=== PATIENT | female | born 1955 | race Caucasian/White ===

== ENCOUNTER 2020-07-05 11:00 | Outpatient (REF) | payer OTHER, SELFPAY ==
[2020-07-05 14:10] LABS: Hematocrit 36.4 % (37-47); Hemoglobin 11.6 g/dl (12.0-16.0); Mean Corpuscular HGB Conc 31.9 g/dl (31.0-35.0); Mean Corpuscular Hemoglobin 31.9 pg (27.0-33.0); Mean Platelet Volume 9.4 fL (9.4-12.3); Platelet Count 250 X10*3/uL (160-400); Red Blood Count 3.64 X10*6/uL (4.20-5.50); Red Cell Distribution Width 13.6 % (11.0-16.0); White Blood Count 6.3 X10*3/uL (4.8-10.8)
[2020-07-05 14:17] LABS: Glucose Urine UA NEG (NEG); Leukocyte Esterase Urine NEG (NEG); Nitrite Urine NEG (NEG); PH 5.5 (5.0-8.0); Specific Gravity - Urine 1.025 (1.005-1.025); Urine Blood TRACE (NEG); Urine Ketones NEG (NEG); Urine Protein TRACE MG/DL (NEG-TRACE)
[2020-07-05 14:20] LABS: Appearance Urine HAZY; Color Urine YELLOW
[2020-07-05 14:27] LABS: Anion Gap 13 (12-20); Blood Urea Nitrogen 25 mg/dL (9-16); Calcium 8.4 mg/dL (8.4-10.2); Carbon Dioxide 26 mmol/L (22-29); Chloride 105 mmol/L (96-108); Estimated Glomerular Filt Rate 19; Potassium 4.6 mmol/l (3.3-5.1); Sodium 139 mmol/L (135-145); Squamous Epithelial Cell Urine 2+ /LPF; WBC Urine 0 /HPF (0-4)
[2020-07-05 14:49] LABS: Vitamin D 25-OH Total 36.4 ng/mL (>30)
== END 2020-07-05 11:01 | disposition home or self-care (01) ==
LOC: HO.HMGCLDS 11:00
PROVIDERS: PCP Internal Medicine; Visit Provider Internal Medicine Nephrology
DX: N18.4 Chronic kidney disease, stage 4 (severe) (principal)
CPT/HCPCS: 36415; 80051; 81001; 81003; 82306; 82310; 82565; 84520; 85027

== ENCOUNTER 2020-08-06 15:47 | Outpatient (REF) | payer OTHER, SELFPAY ==
--- NOTE | 2020-08-06 15:52 | MM_ITS ---
EXAMINATION: MM SCREENING DIGITAL BREAST TOMOSYNTHESIS, BILATERAL CLINICAL INFORMATION: Screening. Asymptomatic. The lifetime risk of breast cancer based on the Tyrer-Cuzick Model is 10.6%. COMPARISON: Mammography: December 23, 2018 and studies dating back to August 09, 2012 TECHNIQUE: Digital breast tomosynthesis is performed in both the craniocaudal and mediolateral oblique views along with computer-aided detection (CAD). Synthesized 2D images are generated from the tomosynthesis. FINDINGS: There are scattered areas of fibroglandular density (ACR BI-RADS breast composition Category b). There are no significant masses, abnormal calcifications, or other abnormalities. MM/MM tomosynthesis screening BI IMPRESSION: There are no significant changes from prior study. ASSESSMENT: BI-RADS 1: Negative RECOMMENDATION: Routine annual mammography screening. This patient's information was entered into a reminder system with a target due date for their next mammogram.
== END 2020-08-06 15:48 | disposition home or self-care (01) ==
LOC: HO.MAMMO 15:47
PROVIDERS: PCP Internal Medicine; Visit Provider Internal Medicine
DX: Z12.31 Encounter for screening mammogram for malignant neoplasm of breast (principal)
CPT/HCPCS: 77063; 77067

== ENCOUNTER 2020-10-23 10:02 | Outpatient (REF) | payer OTHER, SELFPAY ==
[2020-10-23 11:35] LABS: Hematocrit 36.3 % (37-47); Hemoglobin 11.7 g/dl (12.0-16.0); Mean Corpuscular HGB Conc 32.2 g/dl (31.0-35.0); Mean Corpuscular Hemoglobin 31.2 pg (27.0-33.0); Mean Corpuscular Volume 96.8 fL (80-98); Mean Platelet Volume 9.7 fL (9.4-12.3); Platelet Count 264 X10*3/uL (160-400); Red Blood Count 3.75 X10*6/uL (4.20-5.50); Red Cell Distribution Width 13.1 % (11.0-16.0); White Blood Count 5.9 X10*3/uL (4.8-10.8)
[2020-10-23 11:50] LABS: Appearance Urine HAZY; Color Urine YELLOW; Glucose Urine UA NEG (NEG); Leukocyte Esterase Urine TRACE (NEG); Nitrite Urine NEG (NEG); Urine Blood TRACE (NEG); Urine Ketones NEG (NEG); Urine Protein TRACE MG/DL (NEG-TRACE)
[2020-10-23 11:54] LABS: Anion Gap 15 (12-20); Blood Urea Nitrogen 30 mg/dL (9-16); Calcium 8.6 mg/dL (8.4-10.2); Carbon Dioxide 25 mmol/L (22-29); Chloride 104 mmol/L (96-108); Estimated Glomerular Filt Rate 23; Potassium 3.8 mmol/L (3.3-5.1); Sodium 140 mmol/L (135-145)
[2020-10-23 12:02] LABS: Vitamin D 25-OH Total 40.1 ng/mL (>30)
[2020-10-23 12:03] LABS: Bacteria Urine 2+ /LPF; Mucus Urine 3+ /LPF; RBC Urine 0-2 /HPF (0); Squamous Epithelial Cell Urine 3+ /LPF
[2020-10-24 14:02] LABS: Calcium (PTHI) 9.1 mg/dL (8.6-10.4); PTHI 111 pg/mL (14-64)
== END 2020-10-23 10:03 | disposition home or self-care (01) ==
LOC: HO.HMGCLDS 10:02
PROVIDERS: PCP Internal Medicine; Visit Provider Internal Medicine Nephrology
DX: N18.4 Chronic kidney disease, stage 4 (severe) (principal)
CPT/HCPCS: 36415; 80051; 81001; 82306; 82310; 82565; 83970; 84520; 85027

== ENCOUNTER 2021-02-21 13:31 | Outpatient (REF) | payer OTHER, SELFPAY ==
[2021-02-26 15:22] LABS: HPV mRNA E6/E7 rflx Not Detected (Not Detected)
== END 2021-02-21 13:32 | disposition home or self-care (01) ==
LOC: HO.LAB 13:31
PROVIDERS: PCP Internal Medicine; Visit Provider Advanced Practice Midwife
DX: Z01.419 Encounter for gynecological examination (general) (routine) without abnormal findings (principal); Z11.51 Encounter for screening for human papillomavirus (HPV)
CPT/HCPCS: 87624; 88142

== ENCOUNTER 2021-03-15 13:19 | Outpatient (REF) | payer OTHER, SELFPAY ==
[2021-03-15 15:38] LABS: Hematocrit 34.9 % (37-47); Hemoglobin 11.1 g/dl (12.0-16.0); Mean Corpuscular HGB Conc 31.8 g/dl (31.0-35.0); Mean Corpuscular Hemoglobin 31.1 pg (27.0-33.0); Mean Corpuscular Volume 97.8 fL (80-98); Mean Platelet Volume 9.8 fL (9.4-12.3); Platelet Count 238 X10*3/uL (160-400); Red Blood Count 3.57 X10*6/uL (4.20-5.50); Red Cell Distribution Width 13.2 % (11.0-16.0); White Blood Count 6.8 X10*3/uL (4.8-10.8)
[2021-03-15 15:40] LABS: Glucose Urine UA NEG (NEG); Leukocyte Esterase Urine NEG (NEG); Nitrite Urine NEG (NEG); Specific Gravity - Urine 1.025 (1.005-1.025); Urine Blood 1+ (NEG); Urine Ketones NEG (NEG); Urine Protein 1+ MG/DL (NEG-TRACE)
[2021-03-15 15:43] LABS: Appearance Urine CLEAR; Color Urine YELLOW
[2021-03-15 15:46] LABS: Anion Gap 12 (12-20); Blood Urea Nitrogen 23 mg/dL (9-16); Calcium 8.8 mg/dL (8.4-10.2); Carbon Dioxide 22 mmol/L (22-29); Chloride 109 mmol/L (96-108); Estimated Glomerular Filt Rate 21; Potassium 3.7 mmol/L (3.3-5.1); Sodium 139 mmol/L (135-145)
[2021-03-15 15:51] LABS: Bacteria Urine 1+ /LPF; Hyaline Casts Urine 0-2 /LPF; Squamous Epithelial Cell Urine 2+ /LPF
[2021-03-15 16:09] LABS: Vitamin D 25-OH Total 37.4 ng/mL (>30)
[2021-03-15 16:16] LABS: Microalbum/Creatinine Ratio Ur 21.9 ug/mg cr
[2021-03-18 15:11] LABS: Calcium (PTHI) 8.9 mg/dL (8.6-10.4); PTHI 173 pg/mL (14-64)
== END 2021-03-15 13:20 | disposition home or self-care (01) ==
LOC: HO.HMGCLDS 13:19
PROVIDERS: PCP Internal Medicine; Visit Provider Internal Medicine Nephrology
DX: N18.4 Chronic kidney disease, stage 4 (severe) (principal)
CPT/HCPCS: 36415; 80051; 81001; 82043; 82306; 82310; 82565; 83970; 84520; 85027

== ENCOUNTER 2021-05-14 09:10 | Outpatient (REF) | payer OTHER, SELFPAY ==
--- NOTE | ~2021-05-14 | XR_ITS ---
EXAMINATION: XR CHEST CLINICAL INFORMATION: Chest pain COMPARISON: Previous chest x-ray July 2012 and December 2009 TECHNIQUE: 2 views of the chest were obtained. FINDINGS: The cardiac and mediastinal contours are normal. There is a 9 mm nodule that projects over the left upper lung. This is similar to previous exams and probably represents a calcified granuloma. There is subsegmental atelectasis at the right lung base. There is a small to moderate right pleural effusion. There is no left pleural effusion. There is no pneumothorax. Bony structures are unremarkable. XR/XR chest 2V IMPRESSION: [id number] right pleural effusion and right base atelectasis. 9 mm left pulmonary nodule probably representing a calcified granuloma.
== END 2021-05-14 09:11 | disposition home or self-care (01) ==
LOC: HO.HMGCX 09:10
PROVIDERS: PCP Internal Medicine; Visit Provider Internal Medicine
DX: Z13.89 Encounter for screening for other disorder (principal)
CPT/HCPCS: 71046

== ENCOUNTER 2021-08-13 10:00 | Outpatient (REF) | payer OTHER, SELFPAY ==
--- NOTE | ~2021-08-13 | MM_ITS ---
EXAMINATION: MM SCREENING DIGITAL BREAST TOMOSYNTHESIS, BILATERAL CLINICAL INFORMATION: Screening. Asymptomatic. The lifetime risk of breast cancer based on the Tyrer-Cuzick Model is 13%. COMPARISON: Mammography: 08/06/2020, 12/23/2018, 12/07/2017 TECHNIQUE: Digital breast tomosynthesis is performed in both the craniocaudal and mediolateral oblique views along with computer-aided detection (CAD). Synthesized 2D images are generated from the tomosynthesis. FINDINGS: There are scattered areas of fibroglandular density (ACR BI-RADS breast composition Category b). There are no significant masses, abnormal calcifications, or other abnormalities. Parenchymal pattern is similar to prior studies. There is no developing density or interval mass or architectural abnormality. The axilla and skin contours are unremarkable. No significant changes. MM/MM tomosynthesis screening BI IMPRESSION: No mammographic evidence of malignancy. ASSESSMENT: BI-RADS 1: Negative RECOMMENDATION: Routine annual mammography screening. This patient's information was entered into a reminder system with a target due date for their next mammogram.
== END 2021-08-13 10:01 | disposition home or self-care (01) ==
LOC: HO.MAMMO 10:00
PROVIDERS: Visit Provider Internal Medicine
DX: Z12.31 Encounter for screening mammogram for malignant neoplasm of breast (principal)
CPT/HCPCS: 77063; 77067

== ENCOUNTER 2021-08-16 14:02 | Outpatient (REF) | payer OTHER, SELFPAY ==
--- NOTE | ~2021-08-16 | MM_ITS ---
EXAMINATION: BONE DENSITOMETRY CLINICAL INDICATION: Postmenopausal. Encounter for screening for osteoporosis. COMPARISON: Baseline BD dated 02/04/2008. TECHNIQUE: Using a truedash DXA System (software version: 13.1) manufactured by [employer], dual-energy x-ray absorptiometry was performed of the lumbar spine and left hip. The images are of good technical quality. Summary results are attached. FINDINGS: AP SPINE L1-L4: Current: BMD 1.294 g/cm2, Z-score 1.7, T-score 0.9, normal, 7.3% decrease from baseline (<5% change is not significant). Baseline: BMD 1.396 g/cm2. LEFT FEMUR, NECK: Current: BMD 0.684 g/cm2, Z-score -1.6, T-score -2.5, osteoporosis. Baseline: BMD 1.040 g/cm2. LEFT FEMUR, TOTAL: Current: BMD 0.847 g/cm2, Z-score -0.7, T-score -1.3, osteopenia, 27.9% decrease from baseline (<5% change is not significant). Baseline: BMD 1.175 g/cm2. IDENTIFIED RISK FACTORS: Menopause. Renal disease. HISTORY OF FRACTURE: None listed. MEDICATIONS: Vitamin D. MM/XR DEXA axial skeleton IMPRESSION: 1. DIAGNOSIS: Osteoporosis based on the lowest T-score value of -2.5 in the femoral neck applying World Health Organization criteria. 2. 10-YEAR FRACTURE RISK PREDICTION, FRAX: According to the guidelines, FRAX calculation should only be performed on patients in the osteopenia bone density category. 3. Treatment Recommendations: NOF guidelines recommend consideration for treatment in postmenopausal women and men age 50 and older presenting with the following: -A hip or vertebral (clinical or morphometric) fracture. -T-score less than or equal to -2.5 at the femoral neck or spine after appropriate evaluation to exclude secondary causes. -Low bone mass at the hip or spine and a 10-year fracture probability by FRAX of greater than or equal to 3% for hip fracture or greater than or equal to 20% for major osteoporotic fracture based on the [place] adapted WHO algorithm. 4. Other Recommendations: All treatment decisions require clinical judgment and consideration of individual patient factors, including patient preferences, comorbidities, previous drug use, risk factors not captured in the FRAX model (e.g. frailty, falls, vitamin D deficiency, increased bone turnover, interval significant decline in bone density) and possible under or overestimation of fracture risk by FRAX. Additional medical evaluation for secondary cause of low bone mineral density may be appropriate. FUTURE SCAN RECOMMENDATION: People with diagnosed cases of osteoporosis or at high risk for fracture should have regular bone mineral density tests. For patients eligible for Medicare, routine testing is allowed once every 2 years. The testing frequency can be increased to one year for patients who have rapidly progressing disease, those who are receiving or discontinuing medical therapy to restore bone mass, or have additional risk factors.
== END 2021-08-16 14:03 | disposition home or self-care (01) ==
LOC: HO.MAMMO 14:02
PROVIDERS: Visit Provider Internal Medicine
DX: Z13.820 Encounter for screening for osteoporosis (principal); M81.0 Age-related osteoporosis without current pathological fracture; Z78.0 Asymptomatic menopausal state; N18.4 Chronic kidney disease, stage 4 (severe); D63.1 Anemia in chronic kidney disease; Z79.899 Other long term (current) drug therapy
CPT/HCPCS: 77080

== ENCOUNTER 2021-08-22 10:45 | Outpatient (REF) | payer OTHER, SELFPAY ==
[2021-08-22 13:48] LABS: Appearance Urine CLOUDY; Color Urine STRAW; Glucose Urine UA NEG (NEG); Leukocyte Esterase Urine 1+ (NEG); Nitrite Urine NEG (NEG); Specific Gravity - Urine >= 1.030 (1.005-1.025); Urine Blood 1+ (NEG); Urine Ketones NEG (NEG); Urine Protein 1+ MG/DL (NEG-TRACE)
[2021-08-22 13:55] LABS: Hematocrit 36.1 % (37.0-47.0); Hemoglobin 11.5 g/dl (12.0-16.0); Mean Corpuscular HGB Conc 31.9 g/dl (31.0-35.0); Mean Corpuscular Hemoglobin 32.2 pg (27.0-33.0); Mean Corpuscular Volume 101.1 fL (80.0-98.0); Mean Platelet Volume 9.4 fL (9.4-12.3); Platelet Count 253 X10*3/uL (160-400); Red Blood Count 3.57 X10*6/uL (4.20-5.50); Red Cell Distribution Width 15.1 % (11.0-16.0); White Blood Count 6.5 X10*3/uL (4.8-10.8)
[2021-08-22 13:58] LABS: Amorphous Sediment Urine 1+ /LPF; Bacteria Urine 2+ /LPF; Granular Casts Urine 0-2 /LPF; Squamous Epithelial Cell Urine 3+ /LPF
[2021-08-22 14:12] LABS: Anion Gap 13 (12-20); Blood Urea Nitrogen 23 mg/dL (9-16); Calcium 9.3 mg/dL (8.4-10.2); Carbon Dioxide 28 mmol/L (22-29); Chloride 102 mmol/L (96-108); Estimated Glomerular Filt Rate 19; Potassium 4.2 mmol/L (3.3-5.1); Sodium 139 mmol/L (135-145)
[2021-08-22 14:17] LABS: Creatinine Urine 202.39 mg/dL; Microalbum/Creatinine Ratio Ur 34.5 ug/mg cr
[2021-08-22 14:37] LABS: Vitamin D 25-OH Total 43.9 ng/mL (>30)
== END 2021-08-22 10:46 | disposition home or self-care (01) ==
LOC: HO.HMGCLDS 10:45
PROVIDERS: Absent Provider Internal Medicine Nephrology; PCP Internal Medicine; Visit Provider Internal Medicine
DX: N18.4 Chronic kidney disease, stage 4 (severe) (principal); N12 Tubulo-interstitial nephritis, not specified as acute or chronic
CPT/HCPCS: 36415; 80051; 81001; 82043; 82306; 82310; 82565; 84520; 85027

== ENCOUNTER 2021-12-31 10:48 | Outpatient (REF) | payer MEDICARE, OTHER, SELFPAY ==
[2021-12-31 13:43] LABS: MANUAL DIFF FLAG NO
[2021-12-31 13:50] LABS: Basophils Percent Auto 0.3 % (0-2); Eosinophils Absolute Auto 0.1 X10*3/uL (0.0-0.4); Eosinophils Percent Auto 1.6 % (0-4); Hematocrit 35.9 % (37.0-47.0); Hemoglobin 11.5 g/dl (12.0-16.0); Imm Gran Abs Auto 0.02 X10*3/uL (0.00-0.03); Imm Gran Pct Auto 0.3 % (0.0-0.4); Lymphocytes Absolute Auto 1.3 X10*3/uL (1.2-4.9); Lymphocytes Percent Auto 21.7 % (20-40); Mean Corpuscular Hemoglobin 31.8 pg (27.0-33.0); Mean Corpuscular Volume 99.2 fL (80.0-98.0); Mean Platelet Volume 9.7 fL (9.4-12.3); Monocytes Absolute Auto 0.5 X10*3/uL (0.1-1.2); Monocytes Percent Auto 7.3 % (2-11); Neutrophils Absolute Auto 4.2 x10*3/uL (2.0-8.3); Neutrophils Percent Auto 68.8 % (45-73); Platelet Count 233 X10*3/uL (160-400); Red Blood Count 3.62 X10*6/uL (4.20-5.50); Red Cell Distribution Width 13.7 % (11.0-16.0); White Blood Count 6.2 X10*3/uL (4.8-10.8)
[2021-12-31 13:54] LABS: Appearance Urine CLEAR; Color Urine STRAW; Glucose Urine UA NEG (NEG); Leukocyte Esterase Urine 1+ (NEG); Nitrite Urine NEG (NEG); PH 5.5 (5.0-8.0); Specific Gravity - Urine <= 1.005 (1.005-1.025); Urine Blood TRACE (NEG); Urine Ketones NEG (NEG); Urine Protein NEG (NEG-TRACE)
[2021-12-31 14:00] LABS: Anion Gap 12 (12-20); Blood Urea Nitrogen 24 mg/dL (9-16); Calcium 9.2 mg/dL (8.4-10.2); Carbon Dioxide 24 mmol/L (22-29); Chloride 103 mmol/L (96-108); Estimated Glomerular Filt Rate 19; Potassium 4.7 mmol/L (3.3-5.1); Sodium 134 mmol/L (135-145)
[2021-12-31 14:22] LABS: Vitamin D 25-OH Total 35.2 ng/mL (>30)
[2021-12-31 14:23] LABS: Creatinine Urine 30.29 mg/dL; Microalbum/Creatinine Ratio Ur 26.4 ug/mg cr
[2021-12-31 14:44] LABS: RBC Urine 0-2 /HPF (0); Squamous Epithelial Cell Urine 1+ /LPF
[2021-12-31 14:45] LABS: Bacteria Urine 1+ /LPF
[2022-01-01 14:11] LABS: Calcium (PTHI) 8.8 mg/dL (8.6-10.4); PTHI 149 pg/mL (16-77)
== END 2021-12-31 10:49 | disposition home or self-care (01) ==
LOC: HO.HMGCLDS 10:48
PROVIDERS: PCP Internal Medicine; Visit Provider Internal Medicine Nephrology
DX: N18.4 Chronic kidney disease, stage 4 (severe) (principal); N12 Tubulo-interstitial nephritis, not specified as acute or chronic
CPT/HCPCS: 36415; 80051; 81001; 82043; 82306; 82310; 82565; 83970; 84520; 85025

== ENCOUNTER → 2022-03-07 14:00 | Outpatient (BNVA) | payer MEDICARE, OTHER, SELFPAY | PROVIDERS: PCP Internal Medicine; Visit Provider Internal Medicine Endocrinology, Diabetes & Metabolism | DX: M81.0 Age-related osteoporosis without current pathological fracture (principal) | CPT/HCPCS: 99202 ==

== ENCOUNTER 2022-04-01 15:08 | Outpatient (REF) | payer MEDICARE, OTHER, SELFPAY ==
[2022-04-02 11:05] LABS: BV Int Neg Control Negative (Negative); BV Int Pos Control Positive (Positive)
[2022-04-05 14:37] LABS: HPV mRNA E6/E7 rflx Not Detected (Not Detected)
== END 2022-04-01 15:09 | disposition home or self-care (01) ==
LOC: HO.LAB 15:08
PROVIDERS: Visit Provider Advanced Practice Midwife
DX: Z01.419 Encounter for gynecological examination (general) (routine) without abnormal findings (principal); Z11.51 Encounter for screening for human papillomavirus (HPV)
CPT/HCPCS: 87480; 87510; 87624; 87660; 88142

== ENCOUNTER 2022-04-24 14:49 | Outpatient (REF) | payer MEDICARE, OTHER, SELFPAY ==
[2022-04-24 15:15] LABS: COVID-19 Test Positive (Negative); IDNOW Serial# 16C4AD1C
== END 2022-04-24 14:50 | disposition home or self-care (01) ==
LOC: HO.LAB 14:49
PROVIDERS: Visit Provider Internal Medicine
DX: Z20.822 Contact with and (suspected) exposure to COVID-19 (principal)
CPT/HCPCS: 87635; C9803

== ENCOUNTER 2022-05-08 10:17 | Outpatient (REF) | payer MEDICARE, OTHER, SELFPAY ==
[2022-05-08 11:39] LABS: Appearance Urine Clear; Color Urine Yellow; Glucose Urine UA Negative (Negative); Leukocyte Esterase Urine Moderate (2+) (Negative); Nitrite Urine Negative (Negative); Specific Gravity - Urine <= 1.005 (1.005-1.025); Urine Blood Negative (Negative); Urine Ketones Negative (Negative); Urine Protein Negative (Neg-Trace)
[2022-05-08 11:45] LABS: Bacteria Urine None Seen (None Seen); Hyaline Casts Urine 0-2 /LPF (0-2); RBC Urine 0-2 /HPF (0-2)
[2022-05-08 11:50] LABS: UACC Culture Trigger YES
[2022-05-08 12:13] LABS: Anion Gap 15 (12-20); Blood Urea Nitrogen 35 mg/dL (9-16); Calcium 8.9 mg/dL (8.4-10.2); Carbon Dioxide 22 mmol/L (22-29); Chloride 102 mmol/L (96-108); Estimated Glomerular Filt Rate 22; Potassium 4.7 mmol/L (3.3-5.1); Sodium 134 mmol/L (135-145)
[2022-05-08 12:13] LABS: Creatinine Urine 27.95 mg/dL; Microalbum/Creatinine Ratio Ur 35.7 ug/mg cr; Total Protein Urine Random < 7 mg/dL (<12)
[2022-05-08 12:34] LABS: Vitamin D 25-OH Total 39.5 ng/mL (>30)
[2022-05-09 12:06] LABS: Calcium (PTHI) 8.7 mg/dL (8.6-10.4); PTHI 236 pg/mL (16-77)
== END 2022-05-08 10:18 | disposition home or self-care (01) ==
LOC: HO.HMGCLDS 10:17
PROVIDERS: PCP Internal Medicine; Visit Provider Internal Medicine Nephrology
DX: N18.4 Chronic kidney disease, stage 4 (severe) (principal); N12 Tubulo-interstitial nephritis, not specified as acute or chronic; E55.9 Vitamin D deficiency, unspecified
CPT/HCPCS: 36415; 80051; 81001; 82043; 82306; 82310; 82565; 83970; 84156; 84520; 87086

== ENCOUNTER 2022-08-14 10:21 | Outpatient (REF) | payer MEDICARE, OTHER, SELFPAY ==
--- NOTE | ~2022-08-14 | MM_ITS ---
EXAMINATION: MM SCREENING DIGITAL BREAST TOMOSYNTHESIS, BILATERAL CLINICAL INFORMATION: Screening. Asymptomatic. The lifetime risk of breast cancer based on the Tyrer-Cuzick Model is 12.8%. COMPARISON: Mammography: August 13, 2021 and studies dating back to October 17, 2015 TECHNIQUE: Digital breast tomosynthesis is performed in both the craniocaudal and mediolateral oblique views along with computer-aided detection (CAD). Synthesized 2D images are generated from the tomosynthesis. FINDINGS: There are scattered areas of fibroglandular density (ACR BI-RADS breast composition Category b). There are no significant masses, abnormal calcifications, or other abnormalities. MM/MM tomosynthesis screening BI IMPRESSION: No significant changes from prior exam. ASSESSMENT: BI-RADS 1: Negative RECOMMENDATION: Routine annual mammography screening. This patient's information was entered into a reminder system with a target due date for their next mammogram.
== END 2022-08-14 10:22 | disposition home or self-care (01) ==
LOC: HO.MAMMO 10:21
PROVIDERS: PCP Internal Medicine; Visit Provider Internal Medicine
DX: Z12.31 Encounter for screening mammogram for malignant neoplasm of breast (principal)
CPT/HCPCS: 77063; 77067

== ENCOUNTER 2022-12-02 10:42 | Outpatient (REF) | payer MEDICARE, OTHER, SELFPAY ==
[2022-12-02 14:25] LABS: Appearance Urine Cloudy; Color Urine Yellow; Glucose Urine UA Negative (Negative); Leukocyte Esterase Urine Large (3+) (Negative); Nitrite Urine Positive (Negative); PH 5.5 (5.0-9.0); Specific Gravity - Urine <= 1.005 (1.005-1.025); UMIC TRIGGER UA YES; Urine Blood Trace (Negative); Urine Ketones Negative (Negative); Urine Protein Trace mg/dL (Neg-Trace)
[2022-12-02 14:38] LABS: Anion Gap 14 (12-20); Blood Urea Nitrogen 24 mg/dL (9-16); Calcium 9.3 mg/dL (8.4-10.2); Carbon Dioxide 25 mmol/L (22-29); Chloride 100 mmol/L (96-108); Estimated Glomerular Filt Rate 22; Potassium 4.4 mmol/L (3.3-5.1); Sodium 135 mmol/L (135-145)
[2022-12-02 14:45] LABS: Vitamin D 25-OH Total 55.8 ng/mL (>30)
[2022-12-02 14:47] LABS: Bacteria Urine 4+ (None Seen); WBC Urine >50 /HPF (0-5)
[2022-12-02 14:48] LABS: Creatinine Urine 59.99 mg/dL; Protein/Creatinine Ratio, Ur 0.25 (<0.2); Total Protein Urine Random 15 mg/dL (<12)
[2022-12-04 13:33] LABS: Calcium (PTHI) 9.4 mg/dL (8.6-10.4); PTHI 123 pg/mL (16-77)
== END 2022-12-02 10:43 | disposition home or self-care (01) ==
LOC: HO.HMGCLDS 10:42
PROVIDERS: PCP Internal Medicine; Visit Provider Internal Medicine Nephrology
DX: N18.4 Chronic kidney disease, stage 4 (severe) (principal); N12 Tubulo-interstitial nephritis, not specified as acute or chronic; E55.9 Vitamin D deficiency, unspecified
CPT/HCPCS: 36415; 80051; 81001; 82043; 82306; 82310; 82565; 83970; 84156; 84520

== ENCOUNTER 2023-03-19 08:52 | Outpatient (REF) | payer MEDICARE, OTHER, SELFPAY ==
[2023-03-19 11:28] LABS: Appearance Urine Cloudy; Color Urine Yellow; Glucose Urine UA Negative (Negative); Leukocyte Esterase Urine Large (3+) (Negative); Nitrite Urine Negative (Negative); Specific Gravity - Urine 1.015 (1.005-1.025); UMIC TRIGGER UACC YES; Urine Blood Negative (Negative); Urine Ketones Negative (Negative); Urine Protein 30 (1+) mg/dL (Neg-Trace)
[2023-03-19 11:42] LABS: Bacteria Urine 2+ (None Seen); RBC Urine 0-2 /HPF (0-2); UACC Culture Trigger YES
== END 2023-03-19 08:53 | disposition home or self-care (01) ==
LOC: HO.HMGCLDS 08:52
PROVIDERS: PCP Internal Medicine; Visit Provider Dermatology
DX: N39.0 Urinary tract infection, site not specified (principal); L40.0 Psoriasis vulgaris
CPT/HCPCS: 81001; 87086

== ENCOUNTER 2023-05-07 10:43 | Outpatient (REF) | payer MEDICARE, OTHER, SELFPAY ==
[2023-05-07 13:26] LABS: Hematocrit 30.4 % (37.0-47.0); Mean Corpuscular HGB Conc 32.9 g/dl (31.0-35.0); Mean Corpuscular Hemoglobin 35.1 pg (27.0-33.0); Mean Corpuscular Volume 106.7 fL (80.0-98.0); Platelet Count 193 X10*3/uL (160-400); Red Blood Count 2.85 X10*6/uL (4.20-5.50); Red Cell Distribution Width 15.1 % (11.0-16.0); White Blood Count 6.5 X10*3/uL (4.8-10.8)
[2023-05-07 13:47] LABS: Appearance Urine Cloudy; Color Urine Yellow; Glucose Urine UA Negative (Negative); Leukocyte Esterase Urine Large (3+) (Negative); Nitrite Urine Negative (Negative); Specific Gravity - Urine <= 1.005 (1.005-1.025); UMIC TRIGGER UA YES; Urine Blood Trace (Negative); Urine Ketones Negative (Negative); Urine Protein Negative (Neg-Trace)
[2023-05-07 14:06] LABS: Anion Gap 14 (12-20); Blood Urea Nitrogen 16 mg/dL (9-16); Calcium 9.7 mg/dL (8.4-10.2); Carbon Dioxide 22 mmol/L (22-29); Chloride 105 mmol/L (96-108); Estimated Glomerular Filt Rate 24; Sodium 136 mmol/L (135-145)
[2023-05-07 14:14] LABS: Vitamin D 25-OH Total 53.6 ng/mL (>30)
[2023-05-07 14:43] LABS: Creatinine Urine 68.89 mg/dL; Microalbum/Creatinine Ratio Ur 15.9 ug/mg cr (<30)
[2023-05-07 15:09] LABS: Bacteria Urine 3+ (None Seen); Granular Casts Urine Present; RBC Urine 0-2 /HPF (0-2); Squamous Epithelial Cell Urine >20 /HPF (0-2); WBC Urine 21-50 /HPF (0-5)
[2023-05-08 15:55] LABS: Calcium (PTHI) 9.1 mg/dL (8.6-10.4); PTHI 110 pg/mL (16-77)
== END 2023-05-07 10:44 | disposition home or self-care (01) ==
LOC: HO.HMGCLDS 10:43
PROVIDERS: PCP Internal Medicine; Visit Provider Internal Medicine Nephrology
DX: N12 Tubulo-interstitial nephritis, not specified as acute or chronic (principal); N18.4 Chronic kidney disease, stage 4 (severe); E55.9 Vitamin D deficiency, unspecified
CPT/HCPCS: 36415; 80051; 81001; 82043; 82306; 82310; 82565; 82570; 83970; 84520; 85027

== ENCOUNTER 2023-06-18 10:40 | Outpatient (REF) | payer MEDICARE, OTHER, SELFPAY ==
[2023-06-18 14:25] LABS: Cholesterol 245 mg/dL (<200); Glucose Fasting 89 mg/dL (60-99); HDL Cholesterol 58 mg/dL (>40); LDL Cholesterol Calculated 160 mg/dL (<100); Triglycerides 136 mg/dL (<150)
== END 2023-06-18 10:41 | disposition home or self-care (01) ==
LOC: HO.HMGCLDS 10:40
PROVIDERS: PCP Internal Medicine; Visit Provider Internal Medicine
DX: Z00.01 Encounter for general adult medical examination with abnormal findings (principal); K52.832 Lymphocytic colitis; N18.4 Chronic kidney disease, stage 4 (severe)
CPT/HCPCS: 36415; 80061; 82947

== ENCOUNTER 2023-06-25 10:35 | Outpatient (AMB) | payer MEDICARE, OTHER, SELFPAY ==
--- NOTE | 2023-06-25 11:36 | A.OFFVIS_ITS ---
Intake Vital Signs 06/25/23 11:41 Height 5 ft 6 in Weight 174 lb BMI 28.1 BP 110/78 Blood Pressure Location Rt brachial Position Sitting Pulse 77 Pulse Source Pulse Oximeter Pulse Oximetry (%) 100 Oxygen Delivery Method Room Air Intake Visit Reasons: AWV G4038 Intake Note: pt is here for an AWV Allergies tetracycline [Tetracycline] Allergy (Severe, Verified 07/03/23 13:59) ANAPHYLAXIS, as a child, trouble breathing Medication List - Last Reconciled 06/25/23 by Sabrina Felix MD calcipotriene 0.005% topical calcipotriene-betamethasone 0.005-0.064 % topical BID cholecalciferol (vitamin D3) 1,250 mcg PO Q2W clobetasol 0.05% mL topical BID PRN ferrous sulfate 325 mg PO DAILY fluocinolone and shower cap 0.01 % (Mineola-Smoothe/FS Scalp Oil) 1 ea topical BEDTIME halobetasol propionate 0.05% topical BID nystatin 1 appl topical DAILY potassium chloride ER mEq PO sodium bicarbonate 1,950 mg PO BID triamcinolone acetonide 0.1% topical BID HPI AWV G4038 HPI Details AWV ? 67 year old lady presents today for her Annual Wellness Visit, initial visit.? She is up-to-date with her cholesterol and fasting blood sugar screening, done 06/18/2023, with former showing elevated LDL at 160 and triglycerides 136, with an HDL of 58. Fasting blood sugar are within normal limits. She is up-to-date with her screening mammogram, Pap smear in bone density scan Last colonoscopy screening was done in 03/01/2018 be repeated again in 10 years. Up-to-date with her flu shot and COVID booster as well as her pneumococcal vaccination and shingles vaccine and Tdap. ? Medical / Social History Reviewed? Past Medical History ?Yes . ? [place] of Care / Care Team list updated ?Yes . ? Surgical/Hospitalization History ?Yes . ? Current Medications (including OTC and supplements) ?Yes . ? Family History ?Yes . ? Tobacco Control form ?Yes . ? AUDIT-C (Alcohol use) form ?Yes . ? Illicit drug use in Social History ?Yes . ? Current diagnosis of depression? ?No ? Appropriate PHQ2/PHQ9 completed ?Yes . ? Data entered by ?Autom[employer] Service Station Mechanic and reviewed by provider ? Fall Risk ? Fall History? Have you had any falls with injury in the past year? ?No . ? Have you had two or more falls in the past year? ?No . ? Fall Risk Assessment: ?No falls in the past year . ? HRA filled out by the patient, reviewed by Provider and scanned. ? AWV ? Balance? Romberg ?Yes . ? Tandem walk ?Yes . ? Walk and Turn ?Yes . ? Rise from sit to stand ?Yes . ?Vision? Corrective lens ?none, sees Dr. Thomas ? Vision screen ?Hearing? Whisper test ?pass . ?Written Plan?Completed. See Patient Documents.? PFSH Medical History Secondary hyperparathyroidism Interstitial nephritis Hyperlipidemia Psoriasis vulgaris Abnormal Pap smear of cervix Osteoporosis Vulvar dermatitis Anemia due to chronic kidney disease Left Achilles tendinitis Kidney stones Chronic hypokalemia Lymphocytic colitis CKD (chronic kidney disease) stage 4, GFR 15-29 ml/min Surgical History Hx of colonoscopy H/O endoscopy History of colposcopy Family History Maternal Grandmother Breast cancer Maternal Aunt Breast cancer Colon cancer Sister Cervical cancer Social History Household Members: None Housing: House Alcohol intake: never Patient Tobacco Use Status: Never used Tobacco e-Cigarette/Vaping Use: Never Used service: Yes Current occupational status: retired Sexual orientation: Straight/Heterosexual Gender identity: Female Cognitive needs: No Hearing needs: No Vision needs: Yes Questionnaire Medicare Wellness Checkup What [age] 65-70 What gender do you identify with?: female During the past 4 weeks, how much have you been bothered by emotional problems s uch as feeling anxious, depressed, irritable, sad or downhearted, and blue?: not at all During the past 4 weeks, has your physical & emotional health limited your social activities with family, friends, neighbors, or groups?: not at all During the past 4 weeks, how much bodily pain have you generally had?: no pain During the past 4 weeks, was someone available to help you if you needed & wanted help?: yes, as much as I wanted During the past 4 weeks, what was the hardest physical activity you could do for at least 2 minutes?: very heavy Can you get to places out of walking distance without help? (For eg., can you travel alone on buses, taxis or drive your car?): Yes Can you go shopping for groceries or clothes without someone's help?: Yes Can you prepare your own meals?: Yes Can you do your housework without help?: Yes Because of any health problems, do you need the help of another person with your personal care needs such as eating, bathing, dressing or getting around the house?: No Can you handle your own money without help?: Yes During the past 4 weeks, how would you rate your health in general?: very good During the past 4 weeks how have things been going for you?: pretty well Are you having difficulties driving your car?: no Do you always fasten your seat belt when you are in a car?: yes, usually During past 4 weeks, have you been bothered by the following: never: Falling or dizzy when standing up, Sexual problems?, Teeth or denture problems?, Problems using the telephone? and Tiredness or fatigue? and seldom: Trouble eating well? Have you fallen 2 or more times in the past year?: No Are you afraid of falling?: No Are you a smoker?: no During the past 4 weeks, how many drinks of wine, beer, or other alcoholic beverages did you have?: no alcohol at all Do you exercise for about 20 minutes 3 or more times a week?: yes, some of the time Have you been given information to help with the following?: no: Hazards in your house that might hurt you? and no: Keeping track of your medications? How often do you have trouble taking medicines the way you have been told to take them?: I always take medicine as prescribed How confident are you that you can control & manage most of your health problems?: very confident What is your race?: White Mini Mental State Exam (MMSE) Orientation What is the (year) (season) (date) (day) (month)?: year (2022), season (Fall), date (06/25/2023), day () and month (May) Where are we (state) (county) (town or city) (hospital) (floor)?: state ([place]), county ([place]), town or city ([place]) and hospital/clinic ([facility]) Score Score: 9 Activity of Daily Living Bathing - sponge bath, tub bath or shower: receives no assistance (gets in/out by self, if usual bathing means Dressing - getting clothes from closets & drawers, including inner/outer garments & fasteners.: gets clothes & gets completely dressed without help Toileting - going to the 'toilet room' for urine/bowel elimination & cleaning self/arranging clothes: goes to toilet room, cleans self, arranges clothes without help Transfer: moves in & out of bed and chair without help (may use support object) Continence: has occasional 'accidents' Feeding: feeds self without help Total Score: 0 Information obtained from: patient Using telephone: independent Traveling: independent Shopping: independent Preparing meals: independent Housework: independent Taking medicine: independent Managing money: independent PHQ-9 Over the last 2 weeks, how often have you been bothered by any of the following problems? 1. Little interest or pleasure in doing things: not at all 2. Feeling down, depressed, or hopeless: not at all 3. Trouble falling or staying asleep, or sleeping too much: not at all 4. Feeling tired or having little energy: not at all 5. Poor appetite or overeating: not at all 6. Feeling bad about yourself - or that you are a failure or have let yourself or your family down: not at all 7. Trouble concentrating on things, such as reading the newspaper or watching television: not at all 8. Moving or speaking so slowly that other people could have noticed. Or the opposite - being so fidgety or restless that you have been moving around a lot more than usual: not at all 9. Thoughts that you would be better off or of hurting yourself in some way: not at all Total score: 0 Depression Screening Interpretation: Negative Depression Screening Done: Yes 71197 - PHQ-9 Billing: Yes Source: Developed by Drs. Yaniv Lake, Jyoti Wynn, Wagner Gr and colleagues, with an educational rosangela from [employer]. Physical Exam Vital Signs: Last Vital Signs Pulse 77 06/25/23 11:41 BP 110/78 06/25/23 11:41 Pulse Ox 100 06/25/23 11:41 Oxygen Delivery Method Room Air 06/25/23 11:41 BMI result Body Mass Index 28.1 Assessment & Plan Assessment & Plan (1) Encounter for initial annual wellness visit (AWV) in Medicare patient: Code(s): Z00.00 - Encounter for general adult medical examination without abnormal findings Plan: Medical wellness checklist, discussed with patient reviewed and updated. Copy given. (2) Advanced directives, counseling/discussion: Code(s): Z71.89 - Other specified counseling Plan: Initiated the conversation about Advanced Directives. Advanced Directives help patients prepare for current and future decisions about their medical treatment and place of care. Discussed with patient that it is a process where a patients current condition and prognosis are reviewed, their wishes for information regarding their illness are elicited, and likely medical dilemmas are presented and options discussed. MOLST and healthcare proxy form completed today. These forms can be amended as needed, reviewed yearly and make changes as needed (3) Secondary hyperparathyroidism: Code(s): N25.81 - Secondary hyperparathyroidism of renal origin Plan: Followed by Nephrology (4) Interstitial nephritis: Comment: Followed by Dr Frank Lane at [facility] Code(s): N12 - Tubulo-interstitial nephritis, not specified as acute or chronic Plan: Followed by Nephrology (5) Hyperlipidemia: Code(s): E78.5 - Hyperlipidemia, unspecified Plan: Continue with low-cholesterol diet (6) Psoriasis vulgaris: Comment: Sees Dr. Tina lawrence at [facility] Code(s): L40.0 - Psoriasis vulgaris Plan: Followed by dermatology (7) Osteoporosis: Code(s): M81.0 - Age-related osteoporosis without current pathological fracture (8) CKD (chronic kidney disease) stage 4, GFR 15-29 ml/min: Comment: Followed by Nephrology at [facility] Code(s): N18.4 - Chronic kidney disease, stage 4 (severe) (9) Anemia due to chronic kidney disease: Code(s): N18.9 - Chronic kidney disease, unspecified; D63.1 - Anemia in chronic kidney disease (10) Chronic hypokalemia: Code(s): E87.6 - Hypokalemia (11) Lymphocytic colitis: Code(s): K52.832 - Lymphocytic colitis Orders: Orders Lipid Panel 06/25/23 E78.5 - Hyperlipidemia, unspecified Quality Reporting (2019) Depression/Bipolar (159/160/161/177) PHQ-9: Total score: 0 Coding Level of Care Code Medicare First (G0438) Diagnoses Encounter for initial annual wellness visit (AWV) in Medicare patient Z00.00 Advanced directives, counseling/discussion Z71.89 Secondary hyperparathyroidism N25.81 Interstitial nephritis N12 Hyperlipidemia E78.5 Psoriasis vulgaris L40.0 Osteoporosis M81.0 CKD (chronic kidney disease) stage 4, GFR 15-29 ml/min N18.4 Anemia due to chronic kidney disease N18.9; D63.1 Chronic hypokalemia E87.6 Lymphocytic colitis K52.832 CPT Codes Advance Care Planning - Time spent: 16-45 minutes ([id number]) Advance Care Planning Advance Care Planning discussion: Completed/Scanned Date of discussion: 06/25/23 Who was present: patient Forms completed: Health Care Proxy and MOLST Time spent: 16-45 minutes Actual minutes spent: 16
[2023-06-25 11:41] VITALS: BP 110/78; PULSE 77; O2SAT 100; BMI 28.1
== END 2023-06-25 12:31 | disposition home or self-care (01) ==
PROVIDERS: Visit Provider Internal Medicine
DX: Z00.00 Encounter for general adult medical examination without abnormal findings (principal); N25.81 Secondary hyperparathyroidism of renal origin; N18.4 Chronic kidney disease, stage 4 (severe); N12 Tubulo-interstitial nephritis, not specified as acute or chronic; E78.5 Hyperlipidemia, unspecified; L40.0 Psoriasis vulgaris; N18.9 Chronic kidney disease, unspecified; M81.0 Age-related osteoporosis without current pathological fracture; D63.1 Anemia in chronic kidney disease; E87.6 Hypokalemia; K52.832 Lymphocytic colitis
CPT/HCPCS: 99497; G0438

== ENCOUNTER 2023-07-03 13:25 | Outpatient (REF) | payer MEDICARE, OTHER, SELFPAY ==
[2023-07-04 13:32] LABS: BV Int Neg Control Negative (Negative); BV Int Pos Control Positive (Positive)
== END 2023-07-03 13:26 | disposition home or self-care (01) ==
LOC: HO.LNP 13:25
PROVIDERS: PCP Internal Medicine; Visit Provider Advanced Practice Midwife
DX: Z01.419 Encounter for gynecological examination (general) (routine) without abnormal findings (principal); L29.2 Pruritus vulvae; N89.8 Other specified noninflammatory disorders of vagina
CPT/HCPCS: 87480; 87510; 87660

== ENCOUNTER 2023-07-03 13:25 | Outpatient (AMB) | payer MEDICARE, OTHER, SELFPAY ==
--- NOTE | 2023-07-03 13:41 | A.OFFVIS_ITS ---
Intake Vital Signs 07/03/23 13:42 Height 5 ft 6 in Weight 173 lb BMI 27.9 BP 112/70 Intake Visit Reasons: RN TELE annual exam Intake Note: psoriasis on private area The patient agreed to use of a medical billing associate during this encounter. Scribed for NESTOR Bethea by Irma Muñoz medical billing associate, on 07/03/2023 at 2:15 pm EST Badger Distiller Operator Required: No Information Interpreted: non-clinical & clinical Creative Project Manager: Creative Project Manager Present (Dacia Francis WINSTON) Accompanied by: Self / Same As Patient Allergies tetracycline [Tetracycline] Allergy (Severe, Verified 07/03/23 13:59) ANAPHYLAXIS, as a child, trouble breathing Post menopausal: Yes HPI HPI Comments History of Present Illness Details She is a postmenopausal woman presenting for annual exam. She attempts to eat a healthy diet. Hx of CKD, and reports little appetite. She lost her sense of taste in March, has lost almost 40lbs since. Has seen PCP. Not currently sexually active. Reports itching, greater at night. Hx of psoriasis, sees dermatology. Reports psoriasis on vulva area. Last pap smear 2021. Last mammogram 08/14/22. UTD on colonoscopy. PFSH Medical History Secondary hyperparathyroidism Interstitial nephritis Hyperlipidemia Psoriasis vulgaris Abnormal Pap smear of cervix Osteoporosis Vulvar dermatitis Anemia due to chronic kidney disease Left Achilles tendinitis Kidney stones Chronic hypokalemia Lymphocytic colitis CKD (chronic kidney disease) stage 4, GFR 15-29 ml/min Surgical History Hx of colonoscopy H/O endoscopy History of colposcopy Family History Maternal Grandmother Breast cancer Maternal Aunt Breast cancer Colon cancer Sister Cervical cancer Social History Household Members: None Housing: House Alcohol intake: never Patient Tobacco Use Status: Never used Tobacco e-Cigarette/Vaping Use: Never Used service: Yes Current occupational status: retired Sexual orientation: Straight/Heterosexual Gender identity: Female Cognitive needs: No Hearing needs: No Vision needs: Yes Female Reproductive History Menstrual Menopause type: natural Date of last pap smear: 04/03/22 Date of Mammogram: 08/14/22 Review of Systems Const All systems reviewed & are unremarkable except as noted in HPI and below Physical Exam Vital Signs: Last Vital Signs BP 112/70 07/03/23 13:42 BMI result Body Mass Index 27.9 Const General: cooperative, healthy appearing, no acute distress, well developed and alert Orientation/consciousness: patient oriented x3 HEENT Head: Yes normal to inspection Eyes General: appearance normal, both eyes and all related structures Neck Neck: Yes normal visual inspection Thyroid: Thyroid normal Chest Chest palpation & inspection: normal inspection of the chest Breast/axilla inspection: normal inspection of the breasts (no puckering, dimpling, peau de orange, retraction, discharge, masses) Breast/axilla palpation: normal palpation of the breasts Resp Effort & Inspection: normal respiratory effort GI Inspection: Yes normal to inspection Palpation (GI): Soft to palpation Rectal Exam - Female: deferred General: Yes bladder normal to palpation External Female Exam: normal external appearance, normal appearance of the urethra, erythema (chronic psoriasis) and external swelling Speculum Exam - Vagina: normal appearance of the vagina, normal palpation, abnormal vaginal discharge (yellow, watery) and vagina atrophic (moderate to severe-bled slightly with exam) Speculum Exam - Cervix: normal appearance of the cervix and normal palpation Bimanual exam- vagina & uterus: normal bimanual exam, normal palpation, uterine size normal, bladder normal to palpation and normal palpation Bimanual Exam- Adnexa, other: normal adnexae and no masses Skin General skin exam: no rashes or lesions noted Neuro General: patient oriented x3 Cognition (Neuro): normal cognition Extrem General: Yes normal to inspection Psych Attitude: cooperative Thought process: Normal thought process present Assessment & Plan Assessment & Plan (1) Encounter for well woman exam: Code(s): Z01.419 - Encounter for gynecological examination (general) (routine) without abnormal findings Plan: Discussed: Current recommendations for pap smears per ASCCP guidelines.? Breast awareness and periodic self breast exams. Encouraged yearly mammograms. Maintaining a healthy lifestyle including a well balanced diet including 1200mg Calcium and 600-800iu Vitamin D daily and routine exercise. Contact office with any PMB. All of her questions and concerns were addressed to the best of my ability. RTO in one year for AG. (2) Vulvar itching: Code(s): L29.2 - Pruritus vulvae Plan: Encouraged cool compresses to area. Follow up with Dermatology. Orders: Orders Bacterial Vaginosis Panel Today N89.8 - Other specified noninflammatory disorders of vagina Coding Level of Care Code Est Pt Prev Care >65y(70290) Diagnoses Encounter for well woman exam Z01.419 Vulvar itching L29.2
[2023-07-03 13:42] VITALS: BP 112/70; BMI 27.9
== END 2023-07-03 14:25 | disposition home or self-care (01) ==
PROVIDERS: PCP Internal Medicine; Visit Provider Advanced Practice Midwife
DX: Z01.419 Encounter for gynecological examination (general) (routine) without abnormal findings (principal); L29.2 Pruritus vulvae
CPT/HCPCS: 99397

== ENCOUNTER 2023-08-20 10:01 | Outpatient (REF) | payer MEDICARE, OTHER, SELFPAY | END 2023-08-20 10:02 | disposition home or self-care (01) | LOC: HO.MAMMO 10:01 | PROVIDERS: PCP Internal Medicine; Visit Provider Internal Medicine | DX: Z12.31 Encounter for screening mammogram for malignant neoplasm of breast (principal) | CPT/HCPCS: 77063; 77067 ==

== ENCOUNTER → 2023-08-20 10:45 | Outpatient (BNV) | payer MEDICARE, OTHER, SELFPAY | PROVIDERS: PCP Internal Medicine; Visit Provider Radiology Diagnostic Radiology | DX: Z12.31 Encounter for screening mammogram for malignant neoplasm of breast (principal) | CPT/HCPCS: 77063; 77067 ==

== ENCOUNTER 2023-09-19 15:51 | Inpatient (IN) | payer MEDICARE, OTHER, SELFPAY ==
--- NOTE | ~2023-09-19 | CT_ITS ---
EXAMINATION: CT HEAD WITHOUT CONTRAST (STROKE PROTOCOL) CLINICAL INFORMATION: Stroke protocol. Slurred speech COMPARISON: None available. TECHNIQUE: Contiguous axial imaging was performed from the skull base to vertex without intravenous administration of contrast. This CT examination was performed using dose optimization techniques as appropriate, variously including the following: *Automated exposure control *Adjustment of mA and/or kV according to patient size (this includes techniques or standardized protocols for targeted exams where dose is matched to indication/reason for exam; i.e. extremities or head) *Use of iterative reconstruction technique DLP: 640 mGy-cm FINDINGS: There is no evidence of acute intracranial hemorrhage or territorial infarction. No abnormal mass-effect or midline shift is seen. [place] to white matter differentiation is well preserved. No extra-axial fluid collections are identified. The ventricles are normal in size. There is no abnormal attenuation within the brain parenchyma. There is no osseous abnormality. The mastoid air cells and visualized portions of the paranasal sinuses are well-aerated. CT/CT head for stroke IMPRESSION: No acute intracranial pathology. This critical result was discussed with Dr. England at 4:48 PM hours on 09/19/2023. It was ascertained that the content and urgency of the report was understood at the time of direct communication.
--- NOTE | ~2023-09-19 | MR_ITS ---
EXAMINATION: MR BRAIN WITHOUT CONTRAST CLINICAL INFORMATION: CVA COMPARISON: CT head 09/19/2023 TECHNIQUE: MRI of the brain was obtained using routine sequences without contrast. FINDINGS: There is an acute punctate infarct along the periphery of the right parietotemporal lobe. Additional suspected hyperacute to acute infarct within the posterior left insula with associated diffusion restriction but relatively inconspicuous on T2 FLAIR imaging. No significant mass effect or reperfusion hemorrhage. No extra-axial fluid collection. Mild generalized parenchymal volume loss. Nonspecific burden of mild patchy supratentorial white matter disease which may reflect mild chronic microangiopathy. No mass lesion, mass effect, or herniation pattern. Normal intracranial arterial and dural venous sinus flow voids. Partially empty sella with the pituitary gland is situated somewhat posteriorly within the sella turcica. The orbits are grossly unremarkable. Trace paranasal sinus mucosal thickening. No mastoid effusion. Normal marrow signal. MR/MR head/brain wo con IMPRESSION: Acute punctate infarct along the periphery of the right parietotemporal lobe and additional punctate hyperacute to acute infarct within the posterior left insula with associated diffusion restriction but relatively inconspicuous on T2 FLAIR imaging. No significant mass effect or reperfusion hemorrhage.
--- NOTE | ~2023-09-19 | US_ITS ---
EXAMINATION: US EXTRACRANIAL CAROTID DUPLEX, BILATERAL CLINICAL INFORMATION: TIA COMPARISON: None available. TECHNIQUE: Real-time ultrasound and Doppler techniques (integrating B-mode 2-D vascular images, Doppler spectral analysis and color-flow Doppler imaging) were utilized to interrogate the extracranial carotid arteries, the vertebral arteries and proximal subclavian arteries bilaterally. The degree of stenosis is determined by criteria similar to NASCET. FINDINGS: Right Side: 1. There is no atherosclerotic plaque seen in the bifurcation/proximal ICA region. 2. The common carotid artery PSV proximally is 80 cm/s and distally 93 cm/s. 3. The proximal internal carotid artery velocities are 89 cm/s systolic and 32 cm/s diastolic. 4. The proximal external carotid artery PSV is 102 cm/s. 5. The vertebral artery shows antegrade flow. 6. The subclavian artery waveforms are normal. Left Side: 1. There is no atherosclerotic plaque seen in the bifurcation/proximal ICA region. 2. The common carotid artery PSV proximally is 94 cm/s and distally 79 cm/s. 3. The proximal internal carotid artery velocities are 67 cm/s systolic and 28 cm/s diastolic. 4. The proximal external carotid artery PSV is 79 cm/s. 5. The vertebral artery shows antegrade flow. 6. The subclavian artery waveforms are normal. US/US carotid duplex BI IMPRESSION: 1. RIGHT: Normal right internal carotid artery without atherosclerotic plaque or hemodynamically significant stenosis. 2. LEFT: Normal left internal carotid artery without atherosclerotic plaque or hemodynamically significant stenosis.
[2023-09-19 15:56] VITALS: BP 140/80; PULSE 76; O2SAT 98
[2023-09-19 16:04] VITALS: BP 136/78; PULSE 66; RESP 16; TEMP 36.6; O2SAT 100; BMI 27.6
--- NOTE | 2023-09-19 16:20 | ECG_ITS ---
Test Reason : CHEST PAIN Blood Pressure : / mmHG Vent. Rate : 063 BPM Atrial Rate : 063 BPM P-R Int : 166 ms QRS Dur : 076 ms QT Int : 382 ms P-R-T Axes : 044 -01 019 degrees QTc Int : 390 ms Normal sinus rhythm Normal ECG When compared with ECG of 20-AUG-2012 02:18, No significant change was found Referred By: Jessa England Electronically Signed By:MESERET DESIR
--- NOTE | 2023-09-19 16:21 | ED.NEUROSD ---
HPI - Neuro Symptoms/Deficit General Chief Complaint: Neuro Symptoms/Deficit Stated Complaint: Though she was having stroke, stroke scale neg. Time Seen by Provider: 09/19/23 16:11 History of Present Illness HPI Narrative: 67-year-old female presented today with having difficulty with finding the right word. This lasted over compensation with her brother. Patient denies any focal weakness did had some subjective tingling to the left hand during that time. There is no fever no chills no chest pain or shortness of breath no diaphoresis. There is no other focal weakness ambulatory no difficulties. No history diabetes, hypertension, high cholesterol, smoking, [place]. positive history of chronic kidney disease. Currently on the transplant list. Patient from home. New medications. No travel history. No leg swelling. Related Data Home Medications Medication Instructions Recorded Confirmed ferrous sulfate 325 mg (65 mg 325 mg PO DAILY 02/21/21 06/23/22 iron) tablet halobetasol propionate 0.05 % topical BID 02/21/21 06/23/22 topical ointment potassium chloride 10 mEq meq PO 02/21/21 06/23/22 tablet,extended release(part/cryst) sodium bicarbonate 650 mg tablet 1,950 mg PO BID 02/21/21 06/23/22 cholecalciferol (vitamin D3) 1,250 1,250 mcg PO Q2W 05/14/21 06/23/22 mcg (50,000 unit) capsule calcipotriene 0.005 % scalp topical 06/23/22 06/23/22 solution calcipotriene-betamethasone 0.005 topical BID 06/23/22 06/23/22 %-0.064 % topical suspension clobetasol 0.05 % scalp solution ml topical BID PRN 06/23/22 06/23/22 fluocinolone 0.01 % scalp oil and 1 ea topical BEDTIME 06/23/22 06/23/22 shower cap ([place]-Smoothe/FS Scalp Oil) triamcinolone acetonide 0.1 % topical BID 06/23/22 06/23/22 topical ointment Previous Rx's Medication Instructions Recorded nystatin 100,000 unit/gram topical 1 appl topical DAILY #30 grams 06/20/21 ointment Allergies Allergy/AdvReac Type Severity Reaction Status Date / Time tetracycline [Tetracycline] Allergy Severe ANAPHYLAXIS, Verified 07/03/23 13:59 as a child, trouble breathing Review of Systems Review of Systems: No chest pain or shortness breath no nausea no vomit Yes all other systems are reviewed and are negative PMFSH Past Medical History Attestation statement: The following information was validated with the patient. Onset Date is defined in the Problem List Problems that require an onset date and time if occurred within 24 hrs of arrival to the ED Aortic Dissection and Rupture; Neurologic impairment; Cardiopulmonary Arrest; Endotracheal Intubation; Insertion or Replacement of Mechanical Circulatory Assist Device Medical History Secondary hyperparathyroidism Interstitial nephritis Hyperlipidemia Psoriasis vulgaris Abnormal Pap smear of cervix Osteoporosis Vulvar dermatitis Anemia due to chronic kidney disease Left Achilles tendinitis Kidney stones Chronic hypokalemia Lymphocytic colitis CKD (chronic kidney disease) stage 4, GFR 15-29 ml/min Surgical History Hx of colonoscopy H/O endoscopy History of colposcopy Family History Family History Maternal Grandmother Breast cancer Maternal Aunt Breast cancer Colon cancer Sister Cervical cancer Social History Social History Household Members: None Housing: House Alcohol intake: never Patient Tobacco Use Status: Never used Tobacco Smoked in Last 30 Days: No e-Cigarette/Vaping Use: Never Used Advance Directives: Yes Advance Directives on File: Yes Advance Directives Date on File: 06/23/22 service: Yes Current occupational status: retired Sexual orientation: Straight/Heterosexual Gender identity: Female Cognitive needs: No Hearing needs: No Vision needs: Yes Physical Exam Vital Signs: Vital Signs: Last Vital Signs Temp 98 F 09/19/23 16:04 Pulse 75 09/19/23 18:31 Resp 14 09/19/23 18:31 BP 126/74 09/19/23 18:31 Pulse Ox 98 09/19/23 18:31 O2 Del Method Room Air 09/19/23 18:31 BMI result Body Mass Index 27.6 Appearance: Alert. Oriented X3. No acute distress. Eyes: Pupils equal, round and reactive to light. ENT: Pharynx normal. Neck: Normal inspection. Neck supple. No lymph nodes noted. No crepitus CVS: Normal heart rate and rhythm. Pulses normal. Normal S1 and S2 Respiratory: No respiratory distress. Breath sounds normal. No Wheezing. No rales Abdomen: Soft and nontender. No rigidity. No distention. good BS x4 Skin: Skin warm and dry. Normal skin color. Normal skin turgor. Extremities: No lower extremity edema. Neurovascular intact to all extremities. No Lacerations. No Rash Neuro: Oriented X 3. No motor deficit. No sensory deficit. Moving all extermities. No slurred speech Medical Decision Making Medical Decision Making [facility] Narrative: Patient is 67 years old presents today with having changes in her speech. There was no chest pain there is no diaphoresis or some numbness to her hand on arrival patient's NIH stroke scale was 0 symptom has resolved. Her CT scan of the head was grossly negative. A CTA was not done as patient has a history of chronic renal insufficiency her creatinine is 2. After consultation renal felt at this time better not to do the CTA and rely on an MRI instead. Patient will be getting a carotid to further check on the carotid vessels. Case discussed with her risks and benefit of further workup explained. Patient to be admitted for further monitoring. In stable condition case consulted by the hospitalist team as well. Patient's sugar was normal there is no evidence of hypoglycemia. Differential Diagnosis Differential Diagnoses: The differential diagnosis associated with the presentation includes Intracranial bleed, mass, hypoglycemia Admission/Observation Consideration of admission/observation: Escalation of care including admission/observation considered Will admit given TIA Consult Healthcare Provider Management of the patient was discussed with: Hospitalist and Facility Mechanic (Nephrology) Lab Data [facility] Lab Attestation statement: I reviewed the patient's lab results. 09/19/23 16:49 09/19/23 16:49 Labs: Lab Results 09/19/23 09/19/23 Range/Units 16:49 16:57 WBC 7.3 (4.8-10.8) X10*3/uL RBC 2.67 L (4.20-5.50) X10*6/uL Hgb 9.6 L (12.0-16.0) g/dl Hct 28.9 L (37.0-47.0) % MCV 108.2 H (80.0-98.0) fL MCH 36.0 H (27.0-33.0) pg MCHC 33.2 (31.0-35.0) g/dl RDW 14.6 (11.0-16.0) % Plt Count 158 L (160-400) X10*3/uL MPV 9.1 L (9.4-12.3) fL Immature Gran % (Auto) 0.4 (0.0-0.4) % Neut % (Auto) 75.4 H (45-73) % Lymph % (Auto) 15.6 L (20-40) % [place] % (Auto) 6.9 (2-11) % Eos % (Auto) 1.4 (0-4) % Baso % (Auto) 0.3 (0-2) % Lymph # (Auto) 1.1 L (1.2-4.9) X10*3/uL [place] # (Auto) 0.5 (0.1-1.2) X10*3/uL Eos # (Auto) 0.1 (0.0-0.4) X10*3/uL Baso # (Auto) 0.0 (0.0-0.2) X10*3/uL Abs Immat Gran (auto) 0.03 (0.00-0.03) X10*3/uL Absolute Neuts (auto) 5.5 (2.0-8.3) x10*3/uL Absolute Nucleated RBC 0.000 (0.0-0.012) X10*3/uL Nucleated RBC % (auto) 0.0 (0.0-0.2) /100WBC PT 10.4 L (11.1-13.3) SEC INR 0.9 (0.9-1.1) APTT 28.6 (26.0-36.4) SEC Sodium 138 (135-145) mmol/L Potassium 3.5 (3.3-5.1) mmol/L Chloride 110 H (96-108) mmol/L Carbon Dioxide 19 L (22-29) mmol/L Anion Gap 13 (12-20) BUN 28 H (9-16) mg/dL Creatinine 2.28 H (0.5-1.4) mg/dL Estim Creat Clear Calc 25.5 Estimated GFR 21 POC Glucose 91 (60-115) mg/dL Random Glucose 99 (60-115) mg/dL Calcium 9.4 (8.4-10.2) mg/dL Total Creatine Kinase 31 (26-140) U/L Troponin I High Sens 16.2 (<3.5-17.0) ng/L Independent Interpretation I performed an independent interpretation of an: EKG (My interpretation patient's EKG showed a sinus rhythm heart rate is 60 [place] QRS QTC within normal limits is no acute ST segment elevation noted.) and CT Scan (My interpretation patient's CT scan of the head was grossly negative for bleeding) Radiology Impression Discussion of test interpretation with radiology: I have reviewed the radiologist's reading. Radiologist Impression: I reviewed the radiology reading of the CT scan head with the radiologist. I reviewed his report. External Record Review External record reviewed: Inpatient record Chronic Conditions History of chronic renal disease NIH Stroke Scale Internal: Initial- Upon Arrival Time: 16:23 Level of Consciousness: Alert Level of Consciousness Questions: Answers both questions correctly Level of Consciousness Commands: Performs both tasks correctly Best Gaze: Normal Visual: No visual loss Facial Palsy: Normal Motor Arm (Right): No drift Motor Arm (Left): No drift Motor Leg (Right): No drift Motor Leg (Left): No drift Limb Ataxia: Absent Sensory: Normal Best Language: No aphasia Dysarthia: Normal Extinction and Inattention: No abnormality Score: 0 Discharge Plan Discharge Clinical Impression: Transient cerebral ischemia Patient Disposition: Admitted As Inpatient Prescriptions: No Action nystatin 100,000 unit/gram ointment 1 appl topical DAILY Qty: 30 4RF triamcinolone acetonide 0.1 % ointment topical BID fluocinolone and shower cap [[place]-Smoothe/FS Scalp Oil] 0.01 % oil 1 ea topical BEDTIME clobetasol 0.05 % solution topical BID PRN calcipotriene 0.005 % solution topical calcipotriene-betamethasone 0.005-0.064 % suspension topical BID ferrous sulfate 325 mg (65 mg iron) tablet 325 mg PO DAILY potassium chloride 10 mEq tablet,ER particles/crystals PO sodium bicarbonate 650 mg tablet 1,950 mg PO BID halobetasol propionate 0.05 % ointment topical BID cholecalciferol (vitamin D3) 1,250 mcg (50,000 unit) capsule 1,250 mcg PO Q2W
[2023-09-19 16:53] LABS: MANUAL DIFF FLAG NO
[2023-09-19 16:54] LABS: Basophils Percent Auto 0.3 % (0-2); Eosinophils Absolute Auto 0.1 X10*3/uL (0.0-0.4); Eosinophils Percent Auto 1.4 % (0-4); Hematocrit 28.9 % (37.0-47.0); Hemoglobin 9.6 g/dl (12.0-16.0); Imm Gran Abs Auto 0.03 X10*3/uL (0.00-0.03); Imm Gran Pct Auto 0.4 % (0.0-0.4); Lymphocytes Absolute Auto 1.1 X10*3/uL (1.2-4.9); Lymphocytes Percent Auto 15.6 % (20-40); Mean Corpuscular HGB Conc 33.2 g/dl (31.0-35.0); Mean Corpuscular Volume 108.2 fL (80.0-98.0); Mean Platelet Volume 9.1 fL (9.4-12.3); Monocytes Absolute Auto 0.5 X10*3/uL (0.1-1.2); Monocytes Percent Auto 6.9 % (2-11); Neutrophils Absolute Auto 5.5 x10*3/uL (2.0-8.3); Neutrophils Percent Auto 75.4 % (45-73); Platelet Count 158 X10*3/uL (160-400); Red Blood Count 2.67 X10*6/uL (4.20-5.50); Red Cell Distribution Width 14.6 % (11.0-16.0); White Blood Count 7.3 X10*3/uL (4.8-10.8)
[2023-09-19 17:00] LABS: INTERNATIONAL NORM RATIO 0.9 (0.9-1.1); Prothrombin Time 10.4 SEC (11.1-13.3)
[2023-09-19 17:01] LABS: Glucose, Whole Blood 91 mg/dL (60-115)
[2023-09-19 17:02] LABS: Partial Thromboplastin Time 28.6 SEC (26.0-36.4)
[2023-09-19 17:10] LABS: Anion Gap 13 (12-20); Blood Urea Nitrogen 28 mg/dL (9-16); Calcium 9.4 mg/dL (8.4-10.2); Carbon Dioxide 19 mmol/L (22-29); Chloride 110 mmol/L (96-108); Creatinine Clr Calc Pharmacy 25.5; Estimated Glomerular Filt Rate 21; Glucose Random 99 mg/dL (60-115); Potassium 3.5 mmol/L (3.3-5.1); Sodium 138 mmol/L (135-145)
[2023-09-19 17:17] LABS: Troponin-I High Sensitivity 16.2 ng/L (<3.5-17.0)
[2023-09-19 18:31] VITALS: BP 126/74; PULSE 75; RESP 14; O2SAT 98
--- NOTE | 2023-09-19 18:39 | PM.IMHP ---
History of Present Illness Date of Service: 09/19/23 Attending physician on admission: Huang Pritchard Chief Complaint: word finding difficulty 67 year old female with history of lymphocytic colitis, interstitial nephritis with CKD stage 4 following with [facility] on transplant list, secondary hyperparathyroidism, hld, and psoriasis presented to the ED earlier today for evaluation of an episode dysarthria around 2pm today. She was speaking with her brother on the phone and knew the words that she wanted to say but was unable to speak the correct words. This lasted for several minutes without recurrence. Following this episode felt paresthesias in the left hand only and had an episode of positional lightheadedness. No visual changes, slurred speech, facial droop, focal weakness, gait imbalance. No history of cva but states her mother and sister both from stroke. On arrival VSS. Hematology studies stable. Renal function baseline. Electrolytes normal, except for CO2 19 (has chronic diarrhea). Total CK 31, Trop 16.2. Lipid panel pending. Head CT negative for any acute intracranial abnormality. Passed bedside swallow eval. Given 162mg asa in ed. Pt to be observed for suspected TIA. TPA/TNK not administered given full resolution of symptoms on arrival. Review of Systems Review of Systems: General: No fevers, malaise, unintentional weight loss HEENT: No blurred vision, diplopia Cardiovascular: No chest pain, palpitations, or leg edema Respiratory: No shortness of breath, wheezing, cough GI: No abdominal pain, nausea, vomiting. +diarrhea : No dysuria, hematuria, increased urinary frequency MSK: No myalgia, back pain Neuro: No headaches, weakness.+ paresthesias, +dysarthria Skin: No rashes or lesions [facility] Medical History Secondary hyperparathyroidism Interstitial nephritis Hyperlipidemia Psoriasis vulgaris Abnormal Pap smear of cervix Osteoporosis Vulvar dermatitis Anemia due to chronic kidney disease Left Achilles tendinitis Kidney stones Chronic hypokalemia Lymphocytic colitis CKD (chronic kidney disease) stage 4, GFR 15-29 ml/min Family History Maternal Grandmother Breast cancer Maternal Aunt Breast cancer Colon cancer Sister Cervical cancer Surgical History Hx of colonoscopy H/O endoscopy History of colposcopy Social History Household Members: None Housing: House Alcohol intake: never Patient Tobacco Use Status: Never used Tobacco Smoked in Last 30 Days: No e-Cigarette/Vaping Use: Never Used Advance Directives: Yes Advance Directives on File: Yes Advance Directives Date on File: 06/23/22 service: Yes Current occupational status: retired Sexual orientation: Straight/Heterosexual Gender identity: Female Cognitive needs: No Hearing needs: No Vision needs: Yes Meds Allergies Allergy/AdvReac Type Severity Reaction Status Date / Time tetracycline [Tetracycline] Allergy Severe ANAPHYLAXIS, Verified 07/03/23 13:59 as a child, trouble breathing Active Medications: Current Medications Acetaminophen (Acetaminophen 325 Mg Tablet) 650 mg PO Q6H PRN PRN Reason: Pain, Mild (Pain Scale 1-3) Atorvastatin Calcium (Atorvastatin Calcium 40 Mg Tablet) 40 mg PO DAILY ANGI Ondansetron HCl (Ondansetron Hcl 4 Mg/2 Ml Vial) 4 mg IVPUSH Q8H PRN PRN Reason: Nausea and Vomiting Senna (Sennosides 8.6 Mg Tablet) 17.2 mg PO BEDTIME PRN PRN Reason: Constipation Home Medications Medication Instructions Recorded Confirmed Last Taken Type ferrous sulfate 325 mg (65 mg 325 mg PO DAILY 02/21/21 06/23/22 Unknown History iron) tablet halobetasol propionate 0.05 % topical BID 02/21/21 06/23/22 Unknown History topical ointment potassium chloride 10 mEq meq PO 02/21/21 06/23/22 Unknown History tablet,extended release(part/cryst) sodium bicarbonate 650 mg tablet 1,950 mg PO BID 02/21/21 06/23/22 Unknown History cholecalciferol (vitamin D3) 1,250 1,250 mcg PO Q2W 05/14/21 06/23/22 Unknown History mcg (50,000 unit) capsule calcipotriene 0.005 % scalp topical 06/23/22 06/23/22 Unknown History solution calcipotriene-betamethasone 0.005 topical BID 06/23/22 06/23/22 Unknown History %-0.064 % topical suspension clobetasol 0.05 % scalp solution ml topical BID PRN 06/23/22 06/23/22 Unknown History fluocinolone 0.01 % scalp oil and 1 ea topical BEDTIME 06/23/22 06/23/22 Unknown History shower cap ([place]-Smoothe/FS Scalp Oil) triamcinolone acetonide 0.1 % topical BID 06/23/22 06/23/22 Unknown History topical ointment Physical Exam Vital Signs and Narrative: Vital Signs: Last Vital Signs Temp 98 F 09/19/23 16:04 Pulse 75 09/19/23 18:31 Resp 14 09/19/23 18:31 BP 126/74 09/19/23 18:31 Pulse Ox 98 09/19/23 18:31 O2 Del Method Room Air 09/19/23 18:31 BMI result Body Mass Index 27.6 Constitutional - Awake and Alert, No apparent distress Eyes - PERRLA, EOMI Cardiovascular - S1S2, RRR, No edema Respiratory - Normal lung expansion, Normal respiratory effort, No respiratory distress, CTA bilaterally Gastrointestinal - NT / ND; +BS; No rebound or guarding Extremities - no calf tenderness bilaterally, no swelling Skin - Warm/Dry Neurological - Alert & oriented x3, CN II-XII in tact, 5/5 strength BUE and BLE. No pronator drift. Normal heel to flynn testing Psychological - Appropriate affect Results Labs 09/19/23 16:49 09/19/23 16:49 Labs: Laboratory Results - last 24 hr 09/19/23 09/19/23 16:49 16:57 MCV 108.2 H MCH 36.0 H MCHC 33.2 RDW 14.6 Plt Count 158 L MPV 9.1 L Immature Gran % (Auto) 0.4 Neut % (Auto) 75.4 H Lymph % (Auto) 15.6 L [place] % (Auto) 6.9 Eos % (Auto) 1.4 Baso % (Auto) 0.3 Lymph # (Auto) 1.1 L [place] # (Auto) 0.5 Eos # (Auto) 0.1 Baso # (Auto) 0.0 Abs Immat Gran (auto) 0.03 Absolute Neuts (auto) 5.5 Absolute Nucleated RBC 0.000 Nucleated RBC % (auto) 0.0 PT 10.4 L INR 0.9 APTT 28.6 Anion Gap 13 Estim Creat Clear Calc 25.5 Estimated GFR 21 POC Glucose 91 Random Glucose 99 Calcium 9.4 Total Creatine Kinase 31 Imaging Radiologist's Impressions: Impressions Head CT 09/19/23 16:31 IMPRESSION: No acute intracranial pathology. This critical result was discussed with Dr. England at 4:48 PM hours on 09/19/2023. It was ascertained that the content and urgency of the report was understood at the time of direct communication. Assessment and Plan (1) Transient cerebral ischemia: Status: Acute Plan 67 year old female with history of lymphocytic colitis, interstitial nephritis with CKD stage 4 following with [facility] on transplant list, secondary hyperparathyroidism, hld, and psoriasis to be observed for TIA. #Acute TIA -episode of dysarthria lasting several minutes without recurrence. No focal deficits on exam -Head CT negative for acute intracranial abnormality -Stat carotid doppler appears without any significant stenosis or LVO. Unable to get CTA due to renal function -MRI brain ordered -Asa 81mg daily -echo -passed bedside swallow eval -neuro checks -cardiac diet -lipid profile, atorvastatin 80mg daily -neuro consult -monitor on tele #CKD stage 4 -renal function baseline #Chronic diarrhea r/t lymphocytic colitis -continue brayan supplementals for electrolyte stability #Chronic macrocytic anemia -h/h above transfusion threshold -check vitamin b12/folic acid levels dvt prophylaxis- [facility] full code Quality Stroke Does the patient have a stroke diagnosis?: No VTE Prior VTE?: No VTE Risk Level:: Medical - moderate - high VTE Device Contraindication: Treatment Not Indicated VTE Drug Contraindication: N/A - Med Ordered
[2023-09-19 18:52] LABS: Cholesterol 265 mg/dL (<200); HDL Cholesterol 59 mg/dL (>40); LDL Cholesterol Calculated 173 mg/dL (<100); Triglycerides 168 mg/dL (<150)
[2023-09-19 19:16] LABS: Appearance Urine Clear; Color Urine Yellow; Glucose Urine UA Negative (Negative); Leukocyte Esterase Urine Small (1+) (Negative); Nitrite Urine Negative (Negative); Specific Gravity - Urine <= 1.005 (1.005-1.025); UMIC TRIGGER UACC YES; Urine Blood Negative (Negative); Urine Ketones Negative (Negative); Urine Protein Trace mg/dL (Neg-Trace)
--- NOTE | 2023-09-19 19:16 | PC.NURSE ---
this rn assumed care of pt. pt alert and orientedx4, respirations even and unlabored. pt given crackers at this time. urine obtained and sent to lab. no new orders.
[2023-09-19 19:28] LABS: Bacteria Urine None Seen (None Seen); RBC Urine 0-2 /HPF (0-2); Squamous Epithelial Cell Urine 0-2 /HPF (0-2); UACC Culture Trigger YES; WBC Urine 0-5 /HPF (0-5)
--- NOTE | 2023-09-19 19:38 | PC.NURSE ---
pt refused potassium chloride packet and asprin at this time. Lili JARRETT aware at this time.
[2023-09-19 19:51] VITALS: BP 106/58; PULSE 73; RESP 14; TEMP 36.5; O2SAT 99
--- NOTE | 2023-09-19 19:59 | PC.NURSE ---
pt taken to ultrasound at this time.
[2023-09-19] MEDS: Potassium Chloride ER 20 MEQ TAB.ER.PRT PO (20:38)
[2023-09-19] MEDS: Aspirin Enteric Coated 81 MG TABLET.DR 162 MG PO (20:38)
--- NOTE | 2023-09-19 20:38 | PC.NURSE ---
pt medicated per mar, pt tolerated well with gingerale. swallowed without difficulty.
[2023-09-19] MEDS: Sodium Bicarbonate 650 MG TABLET 1950 MG PO (21:55)
[2023-09-19 22:53] VITALS: BMI 27.6
[2023-09-19 22:58] LABS: Glucose, Whole Blood 108 mg/dL (60-115)
[2023-09-20] VITALS (8 sets, daily range): BP systolic 99–121; BP diastolic 57–69; PULSE 63–78; RESP 18–20; TEMP 36.4–37.2; O2SAT 93–99
[2023-09-20] MEDS: 0.9 % Sodium Chloride Flush 3 ML SYRINGE IVFLUSH ×4 (00:05→20:09)
[2023-09-20 06:06] LABS: MANUAL DIFF FLAG NO
[2023-09-20 06:21] LABS: Basophils Percent Auto 0.3 % (0-2); Eosinophils Absolute Auto 0.1 X10*3/uL (0.0-0.4); Eosinophils Percent Auto 1.3 % (0-4); Hematocrit 25.8 % (37.0-47.0); Hemoglobin 8.6 g/dl (12.0-16.0); Imm Gran Abs Auto 0.02 X10*3/uL (0.00-0.03); Imm Gran Pct Auto 0.3 % (0.0-0.4); Lymphocytes Absolute Auto 1.7 X10*3/uL (1.2-4.9); Mean Corpuscular HGB Conc 33.3 g/dl (31.0-35.0); Mean Corpuscular Hemoglobin 35.8 pg (27.0-33.0); Mean Corpuscular Volume 107.5 fL (80.0-98.0); Mean Platelet Volume 9.3 fL (9.4-12.3); Monocytes Absolute Auto 0.5 X10*3/uL (0.1-1.2); Monocytes Percent Auto 7.5 % (2-11); Neutrophils Absolute Auto 4.6 x10*3/uL (2.0-8.3); Neutrophils Percent Auto 66.6 % (45-73); Platelet Count 146 X10*3/uL (160-400); Red Cell Distribution Width 14.5 % (11.0-16.0); White Blood Count 6.9 X10*3/uL (4.8-10.8)
[2023-09-20 06:47] LABS: Anion Gap 10 (12-20); Blood Urea Nitrogen 27 mg/dL (9-16); Calcium 9.3 mg/dL (8.4-10.2); Carbon Dioxide 22 mmol/L (22-29); Chloride 114 mmol/L (96-108); Creatinine Clr Calc Pharmacy 25.2; Estimated Glomerular Filt Rate 21; Glucose Random 89 mg/dL (60-115); Potassium 3.8 mmol/L (3.3-5.1); Sodium 142 mmol/L (135-145)
[2023-09-20 07:08] LABS: Estimated Average Glucose 94 mg/dL; Hemoglobin A1c % 4.9 % (<6.0)
[2023-09-20 07:13] LABS: Folate 2.5 ng/mL (> or = 4.0); Vitamin B12 207 pg/mL (200-900)
[2023-09-20 07:17] LABS: Glucose, Whole Blood 82 mg/dL (60-115)
--- NOTE | 2023-09-20 09:11 | PHA.MEDREC ---
Pharmacy Consult ? Medication Reconciliation Pharmacy has completed the medication reconciliation. spoke with patient to confirm medications.
[2023-09-20] MEDS: Sodium Bicarbonate 650 MG TABLET 1950 MG PO ×2 (09:45→20:07)
--- NOTE | 2023-09-20 09:46 | P.PNIM_ITS ---
Subjective Subjective Date of Service: 09/20/23 Interval History: symptoms resolved Physical Exam 2 Vital Signs: Vital Signs: Last Vital Signs Temp 97.5 F 09/20/23 07:34 Pulse 63 09/20/23 07:34 Resp 20 09/20/23 07:34 BP 101/59 L 09/20/23 07:34 Pulse Ox 98 09/20/23 07:34 O2 Del Method Room Air 09/20/23 07:34 BMI result Body Mass Index 27.6 General: AO X 3, no acute distress Resp: CTA bilateral, no accessory muscles used CVS: S1,S2,RRR GI: soft, non tender, non distended Neuro: motor grossly intact, alert Psych: appropriate affect, appropriate insight Objective Data Active Medications Acetaminophen (Acetaminophen 325 Mg Tablet) 650 mg PO Q6H PRN PRN Reason: Pain, Mild (Pain Scale 1-3) Aspirin (Aspirin Enteric Coated 81 Mg Tablet.Dr) 81 mg PO DAILY [facility] Atorvastatin Calcium (Atorvastatin Calcium 80 Mg Tablet) 80 mg PO DAILY [facility] Folic Acid (Folic Acid 1 Mg Tablet) 5 mg PO DAILY [facility] Ondansetron HCl (Ondansetron Hcl 4 Mg/2 Ml Vial) 4 mg IVPUSH Q8H PRN PRN Reason: Nausea and Vomiting Potassium Chloride (Potassium Chloride Er 20 Meq Tab.Er.Prt) 20 meq PO DAILY@1500 ANGI Potassium Chloride (Potassium Chloride Er 20 Meq Tab.Er.Prt) 40 meq PO BID [facility] Senna (Sennosides 8.6 Mg Tablet) 17.2 mg PO BEDTIME PRN PRN Reason: Constipation Sodium Bicarbonate (Sodium Bicarbonate 650 Mg Tablet) 1,950 mg PO BID [facility] Last Admin: 09/19/23 21:55 Dose: 1,950 mg Documented By: KEKE Sodium Chloride (0.9 % Sodium Chloride Flush 3 Ml Syringe) 3 ml IVFLUSH QSHIFT [facility] Last Admin: 09/20/23 00:05 Dose: 3 ml Documented By: PETER Labs 09/20/23 05:52 09/20/23 05:52 Labs: Laboratory Results - last 24 hr 09/19/23 09/19/23 09/19/23 16:49 16:57 19:08 MCV 108.2 H MCH 36.0 H MCHC 33.2 RDW 14.6 Plt Count 158 L MPV 9.1 L Immature Gran % (Auto) 0.4 Neut % (Auto) 75.4 H Lymph % (Auto) 15.6 L [place] % (Auto) 6.9 Eos % (Auto) 1.4 Baso % (Auto) 0.3 Lymph # (Auto) 1.1 L [place] # (Auto) 0.5 Eos # (Auto) 0.1 Baso # (Auto) 0.0 Abs Immat Gran (auto) 0.03 Absolute Neuts (auto) 5.5 Absolute Nucleated RBC 0.000 Nucleated RBC % (auto) 0.0 PT 10.4 L INR 0.9 APTT 28.6 Anion Gap 13 Estim Creat Clear Calc 25.5 Estimated GFR 21 POC Glucose 91 Random Glucose 99 Estimat Average Glucose Hemoglobin A1c % Calcium 9.4 Total Creatine Kinase 31 Triglycerides 168 H Cholesterol 265 H LDL Cholesterol, Calc 173 H HDL Cholesterol 59 Vitamin B12 Folate Urine Color Yellow Urine Appearance Clear Urine pH 5.0 Ur Specific [place] <= 1.005 Urine Protein Trace Urine Glucose (UA) Negative Urine Ketones Negative Urine Blood Negative Urine Nitrite Negative Ur Leukocyte Esterase Small (1+) H Urine RBC 0-2 Urine WBC 0-5 Ur Squamous Epith Cells 0-2 Urine Bacteria None Seen Hyaline Casts 3-5 09/19/23 09/20/23 09/20/23 22:55 05:52 07:11 MCV 107.5 H MCH 35.8 H MCHC 33.3 RDW 14.5 Plt Count 146 L MPV 9.3 L Immature Gran % (Auto) 0.3 Neut % (Auto) 66.6 Lymph % (Auto) 24.0 [place] % (Auto) 7.5 Eos % (Auto) 1.3 Baso % (Auto) 0.3 Lymph # (Auto) 1.7 [place] # (Auto) 0.5 Eos # (Auto) 0.1 Baso # (Auto) 0.0 Abs Immat Gran (auto) 0.02 Absolute Neuts (auto) 4.6 Absolute Nucleated RBC 0.000 Nucleated RBC % (auto) 0.0 PT INR APTT Anion Gap 10 L Estim Creat Clear Calc 25.2 Estimated GFR 21 POC Glucose 108 82 Random Glucose 89 Estimat Average Glucose 94 Hemoglobin A1c % 4.9 Calcium 9.3 Total Creatine Kinase Triglycerides Cholesterol LDL Cholesterol, Calc HDL Cholesterol Vitamin B12 207 Folate 2.5 L Urine Color Urine Appearance Urine pH Ur Specific [place] Urine Protein Urine Glucose (UA) Urine Ketones Urine Blood Urine Nitrite Ur Leukocyte Esterase Urine RBC Urine WBC Ur Squamous Epith Cells Urine Bacteria Hyaline Casts Assessment and Plan (1) CKD (chronic kidney disease) stage 4, GFR 15-29 ml/min: Status: Acute Plan 66F PMH lymphocytic colitis, interstitial nephritis with ckdIV, secondary hyperpth, hld, psoriasis presented with transient aphasia transient aphasia check mri neuro eval ckd iv stable, outpatinet follow up macrocytic anemia chronic, due to folate and b12 deficiency start folic acid and b12 dvt prphylaxis - mechanical due tto anemia full code reason for continued hospitalization:pending neuro eval and mri Quality Stroke Does the patient have a stroke diagnosis?: No VTE Prior VTE?: No VTE Risk Level:: Medical - moderate - high VTE Device Contraindication: Treatment Not Indicated VTE Drug Contraindication: N/A - Med Ordered
[2023-09-20] MEDS: Atorvastatin Calcium 80 MG TABLET PO (09:48)
[2023-09-20] MEDS: Folic Acid 1 MG TABLET 5 MG PO (09:48)
[2023-09-20] MEDS: Aspirin Enteric Coated 81 MG TABLET.DR PO (09:48)
[2023-09-20] MEDS: Cyanocobalamin (Vitamin B-12) 1,000 MCG/ML VIAL 1000 MCG IM (09:49)
[2023-09-20] MEDS: Potassium Chloride ER 20 MEQ TAB.ER.PRT 40 MEQ PO ×2 (09:51→20:07)
--- NOTE | 2023-09-20 10:06 | PC.NURSE ---
Per Dr. Patino- pt. able to come off tele monitor for MRI.
[2023-09-20 11:11] LABS: Glucose, Whole Blood 90 mg/dL (60-115)
--- NOTE | 2023-09-20 14:53 | PM.EVENT ---
Event Note Date of Service: 09/20/23 Event Note: Nephrology consulted for CKD 4. S/P CVA. Renal function stable. Detailed consult note to follow AM. C/W current supportive management. Charli Ireland MD
--- NOTE | 2023-09-20 14:56 | MHC.CM.PN ---
IMM/ 09/20/23, EMR REVIEWED, PT ADMITTED W/TIA AND POSITIVE FOR STROKE PER MRI, CM MET W/PT WHO REPORTS SHE LIVES W/HER TWO CATS, PT IS FULLY INDEPENDENT W/ALL CARE, DENIES USE OF DME/SERVICES, PT REPORTS SHE FEELS BACK TO BASELINE AND DOES NOT FEEL SHE WILL NEED ANY SERVICES. PT VERIFIES PCP IS ALEXANDRIA DE LEON, FULLY COVID VAXED W/FLU/PNA/RSV VACCINES, PT REPORTS HCP IS HER SISTER VJ GERBER [phone] AND PCP ALEXANDRIA DE LEON HAS A COPY ON FILE, CM UNABLE TO LOCATE COPY IN [employer] [facility] [employer].
[2023-09-20] MEDS: Potassium Chloride ER 20 MEQ TAB.ER.PRT PO (15:49)
[2023-09-20] MEDS: Nystatin Ointment 15 GM TUBE 1 APPL TOPICAL (20:12)
[2023-09-21 03:11] VITALS: BP 90/50; PULSE 71; RESP 16; TEMP 36; O2SAT 97
--- NOTE | 2023-09-21 07:00 | CA_ITS ---
Transthoracic Echocardiogram Patient (Last, First, Middle): Lisha Solis L Gender: Female Date of : 1955 Age: 67 Procedure Date: 09/21/2023 Procedure Type: Transthoracic Echocardiogram [place] [facility] [place] Height: 167.64 cm Weight: 77.57 kg BSA: 1.87 m2 Heart Rate: 65 bpm BP: 90 / 50 mmHg Installment Account Checker: SB Referring MD: Coco JARRETT Symptoms: cva Study Quality: Adequate ECG Rhythm: Sinus Conclusions: - Normal left ventricular size, thickness, systolic function, and wall motion. The visually estimated ejection fraction is between 55-60%. Diastolic function is normal for age. - Normal right ventricular cavity size and systolic function. Findings Left Ventricle Normal left ventricular size, thickness, systolic function, and wall motion. The visually estimated ejection fraction is between 55-60%. Diastolic function is normal for age. Right Ventricle Normal right ventricular cavity size and systolic function. Atria The left atrium is normal in size. The right atrium is normal in size. Aortic Valve There is a normal trileaflet aortic valve. There is no aortic valve stenosis. There is no aortic valve regurgitation. Mitral Valve The mitral valve appears normal. There is no mitral valve regurgitation. There is no mitral valve stenosis. Pulmonic Valve The pulmonic valve is likely normal. Tricuspid Valve Normal tricuspid valve structure. There is mild tricuspid valve regurgitation. Great Vessels All visible segments of the aorta are normal in size. The visualized portions of the pulmonary artery and branches are normal. Venous The inferior vena cava is normal in size and collapses greater than 50% with inspiration. Pericardium/Pleural There is no evidence of pericardial effusion. Prior Study Comparison No prior study available for comparison. Measurements 2D Linear Measurements IVSd: 0.65 0.6-0.9/0.6-1.0 cm LVIDd: 4.37 3.9-5.3/4.2-5.9 cm LVIDd Index: 2.34 2.4-3.2/2.2-3.1 cm/m2 LVIDs: 3.06 2.0-3.6 cm LA Diam: 3.80 2.7-3.8/3.0-4.0 cm LAIDs Index: 2.03 1.5-2.3 cm/m2 LVOT Diam: 1.90 3.0+(-)1.3 cm 2D Systolic Function EF 4C: 64.60 >55% EF 2C: 67.40 >55% EF BiP: 65.10 >55% Mitral Valve MV Pk E: 0.76 MV PK A: 0.78 MV Decel Time: 176.00 E/A: 1.00 E'Lateral: 11.00 E'Medial: 7.83 E/E' Med: 9.70 E/E' Lat: 6.90 PHT: 52.00 MVA PHT: 4.23 Decel [place]: 4.31 Aortic Valve AoV Pk Lius: 1.62 AoV Pk Grad: 10.00 MEAGAN: 2.27 LVOT LVOT Pk Luis: 1.35 LVOT Mn Luis: 0.94 LVOT VTI: 0.25 LVOT Pk Grad: 7.00 LVOT Mn Grad: 5.00 LVOT Diam: 1.90 LVOT Area: 2.84 Diastolic Function MV Pk E: 0.76 MV Pk A: 0.78 E/A: 1.00 E'Medial: 7.83 E/E' Med: 9.70 E' Laterial: 11.00 E/E' Lat: 6.90 Right Ventricle TAPSE (mm): 17.90 TVS' Luis: 12.20 Tricuspid Valve TR Pk Luis: 2.13 TR Pk Grad: 18.00 Great Vessels Aorta Sinus of Valsalva: 2.80 2.0-3.5 cm Ao Asc: 2.80 2.1-3.4 cm Ao Arch: 2.70 Pulmonary Valve PV Pk Luis: 0.92 Peak PV Grad: 3.00 Updated in Other Vendor System with Status of Final Mynor Mojica MD electronically signed on 09/21/2023 1:36:04 PM with status of Final
[2023-09-21 07:18] VITALS: BP 106/56; PULSE 61; RESP 18; TEMP 36.6; O2SAT 98
[2023-09-21] MEDS: Aspirin Enteric Coated 81 MG TABLET.DR PO (08:29)
[2023-09-21] MEDS: Atorvastatin Calcium 80 MG TABLET PO (08:29)
[2023-09-21] MEDS: Potassium Chloride ER 20 MEQ TAB.ER.PRT 40 MEQ PO (08:29)
[2023-09-21] MEDS: Folic Acid 1 MG TABLET 5 MG PO (08:29)
[2023-09-21] MEDS: Cyanocobalamin (Vitamin B-12) 1,000 MCG TABLET 1000 MCG PO (08:29)
[2023-09-21] MEDS: 0.9 % Sodium Chloride Flush 3 ML SYRINGE IVFLUSH (08:30)
[2023-09-21] MEDS: Nystatin Ointment 15 GM TUBE 1 APPL TOPICAL (08:33)
[2023-09-21] MEDS: Sodium Bicarbonate 650 MG TABLET 1950 MG PO (08:36)
--- NOTE | 2023-09-21 09:15 | P.PNIM_ITS ---
Subjective Subjective Date of Service: 09/21/23 Interval History: symptoms resolved Physical Exam 2 Vital Signs: Vital Signs: Last Vital Signs Temp 98 F 09/21/23 07:18 Pulse 61 09/21/23 07:18 Resp 18 09/21/23 07:18 BP 106/56 L 09/21/23 07:18 Pulse Ox 98 09/21/23 07:18 O2 Del Method Room Air 09/21/23 07:18 BMI result Body Mass Index 27.6 General: AO X 3, no acute distress Resp: CTA bilateral, no accessory muscles used CVS: S1,S2,RRR GI: soft, non tender, non distended Neuro: motor grossly intact, alert Psych: appropriate affect, appropriate insight Objective Data Active Medications Acetaminophen (Acetaminophen 325 Mg Tablet) 650 mg PO Q6H PRN PRN Reason: Pain, Mild (Pain Scale 1-3) Aspirin (Aspirin Enteric Coated 81 Mg Tablet.) 81 mg PO DAILY [facility] Last Admin: 09/21/23 08:29 Dose: 81 mg Documented By: SHANICE Atorvastatin Calcium (Atorvastatin Calcium 80 Mg Tablet) 80 mg PO DAILY [facility] Last Admin: 09/21/23 08:29 Dose: 80 mg Documented By: SHANICE Betamethasone Dipropion Augmented (Betamethasone Dip Aug 0.05% Cr 15 Gm Tube) 1 appl TOPICAL BID PRN PRN Reason: Itching Cyanocobalamin (Cyanocobalamin (Vitamin B-12) 1,000 Mcg Tablet) 1,000 mcg PO DAILY [facility] Last Admin: 09/21/23 08:29 Dose: 1,000 mcg Documented By: SHANICE Folic Acid (Folic Acid 1 Mg Tablet) 5 mg PO DAILY [facility] Last Admin: 09/21/23 08:29 Dose: 5 mg Documented By: SHANICE Nystatin (Nystatin Ointment 15 Gm Tube) 1 appl TOPICAL DAILY [facility]; Protocol Last Admin: 09/21/23 08:33 Dose: 1 appl Documented By: SHANICE Ondansetron HCl (Ondansetron Hcl 4 Mg/2 Ml Vial) 4 mg IVPUSH Q8H PRN PRN Reason: Nausea and Vomiting Potassium Chloride (Potassium Chloride Er 20 Meq Tab.Er.Prt) 20 meq PO DAILY@1500 [facility] Last Admin: 09/20/23 15:49 Dose: 20 meq Documented By: LLUVIA Potassium Chloride (Potassium Chloride Er 20 Meq Tab.Er.Prt) 40 meq PO BID [facility] Last Admin: 09/21/23 08:29 Dose: 40 meq Documented By: SHANICE Senna (Sennosides 8.6 Mg Tablet) 17.2 mg PO BEDTIME PRN PRN Reason: Constipation Sodium Bicarbonate (Sodium Bicarbonate 650 Mg Tablet) 1,950 mg PO BID [facility] Last Admin: 09/21/23 08:36 Dose: 1,950 mg Documented By: SHANICE Sodium Chloride (0.9 % Sodium Chloride Flush 3 Ml Syringe) 3 ml IVFLUSH QSHIFT [facility] Last Admin: 09/21/23 08:30 Dose: 3 ml Documented By: SHANICE Labs 09/20/23 05:52 09/20/23 05:52 Labs: Laboratory Results - last 24 hr 09/20/23 11:08 POC Glucose 90 Microbiology Microbiology Results: Microbiology 09/19/23 19:29 Urine Culture - Preliminary Urine clean catch - Urine harris top Culture too young to evaluate. Assessment and Plan (1) Transient cerebral ischemia: Status: Acute Plan 66F PMH lymphocytic colitis, interstitial nephritis with ckdIV, secondary hyperpth, hld, psoriasis presented with transient aphasia acute cva asa, statin follow up neuro echo ckd iv stable, outpatient follow up macrocytic anemia chronic, due to folate and b12 deficiency started folic acid and b12 dvt prophylaxis - mechanical due to anemia full code reason for continued hospitalization:pending neuro eval and echo Quality Stroke Does the patient have a stroke diagnosis?: No VTE Prior VTE?: No VTE Risk Level:: Medical - moderate - high VTE Device Contraindication: Treatment Not Indicated VTE Drug Contraindication: N/A - Med Ordered
--- NOTE | 2023-09-21 09:19 | PM.DS ---
DS: Providers Provider Date of Service: 09/21/23 Date of admission: 09/19/23 21:38 Primary care physician: Sabrina Felix MD Consults: 09/19/23 18:35 Consult to Neurology Routine Consulting Provider: Lakia Rosa Reason for consultation: tia DS: Diagnosis Discharge Diagnosis (1) Transient cerebral ischemia: Status: Acute DS: Summary Hospital Course Hospital Course: from initial hpi: 67 year old female with history of lymphocytic colitis, interstitial nephritis with CKD stage 4 following with [facility] on transplant list, secondary hyperparathyroidism, hld, and psoriasis presented to the ED earlier today for evaluation of an episode dysarthria around 2pm today. She was speaking with her brother on the phone and knew the words that she wanted to say but was unable to speak the correct words. This lasted for several minutes without recurrence. Following this episode felt paresthesias in the left hand only and had an episode of positional lightheadedness. No visual changes, slurred speech, facial droop, focal weakness, gait imbalance. No history of cva but states her mother and sister both from stroke. On arrival VSS. Hematology studies stable. Renal function baseline. Electrolytes normal, except for CO2 19 (has chronic diarrhea). Total CK 31, Trop 16.2. Lipid panel pending. Head CT negative for any acute intracranial abnormality. Passed bedside swallow eval. Given 162mg asa in ed. Pt to be observed for suspected TIA. TPA/TNK not administered given full resolution of symptoms on arrival. hospital course: Patient was admitted for acute CVA. Was started on aspirin and statin. echo was unremarkable. as cva bilateral, concern for cardioembolic origin, plan for outpatient follow up for continuous heart monitoring. For her CKD 4 due to interstitial nephritis she remained stable and will follow up outpatient. She was noted to have microcytic anemia due to folate and B12 deficiency. She was started on folic acid and B12 supplement. Patient's deficits completely resolved and does not need rehab at this time. She will be discharged home. Time Attestation Discharge coordination time: Greater than 30 minutes Quality: Safe Use of Opioids Does Pt have an Active Cancer Diagnosis on the Problem List?: No Quality: Stroke Does the patient have a stroke diagnosis?: Yes Reason for No Anti-thrombotic at DC: N/A - Med Ordered Reason for No Anticoagulant at DC: Drug treatment not indicated Reason Not Initiating IV-Tpa: Drug treatment not indicated Reason for No Anti-thrombotic by Day Two: N/A - Med Ordered Reason for No Statin at DC: N/A - Med Ordered Physical Exam Vital Signs: Vital Signs: Last Vital Signs Temp 98 F 09/21/23 07:18 Pulse 61 09/21/23 07:18 Resp 18 09/21/23 07:18 BP 106/56 L 09/21/23 07:18 Pulse Ox 98 09/21/23 07:18 O2 Del Method Room Air 09/21/23 07:18 BMI result Body Mass Index 27.6 General: AO X 3, no acute distress Resp: CTA bilateral, no accessory muscles used CVS: S1,S2,RRR GI: soft, non tender, non distended Neuro: motor grossly intact, alert Psych: appropriate affect, appropriate insight DS: Data Data Completed and Pending Labs on day of discharge: Laboratory Results - last 24 hr 09/20/23 11:08 POC Glucose 90 Preliminary micro results at discharge 09/19/23 19:29 Urine Culture - Preliminary Urine clean catch - Urine harris top Culture too young to evaluate. Discharge Plan Discharge Anticipated Discharge Date/Time: 09/21/23 09:16 Patient Disposition: Home, Self-Care Discharge Diagnosis: cva, b12 and folate deficiency Referrals: Sabrina Felix MD [Primary Care Provider] - 1 Week Discharge Medications: New aspirin 81 mg Tablet,Delayed Release (Dr/Ec) 81 mg PO DAILY Qty: 30 0RF atorvastatin 80 mg Tablet 80 mg PO DAILY Qty: 30 0RF folic acid 1 mg Tablet 5 mg PO DAILY Qty: 30 0RF cyanocobalamin (vitamin B-12) [Vitamin B-12] 1,000 mcg Tablet 1,000 mcg PO DAILY Qty: 30 0RF Continued potassium chloride [Klor-Con M10] 10 mEq tablet,ER particles/crystals 40 meq PO BID potassium chloride [Klor-Con M10] 10 mEq tablet,ER particles/crystals 20 meq PO DAILY@1500 nystatin 100,000 unit/gram ointment 1 appl topical DAILY Qty: 30 4RF clobetasol 0.05 % solution 1 appl topical BID PRN (Reason: Itching) ferrous sulfate 325 mg (65 mg iron) tablet 325 mg PO DAILY sodium bicarbonate 650 mg tablet 1,950 mg PO BID halobetasol propionate 0.05 % ointment 1 appl topical BID PRN (Reason: Itching) cholecalciferol (vitamin D3) 1,250 mcg (50,000 unit) capsule 1,250 mcg PO Q2W Diet: Advance to usual diet Activity on Discharge: As tolerated Stand Alone Forms: Patient Portal Discharge page Care Plan Goals: prevent further strokes Health Concerns: cva, b12 and folate deficiencies Plan of Treatment: asa, statin, b12 and folate supplements Assessment: see above
--- NOTE | 2023-09-21 09:47 | P.CNNE_ITS ---
History of Present Illness Data of Consult Service Date: 09/21/23 Primary Care Provider: Sabrina Felix MD HPI Reason for consult: Stroke 67 years old woman with underlying history of lymphoproliferative colitis, chronic renal disease, but no known heart disease came to hospital with new onset of difficulty speaking. She said that she was talking to someone when wrong words were coming out. The symptoms lasted for only few seconds at a time. At 1 point she also noted a numb feeling on her left hand that lasted for few seconds. Her family members noted all this and suggested that she should come to emergency room because of possibility of stroke. There was no associated headache. Now she was feeling better. There was no associated cardiac symptom. Review of Systems 2 Review of Systems: No recent cold or flu-like symptoms PMFSH Past Medical History Medical History Secondary hyperparathyroidism Interstitial nephritis Hyperlipidemia Psoriasis vulgaris Abnormal Pap smear of cervix Osteoporosis Vulvar dermatitis Anemia due to chronic kidney disease Left Achilles tendinitis Kidney stones Chronic hypokalemia Lymphocytic colitis CKD (chronic kidney disease) stage 4, GFR 15-29 ml/min Family History Family History Maternal Grandmother Breast cancer Maternal Aunt Breast cancer Colon cancer Sister Cervical cancer Surgical History Surgical History Hx of colonoscopy H/O endoscopy History of colposcopy Social History Social History Household Members: None Housing: House Do you presently have visiting nurse or other home services: No Alcohol intake: never Patient Tobacco Use Status: Never used Tobacco Smoked in Last 30 Days: No e-Cigarette/Vaping Use: Never Used Use of substances other than those prescribed or required for medical reasons: No Currently Displaying Signs/Symptoms of Drug Intoxication Withdrawal: No Have you been hit, kicked, punched, or otherwise hurt by someone within the past year? If so, by whom?: No Do you feel safe in your current relationship?: No Current Relationship Is there a partner from a previous relationship who is making you feel unsafe now?: No Are you made to feel afraid or neglected: No [employer] [facility] Practices: religious Advance Directives: Yes Advance Directives on File: Yes Advance Directives Date on File: 06/23/22 Do you have thoughts of harming others: None Do you have a plan to hurt others: No Plan Recently lost weight without trying: Yes How much weight loss: 24-33 pounds Eating poorly because of decreased appetite: No Nutrition screen score: 5 Nutrition Risks: No Nutritional Risk Patient : No : No Poor oral hygiene: No service: Yes Current occupational status: retired Sexual orientation: Straight/Heterosexual Gender identity: Female Cognitive needs: No Hearing needs: No Vision needs: Yes Meds Allergies Allergy/AdvReac Type Severity Reaction Status Date / Time tetracycline [Tetracycline] Allergy Severe ANAPHYLAXIS, Verified 07/03/23 13:59 as a child, trouble breathing Active Medications: Current Medications Acetaminophen (Acetaminophen 325 Mg Tablet) 650 mg PO Q6H PRN PRN Reason: Pain, Mild (Pain Scale 1-3) Aspirin (Aspirin Enteric Coated 81 Mg Tablet.) 81 mg PO DAILY [facility] Last Admin: 09/21/23 08:29 Dose: 81 mg Atorvastatin Calcium (Atorvastatin Calcium 80 Mg Tablet) 80 mg PO DAILY [facility] Last Admin: 09/21/23 08:29 Dose: 80 mg Betamethasone Dipropion Augmented (Betamethasone Dip Aug 0.05% Cr 15 Gm Tube) 1 appl TOPICAL BID PRN PRN Reason: Itching Cyanocobalamin (Cyanocobalamin (Vitamin B-12) 1,000 Mcg Tablet) 1,000 mcg PO DAILY [facility] Last Admin: 09/21/23 08:29 Dose: 1,000 mcg Folic Acid (Folic Acid 1 Mg Tablet) 5 mg PO DAILY [facility] Last Admin: 09/21/23 08:29 Dose: 5 mg Nystatin (Nystatin Ointment 15 Gm Tube) 1 appl TOPICAL DAILY [facility]; Protocol Last Admin: 09/21/23 08:33 Dose: 1 appl Ondansetron HCl (Ondansetron Hcl 4 Mg/2 Ml Vial) 4 mg IVPUSH Q8H PRN PRN Reason: Nausea and Vomiting Potassium Chloride (Potassium Chloride Er 20 Meq Tab.Er.Prt) 20 meq PO DAILY@1500 [facility] Last Admin: 09/20/23 15:49 Dose: 20 meq Potassium Chloride (Potassium Chloride Er 20 Meq Tab.Er.Prt) 40 meq PO BID [facility] Last Admin: 09/21/23 08:29 Dose: 40 meq Senna (Sennosides 8.6 Mg Tablet) 17.2 mg PO BEDTIME PRN PRN Reason: Constipation Sodium Bicarbonate (Sodium Bicarbonate 650 Mg Tablet) 1,950 mg PO BID [facility] Last Admin: 09/21/23 08:36 Dose: 1,950 mg Sodium Chloride (0.9 % Sodium Chloride Flush 3 Ml Syringe) 3 ml IVFLUSH QSHIFT [facility] Last Admin: 09/21/23 08:30 Dose: 3 ml Home Medications Medication Instructions Recorded Confirmed Last Taken Type ferrous sulfate 325 mg (65 mg 325 mg PO DAILY 02/21/21 09/20/23 Unknown History iron) tablet halobetasol propionate 0.05 % 1 appl topical BID PRN Itching 02/21/21 09/20/23 Unknown History topical ointment sodium bicarbonate 650 mg tablet 1,950 mg PO BID 02/21/21 09/20/23 Unknown History cholecalciferol (vitamin D3) 1,250 1,250 mcg PO Q2W 05/14/21 09/20/23 Unknown History mcg (50,000 unit) capsule clobetasol 0.05 % scalp solution 1 appl topical BID PRN Itching 06/23/22 09/20/23 Unknown History potassium chloride 10 mEq 20 meq PO DAILY@1500 09/20/23 09/20/23 Unknown History tablet,extended release(part/cryst) (Klor-Con M) potassium chloride 10 mEq 40 meq PO BID 09/20/23 09/20/23 Unknown History tablet,extended release(part/cryst) (Klor-Con M) Physical Exam 2 Vital Signs: Vital Signs: Last Vital Signs Temp 98 F 09/21/23 07:18 Pulse 61 09/21/23 07:18 Resp 18 09/21/23 07:18 BP 106/56 L 09/21/23 07:18 Pulse Ox 98 09/21/23 07:18 O2 Del Method Room Air 09/21/23 07:18 BMI result Body Mass Index 27.6 Neuro: Other: She is alert and awake with normal spontaneity of speech fluency comprehension and affect. Face is symmetrical. Visual field examination revealed possible left hemianopsia. There is no pronator drift. [id number] testing is normal. Deep tendon reflexes are 1+ with flexor plantars. Speech is normal. Results Labs 09/20/23 05:52 09/20/23 05:52 Labs: MRI of brain revealed couple of punctate area of restricted diffusion and left frontal cortical area and 1 in right parietal superficial cortical area. Carotid ultrasound did not reveal any significant stenosis. 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 Her evaluation revealed small bilateral middle cerebral artery area acute ischemic infarctions suggestive of cerebral embolism. Likely source is cardiac. I recommend appropriate investigations to rule out cardiomyopathy and atrial fibrillation. In the meantime, as she was not taking it before, aspirin 81 mg daily is recommended. Treating her with anticoagulation would also be difficult because of severe anemia, which should be treated based upon etiology. Procedures Date of Service Date of Service: 09/21/23
--- NOTE | 2023-09-21 11:06 | P.CONNP_ITS ---
History of Present Illness Reason for Consult Consult date: 09/21/23 Chief Complaint Chief complaint: tia History of Present Illness Narrative: 67 year old female with history of lymphocytic colitis, interstitial nephritis with CKD stage 4 following with [facility] on transplant list, secondary hyperparathyroidism, hld, and psoriasis presented to the ED earlier today for evaluation of an episode dysarthria around 2pm today. She was speaking with her brother on the phone and knew the words that she wanted to say but was unable to speak the correct words. This lasted for several minutes without recurrence. Following this episode felt paresthesias in the left hand only and had an episode of positional lightheadedness. No visual changes, slurred speech, facial droop, focal weakness, gait imbalance. No history of cva but states her mother and sister both from stroke. Review of Systems Constitutional: Denies anorexia, Denies fever(s) and Denies weakness Eyes: Denies blurry vision Cardiovascular: Denies no additional cardiovascular complaints and Denies dyspnea Respiratory: Reports no additional respiratory complaints, Reports cough and Denies dyspnea Gastrointestinal: Denies melena and Denies diarrhea Genitourinary: Denies hematuria Musculoskeletal: Denies tingling Skin/Breast: Denies rash Denies focal weakness, Denies tingling, Denies tremor(s) and Denies weakness PMFSH Past Medical History Medical History Secondary hyperparathyroidism Interstitial nephritis Hyperlipidemia Psoriasis vulgaris Abnormal Pap smear of cervix Osteoporosis Vulvar dermatitis Anemia due to chronic kidney disease Left Achilles tendinitis Kidney stones Chronic hypokalemia Lymphocytic colitis CKD (chronic kidney disease) stage 4, GFR 15-29 ml/min Family History Family History Maternal Grandmother Breast cancer Maternal Aunt Breast cancer Colon cancer Sister Cervical cancer Surgical History Surgical History Hx of colonoscopy H/O endoscopy History of colposcopy Social History Social History Household Members: None Housing: House Do you presently have visiting nurse or other home services: No Alcohol intake: never Patient Tobacco Use Status: Never used Tobacco Smoked in Last 30 Days: No e-Cigarette/Vaping Use: Never Used Use of substances other than those prescribed or required for medical reasons: No Currently Displaying Signs/Symptoms of Drug Intoxication Withdrawal: No Have you been hit, kicked, punched, or otherwise hurt by someone within the past year? If so, by whom?: No Do you feel safe in your current relationship?: No Current Relationship Is there a partner from a previous relationship who is making you feel unsafe now?: No Are you made to feel afraid or neglected: No Jainism Healthcare Practices: protestant Advance Directives: Yes Advance Directives on File: Yes Advance Directives Date on File: 06/23/22 Do you have thoughts of harming others: None Do you have a plan to hurt others: No Plan Recently lost weight without trying: Yes How much weight loss: 24-33 pounds Eating poorly because of decreased appetite: No Nutrition screen score: 5 Nutrition Risks: No Nutritional Risk Patient : No : No Poor oral hygiene: No service: Yes Current occupational status: retired Sexual orientation: Straight/Heterosexual Gender identity: Female Cognitive needs: No Hearing needs: No Vision needs: Yes Meds Allergies Allergy/AdvReac Type Severity Reaction Status Date / Time tetracycline [Tetracycline] Allergy Severe ANAPHYLAXIS, Verified 07/03/23 13:59 as a child, trouble breathing Active Medications: Current Medications Acetaminophen (Acetaminophen 325 Mg Tablet) 650 mg PO Q6H PRN PRN Reason: Pain, Mild (Pain Scale 1-3) Aspirin (Aspirin Enteric Coated 81 Mg Tablet.) 81 mg PO DAILY COUNTS INCLUDE 234 BEDS AT THE [facility] Last Admin: 09/21/23 08:29 Dose: 81 mg Atorvastatin Calcium (Atorvastatin Calcium 80 Mg Tablet) 80 mg PO DAILY COUNTS INCLUDE 234 BEDS AT THE [facility] Last Admin: 09/21/23 08:29 Dose: 80 mg Betamethasone Dipropion Augmented (Betamethasone Dip Aug 0.05% Cr 15 Gm Tube) 1 appl TOPICAL BID PRN PRN Reason: Itching Cyanocobalamin (Cyanocobalamin (Vitamin B-12) 1,000 Mcg Tablet) 1,000 mcg PO DAILY COUNTS INCLUDE 234 BEDS AT THE [facility] Last Admin: 09/21/23 08:29 Dose: 1,000 mcg Folic Acid (Folic Acid 1 Mg Tablet) 5 mg PO DAILY COUNTS INCLUDE 234 BEDS AT THE [facility] Last Admin: 09/21/23 08:29 Dose: 5 mg Nystatin (Nystatin Ointment 15 Gm Tube) 1 appl TOPICAL DAILY COUNTS INCLUDE 234 BEDS AT THE [facility]; Protocol Last Admin: 09/21/23 08:33 Dose: 1 appl Ondansetron HCl (Ondansetron Hcl 4 Mg/2 Ml Vial) 4 mg IVPUSH Q8H PRN PRN Reason: Nausea and Vomiting Potassium Chloride (Potassium Chloride Er 20 Meq Tab.Er.Prt) 20 meq PO DAILY@1500 COUNTS INCLUDE 234 BEDS AT [facility] Last Admin: 09/20/23 15:49 Dose: 20 meq Potassium Chloride (Potassium Chloride Er 20 Meq Tab.Er.Prt) 40 meq PO BID COUNTS INCLUDE 234 BEDS AT THE [facility] Last Admin: 09/21/23 08:29 Dose: 40 meq Senna (Sennosides 8.6 Mg Tablet) 17.2 mg PO BEDTIME PRN PRN Reason: Constipation Sodium Bicarbonate (Sodium Bicarbonate 650 Mg Tablet) 1,950 mg PO BID COUNTS INCLUDE 234 BEDS AT [facility] Last Admin: 09/21/23 08:36 Dose: 1,950 mg Sodium Chloride (0.9 % Sodium Chloride Flush 3 Ml Syringe) 3 ml IVFLUSH QSHIFT COUNTS INCLUDE 234 BEDS AT THE [facility] Last Admin: 09/21/23 08:30 Dose: 3 ml Home Medications Medication Instructions Recorded Confirmed Last Taken Type ferrous sulfate 325 mg (65 mg 325 mg PO DAILY 02/21/21 09/20/23 Unknown History iron) tablet halobetasol propionate 0.05 % 1 appl topical BID PRN Itching 02/21/21 09/20/23 Unknown History topical ointment sodium bicarbonate 650 mg tablet 1,950 mg PO BID 02/21/21 09/20/23 Unknown History cholecalciferol (vitamin D3) 1,250 1,250 mcg PO Q2W 05/14/21 09/20/23 Unknown History mcg (50,000 unit) capsule clobetasol 0.05 % scalp solution 1 appl topical BID PRN Itching 06/23/22 09/20/23 Unknown History potassium chloride 10 mEq 20 meq PO DAILY@1500 09/20/23 09/20/23 Unknown History tablet,extended release(part/cryst) (Klor-Con M) potassium chloride 10 mEq 40 meq PO BID 09/20/23 09/20/23 Unknown History tablet,extended release(part/cryst) (Klor-Con M) Physical Exam Vital Signs: Last Vital Signs Temp 98 F 09/21/23 07:18 Pulse 61 09/21/23 07:18 Resp 18 09/21/23 07:18 BP 106/56 L 09/21/23 07:18 Pulse Ox 98 09/21/23 07:18 O2 Del Method Room Air 09/21/23 07:18 BMI result Body Mass Index 27.6 Const General: comfortable Nutritional Appearance: well nourished Orientation/consciousness: patient oriented x3 HEENT Head: No normal to inspection Mouth: moist mucous membranes Neck Neck: Yes supple and Yes no JVD Resp Auscultation: clear to auscultation bilaterally, no rales and rub present Cardio Jugular venous distension: no JVD Palpation: no palpable S3 and no palpable S4 Heart sounds: no rubs GI Palpation (GI): Soft to palpation and nontender Percussion: No Fluid wave present General: Yes no CVA tenderness Back/Spine/Pelvis Back: no CVA tenderness Skin General skin exam: no rashes or lesions noted Neuro General: patient oriented x3 Extrem General: Yes no pedal edema and No clubbing Results Lab Results 09/20/23 05:52 09/20/23 05:52 Lab results: Chemistry 09/19/23 09/20/23 16:49 05:52 Sodium 138 142 Potassium 3.5 3.8 Carbon Dioxide 19 L 22 BUN 28 H 27 H Creatinine 2.28 H 2.30 H Calcium 9.4 9.3 Hematology 09/19/23 09/20/23 16:49 05:52 WBC 7.3 6.9 Hgb 9.6 L 8.6 L Plt Count 158 L 146 L Urinalysis 09/19/23 19:08 Urine Color Yellow Urine Appearance Clear Urine pH 5.0 Ur Specific [place] <= 1.005 Urine Protein Trace Urine Glucose (UA) Negative Urine Ketones Negative Urine Blood Negative Urine Nitrite Negative Ur Leukocyte Esterase Small (1+) H Urine RBC 0-2 Urine WBC 0-5 Ur Squamous Epith Cells 0-2 Hyaline Casts 3-5 Assessment and Plan (1) CKD (chronic kidney disease) stage 4, GFR 15-29 ml/min: Status: Acute (2) Anemia due to chronic kidney disease: Status: Acute Plan Stable CKD 4 due to chr interstitial nephritis Renal function is at baseline Watch potassium Avoid nephrotoxins Check Iron/TIBC/Ferritin Check Ca and iPTH Shall follow with team Procedures Date of Service Date of Service: 09/21/23
[2023-09-21 11:57] VITALS: BP 112/68; PULSE 63; RESP 18; TEMP 36.8; O2SAT 98
--- NOTE | 2023-09-21 14:17 | MHC.CM.PN ---
Pt is medically cleared for D/C home self-care, pts friend transported her home.
== END 2023-09-21 14:37 | disposition home or self-care (01) | DRG 65 ==
LOC: HO.ED 18:41 → HO.IMC 22:28 → HO.EDOVER 09-20 12:01
PROVIDERS: Admitting Provider Physician Assistant; Emergency Provider Emergency Medicine Emergency Medical Services; PCP Internal Medicine; Visit Provider Internal Medicine
DX: I63.413 Cerebral infarction due to embolism of bilateral middle cerebral arteries (principal); N18.4 Chronic kidney disease, stage 4 (severe); N25.81 Secondary hyperparathyroidism of renal origin; R29.700 NIHSS score 0; D51.9 Vitamin B12 deficiency anemia, unspecified; E53.8 Deficiency of other specified B group vitamins; R47.01 Aphasia; K52.832 Lymphocytic colitis; Z76.82 Awaiting organ transplant status; Z79.82 Long term (current) use of aspirin; Z79.899 Other long term (current) drug therapy
CPT/HCPCS: 36415; 70450; 70551; 80048; 80061; 81001; 82550; 82607; 82746; 82947; 83036; 84484; 85025; 85610; 85730; 87086; 93005; 93306; 93880; 97161; 97165; 99222; 99285; J3420; Q9957

== ENCOUNTER → 2023-09-19 16:20 | Outpatient (BNV) | payer MEDICARE, OTHER, SELFPAY | PROVIDERS: Admitting Provider Physician Assistant; Emergency Provider Emergency Medicine Emergency Medical Services; Visit Provider Internal Medicine | DX: R07.9 Chest pain, unspecified (principal) | CPT/HCPCS: 93010 ==

== ENCOUNTER 2023-09-19 21:38 | Outpatient (BNV) | payer MEDICARE, OTHER, SELFPAY | END 2023-09-21 07:00 | PROVIDERS: Admitting Provider Physician Assistant; Emergency Provider Emergency Medicine Emergency Medical Services; PCP Internal Medicine; Visit Provider Internal Medicine Cardiovascular Disease | DX: I36.1 Nonrheumatic tricuspid (valve) insufficiency (principal); I63.413 Cerebral infarction due to embolism of bilateral middle cerebral arteries | CPT/HCPCS: 93306 ==

== ENCOUNTER → 2023-09-19 21:38 | Outpatient (BNV) | payer MEDICARE, OTHER, SELFPAY | PROVIDERS: Admitting Provider Physician Assistant; Emergency Provider Emergency Medicine Emergency Medical Services; Visit Provider Internal Medicine Nephrology | DX: N18.4 Chronic kidney disease, stage 4 (severe) (principal); D63.1 Anemia in chronic kidney disease | CPT/HCPCS: 99222; 99499 ==

== ENCOUNTER → 2023-09-19 21:38 | Outpatient (BNV) | payer MEDICARE, OTHER, SELFPAY | PROVIDERS: Admitting Provider Physician Assistant; Emergency Provider Emergency Medicine Emergency Medical Services; Visit Provider Physician Assistant | DX: G45.9 Transient cerebral ischemic attack, unspecified (principal); N18.4 Chronic kidney disease, stage 4 (severe) | CPT/HCPCS: 99223; 99232; 99239 ==

== ENCOUNTER → 2023-09-19 21:38 | Outpatient (BNV) | payer MEDICARE, OTHER, SELFPAY | PROVIDERS: Admitting Provider Physician Assistant; Emergency Provider Emergency Medicine Emergency Medical Services; PCP Internal Medicine; Visit Provider Psychiatry & Neurology Neurology | DX: I63.413 Cerebral infarction due to embolism of bilateral middle cerebral arteries (principal) | CPT/HCPCS: 99222 ==

== ENCOUNTER 2023-10-01 09:21 | Outpatient (AMB) | payer MEDICARE, OTHER, SELFPAY ==
--- NOTE | 2023-10-01 09:25 | MHC.PC.OV ---
Vital Signs 10/01/23 09:31 Height 5 ft 6 in Weight 172 lb BMI 27.8 BP 100/64 Blood Pressure Location Rt brachial Position Sitting Pulse 77 Pulse Source Pulse Oximeter Pulse Oximetry (%) 100 Oxygen Delivery Method Room Air Intake Visit Reasons: HDF stroke Intake Note: Pt is here today for her HDF C stroke Allergies tetracycline [Tetracycline] Allergy (Severe, Verified 10/01/23 09:38) ANAPHYLAXIS, as a child, trouble breathing Medication List - Last Reconciled 10/01/23 by Sabrina Felix MD aspirin 81 mg PO DAILY atorvastatin 80 mg PO DAILY cholecalciferol (vitamin D3) 1,250 mcg PO Q2W clobetasol 0.05% 1 appl topical BID PRN cyanocobalamin (vitamin B-12) (Vitamin B-12) 1,000 mcg PO DAILY ferrous sulfate 325 mg PO DAILY folic acid 5 mg (5 x 1 mg) PO DAILY halobetasol propionate 0.05% 1 appl topical BID PRN nystatin 1 appl topical DAILY potassium chloride ER (Klor-Con M) 20 mEq PO DAILY@1500 potassium chloride ER (Klor-Con M) 40 mEq PO BID sodium bicarbonate 1,950 mg PO BID Tobacco use date assessed: 10/01/23 Fall risk assessment: No Falls in past year Last assessed Fall Risk: 10/01/23 Dental Screening Dental Screen Date: 10/01/23 Did you have a dental visit in the last 12 months?: No Was dental information given to patient?: Patient declined HPI HDF stroke HPI Details 67 year old female with history of lymphocytic colitis, interstitial nephritis with CKD stage 4 following with [facility] and currently on transplant list, secondary hyperparathyroidism, hyperlipidemia, and psoriasis here today for follow-up after recent hospital admission. She presented to the ED for evaluation of an episode dysarthria . She was speaking with her brother on the phone and knew the words that she wanted to say but was unable to speak the correct words. This lasted for several minutes and resolved spontaneously without recurrence. Following this episode , she felt paresthesias in her left hand only and had an episode of positional lightheadedness. No visual changes, slurred speech, facial droop, focal weakness, gait imbalance. No history of cva but states her mother and sister both from stroke. On arrival at the ER, her vital signs were stable, and was speaking clearly. Hematology studies stable. Renal function baseline. Electrolytes normal, except for CO2 19 (has chronic diarrhea). Total CK 31, Trop 16.2. . She had a bedside swallow evaluation which she passed. Head CT was negative for any intracranial pathology, carotid ultrasound did not show any hemodynamically significant stenosis bilateral. Brain MRI done the next day however showed acute punctate infarct along the periphery of the right parietotemporal lobe and additional punctate hyperacute to acute infarct within the posterior left insula . She was admitted for acute CVA. TPA/TNK not administered given full resolution of symptoms on arrival at the ER. She was started on aspirin and statin. Echocardiogram done was unremarkable. Suspected cardioembolic origin, and plan was for outpatient follow up for continuous heart monitoring. She has chronic kidney disease stage 4 due to interstitial nephritis which has remained stable and will follow up with Nephrology outpatient. She was noted to have microcytic anemia due to folate and B12 deficiency. She was started on folic acid and B12 supplement. Patient's deficits completely resolved , no rehab indicated. At present, patient states that she is back to baseline, with no further episodes of dysarthria, no headache, no weakness or gait imbalance reported. [facility] Medical History (Updated 10/01/23 @ 10:02 by Sabrina Felix MD) Folate deficiency Vitamin B12 deficiency History of CVA (cerebrovascular accident) Secondary hyperparathyroidism Interstitial nephritis Hyperlipidemia Psoriasis vulgaris Abnormal Pap smear of cervix Osteoporosis Vulvar dermatitis Anemia due to chronic kidney disease Left Achilles tendinitis Kidney stones Chronic hypokalemia Lymphocytic colitis CKD (chronic kidney disease) stage 4, GFR 15-29 ml/min Surgical History Hx of colonoscopy H/O endoscopy History of colposcopy Family History Maternal Grandmother Breast cancer Maternal Aunt Breast cancer Colon cancer Sister Cervical cancer Social History Household Members: None Housing: House Do you presently have visiting nurse or other home services: No Alcohol intake: never Patient Tobacco Use Status: Never used Tobacco e-Cigarette/Vaping Use: Never Used Advance Directives Date on File: 06/23/22 service: Yes Current occupational status: retired Sexual orientation: Straight/Heterosexual Gender identity: Female Cognitive needs: No Hearing needs: No Vision needs: Yes Questionnaire PHQ-9 Over the last 2 weeks, how often have you been bothered by any of the following problems? 1. Little interest or pleasure in doing things: not at all 2. Feeling down, depressed, or hopeless: not at all 3. Trouble falling or staying asleep, or sleeping too much: not at all 4. Feeling tired or having little energy: not at all 5. Poor appetite or overeating: not at all 6. Feeling bad about yourself - or that you are a failure or have let yourself or your family down: not at all 7. Trouble concentrating on things, such as reading the newspaper or watching television: not at all 8. Moving or speaking so slowly that other people could have noticed. Or the opposite - being so fidgety or restless that you have been moving around a lot more than usual: not at all 9. Thoughts that you would be better off or of hurting yourself in some way: not at all Total score: 0 Depression Screening Interpretation: Negative Depression Screening Done: Yes 60220 - PHQ-9 Billing: Yes Source: Developed by Drs. Yaniv Lake, Jyoti Wynn, Wagner Gr and colleagues, with an educational rosangela from [employer]. Thrive Questionnaire Date Thrive assessed: 10/01/23 I am a: Patient What is your living situation today?: I have a steady place to live Within the past 12 months, did the food you bought not last and you didn't have the money to get more?: Never true Within the past 12 months, did you worry whether your food would run out before you got money to buy more?: Never true Do you have trouble paying for medicines?: No Do you have trouble getting transportation to medical appointments?: No Do you have trouble paying your heating and electricity bill?: No Do you have trouble taking care of your child, family member or friend?: No Do you have trouble with day-to-day activities such as bathing, preparing meals, shopping, managing finances, etc.?: No Are you currently unemployed and looking for a job?: No Are you interested in more education?: No THRIVE Score: 0 AUDIT C Alcohol Use Questionnaire (AUDIT-C) 1. How often do you have a drink containing alcohol?: Never Total Score: 0 JERE-7 AMB Questionnaire JERE-7 Date JERE - 7 assessed: 10/01/23 Feeling nervous, anxious, or on edge: 0 = Not at all Not being able to stop or control worryin = Not at all Worrying too much about different things: 0 = Not at all Trouble relaxin = Not at all Being so restless that it is hard to sit still: 0 = Not at all Becoming easily annoyed or irritable: 0 = Not at all Feeling afraid as if something awful might happen: 0 = Not at all Total JERE-7 score (0-4 normal; 5-9 mild; 10-14 moderate; 15-21 severe): 0 Source: Developed by Drs. Yaniv Lake, Jyoti Wynn, Wagner Gr and colleagues, with an educational rosangela from [employer]. JERE-7 Assessment Billing JERE-7 Assessment Tool: JERE-7 Assessment 11029 Review of Systems Const Denies fatigue, Denies fever(s), Denies headache(s), Denies malaise and Denies weakness Eyes Details: Up-to-date with her eye exam, sees Dr. Thomas Denies change in vision ENT Denies dizziness, Denies headache(s), Denies nasal congestion, Denies nasal discharge, Denies post nasal drip and Denies sore throat Card Reports no additional complaints and Denies chest pain Resp Denies chest congestion GI Denies abdominal pain, Denies melena, Denies hematochezia, Reports diarrhea and Denies nausea Reports no additional complaints Musc Details: No history of fractures Reports no additional complaints, Denies abnormal gait and Denies numbness Neuro Denies Neuro-related abnormal movements, Denies Abnormal speech present, Denies abnormal gait, Denies dizziness, Denies headache(s), Denies numbness, Denies seizure-like activity and Denies weakness Psych Reports as per HPI Endo Denies fatigue Robe/Lymph Reports no additional complaints Aller/Immun Reports no additional complaints Physical exam (Primary Care) Vital Signs: Last Vital Signs Pulse 77 10/01/23 09:31 BP 100/64 10/01/23 09:31 Pulse Ox 100 10/01/23 09:31 Oxygen Delivery Method Room Air 10/01/23 09:31 BMI result Body Mass Index 27.8 BMI Assessment/Plan discussion: High BMI High, discussed plan: lifestyle, weight reduction, dietary and physical activity Tobacco/Smoking Status: Tobacco use Status Tobacco use date assessed 10/01/23 10/01/23 09:29 Patient Tobacco Use Status Never used Tobacco 10/01/23 09:29 e-Cigarette/Vaping Use Never Used 10/01/23 09:29 Depression Screening Interpretation: Negative Thrive Assessment: Date of Thrive Assessment Date Thrive assessed 10/01/23 10/01/23 09:40 Const General: cooperative and comfortable Nutritional Appearance: obese Orientation/consciousness: patient oriented x3 HENMT General nose exam: Normal external nose present Face and sinus: Yes face symmetric Mouth: Normal oral and palatal mucosa present and moist mucous membranes Eyes General: appearance normal, both eyes and all related structures Neck Neck: Yes full ROM, Yes no lymphadenopathy, Yes supple and Yes no JVD Thyroid: Thyroid normal Resp Effort & Inspection: normal respiratory effort and able to speak in complete sentences Auscultation: clear to auscultation bilaterally Cardio Jugular venous distension: no JVD Rate: regular rate Rhythm: regular rhythm Heart sounds: S1 normal heart sound present and S2 normal heart sound present GI Inspection: Yes obesity Palpation (GI): Soft to palpation, nontender, not rigid and no masses Auscultation: normal bowel sounds Back/Spine/Pelvis Back: No back tenderness Neuro General: patient oriented x3, gait normal, moves all extremities, Normal light touch and pain sensation and no focal motor deficits Speech: No Abnormal speech present Extrem General: Yes full ROM, Yes no joint enlargement, Yes no clubbing, cyanosis or edema and Yes normal gait Psych Appearance: grossly normal and well kempt Mental Status: mental status grossly normal Speech and movement: Normal speech and movement present Affect: normal affect Attitude: cooperative Thought process: Normal thought process present Assessment and Plan Assessment & Plan (1) History of CVA (cerebrovascular accident): Code(s): Z86.73 - Personal history of transient ischemic attack (TIA), and cerebral infarction without residual deficits Plan: Continue aspirin 81 mg daily , referral to cardiology, for follow-up after recent admission for CVA? Cardioembolic in etiology. Bilateral carotid ultrasound showed no hemodynamically significant stenosis present (2) Hyperlipidemia: Code(s): E78.5 - Hyperlipidemia, unspecified Plan: On atorvastatin, continue in addition to adhering to low-cholesterol diet and regular exercise. Will repeat another fasting lipid panel liver enzymes in 3 month (3) Interstitial nephritis: Comment: Followed by Dr Frank Lane at [facility] Nephrology clinic Code(s): N12 - Tubulo-interstitial nephritis, not specified as acute or chronic Plan: Currently followed by Nephrology at [facility] in [place] (4) Vitamin B12 deficiency: Code(s): E53.8 - Deficiency of other specified B group vitamins Plan: Continue vitamin B12 supplements, recheck levels again in 3 months (5) Folate deficiency: Code(s): E53.8 - Deficiency of other specified B group vitamins Plan: Started on folic acid supplement, recheck levels again in 3 month (6) Lymphocytic colitis: Code(s): K52.832 - Lymphocytic colitis Plan: Followed by GI Orders: Orders Lipid Panel 3 Months E53.8 - Deficiency of other specified B group vitamins, E78.5 - Hyperlipidemia, unspecified, Z86.73 - Personal history of transient ischemic attack (TIA), and cerebral infarction without residual deficits Vitamin B12 and Folate 3 Months E53.8 - Deficiency of other specified B group vitamins, E78.5 - Hyperlipidemia, unspecified, Z86.73 - Personal history of transient ischemic attack (TIA), and cerebral infarction without residual deficits Alanine Aminotransferase 3 Months E53.8 - Deficiency of other specified B group vitamins, E78.5 - Hyperlipidemia, unspecified, Z86.73 - Personal history of transient ischemic attack (TIA), and cerebral infarction without residual deficits Vitamin D 25-OH Total 3 Months E53.8 - Deficiency of other specified B group vitamins, E78.5 - Hyperlipidemia, unspecified, Z86.73 - Personal history of transient ischemic attack (TIA), and cerebral infarction without residual deficits Aspartate Amino Transferase 3 Months E53.8 - Deficiency of other specified B group vitamins, E78.5 - Hyperlipidemia, unspecified, Z86.73 - Personal history of transient ischemic attack (TIA), and cerebral infarction without residual deficits Referrals Cardiology Referral Z86.73 - Personal history of transient ischemic attack (TIA), and cerebral infarction without residual deficits Coding Level of Care Code Est Pt Level 4 (69833) Diagnoses History of CVA (cerebrovascular accident) Z86.73 Hyperlipidemia E78.5 Interstitial nephritis N12 Vitamin B12 deficiency E53.8 Folate deficiency E53.8 Lymphocytic colitis K52.832 Additional Codes JERE-7 Assessment Billing - JERE-7 Assessment Tool: JERE-7 Assessment 14455 ([id number])
[2023-10-01 09:31] VITALS: BP 100/64; PULSE 77; O2SAT 100; BMI 27.8
== END 2023-10-01 11:06 | disposition home or self-care (01) ==
PROVIDERS: PCP Internal Medicine; Visit Provider Internal Medicine
DX: E78.5 Hyperlipidemia, unspecified (principal); N18.4 Chronic kidney disease, stage 4 (severe); N12 Tubulo-interstitial nephritis, not specified as acute or chronic; E53.8 Deficiency of other specified B group vitamins; K52.832 Lymphocytic colitis; Z86.73 Personal history of transient ischemic attack (TIA), and cerebral infarction without residual deficits
CPT/HCPCS: 99214

== ENCOUNTER 2023-11-02 09:30 | Outpatient (REF) | payer MEDICARE, OTHER, SELFPAY ==
[2023-11-02 13:26] LABS: Appearance Urine Cloudy; Color Urine Yellow; Glucose Urine UA Negative (Negative); Leukocyte Esterase Urine Moderate (2+) (Negative); MANUAL DIFF FLAG NO; Nitrite Urine Negative (Negative); PH 5.5 (5.0-9.0); Specific Gravity - Urine 1.015 (1.005-1.025); UMIC TRIGGER UA YES; Urine Blood Negative (Negative); Urine Ketones Negative (Negative); Urine Protein 30 (1+) mg/dL (Neg-Trace)
[2023-11-02 13:40] LABS: Basophils Percent Auto 0.5 % (0-2); Eosinophils Absolute Auto 0.1 X10*3/uL (0.0-0.4); Eosinophils Percent Auto 1.9 % (0-4); Hematocrit 33.4 % (37.0-47.0); Hemoglobin 10.7 g/dl (12.0-16.0); Imm Gran Abs Auto 0.03 X10*3/uL (0.00-0.03); Imm Gran Pct Auto 0.5 % (0.0-0.4); Lymphocytes Absolute Auto 1.2 X10*3/uL (1.2-4.9); Lymphocytes Percent Auto 19.5 % (20-40); Mean Corpuscular Hemoglobin 33.4 pg (27.0-33.0); Mean Corpuscular Volume 104.4 fL (80.0-98.0); Mean Platelet Volume 9.4 fL (9.4-12.3); Monocytes Absolute Auto 0.5 X10*3/uL (0.1-1.2); Monocytes Percent Auto 7.7 % (2-11); Neutrophils Absolute Auto 4.5 x10*3/uL (2.0-8.3); Neutrophils Percent Auto 69.9 % (45-73); Platelet Count 205 X10*3/uL (160-400); Red Cell Distribution Width 12.8 % (11.0-16.0); White Blood Count 6.4 X10*3/uL (4.8-10.8)
[2023-11-02 13:46] LABS: Bacteria Urine 1+ (None Seen); RBC Urine 0-2 /HPF (0-2)
[2023-11-02 14:06] LABS: Anion Gap 11 (12-20); Blood Urea Nitrogen 30 mg/dL (9-16); Carbon Dioxide 22 mmol/L (22-29); Chloride 109 mmol/L (96-108); Estimated Glomerular Filt Rate 17; Potassium 4.1 mmol/L (3.3-5.1); Sodium 138 mmol/L (135-145)
[2023-11-02 14:23] LABS: Vitamin D 25-OH Total 39.6 ng/mL (>30)
[2023-11-02 14:33] LABS: Creatinine Urine 109.56 mg/dL; Microalbum/Creatinine Ratio Ur 21.9 ug/mg cr (<30)
[2023-11-02 16:43] LABS: Parathyroid Hormone Intact 179.5 pg/mL (8.7-77.1)
== END 2023-11-02 09:31 | disposition home or self-care (01) ==
LOC: HO.HMGCLDS 09:30
PROVIDERS: PCP Internal Medicine; Visit Provider Internal Medicine Nephrology
DX: N18.4 Chronic kidney disease, stage 4 (severe) (principal); N12 Tubulo-interstitial nephritis, not specified as acute or chronic; E55.9 Vitamin D deficiency, unspecified
CPT/HCPCS: 36415; 80051; 81001; 82043; 82306; 82310; 82565; 82570; 83970; 84520; 85025

== ENCOUNTER 2023-12-09 09:34 | Outpatient (AMB) | payer MEDICARE, OTHER, SELFPAY ==
--- NOTE | 2023-12-09 09:49 | MHC.OFFVIS ---
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 Patient in August had some word finding difficulty and eventually ended up coming to the hospital. Subsequent workup with MRI showed bilateral acute infarcts. Was seen by Neurology and was felt that this was an embolic event. Patient subsequently underwent a transthoracic echocardiogram which was unrevealing. There was no saline contrast study performed at that time. Patient since then has had resolution of her neurologic abnormality. She was started on aspirin therapy but question was raised for further workup by neurology team. Patient has not had any symptoms of palpitations. Denies any other cardiac symptoms. She has history of chronic anemia suspected to be due to chronic disease/chronic kidney disease, chronic kidney disease related to dehydration and chronic colitis with continued episodes of diarrhea. Patient was advised to see Cardiology for further workup. Carotid duplex were unremarkable [facility] Medical History Folate deficiency Vitamin B12 deficiency History of CVA (cerebrovascular accident) Secondary hyperparathyroidism Interstitial nephritis Hyperlipidemia Psoriasis vulgaris Abnormal Pap smear of cervix Osteoporosis Vulvar dermatitis Anemia due to chronic kidney disease Left Achilles tendinitis Kidney stones Chronic hypokalemia Lymphocytic colitis CKD (chronic kidney disease) stage 4, GFR 15-29 ml/min Surgical History Hx of colonoscopy H/O endoscopy History of colposcopy Family History Maternal Grandmother Breast cancer Maternal Aunt Breast cancer Colon cancer Sister Cervical cancer Social History Household Members: None Housing: House Do you presently have visiting nurse or other home services: No Alcohol intake: never Patient Tobacco Use Status: Never used Tobacco e-Cigarette/Vaping Use: Never Used Advance Directives Date on File: 06/23/22 service: Yes Current occupational status: retired Sexual orientation: Straight/Heterosexual Gender identity: Female Cognitive needs: No Hearing needs: No Vision needs: Yes Review of Systems Const Denies chills, Denies daytime sleepiness, Denies fatigue, Denies fever(s), Denies frequent falls, Denies poor appetite, Denies snoring, Denies stops breathing during sleep, Denies weakness, Denies weight gain and Denies weight loss Eyes Denies loss of vision ENT Denies dizziness and Denies hearing loss Card Denies chest pain, Denies claudication, Denies leg edema, Denies lightheadedness, Denies palpitations, Denies dyspnea, Denies dyspnea on exertion and Denies orthopnea Resp Denies cough, Denies excessive phlegm production, Denies dyspnea, Denies dyspnea on exertion, Denies snoring and Denies wheezing GI Denies abdominal pain, Denies hematochezia, Denies change in bowel habits, Denies nausea and Denies vomiting Denies urinary frequency and Denies dysuria Musc Denies arthralgias, Denies muscle weakness, Denies numbness and Denies other (frequent falls) Skin/Breast Denies nail changes and Denies rash Neuro Denies Abnormal speech present, Denies dizziness, Denies frequent falls, Denies loss of vision, Denies memory loss, Denies numbness and Denies weakness Psych Denies depression and Denies memory loss Endo Denies fatigue and Denies palpitations Robe/Lymph Reports easy bruising and Reports other (anemia) Aller/Immun Denies wheezing Physical Exam Vital Signs: Last Vital Signs Pulse 71 12/09/23 09:51 BP 108/62 12/09/23 09:51 BMI result Body Mass Index 27.8 Const General: cooperative, comfortable, no acute distress, alert, awake and Physically active Nutritional Appearance: average body habitus Orientation/consciousness: patient oriented x3 Limitations: no limitations HEENT Head: Yes normocephalic and Yes atraumatic Neck Neck: Yes trachea midline, Yes supple and Yes no JVD Resp Effort & Inspection: normal respiratory effort Auscultation: clear to auscultation bilaterally Cardio Jugular venous distension: no JVD Palpation: normal PMI Rate: regular rate Rhythm: regular rhythm Heart sounds: S1 normal heart sound present, S2 normal heart sound present, no click, no gallops, no murmurs and no rubs GI Auscultation: normal bowel sounds Skin General skin exam: no rashes or lesions noted Neuro General: patient oriented x3 and no focal motor deficits Speech: No Abnormal speech present Extrem General: Yes no clubbing, cyanosis or edema Psych Appearance: grossly normal Office Procedures EKG Details: EKG shows normal sinus rhythm with normal EKG [id number], Complete Assessment & Plan Assessment & Plan (1) CVA, old, speech/language deficit: Code(s): I69.328 - Other speech and language deficits following cerebral infarction Plan: Patient with CVA in August with speech difficulty with cardiac MRI revealed him bilateral cortical infarcts suggestive of embolic phenomenon. Discussed with the patient the findings and possibility of embolism oxygenating prior to bilateral carotid disease and need to rule out both aortic as well as cardiac pathology as well as rule out atrial fibrillation as a cause. This was discussed with her. Discussed for her to undergo transesophageal echocardiogram to evaluate for further abnormality of the cardiac structure and or presence of intracardiac shunting and aortic plaque that may require dual antiplatelet therapy. This was discussed with her. Discussed with her about risks, benefits, alternatives to the procedure. She understands agrees. Also discussed about potentially findings of atrial fibrillation especially given her risk factors. We discussed about 30 day event monitor externa versus an implantable loop recorder. She prefers to undergo a 30 day external monitor for now. Further treatment based on the findings. For now without any clear pathology would agree with aspirin atorvastatin therapy. Need to workup for anemia as this may impact her future treatment if she requires oral anticoagulant therapy. Consider Hematology consultation. Will follow up in 2 months time, sooner p.r.n.. Thank you for allowing me to partake in her care Coding Level of Care Code New Pt Level 4 (01804) Diagnoses CVA, old, speech/language deficit I69.328 CPT Codes EKG - CPT: 21565-[id number], Complete ([id number])
[2023-12-09 09:51] VITALS: BP 108/62; PULSE 71; BMI 27.8
== END 2023-12-09 10:33 | disposition home or self-care (01) ==
PROVIDERS: PCP Internal Medicine; Visit Provider Internal Medicine Cardiovascular Disease
DX: I69.328 Other speech and language deficits following cerebral infarction (principal)
CPT/HCPCS: 93010; 99204

== ENCOUNTER → 2023-12-09 09:34 | Outpatient (BNVA) | payer MEDICARE, OTHER, SELFPAY | PROVIDERS: PCP Internal Medicine; Visit Provider Internal Medicine Cardiovascular Disease | DX: I69.328 Other speech and language deficits following cerebral infarction (principal) | CPT/HCPCS: 93005; 99202 ==

== ENCOUNTER 2023-12-10 08:10 | Outpatient (AMB) | payer MEDICARE, OTHER, SELFPAY ==
--- NOTE | 2023-12-10 08:32 | AM.OFFWIN_ITS ---
Intake Vital Signs 12/10/23 08:33 Height 5 ft 6 in Weight 171 lb BMI 27.6 BP 126/78 Blood Pressure Location Lt brachial Position Sitting Pulse 90 Pulse Source Pulse Oximeter Temp 98.2 F Temp Source Temporal Artery Scan Pulse Oximetry (%) 98 Oxygen Delivery Method Room Air Intake Visit Reasons: EP Swollen private Intake Note: pt is here today for swollen private started 2 days ago Patient Tobacco Use Status: Never used Tobacco Allergies tetracycline [Tetracycline] Allergy (Severe, Verified 12/10/23 08:44) ANAPHYLAXIS, as a child, trouble breathing Do you need a note to return to daycare/school/sports/work: No HPI EP Swollen private HPI Details This is a 68 year old female patient who presents with red/swollen labia L>R. She is followed by derm for a history of psoriasis, frequently affecting her vulvar area. She states her vulvar area gets very itchy and at n ight she tends to unintentionally itch area. On Thursday this happened and she noticed area was starting to get increasingly irritated and warm. She denies any vaginal discharge. She denies any fever, chills, or fatigue. Has been using baby wipes on area. Does not use prescribed ointment from derm as this increased irritation. History of CKD. [facility] Medical History (Updated 12/10/23 @ 09:30 by TAWANNA Jackson) Vulvovaginal candidiasis Folate deficiency Vitamin B12 deficiency History of CVA (cerebrovascular accident) Secondary hyperparathyroidism Interstitial nephritis Hyperlipidemia Psoriasis vulgaris Abnormal Pap smear of cervix Osteoporosis Vulvar dermatitis Anemia due to chronic kidney disease Left Achilles tendinitis Kidney stones Chronic hypokalemia Lymphocytic colitis CKD (chronic kidney disease) stage 4, GFR 15-29 ml/min Surgical History Hx of colonoscopy H/O endoscopy History of colposcopy Family History Maternal Grandmother Breast cancer Maternal Aunt Breast cancer Colon cancer Sister Cervical cancer Social History Household Members: None Housing: House Do you presently have visiting nurse or other home services: No Alcohol intake: never Patient Tobacco Use Status: Never used Tobacco e-Cigarette/Vaping Use: Never Used Advance Directives Date on File: 06/23/22 service: Yes Current occupational status: retired Sexual orientation: Straight/Heterosexual Gender identity: Female Cognitive needs: No Hearing needs: No Vision needs: Yes Review of Systems Const All systems reviewed & are unremarkable except as noted in HPI and below Physical Exam Vital Signs: Last Vital Signs Temp 98.2 F 12/10/23 08:33 Pulse 90 12/10/23 08:33 BP 126/78 12/10/23 08:33 Pulse Ox 98 12/10/23 08:33 Oxygen Delivery Method Room Air 12/10/23 08:33 BMI result Body Mass Index 27.6 Const General: cooperative and no acute distress Neck Neck: Yes no lymphadenopathy Resp Effort & Inspection: normal respiratory effort Auscultation: clear to auscultation bilaterally Cardio Rate: regular rate Rhythm: regular rhythm General: Yes no CVA tenderness External Female Exam: erythema, externally tender and external swelling (b/l labia and groin, red beefy rash with white d/c) Speculum Exam - Vagina: normal appearance of the vagina Back/Spine/Pelvis Back: no CVA tenderness Extrem General: Yes capillary refill normal and Yes no clubbing, cyanosis or edema Psych Appearance: grossly normal Mental Status: mental status grossly normal Speech and movement: Normal speech and movement present Results AMB Urinalysis, Automated UA Leukoctes 70 Taz/uL Last Edit by Wanda Bettencourt MA on 12/10/23 09:03 UA Nitrite Negative Last Edit by Wanda Bettencourt MA on 12/10/23 09:03 UA Urobilinogen 0.2 mg/dL Last Edit by Wanda Bettencourt MA on 12/10/23 09:03 UA Protein 30 mg/dL Last Edit by Wanda Bettencourt MA on 12/10/23 09:03 UA pH 5.5 Last Edit by Wanda Bettencourt MA on 12/10/23 09:03 UA Blood 25 Demario/uL Last Edit by Wanda Bettencourt MA on 12/10/23 09:03 UA Specific [place] 1.020 Last Edit by Wanda Bettencourt MA on 12/10/23 09:03 UA Ketone Negative Last Edit by Wanda Bettencourt MA on 12/10/23 09:03 UA Bilirubin 0 mg/dL Last Edit by Wanda Bettencourt MA on 12/10/23 09:03 UA Glucose 0 mg/dL Last Edit by Wanda Bettencourt MA on 12/10/23 09:03 Results Reviewed Results Reviewed: Laboratory Last Values Urine pH (Auto) 5.5 12/10/23 09:00 Specific [place] (Auto) 1.020 12/10/23 09:00 Urine Protein (Auto) 30 mg/dL 12/10/23 09:00 Glucose (UA)(Auto) 0 mg/dL 12/10/23 09:00 Urine Ketones (Auto) Negative 12/10/23 09:00 Urine Blood (Auto) 25 Demario/uL 12/10/23 09:00 Urine Nitrite (Auto) Negative 12/10/23 09:00 Urine Bilirubin (Auto) 0 mg/dL 12/10/23 09:00 Urine Urobilinogen (Auto) 0.2 mg/dL 12/10/23 09:00 Leukocyte Esterase (Auto) 70 Taz/uL 12/10/23 09:00 Assessment & Plan Assessment & Plan (1) Vulvovaginal candidiasis: Code(s): B37.31 - Acute candidiasis of vulva and vagina Plan: I am going to start patient on Fluconazole PO, in addition to a nystatin/triamcinolone cream she can apply externally. I encouraged her to f/u with dermatology as needed as this seems to be a recurring issue for her, and she is not using their prescribed topical ointment due to side effects. Recommended cool compresses to vulvar area as needed. Reviewed perineal care and to keep area clean/dry. I advised oatmeal bath, however patient no longer has bathtub. If she develops any worsening symptoms, or if she does not improve with treatment she can return to clinic or f/u with derm/OB office/PCP as needed. She agrees to plan. Medications: New fluconazole may repeat dose 72 hrs after first dose if symptoms persist, and again 72 hours after second dose if symptoms persist. Maximum 3 doses. 150 mg PO Q3D 3 tabs 0RF B37.31 - Acute candidiasis of vulva and vagina nystatin-triamcinolone 100,000-0.1 unit/g-% Apply externally up to twice a day until symptoms resolve. 1 appl topical BID 30 grams 1RF B37.31 - Acute candidiasis of vulva and vagina Coding Level of Care Code Est Pt Level 4 (39202) Diagnoses Vulvovaginal candidiasis B37.31
[2023-12-10 08:33] VITALS: BP 126/78; PULSE 90; TEMP 36.8; O2SAT 98; BMI 27.6
== END 2023-12-10 09:11 | disposition home or self-care (01) ==
PROVIDERS: PCP Internal Medicine; Visit Provider Nurse Practitioner Family
DX: B37.31 Acute candidiasis of vulva and vagina (principal)
CPT/HCPCS: 81003; 99214

== ENCOUNTER → 2023-12-15 10:42 | Outpatient (REF) | payer MEDICARE, OTHER, SELFPAY ==
--- NOTE | 2023-12-15 10:45 | HM_ITS ---
Cardiac event monitor Indication: Transient ischemic attack Technique: Patient was hooked up to cardiac event monitor on 12/15/2023 for total period of 30 days with compliance rate of about 96%. Findings: Baseline was normal sinus rhythm with heart rate between 60 and 100 beats per minute 94% of time. Very brief episodes of sinus bradycardia and sinus tachycardia noted. There are total of 5 episodes of SVT noted consistent with paroxysmal atrial tachycardia lasting about 10-12 beats and the longest at about 143 beats per minute. The rare PACs noted. No episodes of atrial fibrillation were noted. No patient reported events. Conclusion: 1. Baseline was normal sinus rhythm with no pauses 2. No episodes of atrial fibrillation 3. Rare PACs and few short bursts PAT events 4. No patient reported events MTDD
== END ==
LOC: HO.CARD 10:42
PROVIDERS: PCP Internal Medicine; Visit Provider Internal Medicine Cardiovascular Disease
DX: I69.328 Other speech and language deficits following cerebral infarction (principal); G45.9 Transient cerebral ischemic attack, unspecified
CPT/HCPCS: 93270

== ENCOUNTER → 2023-12-15 10:45 | Outpatient (BNV) | payer MEDICARE, OTHER, SELFPAY | PROVIDERS: PCP Internal Medicine; Visit Provider Internal Medicine Cardiovascular Disease | DX: I47.19 Other supraventricular tachycardia (principal) | CPT/HCPCS: 93272 ==

== ENCOUNTER 2023-12-22 11:41 | Outpatient (REF) | payer MEDICARE, OTHER, SELFPAY ==
[2023-12-22 13:55] LABS: Alanine Aminotransferase 22 U/L (0-31); Aspartate Amino Transferase 19 U/L (5-31); Cholesterol 184 mg/dL (<200); HDL Cholesterol 63 mg/dL (>40); LDL Cholesterol Calculated 101 mg/dL (<100); Triglycerides 103 mg/dL (<150)
[2023-12-22 14:14] LABS: Vitamin D 25-OH Total 35.8 ng/mL (>30)
[2023-12-22 14:33] LABS: Folate > 20.0 ng/mL (> or = 4.0); Vitamin B12 1120 pg/mL (200-900)
== END 2023-12-22 11:42 | disposition home or self-care (01) ==
LOC: HO.HMGCLDS 11:41
PROVIDERS: PCP Internal Medicine; Visit Provider Internal Medicine
DX: E53.8 Deficiency of other specified B group vitamins (principal); E78.5 Hyperlipidemia, unspecified; Z86.73 Personal history of transient ischemic attack (TIA), and cerebral infarction without residual deficits
CPT/HCPCS: 36415; 80061; 82306; 82607; 82746; 84450; 84460

== ENCOUNTER 2023-12-25 12:05 | Day surgery (SDC) | payer MEDICARE, OTHER, SELFPAY ==
--- NOTE | 2023-12-23 14:46 | HO.ANESPROP2 ---
Documented by User: Geri Sal NP 12/23/23 14:50 HPI - Anesthesia Eval Consult details Narrative: 68yo F for Transesophageal Echocardiogram with bubble study Embolic CVA 08/[address] Follows [facility] nephro, pretransplant [facility] Active Problems Active Problems: All Active Problems Vulvovaginal candidiasis (Acute) CVA, old, speech/language deficit (Acute) Folate deficiency (Acute) Vitamin B12 deficiency (Acute) History of CVA (cerebrovascular accident) (Acute) Embolic cerebral infarction (Acute) Transient cerebral ischemia (Acute) Secondary hyperparathyroidism (Acute) Interstitial nephritis (Acute) Hyperlipidemia (Acute) Psoriasis vulgaris (Acute) Osteoporosis (Acute) Vulvar dermatitis (Acute) CKD (chronic kidney disease) stage 4, GFR 15-29 ml/min (Acute) Anemia due to chronic kidney disease (Acute) Chronic hypokalemia (Acute) Lymphocytic colitis (Acute) Past Medical History Medical History (Updated 12/25/23 @ 12:59 by Kimberly Bach RN) History of Holter monitoring Vulvovaginal candidiasis Folate deficiency Vitamin B12 deficiency History of CVA (cerebrovascular accident) Secondary hyperparathyroidism Interstitial nephritis Hyperlipidemia Psoriasis vulgaris Abnormal Pap smear of cervix Osteoporosis Vulvar dermatitis Anemia due to chronic kidney disease Left Achilles tendinitis Kidney stones Chronic hypokalemia Lymphocytic colitis CKD (chronic kidney disease) stage 4, GFR 15-29 ml/min Family History Family History Maternal Grandmother Breast cancer Maternal Aunt Breast cancer Colon cancer Sister Cervical cancer Surgical History Surgical History Hx of colonoscopy H/O endoscopy History of colposcopy Social History Social History Household Members: None Housing: House Do you presently have visiting nurse or other home services: No Alcohol intake: never Patient Tobacco Use Status: Never used Tobacco e-Cigarette/Vaping Use: Never Used Are you DNR?: No Advance Directives: No Advance Directives Information Provided: Yes Advance Directives Date on File: 06/23/22 service: Yes Current occupational status: retired Sexual orientation: Straight/Heterosexual Gender identity: Female Cognitive needs: No Hearing needs: No Vision needs: Yes Meds Allergies Allergy/AdvReac Type Severity Reaction Status Date / Time tetracycline [Tetracycline] Allergy Severe ANAPHYLAXIS, Verified 12/10/23 08:44 as a child, trouble breathing Home Medications ?Medication ?Instructions ?Recorded ?Confirmed ?Last Taken ?Type ferrous sulfate 325 mg (65 mg 325 mg PO DAILY 02/21/21 12/09/23 Unknown History iron) tablet halobetasol propionate 0.05 % 1 appl topical BID PRN Itching 02/21/21 12/09/23 Unknown History topical ointment sodium bicarbonate 650 mg tablet 1,950 mg PO BID 02/21/21 12/09/23 Unknown History cholecalciferol (vitamin D3) 1,250 1,250 mcg PO Q2W 05/14/21 12/09/23 Unknown History mcg (50,000 unit) capsule clobetasol 0.05 % scalp solution 1 appl topical BID PRN Itching 06/23/22 12/09/23 Unknown History potassium chloride 10 mEq 40 meq PO BID 09/20/23 12/09/23 Unknown History tablet,extended release(part/cryst) (Klor-Con M) atorvastatin 80 mg tablet 40 mg PO .everyother 12/09/23 12/09/23 Unknown History Exam Pertinent Lab Results Pertinent Lab Results: Laboratory Tests 11/02/23 09:46 WBC 6.4 Hgb 10.7 L D Hct 33.4 L D Plt Count 205 D Sodium 138 Potassium 4.1 Chloride 109 H Carbon Dioxide 22 BUN 30 H Creatinine 2.83 H Narrative Narrative: EKG 11/2023 normal sinus rhythm with normal EKG ECHO 08/2023 Conclusions: - Normal left ventricular size, thickness, systolic function, and wall motion. The visually estimated ejection fraction is between 55-60%. Diastolic function is normal for age. - Normal right ventricular cavity size and systolic function. Assessment and Plan Assessment Anesthesia Assessment: Chart Reviewed Documented by User: Blank Lux MD 12/25/23 13:04 [facility] Active Problems Active Problems: All Active Problems Vulvovaginal candidiasis (Acute) CVA, old, speech/language deficit (Acute) Folate deficiency (Acute) Vitamin B12 deficiency (Acute) History of CVA (cerebrovascular accident) (Acute) Embolic cerebral infarction (Acute) Transient cerebral ischemia (Acute) Secondary hyperparathyroidism (Acute) Interstitial nephritis (Acute) Hyperlipidemia (Acute) Psoriasis vulgaris (Acute) Osteoporosis (Acute) Vulvar dermatitis (Acute) CKD (chronic kidney disease) stage 4, GFR 15-29 ml/min (Acute) Anemia due to chronic kidney disease (Acute) Chronic hypokalemia (Acute) Lymphocytic colitis (Acute) Past Medical History Medical History (Updated 12/25/23 @ 12:59 by Kimberly Bach RN) History of Holter monitoring Vulvovaginal candidiasis Folate deficiency Vitamin B12 deficiency History of CVA (cerebrovascular accident) Secondary hyperparathyroidism Interstitial nephritis Hyperlipidemia Psoriasis vulgaris Abnormal Pap smear of cervix Osteoporosis Vulvar dermatitis Anemia due to chronic kidney disease Left Achilles tendinitis Kidney stones Chronic hypokalemia Lymphocytic colitis CKD (chronic kidney disease) stage 4, GFR 15-29 ml/min Family History Family History Maternal Grandmother Breast cancer Maternal Aunt Breast cancer Colon cancer Sister Cervical cancer Surgical History Surgical History Hx of colonoscopy H/O endoscopy History of colposcopy Social History Social History Household Members: None Housing: House Do you presently have visiting nurse or other home services: No Alcohol intake: never Patient Tobacco Use Status: Never used Tobacco e-Cigarette/Vaping Use: Never Used Are you DNR?: No Advance Directives: No Advance Directives Information Provided: Yes Advance Directives Date on File: 06/23/22 service: Yes Current occupational status: retired Sexual orientation: Straight/Heterosexual Gender identity: Female Cognitive needs: No Hearing needs: No Vision needs: Yes Meds Allergies Allergy/AdvReac Type Severity Reaction Status Date / Time tetracycline [Tetracycline] Allergy Severe ANAPHYLAXIS, Verified 12/10/23 08:44 as a child, trouble breathing Home Medications ?Medication ?Instructions ?Recorded ?Confirmed ?Last Taken ?Type ferrous sulfate 325 mg (65 mg 325 mg PO DAILY 02/21/21 12/09/23 Unknown History iron) tablet halobetasol propionate 0.05 % 1 appl topical BID PRN Itching 02/21/21 12/09/23 Unknown History topical ointment sodium bicarbonate 650 mg tablet 1,950 mg PO BID 02/21/21 12/09/23 Unknown History cholecalciferol (vitamin D3) 1,250 1,250 mcg PO Q2W 05/14/21 12/09/23 Unknown History mcg (50,000 unit) capsule clobetasol 0.05 % scalp solution 1 appl topical BID PRN Itching 06/23/22 12/09/23 Unknown History potassium chloride 10 mEq 40 meq PO BID 09/20/23 12/09/23 Unknown History tablet,extended release(part/cryst) (Klor-Con M) atorvastatin 80 mg tablet 40 mg PO .everyother 12/09/23 12/09/23 Unknown History
[2023-12-25 12:28] VITALS: BMI 30.3
[2023-12-25 12:32] VITALS: BP 102/64; PULSE 75; RESP 18; TEMP 36.6; O2SAT 97
[2023-12-25 12:35] VITALS: BMI 27.4
--- NOTE | 2023-12-25 13:10 | CA_ITS ---
Transesophageal Echocardiogram Patient (Last, First, Middle): Lisha Solis L Gender: Female Date of : 1955 Age: 68 Procedure Date: 12/25/2023 Procedure Type: Transesophageal Echocardiogram Location: OP Height: 167.64 cm Weight: 78. kg BSA: 1.88 m2 Heart Rate: 73 bpm Copier Field Service Technician: LORI Referring MD: Kalin Hand MD Valve Repairer Reclamation: Kalin Hand MD Symptoms: I69.328 - Other speech and language deficits following cerebral infarction Conclusion: ??? 1. Normal LV systolic function with LVEF of 60-65% 2. No intracardiac shunting 3. No intracardiac masses, vegetations or thrombi 4. No significant abnormality of cardiac valvular Dopplers 5. Mild atherosclerotic changes noted in the descending thoracic and arch of the aorta 6. No pericardial effusion Findings Procedure Information Consent was obtained prior to the procedure. Pre BRIANNA oral cavity was checked and revealed mild overcrowding. The adult 3D probe was passed with no difficulty. Left Ventricle Normal left ventricular size, thickness, and systolic function. The visually estimated ejection fraction is between 60-65%. Diastolic function is normal for age. Right Ventricle Normal right ventricular cavity size and systolic function. Atria Both atria are normal in size. There is no evidence of interatrial shunt by color Doppler and contrast. There is no evidence of thrombus or mass in the left atrium. the left atrial appendage was identified multiple views and there were no thrombi or masses seen within left atrial appendage. The left foot per, right upper and right lower pulmonary vein were identified draining normally into the left atrium. There is no evidence of thrombus or mass in the right atrium. The IVC and SVC drain normally into the right atrium. Aortic Valve Normal aortic valve structure and function. There is no aortic valve stenosis. There is no evidence of a mass on the aortic valve. There is no aortic valve regurgitation. Mitral Valve Normal mitral valve structure and function. There is no mitral valve regurgitation. There is trace mitral valve stenosis. There is no mass noted on the mitral valve. Pulmonic Valve The pulmonic valve is likely normal. There is trace pulmonic valve regurgitation. Tricuspid Valve Normal tricuspid valve structure. There is trace tricuspid valve regurgitation. There is no evidence of a mass on the tricuspid valve. Great Vessels All visible segments of the aorta are normal in size. Small plaque is seen in the arch and descending thoracic aorta. The visualized portions of the pulmonary artery and branches are normal. Venous The inferior vena cava is normal in size and collapses greater than 50% with inspiration. Pericardium/Pleural There is no evidence of pericardial effusion. Updated by Kalin Hand on 11:16 AM with Status of Final Kalin Hand MD electronically signed on 01/06/2024 11:16:44 AM with status of Final
--- NOTE | 2023-12-25 13:36 | MHC.SHP ---
Pre-Procedural Eval Section A - 24 Hr Update-Section A only Date of Service: 12/25/23 The patient is an INPATIENT: No Changes since office visit: Yes Patient answered all questions; No Cold of Flu in the past 2 weeks, No New Medical Problems and No Changes in Medication The patient has been examined within 24 hours of the surgical procedure. The History & Physical has been completed within 30 days and I have reviewed it.: Yes Section B - Complete if H&P > 30 days Chief Complaint: Other speech and language deficits following cereb Allergies: Allergies Allergy/AdvReac Type Severity Reaction Status Date / Time tetracycline [Tetracycline] Allergy Severe ANAPHYLAXIS, Verified 12/10/23 08:44 as a child, trouble breathing Plan I have reviewed the history and physical and performed a pertinent physical examination on my patient. No changes have occurred unless specified. Time Spent With Patient Time: Total time managing care of this patient today ____ minutes.
[2023-12-25 14:19] VITALS: BP 84/41; PULSE 66; RESP 12; TEMP 36.1; O2SAT 96
[2023-12-25 14:34] VITALS: BP 103/42; PULSE 32; RESP 12; O2SAT 98
[2023-12-25 14:49] VITALS: BP 124/66; PULSE 61; RESP 12; TEMP 36.1; O2SAT 99
== END 2023-12-25 15:10 | disposition home or self-care (01) ==
PROVIDERS: PCP Internal Medicine; Visit Provider Internal Medicine Cardiovascular Disease
PROC: (CPT 93312; principal; 2023-12-25 13:30)
DX: I69.328 Other speech and language deficits following cerebral infarction (principal); N18.4 Chronic kidney disease, stage 4 (severe); D63.1 Anemia in chronic kidney disease; E86.0 Dehydration; N12 Tubulo-interstitial nephritis, not specified as acute or chronic; N25.81 Secondary hyperparathyroidism of renal origin; N20.0 Calculus of kidney; E87.6 Hypokalemia; D52.9 Folate deficiency anemia, unspecified; K52.832 Lymphocytic colitis; K52.9 Noninfective gastroenteritis and colitis, unspecified; E78.5 Hyperlipidemia, unspecified; M81.0 Age-related osteoporosis without current pathological fracture; Z79.899 Other long term (current) drug therapy; Z88.1 Allergy status to other antibiotic agents
CPT/HCPCS: 93312; J2250; J2704; Q9957

== ENCOUNTER → 2023-12-25 13:10 | Outpatient (BNV) | payer MEDICARE, OTHER, SELFPAY | PROVIDERS: PCP Internal Medicine; Visit Provider Internal Medicine Cardiovascular Disease | DX: I63.40 Cerebral infarction due to embolism of unspecified cerebral artery (principal); I70.0 Atherosclerosis of aorta | CPT/HCPCS: 76376; 93312; 93320; 93325 ==

== ENCOUNTER 2023-12-30 11:15 | Outpatient (AMB) | payer MEDICARE, OTHER, SELFPAY ==
[2023-12-30 12:13] VITALS: BP 120/70; PULSE 68; O2SAT 97; BMI 27.8
--- NOTE | 2023-12-30 12:13 | MHC.PC.OV ---
Vital Signs 12/30/23 12:13 Height 5 ft 6 in Weight 172 lb BMI 27.8 BP 120/70 Blood Pressure Location Rt brachial Position Sitting Pulse 68 Pulse Source Pulse Oximeter Pulse Oximetry (%) 97 Oxygen Delivery Method Room Air Intake Visit Reasons: 3 month follow up Intake Note: Pt is here today for her 3 months f/u Allergies tetracycline [Tetracycline] Allergy (Severe, Verified 05/13/24 08:12) ANAPHYLAXIS, as a child, trouble breathing Medication List - Last Reconciled 12/30/23 by Sabrina Felix MD aspirin 81 mg PO DAILY atorvastatin 40 mg PO .everyother clobetasol 0.05% 1 appl topical BID PRN folic acid 5 mg (5 x 1 mg) PO DAILY halobetasol propionate 0.05% 1 appl topical BID PRN nystatin 1 appl topical DAILY nystatin-triamcinolone 100,000-0.1 unit/g-% 1 appl topical BID potassium chloride ER (Klor-Con M) 40 mEq PO BID sodium bicarbonate 1,950 mg PO BID Tobacco use date assessed: 12/30/23 Fall risk assessment: No Falls in past year Last assessed Fall Risk: 12/30/23 Dental Screening Dental Screen Date: 12/30/23 Did you have a dental visit in the last 12 months?: No Was dental information given to patient?: Patient declined HPI 3 month follow up HPI Details 68 year old female with history of lymphocytic colitis, interstitial nephritis with CKD stage 4 following with [facility] and currently on transplant list, secondary hyperparathyroidism, hyperlipidemia, and psoriasis , microcytic anemia due to folate and B12 deficiency, and hx of CVA here today for her follow up . It was thought that her stroke was cardioembolic in etiology, and was recently seen for further evaluation by Cardiology. She had a transthoracic echocardiogram which was unrevealing but it was a no saline contrast study. Carotid duplex study were unremarkable, and her EKG shows normal sinus rhythm. Cardiology then recommended for patient to undergo a transesophageal echocardiogram to evaluate for further abnormality of cardiac structure and or presence of intracardiac shunt and aortic plaque that may require dual antiplatelet therapy and 2 do a 30 day event monitor to evaluate for any atrial fibrillation that might be present she was then continued on aspirin and atorvastatin therapy and recommendation to consider Hematology consultation for workup on her anemia. At present patient has no specific complaints, and has no residual deficits from her recent stroke [facility] Medical History (Updated 05/16/24 @ 17:21 by Sabrina Felix MD) History of CVA (cerebrovascular accident) without residual deficits History of Holter monitoring Vulvovaginal candidiasis Folate deficiency Vitamin B12 deficiency Secondary hyperparathyroidism Interstitial nephritis Hyperlipidemia Psoriasis vulgaris Abnormal Pap smear of cervix Osteoporosis Vulvar dermatitis Anemia due to chronic kidney disease Left Achilles tendinitis Kidney stones Chronic hypokalemia Lymphocytic colitis CKD (chronic kidney disease) stage 4, GFR 15-29 ml/min Surgical History Hx of colonoscopy H/O endoscopy History of colposcopy Family History Maternal Grandmother Breast cancer Maternal Aunt Breast cancer Colon cancer Sister Cervical cancer Social History Household Members: None Housing: House Do you presently have visiting nurse or other home services: No Alcohol intake: never Patient Tobacco Use Status: Never used Tobacco e-Cigarette/Vaping Use: Never Used Advance Directives Date on File: 06/23/22 service: Yes Current occupational status: retired Sexual orientation: Straight/Heterosexual Gender identity: Female Cognitive needs: No Hearing needs: No Vision needs: Yes Questionnaire Thrive Questionnaire Date Thrive assessed: 10/01/23 JERE-7 AMB Questionnaire JERE-7 Date JERE - 7 assessed: 10/01/23 Source: Developed by Drs. Yaniv Lake, Jyoti Wynn, Wagner rG and colleagues, with an educational rosangela from [employer]. Review of Systems Const Denies fatigue, Denies fever(s), Denies frequent falls and Denies weakness Eyes Denies change in vision ENT Denies dizziness Card Denies chest pain, Denies leg edema, Denies lightheadedness, Denies palpitations, Denies dyspnea, Denies dyspnea on exertion and Denies orthopnea Resp Denies cough, Denies dyspnea and Denies dyspnea on exertion GI Denies hematochezia and Denies change in stool character Reports no additional complaints Musc Denies abnormal gait, Denies muscle weakness, Denies numbness, Denies radiating pain into limb and Denies tingling Skin/Breast Details: sees Dr Vivar at [facility] for psoriasis Neuro Denies Abnormal speech present, Denies abnormal gait, Denies dizziness, Denies frequent falls, Denies numbness, Denies tingling and Denies weakness Endo Denies fatigue and Denies palpitations Robe/Lymph Reports no additional complaints Aller/Immun Reports no additional complaints Physical exam (Primary Care) Vital Signs: Last Vital Signs Pulse 68 12/30/23 12:13 BP 120/70 12/30/23 12:13 Pulse Ox 97 12/30/23 12:13 Oxygen Delivery Method Room Air 12/30/23 12:13 BMI result Body Mass Index 27.8 Tobacco/Smoking Status: Tobacco use Status Tobacco use date assessed 12/30/23 12/30/23 12:15 Patient Tobacco Use Status Never used Tobacco 12/30/23 12:14 e-Cigarette/Vaping Use Never Used 12/30/23 12:14 Thrive Assessment: Date of Thrive Assessment Date Thrive assessed 10/01/23 12/30/23 12:14 Advance Care Planning discussion: Completed/Scanned Date of discussion: 12/30/23 Who was present: patient Forms completed: Health Care Proxy Time spent: 16-45 minutes Actual minutes spent: 16 Const General: cooperative and comfortable Nutritional Appearance: obese Orientation/consciousness: patient oriented x3 HENMT General nose exam: Normal external nose present Face and sinus: Yes face symmetric Mouth: Normal oral and palatal mucosa present and moist mucous membranes Eyes General: appearance normal, both eyes and all related structures Neck Neck: Yes full ROM, Yes no lymphadenopathy, Yes supple and Yes no JVD Thyroid: Thyroid normal Resp Effort & Inspection: normal respiratory effort and able to speak in complete sentences Auscultation: clear to auscultation bilaterally Cardio Jugular venous distension: no JVD Rate: regular rate Rhythm: regular rhythm Heart sounds: S1 normal heart sound present, S2 normal heart sound present and no murmurs Bruits: no carotid bruits GI Inspection: Yes obesity Palpation (GI): Soft to palpation, nontender, not rigid and no masses Auscultation: normal bowel sounds Back/Spine/Pelvis Back: No back tenderness Neuro General: patient oriented x3, gait normal, moves all extremities, Normal light touch and pain sensation and no focal motor deficits Speech: No Abnormal speech present Extrem General: Yes full ROM, Yes no joint enlargement, Yes no clubbing, cyanosis or edema and Yes normal gait Psych Appearance: grossly normal and well kempt Mental Status: mental status grossly normal Speech and movement: Normal speech and movement present Affect: normal affect Attitude: cooperative Thought process: Normal thought process present Results Reviewed Results Reviewed: ENTERED: 12/22/23-1151 MARQUIS WARNER: ORDERED: AST, ALT, Lipid Panel, Vitamin D 25-OH Test Result Flag Reference AST (GOT) 19 5-31 U/L ALT (GPT) 22 0-31 U/L Triglyceride 103 <150 mg/dL Desirable Triglyceride: less than 150 mg/dL Borderline High Triglyceride 150-199 mg/dL High Triglyceride: 200-499 mg/dL Very High Triglyceride: greater than or equal to 5OO mg/dL Cholesterol 184 <200 mg/dL Desirable Cholesterol: less than 200 mg/dL Borderline High Cholesterol: 200-239 mg/dL High Cholesterol: greater than 239 mg/dL LDL Calculated 101 H <100 mg/dL Desirable LDL: less than 100 mg/dL Near Optimal/Above Optimal LDL: 110-129 mg/dL Borderline High LDL: 130-159 mg/dL High LDL: 160-189 mg/dL Very High LDL: greater than or equal to 190 mg/dL HDL 63 >40 mg/dL Desirable HDL: greater than 40 mg/dL Note: This HDL assay may give artificially low results in patients with liver disease. Vit D 25-OH Tot 35.8 >30 ng/mL Health Based Reference Values* < 20 ng/mL Deficient 20-30 ng/mL Insufficient > 30 ng/mL Sufficient Assessment and Plan Assessment & Plan (1) History of CVA (cerebrovascular accident) without residual deficits: Code(s): Z86.73 - Personal history of transient ischemic attack (TIA), and cerebral infarction without residual deficits Plan: Currently being seen by Cardiology for workup for possible cardioembolic stroke, to be scheduled for transesophageal echocardiogram and currently on a 30 day Holter monitoring to look for possible atrial fibrillation. Continued on aspirin 81 mg daily and atorvastatin 40 mg daily (2) Interstitial nephritis: Comment: Followed by Dr Frank Lane at [facility] Nephrology clinic Code(s): N12 - Tubulo-interstitial nephritis, not specified as acute or chronic Plan: Followed by Nephrology Clinic at [facility] (3) Hyperlipidemia: Code(s): E78.5 - Hyperlipidemia, unspecified Plan: Currently on atorvastatin 40 mg daily (4) Psoriasis vulgaris: Comment: Sees Dr. Tina vivar at [facility] Code(s): L40.0 - Psoriasis vulgaris Plan: on Ilumya , followed by dermatology (5) Osteoporosis: Code(s): M81.0 - Age-related osteoporosis without current pathological fracture Plan: Referred to Dr. Sauceda, for endocrine consult, and the plan is to have the patient follow-up with Nephrology to maximize CKD- BMD such as phosphorus , elevated PTH etc, Would not use any pharmacologic therapy for osteoporosis at this point as patient is not fractured and has CKD stage 4. She is on the inactive transplant list. Should she go for transplant the future, she will need post-transplant treatment for osteoporosis and can be seen by myself or by an underwriter working with the transplant team at [facility] (6) CKD (chronic kidney disease) stage 4, GFR 15-29 ml/min: Comment: Followed by Nephrology at [facility]. 12/25/23 on kidney transplant list. Code(s): N18.4 - Chronic kidney disease, stage 4 (severe) Plan: Currently followed at Nephrology Clinic in [facility] Coding Level of Care Code Est Pt Level 4 (73436) Complex EM visit Add On G2211 Diagnoses History of CVA (cerebrovascular accident) without residual deficits Z86.73 Interstitial nephritis N12 Hyperlipidemia E78.5 Psoriasis vulgaris L40.0 Osteoporosis M81.0 CKD (chronic kidney disease) stage 4, GFR 15-29 ml/min N18.4 Additional Codes Vital Signs *Quality* - Advance Care Planning discussion: Completed/Scanned ([id number]) Vital Signs *Quality* - Time spent: 16-45 minutes ([id number])
== END 2023-12-30 13:29 | disposition home or self-care (01) ==
PROVIDERS: PCP Internal Medicine; Visit Provider Internal Medicine
DX: N18.4 Chronic kidney disease, stage 4 (severe) (principal); Z86.73 Personal history of transient ischemic attack (TIA), and cerebral infarction without residual deficits; N12 Tubulo-interstitial nephritis, not specified as acute or chronic; E78.5 Hyperlipidemia, unspecified; L40.0 Psoriasis vulgaris; M81.0 Age-related osteoporosis without current pathological fracture; Z00.00 Encounter for general adult medical examination without abnormal findings
CPT/HCPCS: 1123F; 99214; 99497; G2211

== ENCOUNTER 2024-01-11 10:37 | Outpatient (REF) | payer MEDICARE, OTHER, SELFPAY ==
[2024-01-11 13:27] LABS: MANUAL DIFF FLAG NO
[2024-01-11 13:50] LABS: Basophils Percent Auto 0.6 % (0-2); Eosinophils Absolute Auto 0.2 X10*3/uL (0.0-0.4); Eosinophils Percent Auto 3.4 % (0-4); Hematocrit 34.1 % (37.0-47.0); Imm Gran Abs Auto 0.02 X10*3/uL (0.00-0.03); Imm Gran Pct Auto 0.4 % (0.0-0.4); Lymphocytes Absolute Auto 1.4 X10*3/uL (1.2-4.9); Lymphocytes Percent Auto 26.5 % (20-40); Mean Corpuscular HGB Conc 32.3 g/dl (31.0-35.0); Mean Corpuscular Hemoglobin 31.7 pg (27.0-33.0); Mean Corpuscular Volume 98.3 fL (80.0-98.0); Mean Platelet Volume 10.1 fL (9.4-12.3); Monocytes Absolute Auto 0.4 X10*3/uL (0.1-1.2); Monocytes Percent Auto 8.1 % (2-11); Neutrophils Absolute Auto 3.3 x10*3/uL (2.0-8.3); Platelet Count 203 X10*3/uL (160-400); Red Blood Count 3.47 X10*6/uL (4.20-5.50); Red Cell Distribution Width 12.4 % (11.0-16.0); White Blood Count 5.3 X10*3/uL (4.8-10.8)
[2024-01-11 14:09] LABS: Appearance Urine Clear; Color Urine Yellow; Glucose Urine UA Negative (Negative); Leukocyte Esterase Urine Moderate (2+) (Negative); Nitrite Urine Negative (Negative); Specific Gravity - Urine <= 1.005 (1.005-1.025); UMIC TRIGGER UA YES; Urine Blood Negative (Negative); Urine Ketones Negative (Negative); Urine Protein Negative (Neg-Trace)
[2024-01-11 14:13] LABS: Bacteria Urine 1+ (None Seen); RBC Urine 0-2 /HPF (0-2)
[2024-01-11 14:21] LABS: Parathyroid Hormone Intact 203.1 pg/mL (8.7-77.1)
[2024-01-11 14:23] LABS: Anion Gap 13 (12-20); Blood Urea Nitrogen 28 mg/dL (9-16); Calcium 9.5 mg/dL (8.4-10.2); Carbon Dioxide 22 mmol/L (22-29); Chloride 106 mmol/L (96-108); Estimated Glomerular Filt Rate 19; Potassium 3.9 mmol/L (3.3-5.1); Sodium 137 mmol/L (135-145)
[2024-01-11 14:29] LABS: Creatinine Urine 20.72 mg/dL; Total Protein Urine Random < 7 mg/dL (<12)
[2024-01-11 14:42] LABS: Vitamin D 25-OH Total 39.8 ng/mL (>30)
== END 2024-01-11 10:38 | disposition home or self-care (01) ==
LOC: HO.HMGCLDS 10:37
PROVIDERS: PCP Internal Medicine; Visit Provider Internal Medicine Nephrology
DX: N18.4 Chronic kidney disease, stage 4 (severe) (principal)
CPT/HCPCS: 36415; 80051; 81001; 81003; 82043; 82306; 82310; 82565; 82570; 83970; 84156; 84520; 85025

== ENCOUNTER 2024-02-11 13:59 | Outpatient (AMB) | payer MEDICARE, OTHER, SELFPAY ==
[2024-02-11 14:10] VITALS: BP 120/80; PULSE 77; BMI 27.4
--- NOTE | 2024-02-11 14:10 | MHC.OFFVIS ---
Vital Signs 02/11/24 14:10 Height 5 ft 6 in Weight 169 lb 12.095 oz BMI 27.4 BP 120/80 Blood Pressure Location Lt brachial Position Sitting Pulse 77 Intake Visit Reasons: 2 mth f/up SANDRA/ event Intake Note: 2 month follow-up with ekg after sandra and event monitor feeling good Safety Officer Required: No Allergies tetracycline [Tetracycline] Allergy (Severe, Verified 12/30/23 12:40) ANAPHYLAXIS, as a child, trouble breathing Medication List - Last Reconciled 02/11/24 by Kalin Hand MD aspirin 81 mg PO DAILY atorvastatin 40 mg PO .everyother clobetasol 0.05% 1 appl topical BID PRN folic acid 5 mg (5 x 1 mg) PO DAILY halobetasol propionate 0.05% 1 appl topical BID PRN nystatin 1 appl topical DAILY nystatin-triamcinolone 100,000-0.1 unit/g-% 1 appl topical BID potassium chloride ER (Klor-Con M) 50 mEq PO BID potassium chloride ER mEq PO sodium bicarbonate 1,950 mg PO BID HPI Comments Details: Lisha comes for follow-up. She underwent a SANDRA which was not show any evidence of intracardiac shunting and/or masses or thrombi within the heart. This shows some atherosclerotic changes in the arch and the descending thoracic aorta without any clear mobile plaques. She has had no recurrent neurologic events on current medications. Event monitor did not show any evidence of atrial fibrillation although shows some PACs and short runs of PACs. She has not had any symptoms of prolonged palpitation irregular heartbeat. She takes all her medications. [facility] Medical History History of Holter monitoring Vulvovaginal candidiasis Folate deficiency Vitamin B12 deficiency History of CVA (cerebrovascular accident) Secondary hyperparathyroidism Interstitial nephritis Hyperlipidemia Psoriasis vulgaris Abnormal Pap smear of cervix Osteoporosis Vulvar dermatitis Anemia due to chronic kidney disease Left Achilles tendinitis Kidney stones Chronic hypokalemia Lymphocytic colitis CKD (chronic kidney disease) stage 4, GFR 15-29 ml/min Surgical History Hx of colonoscopy H/O endoscopy History of colposcopy Family History Maternal Grandmother Breast cancer Maternal Aunt Breast cancer Colon cancer Sister Cervical cancer Social History Household Members: None Housing: House Do you presently have visiting nurse or other home services: No Alcohol intake: never Patient Tobacco Use Status: Never used Tobacco e-Cigarette/Vaping Use: Never Used Advance Directives Date on File: 06/23/22 service: Yes Current occupational status: retired Sexual orientation: Straight/Heterosexual Gender identity: Female Cognitive needs: No Hearing needs: No Vision needs: Yes Review of Systems Const Denies chills, Denies fatigue, Denies fever(s), Denies frequent falls, Denies weakness, Denies weight gain and Denies weight loss ENT Denies dizziness Card Denies chest pain, Denies leg edema, Denies lightheadedness, Denies palpitations, Denies dyspnea, Denies dyspnea on exertion, Denies orthopnea and Denies other (loss of consciousness) Resp Denies cough, Denies dyspnea and Denies dyspnea on exertion GI Denies hematochezia and Denies change in stool character Musc Denies abnormal gait, Denies muscle weakness, Denies numbness, Denies radiating pain into limb and Denies tingling Neuro Denies Abnormal speech present, Denies abnormal gait, Denies dizziness, Denies frequent falls, Denies numbness, Denies tingling and Denies weakness Endo Denies fatigue and Denies palpitations Physical Exam Vital Signs: Last Vital Signs Pulse 77 02/11/24 14:10 BP 120/80 02/11/24 14:10 BMI result Body Mass Index 27.4 Const General: cooperative, comfortable, no acute distress, alert, awake and Physically active Nutritional Appearance: average body habitus Orientation/consciousness: patient oriented x3 Limitations: no limitations HEENT Head: Yes normocephalic and Yes atraumatic Neck Neck: Yes trachea midline, Yes supple and Yes no JVD Resp Effort & Inspection: normal respiratory effort Auscultation: clear to auscultation bilaterally Cardio Jugular venous distension: no JVD Palpation: normal PMI Rate: regular rate Rhythm: regular rhythm Heart sounds: S1 normal heart sound present, S2 normal heart sound present, no click, no gallops, no murmurs and no rubs GI Auscultation: normal bowel sounds Skin General skin exam: no rashes or lesions noted Neuro General: patient oriented x3 and no focal motor deficits Speech: No Abnormal speech present Extrem General: Yes no clubbing, cyanosis or edema Psych Appearance: grossly normal Assessment & Plan Assessment & Plan (1) CVA, old, speech/language deficit: Code(s): I69.328 - Other speech and language deficits following cerebral infarction Category: Medical Plan: Patient with prior CVA with bilateral cortical involvement suggestive of embolic phenomenon. No obvious cardiac or ascending aortic etiology noted. Some atherosclerotic plaques noted in the transverse and descending thoracic aorta. Would continue with aspirin and high-intensity statin therapy with target goal LDL closer to 60 mg/dL. She does not have any obvious symptoms or evidence of atrial fibrillation on her event monitor. I have advised her to consider implantable loop recorder and/or a smart watch to monitor for presence of any tachycardia and that would represent atrial fibrillation. No other cardiac workup is indicated at this point time. Will follow up in the clinic if need be. Thank you for allowing me to partake in her care Coding Level of Care Code Tele Est Pt Level 3 (99995) Diagnoses CVA, old, speech/language deficit I69.328
== END 2024-02-11 14:31 | disposition home or self-care (01) ==
PROVIDERS: PCP Internal Medicine; Visit Provider Internal Medicine Cardiovascular Disease
DX: I70.0 Atherosclerosis of aorta (principal); I69.328 Other speech and language deficits following cerebral infarction
CPT/HCPCS: 99213

== ENCOUNTER → 2024-02-11 13:59 | Outpatient (BNVA) | payer MEDICARE, OTHER, SELFPAY | PROVIDERS: PCP Internal Medicine; Visit Provider Internal Medicine Cardiovascular Disease | DX: I69.328 Other speech and language deficits following cerebral infarction (principal); I70.0 Atherosclerosis of aorta | CPT/HCPCS: 99212 ==

== ENCOUNTER 2024-03-01 10:28 | Outpatient (REF) | payer MEDICARE, OTHER, SELFPAY ==
[2024-03-03 20:39] LABS: TS Negative Control Passed; TS Panel A 0; TS Panel B 1; TS Positive Control Passed; TSpotTB Negative (Negative)
== END 2024-03-01 10:29 | disposition home or self-care (01) ==
LOC: HO.HMGCLDS 10:28
PROVIDERS: PCP Internal Medicine; Visit Provider Dermatology
DX: L40.0 Psoriasis vulgaris (principal); Z79.899 Other long term (current) drug therapy
CPT/HCPCS: 36415; 86481

== ENCOUNTER 2024-03-31 11:19 | Outpatient (REF) | payer MEDICARE, OTHER, SELFPAY ==
[2024-03-31 12:58] LABS: MANUAL DIFF FLAG NO
[2024-03-31 13:02] LABS: Basophils Percent Auto 0.8 % (0-2); Eosinophils Absolute Auto 0.1 X10*3/uL (0.0-0.4); Eosinophils Percent Auto 2.3 % (0-4); Hematocrit 33.3 % (37.0-47.0); Hemoglobin 10.9 g/dl (12.0-16.0); Imm Gran Abs Auto 0.02 X10*3/uL (0.00-0.03); Imm Gran Pct Auto 0.4 % (0.0-0.4); Lymphocytes Absolute Auto 1.2 X10*3/uL (1.2-4.9); Lymphocytes Percent Auto 24.3 % (20-40); Mean Corpuscular HGB Conc 32.7 g/dl (31.0-35.0); Mean Corpuscular Hemoglobin 30.8 pg (27.0-33.0); Mean Corpuscular Volume 94.1 fL (80.0-98.0); Mean Platelet Volume 9.4 fL (9.4-12.3); Monocytes Absolute Auto 0.3 X10*3/uL (0.1-1.2); Monocytes Percent Auto 6.5 % (2-11); Neutrophils Absolute Auto 3.4 x10*3/uL (2.0-8.3); Neutrophils Percent Auto 65.7 % (45-73); Platelet Count 220 X10*3/uL (160-400); Red Blood Count 3.54 X10*6/uL (4.20-5.50); Red Cell Distribution Width 12.4 % (11.0-16.0); White Blood Count 5.1 X10*3/uL (4.8-10.8)
[2024-03-31 13:04] LABS: Appearance Urine Turbid; Color Urine Yellow; Glucose Urine UA Negative (Negative); Leukocyte Esterase Urine Large (3+) (Negative); Nitrite Urine Negative (Negative); PH 5.5 (5.0-9.0); UMIC TRIGGER UA YES; Urine Blood Negative (Negative); Urine Ketones Negative (Negative); Urine Protein Trace mg/dL (Neg-Trace)
[2024-03-31 13:20] LABS: Bacteria Urine 4+ (None Seen); RBC Urine 0-2 /HPF (0-2); Squamous Epithelial Cell Urine >20 /HPF (0-2); WBC Urine >50 /HPF (0-5)
[2024-03-31 13:31] LABS: Anion Gap 13 (12-20); Blood Urea Nitrogen 24 mg/dL (9-16); Calcium 9.1 mg/dL (8.4-10.2); Carbon Dioxide 26 mmol/L (22-29); Chloride 100 mmol/L (96-108); Estimated Glomerular Filt Rate 17; Potassium 4.5 mmol/L (3.3-5.1); Sodium 134 mmol/L (135-145)
[2024-03-31 13:38] LABS: Creatinine Urine 99.11 mg/dL; Microalbum/Creatinine Ratio Ur 14.1 ug/mg cr (<30); Protein/Creatinine Ratio, Ur 0.17 (<0.2); Total Protein Urine Random 17 mg/dL (<12)
[2024-03-31 13:44] LABS: Parathyroid Hormone Intact 339.4 pg/mL (8.7-77.1)
[2024-03-31 13:50] LABS: Vitamin D 25-OH Total 39.4 ng/mL (>30)
== END 2024-03-31 11:20 | disposition home or self-care (01) ==
LOC: HO.HMGCLDS 11:19
PROVIDERS: PCP Internal Medicine; Visit Provider Internal Medicine Nephrology
DX: N18.4 Chronic kidney disease, stage 4 (severe) (principal)
CPT/HCPCS: 36415; 80051; 81001; 81003; 82043; 82306; 82310; 82565; 82570; 83970; 84156; 84520; 85025

== ENCOUNTER 2024-05-13 08:01 | Outpatient (AMB) | payer MEDICARE, OTHER, SELFPAY ==
[2024-05-13 08:08] VITALS: BP 108/66; PULSE 85; TEMP 36.6; O2SAT 98; BMI 27.3
--- NOTE | 2024-05-13 08:08 | MHC.OFFWIV ---
Intake Vital Signs 05/13/24 08:08 Height 5 ft 6 in Weight 169 lb BMI 27.3 BP 108/66 Blood Pressure Location Lt brachial Position Sitting Pulse 85 Pulse Source Pulse Oximeter Temp 97.8 F Temp Source Oral Pulse Oximetry (%) 98 Oxygen Delivery Method Room Air Intake Visit Reasons: EP ?growth on RT arm/LT foot concerns Intake Note: pt c/o raised painful lump on RT forearm. Started this morning. Also LT foot pain on pad. Started a week ago. Patient Tobacco Use Status: Never used Tobacco Allergies tetracycline [Tetracycline] Allergy (Severe, Verified 05/13/24 08:12) ANAPHYLAXIS, as a child, trouble breathing Do you need a note to return to daycare/school/sports/work: No HPI HPI Comments History of Present Illness Details Patient is a 68-year-old female with 2 complaints. Her 1st complaint is that she woke up this morning with a round red area on her right forearm, with a central darkening. She does not remember injuring it or pinching it. She denies any warmth or drainage. She also is complaining pain on the bottom of her left foot, she states she does have plantar fasciitis but this is different, it is more pinpoint and 1 specific area just below her pinky toe. She has not tried doing anything to make it better. She states it is worse when she is walking. She denies any injuries. [facility] Medical History History of Holter monitoring Vulvovaginal candidiasis Folate deficiency Vitamin B12 deficiency History of CVA (cerebrovascular accident) Secondary hyperparathyroidism Interstitial nephritis Hyperlipidemia Psoriasis vulgaris Abnormal Pap smear of cervix Osteoporosis Vulvar dermatitis Anemia due to chronic kidney disease Left Achilles tendinitis Kidney stones Chronic hypokalemia Lymphocytic colitis CKD (chronic kidney disease) stage 4, GFR 15-29 ml/min Surgical History Hx of colonoscopy H/O endoscopy History of colposcopy Family History Maternal Grandmother Breast cancer Maternal Aunt Breast cancer Colon cancer Sister Cervical cancer Social History Household Members: None Housing: House Do you presently have visiting nurse or other home services: No Alcohol intake: never Patient Tobacco Use Status: Never used Tobacco e-Cigarette/Vaping Use: Never Used Advance Directives Date on File: 06/23/22 service: Yes Current occupational status: retired Sexual orientation: Straight/Heterosexual Gender identity: Female Cognitive needs: No Hearing needs: No Vision needs: Yes Review of Systems Const All systems reviewed & are unremarkable except as noted in HPI and below Physical Exam Vital Signs: Last Vital Signs Temp 97.8 F 05/13/24 08:08 Pulse 85 05/13/24 08:08 BP 108/66 05/13/24 08:08 Pulse Ox 98 05/13/24 08:08 Oxygen Delivery Method Room Air 05/13/24 08:08 BMI result Body Mass Index 27.3 Const General: cooperative, healthy appearing, comfortable, no acute distress and well developed Orientation/consciousness: patient oriented x3 Limitations: no limitations HEENT Head: Yes normal to inspection Ears: hearing grossly normal bilaterally General nose exam: Normal external nose present Face and sinus: Yes normal facial exam Eyes General: appearance normal, both eyes and all related structures Neck Neck: Yes normal visual inspection and Yes full ROM Resp Effort & Inspection: normal respiratory effort and able to speak in complete sentences Skin Other: Left foot, plantar aspect, lateral side has a 0.25 flat, skin colored hyperkeratotic macule with central white area General skin exam: no rashes or lesions noted Neuro General: patient oriented x3 Extrem General: Yes normal to inspection Assessment & Plan Assessment & Plan (1) Blood blister: Code(s): T14.8XXA - Other injury of unspecified body region, initial encounter Plan: Recommended she follow up with her PCP if no improvement in her blister over the next 1-2 weeks. (2) Plantar wart of left foot: Code(s): B07.0 - Plantar wart Plan: Recommended [id number] treatment with topical salicylic acid. Explained how to use but recommended she read the directions that comes with the medication. Plan See above Coding Level of Care Code Est Pt Level 3 (71667) Diagnoses Blood blister T14.8XXA Plantar wart of left foot B07.0
== END 2024-05-13 08:54 | disposition home or self-care (01) ==
PROVIDERS: PCP Internal Medicine; Visit Provider Physician Assistant
DX: T14.8XXA Other injury of unspecified body region, initial encounter (principal); B07.0 Plantar wart
CPT/HCPCS: 99213

== ENCOUNTER 2024-06-28 11:25 | Outpatient (REF) | payer MEDICARE, OTHER, SELFPAY ==
[2024-06-28 13:23] LABS: Appearance Urine Cloudy; Color Urine Yellow; Glucose Urine UA Negative (Negative); Leukocyte Esterase Urine Moderate (2+) (Negative); Nitrite Urine Negative (Negative); PH 5.5 (5.0-9.0); UMIC TRIGGER UA YES; Urine Blood Negative (Negative); Urine Ketones Negative (Negative); Urine Protein 30 (1+) mg/dL (Neg-Trace)
[2024-06-28 13:26] LABS: Bacteria Urine 1+ (None Seen); RBC Urine 0-2 /HPF (0-2); WBC Urine 21-50 /HPF (0-5)
[2024-06-28 13:48] LABS: Hematocrit 32.2 % (37.0-47.0); Hemoglobin 10.5 g/dl (12.0-16.0); Mean Corpuscular HGB Conc 32.6 g/dl (31.0-35.0); Mean Corpuscular Hemoglobin 31.2 pg (27.0-33.0); Mean Corpuscular Volume 95.5 fL (80.0-98.0); Mean Platelet Volume 9.2 fL (9.4-12.3); Platelet Count 226 X10*3/uL (160-400); Red Blood Count 3.37 X10*6/uL (4.20-5.50); Red Cell Distribution Width 12.9 % (11.0-16.0); White Blood Count 6.3 X10*3/uL (4.8-10.8)
[2024-06-28 14:01] LABS: Anion Gap 14 (12-20); Blood Urea Nitrogen 32 mg/dL (9-16); Calcium 9.8 mg/dL (8.4-10.2); Carbon Dioxide 25 mmol/L (22-29); Chloride 99 mmol/L (96-108); Estimated Glomerular Filt Rate 15; Iron 57 mcg/dL (30-160); Percent Iron Saturation 34 % (15-50); Potassium 4.1 mmol/L (3.3-5.1); Sodium 134 mmol/L (135-145); Total Iron Binding Capacity 168 mcg/dL (228-428); Unsaturated Iron Binding 111 ug/dL
[2024-06-28 14:14] LABS: Creatinine Urine 118.53 mg/dL; Microalbum/Creatinine Ratio Ur 26.1 ug/mg cr (<30); Protein/Creatinine Ratio, Ur 0.27 (<0.2); Total Protein Urine Random 32 mg/dL (<12)
[2024-06-28 14:20] LABS: Parathyroid Hormone Intact 275.9 pg/mL (8.7-77.1)
[2024-06-28 14:23] LABS: Ferritin 432 ng/mL (10-250); Vitamin D 25-OH Total 35.6 ng/mL (>30)
== END 2024-06-28 11:26 | disposition home or self-care (01) ==
LOC: HO.HMGCLDS 11:25
PROVIDERS: PCP Internal Medicine; Visit Provider Internal Medicine Nephrology
DX: N18.4 Chronic kidney disease, stage 4 (severe) (principal)
CPT/HCPCS: 36415; 80051; 81001; 82043; 82306; 82310; 82565; 82570; 82728; 83540; 83970; 84156; 84520; 85027

== ENCOUNTER 2024-07-05 09:47 | Outpatient (AMB) | payer MEDICARE, OTHER, SELFPAY ==
--- NOTE | 2024-07-05 09:50 | MHC.OFFVIS ---
Vital Signs 07/05/24 09:59 Height 5 ft 6 in Weight 165 lb BMI 26.6 BP 124/70 Intake Visit Reasons: Annual Intake Note: 07/09 ASCUS 05/11 Hgsil 07/11 CIN1, 01/09 ASCUS, 07/12 Lgsil, 01/10 Lgsil, 07/13 Lgsil, 01/11 Lgsil, 08/13 Hgsil, 09/14 Colpo Cin1, 08/14 Hgsil, 10/16 Leep Cin1, 12/15 Ascus, 06/18 Ascus, 02/18 Ascus Benefits Sales Consultant: Benefits Sales Consultant Present (Kimberly) Allergies tetracycline [Tetracycline] Allergy (Severe, Verified 07/05/24 09:56) ANAPHYLAXIS, as a child, trouble breathing HPI Comments Details: She is a postmenopausal woman presenting for her annual gynecological assistant examination. Concern for visit last year was not completely covered as her insurance only pays for annual visits every 2 years, despite her filling out the Medicare form on risk factors noting she has a history of abnormal Pap smears. She is doing well with concerns. Chronic vulvar itching, seeing Dr. Vivar, for psoriasis. Frequent BV. History of colitis-frequent wiping, Attempting to eat a healthy diet with calcium and vitamin D and stays active with exercise. Lost 50 lb reports she had decreased appetite and also lost her sense of smell which came back on . Currently not sexually active. Last pap smear; 2020 and 2021-negative, history of LEEP 2015, ASCUS 2018. Last mammogram; 08/19/2023. Colonoscopy is UTD. Family history of breast and colon cancer-aunts. [facility], [facility] Medical History (Updated 07/05/24 @ 11:01 by Janie Potts CNM) Psoriasis of vulva Plantar callus History of CVA (cerebrovascular accident) without residual deficits History of Holter monitoring Folate deficiency Vitamin B12 deficiency Secondary hyperparathyroidism Interstitial nephritis Hyperlipidemia Psoriasis vulgaris Abnormal Pap smear of cervix Osteoporosis Vulvar dermatitis Anemia due to chronic kidney disease Left Achilles tendinitis Kidney stones Chronic hypokalemia Lymphocytic colitis CKD (chronic kidney disease) stage 4, GFR 15-29 ml/min Surgical History Hx of colonoscopy H/O endoscopy History of colposcopy Family History Maternal Grandmother Breast cancer Maternal Aunt Breast cancer Colon cancer Sister Cervical cancer Social History Household Members: None Housing: House Do you presently have visiting nurse or other home services: No Alcohol intake: never Patient Tobacco Use Status: Never used Tobacco e-Cigarette/Vaping Use: Never Used Advance Directives Date on File: 06/23/22 service: Yes Current occupational status: retired Sexual orientation: Straight/Heterosexual Gender identity: Female Cognitive needs: No Hearing needs: No Vision needs: Yes Female Reproductive History Menstrual Total pregnancies: 0 Date of last pap smear: 04/01/22 (negative pap smear negative hpv) History of abnormal pap smear: Yes Date of Mammogram: 08/20/23 (bi-rad 1) Review of Systems Const All systems reviewed & are unremarkable except as noted in HPI and below Reports as per HPI Eyes Reports no additional complaints ENT Reports no additional complaints Card Reports no additional complaints Resp Reports no additional complaints GI Reports as per HPI and Reports no additional complaints Reports as per HPI Musc Reports no additional complaints Skin/Breast Reports as per HPI Neuro Reports no additional complaints Psych Reports no additional complaints Endo Reports no additional complaints Robe/Lymph Reports no additional complaints Aller/Immun Reports no additional complaints Physical Exam Vital Signs: Last Vital Signs BP 124/70 07/05/24 09:59 BMI result Body Mass Index 26.6 Const General: cooperative, healthy appearing, no acute distress, well developed and alert Orientation/consciousness: patient oriented x3 HEENT Head: Yes normal to inspection Eyes General: appearance normal, both eyes and all related structures Neck Neck: Yes normal visual inspection Thyroid: Thyroid normal Chest Chest palpation & inspection: normal inspection of the chest and other (no puckering, dimpling, peau de orange, retraction, discharge, masses) Breast/axilla inspection: normal inspection of the breasts Breast/axilla palpation: normal palpation of the breasts Resp Effort & Inspection: normal respiratory effort GI Inspection: Yes normal to inspection Palpation (GI): Soft to palpation Rectal Exam - Female: deferred Other: External: vulvar erythema due to psoriasis General: Yes bladder normal to palpation External Female Exam: normal external appearance and normal appearance of the urethra Speculum Exam - Vagina: normal appearance of the vagina, normal palpation and abnormal vaginal discharge (Heavy weight milky) Speculum Exam - Cervix: normal appearance of the cervix and normal palpation Bimanual exam- vagina & uterus: normal bimanual exam, normal palpation, uterine size normal, bladder normal to palpation, normal palpation and non-tender Bimanual Exam- Adnexa, other: no masses Skin General skin exam: no rashes or lesions noted Rashes: no rashes Neuro General: patient oriented x3 Cognition (Neuro): normal cognition Extrem General: Yes normal to inspection Psych Attitude: cooperative Thought process: Normal thought process present Assessment & Plan Assessment & Plan (1) Encounter for well woman exam with routine gynecological exam: Code(s): Z01.419 - Encounter for gynecological examination (general) (routine) without abnormal findings Category: Medical (2) Vaginal discharge: Code(s): N89.8 - Other specified noninflammatory disorders of vagina Plan Discussed: Current recommendations for pap smears per ASCCP guidelines. Pap due 2024-will be for focused visit not annual. Advised if she has any billing concerns to speak to the guest services officer and also the billing department. Breast awareness, periodic self breast exams and yearly mammogram. Maintain a healthy lifestyle, well balanced diet including Calcium 1,200 mg and Vitamin D 600 IU daily, and routine exercise. Contact the office with any postmenopausal bleeding. Patient verbalizes understanding and agrees to the plan of care. She was given opportunity to ask questions and all questions were answered to the best of my ability. RTO in 2 year for annual gynecological assistant exam due to medical coverage. This note is constructed using voice recognition software. While every effort has been made to ensure accuracy, jewelry drill operator errors may have been included. Orders: Orders Bacterial Vaginosis Panel Today N89.8 - Other specified noninflammatory disorders of vagina Coding Level of Care Code Est Pt Prev Care >65y(29753) Diagnoses Encounter for well woman exam with routine gynecological exam Z01.419 Vaginal discharge N89.8
[2024-07-05 09:59] VITALS: BP 124/70; BMI 26.6
== END 2024-07-05 10:34 | disposition home or self-care (01) ==
LOC: HO.HWS 09:48
PROVIDERS: PCP Internal Medicine; Visit Provider Advanced Practice Midwife
DX: Z01.419 Encounter for gynecological examination (general) (routine) without abnormal findings (principal); N89.8 Other specified noninflammatory disorders of vagina
CPT/HCPCS: 99213; G0101

== ENCOUNTER 2024-07-05 09:47 | Outpatient (REF) | payer MEDICARE, OTHER, SELFPAY ==
[2024-07-05 17:57] LABS: Bacterial Vaginosis PCR NEGATIVE (Negative); Candida Group PCR NOT DETECTED (Not Detect); Candida glab krusei PCR NOT DETECTED (Not Detect); Trichomonas vaginalis PCR NOT DETECTED (Not Detect)
== END 2024-07-05 09:48 | disposition home or self-care (01) ==
LOC: HO.LNP 09:47
PROVIDERS: PCP Internal Medicine; Visit Provider Advanced Practice Midwife
DX: N89.8 Other specified noninflammatory disorders of vagina (principal); Z01.419 Encounter for gynecological examination (general) (routine) without abnormal findings
CPT/HCPCS: 0352U; 99212; G0101

== ENCOUNTER 2024-07-14 09:12 | Outpatient (AMB) | payer MEDICARE, OTHER, SELFPAY ==
[2024-07-14 10:11] VITALS: BP 100/64; PULSE 71; O2SAT 98; BMI 27.3
--- NOTE | 2024-07-14 10:11 | MHC.PC.OV ---
Vital Signs 07/14/24 10:11 Height 5 ft 6 in Weight 169 lb BMI 27.3 BP 100/64 Blood Pressure Location Rt brachial Position Sitting Pulse 71 Pulse Source Pulse Oximeter Pulse Oximetry (%) 98 Oxygen Delivery Method Room Air Intake Visit Reasons: 6 month follow up Intake Note: Pt is here today for her 6mo. f/u Allergies tetracycline [Tetracycline] Allergy (Severe, Verified 07/14/24 10:24) ANAPHYLAXIS, as a child, trouble breathing Medication List - Last Reconciled 07/14/24 by Sabrina Felix MD aspirin 81 mg PO DAILY atorvastatin 40 mg PO .everyother calcipotriene 0.005% topical cholecalciferol (vitamin D3) 1,250 mcg PO Q2W clobetasol 0.05% 1 appl topical BID PRN desoximetasone 0.25% topical ferrous sulfate 325 mg PO QAM halobetasol propionate 0.05% 1 appl topical BID PRN nystatin 1 appl topical DAILY nystatin-triamcinolone 100,000-0.1 unit/g-% 1 appl topical BID potassium chloride ER (Klor-Con M) 50 mEq PO BID sodium bicarbonate 1,950 mg PO BID tildrakizumab-asmn (Ilumya) 100 mg subcut Q12W Tobacco use date assessed: 07/14/24 Fall risk assessment: No Falls in past year Last assessed Fall Risk: 07/14/24 Dental Screening Dental Screen Date: 07/14/24 Did you have a dental visit in the last 12 months?: No Did you have a dental problem in the last 6 months where you did not have access to dental care?: No Was dental information given to patient?: Patient declined HPI 6 month follow up HPI Details 68 year old female with history of lymphocytic colitis, interstitial nephritis with CKD stage 4 following with ASS and currently on transplant list, secondary hyperparathyroidism, hyperlipidemia, and psoriasis , microcytic anemia due to folate and B12 deficiency, and hx of CVA here today for her follow up of her lipids. She is currently taking atorvastatin 40 mg every other day, has been compliant with her diet, and tries to walk exercise on a regular basis. She had recent fasting labs done which showed her liver enzymes, lipid levels and vitamin-D level within normal limits. [facility] Medical History (Updated 07/14/24 @ 10:50 by Sabrina Felix MD) Psoriasis of vulva Plantar callus History of CVA (cerebrovascular accident) without residual deficits History of Holter monitoring Folate deficiency Vitamin B12 deficiency Secondary hyperparathyroidism Interstitial nephritis Hyperlipidemia Psoriasis vulgaris Abnormal Pap smear of cervix Osteoporosis Vulvar dermatitis Anemia due to chronic kidney disease Left Achilles tendinitis Kidney stones Chronic hypokalemia Lymphocytic colitis CKD (chronic kidney disease) stage 4, GFR 15-29 ml/min Surgical History Hx of colonoscopy H/O endoscopy History of colposcopy Family History Maternal Grandmother Breast cancer Maternal Aunt Breast cancer Colon cancer Sister Cervical cancer Social History Household Members: None Housing: House Do you presently have visiting nurse or other home services: No Alcohol intake: never Patient Tobacco Use Status: Never used Tobacco e-Cigarette/Vaping Use: Never Used Advance Directives Date on File: 06/23/22 service: Yes Current occupational status: retired Sexual orientation: Straight/Heterosexual Gender identity: Female Cognitive needs: No Hearing needs: No Vision needs: Yes Questionnaire PHQ-9 Over the last 2 weeks, how often have you been bothered by any of the following problems? 1. Little interest or pleasure in doing things: not at all 2. Feeling down, depressed, or hopeless: not at all 3. Trouble falling or staying asleep, or sleeping too much: not at all 4. Feeling tired or having little energy: not at all 5. Poor appetite or overeating: not at all 6. Feeling bad about yourself - or that you are a failure or have let yourself or your family down: not at all 7. Trouble concentrating on things, such as reading the newspaper or watching television: not at all 8. Moving or speaking so slowly that other people could have noticed. Or the opposite - being so fidgety or restless that you have been moving around a lot more than usual: not at all 9. Thoughts that you would be better off or of hurting yourself in some way: not at all Total score: 0 Source: Developed by Jyoti PriestW. Kingsley, Wagner Gr and colleagues, with an educational rosangela from [employer]. Thrive Questionnaire Date Thrive assessed: 10/01/23 JERE-7 AMB Questionnaire JERE-7 Date JERE - 7 assessed: 10/01/23 Source: Developed by Drs. Yaniv Lake, Jyoti Wynn, Wagner Gr and colleagues, with an educational rosangela from [employer]. Review of Systems Const All systems reviewed & are unremarkable except as noted in HPI and below Reports as per HPI Eyes Reports no additional complaints ENT Reports no additional complaints Card Reports no additional complaints Resp Reports no additional complaints GI Reports as per HPI and Reports no additional complaints Reports as per HPI Musc Reports no additional complaints Skin/Breast Reports as per HPI Neuro Reports no additional complaints and Denies Abnormal speech present Psych Reports no additional complaints Endo Reports no additional complaints Robe/Lymph Reports no additional complaints Aller/Immun Reports no additional complaints Physical exam (Primary Care) Vital Signs: Last Vital Signs Pulse 71 07/14/24 10:11 BP 100/64 07/14/24 10:11 Pulse Ox 98 07/14/24 10:11 Oxygen Delivery Method Room Air 07/14/24 10:11 BMI result Body Mass Index 27.3 Tobacco/Smoking Status: Tobacco use Status Tobacco use date assessed 07/14/24 07/14/24 10:14 Patient Tobacco Use Status Never used Tobacco 07/14/24 10:14 e-Cigarette/Vaping Use Never Used 07/14/24 10:14 PHQ-9: PHQ-9 Score PHQ-9: Total score 0 07/14/24 10:27 Thrive Assessment: Date of Thrive Assessment Date Thrive assessed 10/01/23 07/14/24 10:14 Const General: cooperative and comfortable Nutritional Appearance: obese Orientation/consciousness: patient oriented x3 HENMT General nose exam: Normal external nose present Face and sinus: Yes face symmetric Mouth: Normal oral and palatal mucosa present and moist mucous membranes Eyes General: appearance normal, both eyes and all related structures Neck Neck: Yes full ROM, Yes no lymphadenopathy, Yes supple and Yes no JVD Thyroid: Thyroid normal Resp Effort & Inspection: normal respiratory effort and able to speak in complete sentences Auscultation: clear to auscultation bilaterally Cardio Jugular venous distension: no JVD Rate: regular rate Rhythm: regular rhythm Heart sounds: S1 normal heart sound present, S2 normal heart sound present and no murmurs Bruits: no carotid bruits GI Inspection: Yes obesity Palpation (GI): Soft to palpation, nontender, not rigid and no masses Auscultation: normal bowel sounds Back/Spine/Pelvis Back: No back tenderness Neuro General: patient oriented x3, gait normal, moves all extremities, Normal light touch and pain sensation and no focal motor deficits Speech: No Abnormal speech present Extrem General: Yes full ROM, Yes no joint enlargement, Yes no clubbing, cyanosis or edema and Yes normal gait Psych Appearance: grossly normal and well kempt Mental Status: mental status grossly normal Speech and movement: Normal speech and movement present Affect: normal affect Attitude: cooperative Thought process: Normal thought process present Results Reviewed Results Reviewed: Name: Lisha Solis Age/Sex: 68/F : 1955 Unit#: [id number] Attend Dr: Praful Rodriguez MD Re06/28/24 Status: DEP REF Location: [facility] Disch: SPEC : [id number] ASHLEY: 06/28/24 STATUS: COMP REQ : [id number] RECD: 06/28/[address]: Praful Rodriguez MD COMP: 06/28/24 ENTERED: 06/28/[address]: Sabrina Felix MD ORDERED: Lytes, BUN, Creat, CA, IRON PROF, Ferritin, Vitamin D 25-OH Test Result Flag Reference Sodium 134 L 135-145 mmol/L Potassium 4.1 3.3-5.1 mmol/L CL 99 96-108 mmol/L CO2 25 22-29 mmol/L Gap 14 12-20 BUN 32 H 9-16 mg/dL Creat 3.12 H 0.5-1.4 mg/dL EGFR 15 NOTE: For -Swazi individuals, multiply the result by 1.210. Chronic Kidney Disease: Estimated GFR < 60 mL/min/1.73m2 Severe Kidney Disease: Estimated GFR < 15 mL/min/1.73m2 CA 9.8 # 8.4-10.2 mg/dL Iron 57 30-160 mcg/dL TIBC 168 L 228-428 mcg/dL Saturation 34 15-50 % UIBC 111 ug/dL Ferritin 432 H 10-250 ng/mL Vit D 25-OH Tot 35.6 >30 ng/mL Health Based Reference Values* < 20 ng/mL Deficient 20-30 ng/mL Insufficient > 30 ng/mL Sufficient Name: Lisha Solis Age/Sex: 68/F : 1955 Unit#: [id number] Attend Dr: Sabrina Felix MD Re12/22/23 Status: DEP [facility] Disch: SPEC : [id number] ASHLEY: 12/22/23-1150 STATUS: COMP REQ : [id number] RECD: 12/22/23-[address]: Sabrina Felix MD COMP: 12/22/23 ENTERED: 12/22/23-[address]: ORDERED: AST, ALT, Lipid Panel, Vitamin D 25-OH Test Result Flag Reference AST (GOT) 19 5-31 U/L ALT (GPT) 22 0-31 U/L Triglyceride 103 <150 mg/dL Desirable Triglyceride: less than 150 mg/dL Borderline High Triglyceride 150-199 mg/dL High Triglyceride: 200-499 mg/dL Very High Triglyceride: greater than or equal to 5OO mg/dL Cholesterol 184 <200 mg/dL Desirable Cholesterol: less than 200 mg/dL Borderline High Cholesterol: 200-239 mg/dL High Cholesterol: greater than 239 mg/dL LDL Calculated 101 H <100 mg/dL Desirable LDL: less than 100 mg/dL Near Optimal/Above Optimal LDL: 110-129 mg/dL Borderline High LDL: 130-159 mg/dL High LDL: 160-189 mg/dL Very High LDL: greater than or equal to 190 mg/dL HDL 63 >40 mg/dL Desirable HDL: greater than 40 mg/dL Note: This HDL assay may give artificially low results in patients with liver disease. Vit D 25-OH Tot 35.8 >30 ng/mL Health Based Reference Values* < 20 ng/mL Deficient 20-30 ng/mL Insufficient > 30 ng/mL Sufficient Coding Level of Care Code Est Pt Level 3 (79389) Complex EM visit Add On G2211 Diagnoses Pure hypercholesterolemia E78.00 Hyperlipidemia type: pure hypercholesterolemia Assessment & Plan Assessment & Plan (1) Hyperlipidemia: Code(s): E78.5 - Hyperlipidemia, unspecified Category: Medical Qualifiers: Hyperlipidemia type: pure hypercholesterolemia Qualified Code(s): E78.00 - Pure hypercholesterolemia, unspecified Plan: Reviewed recent fasting lipid profile with patient with levels within normal limits . Continue atorvastatin 40 mg every other day , in addition to adherence to low-cholesterol diet and regular exercise, at least 30 minutes 3 to 4 times a week. Advised patient to make healthy food choices, eat more fruits, vegetables, whole grains, wild caught fish and low-fat dairy. Limit amount of meat and fried or fatty food products, as well as processed foods and fast foods. Follow-up scheduled with repeat fasting lipid panel in 6 months. Orders: Orders Aspartate Amino Transferase 12/29/24 E78.5 - Hyperlipidemia, unspecified Lipid Panel 12/29/24 E78.5 - Hyperlipidemia, unspecified Alanine Aminotransferase 12/29/24 E78.5 - Hyperlipidemia, unspecified
== END 2024-07-14 10:47 | disposition home or self-care (01) ==
PROVIDERS: PCP Internal Medicine; Visit Provider Internal Medicine
DX: E78.00 Pure hypercholesterolemia, unspecified (principal)

== ENCOUNTER → 2024-07-14 09:12 | Outpatient (BNVA) | payer MEDICARE, OTHER, SELFPAY | PROVIDERS: PCP Internal Medicine; Visit Provider Internal Medicine | DX: E78.00 Pure hypercholesterolemia, unspecified (principal) | CPT/HCPCS: 99212 ==

== ENCOUNTER 2024-08-11 13:07 | Outpatient (REF) | payer MEDICARE, OTHER, SELFPAY ==
--- OUTSIDE RECORDS SUMMARY | 2024-08-11 13:12 | XMS_ITS | Encounter Summary ---
Author Name [facility] [place] Organization [facility] [place] Address [address] [place] [address] Care Team Providers Care Print Finisher Name Role Phone NARCISO DODD Primary Care Provider Unavailabl e Insurance Providers: All historical and current Section Date Range: From patient's date of to the date document was created. This section includes the names of all active insurance providers for the patient. Insurance Provider Type of Coverage Plan Name Start of Policy Coverage End of Policy Coverage Group Number Member ID Insurance Provider's Telephone Number Policy Tavarez's Name Patient's Relationship to Policy Tavarez [employer]EMARK PRESCRIPT ION [id number] Aug 31, 2017 [id number] [phone] Fran LOPEZ PATIENT MEDICARE (WNR) MEDICARE (M) PART A Oct 01, 2021 PART A [id number] [phone] Fran LOPEZ ISABELLA PATIENT MEDICARE (WNR) MEDICARE (M) PART B Oct 01, 2021 PART B [id number] Fran LOPEZ ISABELLA PATIENT [employer] RX PRESCRIPT ION RX Aug 31, 2022 THPRX [id number] JESSICAN ISABELLA PATIENT [facility] HE[facility] PLAN [facility] Aug 31, 2017 [facility] [id number] JESSICAN ISABELLA PATIENT [facility] Aug 31, 2017 [facility] [id number] [phone] JESSICAN ISABELLA PATIENT [facility] MIGDALIA RENDON Aug 31, 2017 [facility] [id number] [phone] JESSICAFran ISABELLA PATIENT [facility] Garcia Aug 31, 2017 [facility] [id number] Fran LOPEZ PATIENT Selected Encounter This section includes the information on record at [place] for the Encounter. Date/Time Encounter Type Encounter Description Reason Provider Source Nov 24, 2023 10:30 AM OFFICE O/P EST MOD 30 MIN PRIMARY CARE/MEDICINE ICD-10-CM K52.839 Microscopic colitis, unspecified NARCISO DODD Radha Encounter Template Text not used by [place] Assessments - Encounter Diagnoses This section includes the primary and secondary diagnoses documented for the Encounter. Date/Time Primary/Secondary Diagnosis Diagnosis Name Provider Source Nov 24, 2023 11:12 AM PRIMARY Microscopic colitis, unspecified NARCISO DODD Nov 24, 2023 11:12 AM SECONDARY Chronic kidney disease, stage 4 (severe) NARCISO DODD CHRIS Nov 24, 2023 11:12 AM SECONDARY Hyperlipidemia, unspecified NARCISO DODD CHRIS Nov 24, 2023 11:12 AM SECONDARY Hypokalemia NARCISO DODD [place] Social History: Smoking Status (Most current) and Tobacco Use (All prior to encounter date) This section includes the most current, and the historical, smoking and tobacco- related health factors from the [place] facility where the Encounter took place. Current Smoking Status This section includes the most current smoking, or tobacco-related health factor, from the [place] facility where the Encounter took place. Date/Time Current Smoking Status Comment Tariq ity Nov 24, 2023 10:30 AM [place]-TOBAC[place] NEVER USED [place] Tobacco Use History This section includes a history of the smoking, or tobacco-related health factors, that were collected on or before the date of the Encounter. The data comes from the [place] facility where the Encounter took place. Date/Time Smoking Status/Tobacco Use Comment F acility Nov 26, 2022 11:30 AM [place]-TOBAC[place] NEVER USED [place] Nov 04, 2021 11:00 AM [place]-TOBAC[place] NEVER USED [place] Encounter Notes: All associated encounter notes This section contains the clinical notes associated to the Encounter. Date/Time Encounter Note(s) Provider Source Nov 24, 2023 10:22 AM PREVENTIVE MEDICIN E NURSING NOTE: LOCAL TITLE: CLINICAL REMINDERS/NURSING STANDARD TITLE: PREVENTIVE MEDICINE NURSING NOTE DATE OF NOTE: NOV 24, 2023@10:22 ENTRY DATE: NOV 24, 2023@10:22:49 AUTHOR: CRISPIN PERALES COSIGNER: URGENCY: STATUS: COMPLETED Advance Directive Screen MH AD: Patient does not have a completed advance directive on file at any facility, VA or outside. S/he is not interested in completing one at this time. The patient received education about Advance Directives and written notification of his/her rights. Suicide Screen: C-SSRS Screening [place] Suicide Severity Rating Scale (C-SSRS) screener 1. Over the past month, have you wished you were or wished you could go to sleep and not wake up? No 2. Over the past month, have you had any actual thoughts of killing yourself? No 3. Over the past month, have you been thinking about how you might do this? Response not required due to responses to other questions. 4. Over the past month, have you had these thoughts and had some intention of acting on them? Response not required due to responses to other questions. 5. Over the past month, have you started to work out or worked out the details of how to kill yourself? Response not required due to responses to other questions. 6. If yes, at any time in the past month did you intend to carry out this plan? Response not required due to responses to other questions. 7. In your lifetime, have you ever done anything, started to do anything, or prepared to do anything to end your life (for example, collected pills, obtained a gun, gave away valuables, went to the roof but didn't jump)? No 8. If YES, was this within the past 3 months? Response not required due to responses to other questions. Depression Screening: Perform PHQ-2 A PHQ-2 screen was performed. The score was 0 which is a negative screen for depression. Over the past two weeks, how often have you been bothered by the following problems? 1. Little interest or pleasure in doing things Not at all 2. Feeling down, depressed, or hopeless Not at all Pneumococcal PPSV23 (Pneumovax): The patient declines to receive the recommended dose of PPSV23 vaccine. Immunization: PNEUMOCOCCAL POLYSACCHARIDE PPV23 Refusal Reason: PATIENT DECISION Patient refuses all immunization(s) in the PneumoPPV group Date Documented: 11/24/23 10:23 Tobacco Use Screening: The patient has never used tobacco. Influenza Immunization: The patient declines to receive the recommended dose of seasonal influenza vaccine. Immunization: INFLUENZA, UNSPECIFIED FORMULATION Refusal Reason: PATIENT DECISION Patient refuses all immunization(s) in the FLU group Date Documented: 11/24/23 10:24 Alcohol Use Screen (AUDIT-C): Alcohol Screen: SCREEN FOR ALCOHOL (AUDIT-C) An alcohol screening test (AUDIT-C) was negative (score=0). 1. How often did you have a drink containing alcohol in the past year? Consider a drink to be a 12 ounce can or bottle of regular beer, 8 ounces of malt liquor, a 5 ounce glass of table wine, or a 1.5 ounce shot of liquor (like scotch, gin, or vodka). Never 2. How many drinks containing alcohol did you have on a typical day when you were drinking in the past year? Response not required due to responses to other questions. 3. How often did you have 4 or more drinks on one occasion in the past year? Response not required due to responses to other questions. COVID-19 Immunization: Defer vaccine, reassess in 1 year Reason: decline Sexual Orientation: The patient thinks of their sexual orientation as: Straight or Heterosexual RHS Screen: RHS Screen Session Format: Face to Face Environmental Check Upon inquiry, the individual reports that the environment is safe to proceed. Informed Consent to Screen and Document The individual consents to proceed with screening. The individual consents to documentation of responses. PRIMARY SCREEN: In the past 12 months, how often did a current or former intimate partner (e.g., boyfriend, girlfriend, , , sexual partner): 1. Scream or curse at you Never 2. Insult or talk down to you Never 3. Threaten you with harm Never 4. Physically hurt you Never 5. Force or pressure you to have sexual contact against your will, or when you were unable to say no Never ?? The HITS tool (items 1-4 above) is [place] copyright protected by Huang Hutchinson MD, and the user has full rights to use it throughout the [place] system. PRIMARY SCREEN RESULT: The Primary Screen is NEGATIVE. The individual answered never to all forms of IPV above (i.e., answered never to all 5 items) The individual accepts education and/or resources: No EDUCATION: The individual indicated readiness to learn. Education offered during this session as noted above. The individual indicated understanding by asking relevant questions and making appropriate comments. No barriers to learning were observed or identified. PAVE Foot Check: A complete foot check was completed at this encounter. VISUAL INSPECTION: Includes inspection for skin breaks, deformity, erythema, trauma, pallor on elevation, dependent rubor, nail deformities, extensive callus and pitting edema. Visual exam results: Normal PEDAL PULSES: Includes palpation of dorsalis and posterior tibial pulses and signs/symptoms of vascular compromise like pain, pallor, parasthesia or paralysis. Present (even if diminished) SENSORY CHECK: Includes 10 gram Monofilament ([place]-Lois) test of sensation. Intact (Greater than or equal to 80% of sites checked) Abnormal (Less than 80% of sites checked): Intact LOW-RISK LOW RISK FOOT EDUCATION: 1. Advised patient not to walk barefoot. Instructed the patient to pay close attention to the style and fit of shoes. 2. Explained the importance of daily foot checks. Explained that loss of sensation leads to callouses. Callouses break down, which result in ulcers that may lead to gangrene and amputation. 3. Stressed the importance of daily foot hygiene. Warm (not hot) bathing of the feet, complete drying and thorough inspection for changes in the condition of the skin constitute daily foot care. Demonstrated how to do a thorough foot check. 4. Emphasized the use of clean, non-restrictive socks/stockings and well fitting shoes. 5. Stressed the importance of immediate follow-up of any foot injuries or ulcers. Explained that he/she should be non-weight bearing whenever there are lesions on the foot, to prevent cellular damage. Level of Understanding: Good /mayte/ CRISPIN PERALES LPN PACT 10 Signed: 11/24/2023 10:25 CRISPIN PERALES Nov 24, 2023 06:09 AM PHYSICIAN NOTE: LOCAL TITLE: NOTE STANDARD TITLE: PHYSICIAN NOTE DATE OF NOTE: NOV 24, 2023@06:09 ENTRY DATE: NOV 24, 2023@06:09:55 AUTHOR: NARCISO DODD EXP COSIGNER: URGENCY: STATUS: COMPLETED HISTORY OF PRESENT ILLNESS: ISAIAH LOPEZ, is a 68 yo FEMALE , who presents at the [facility] for her annual visit. Pt maintains a nonVA PCP: Dr Sabrina Felix in [place]. NonVa Providers: Nephrology: Dr Jeremi Rodriguez - [facility] Dermatology: Dr Tina Vivar - [place] [facility] Active problems - Computerized Problem List is the source for the followin. Anemia 2. Vitamin D deficiency 3. Colonoscopy Screening 4. Chronic kidney disease stage 4 5. Lymphocytic colitis 6. Chronic hypokalemia 7. Interstitial nephritis 8. Psoriasis 9. Primary Care Provider Active and Recently Outpatient Medications (including Supplies): Active Non-VA Medications Status ======= 1) Non-VA ATORVASTATIN TAB BY MOUTH ACTIVE 2) Non-VA BETAMETH 0.064/CALCIPOTRIENE 0.005% OINT ACTIVE SUFFICIENT AMOUNT TOPICALLY ONCE DAILY 3) Non-VA CHOLECALCIF 1,250MCG (D3-50,000UNIT) CAP ACTIVE 1250MCG BY MOUTH EVERY 2 WEEKS 4) Non-VA FERROUS SULFATE 325MG TAB 325MG BY MOUTH ONCE ACTIVE DAILY 5) Non-VA POTASSIUM CHLORIDE 10MEQ SA TAB 10MEQ BY MOUTH ACTIVE 10 PILLS A DAY 6) Non-VA SODIUM BICARBONATE 650MG TAB 1950MG BY MOUTH ACTIVE TWICE DAILY ALLERGIES: ========= TETRACYCLINE HISTORY: PERIOD OF SERVICE - [facility] [employer] FROM May TO May COMBAT SERVICE INDICATED: No VITAL SIGNS: Blood Pressure 109/66 (11/24/2023 10:22) Pulse 67 (11/24/2023 10:22) Respiration 18 (11/24/2023 10:22) Pulse Oximetry 99% (11/24/2023 10:22) Temperature 97.1 F [36.2 C] (11/24/2023 10:22) Pain 0 (11/24/2023 10:22) Height 67 in [170.2 cm] (11/24/2023 10:22) Weight 175.6 lb [79.65 kg] (11/24/2023 10:22) BMI BMI: 27.6 REVIEW OF SYSTEMS: CARDIOVASCULAR: No chest pain RESPIRATORY: No SOB, no wheezing GASTROINTESTINAL: No abd pain, no N/V/D GENITOURINARY: No dysuria, no hematuria MUSCULOSKELETAL: No joint pain, no joint swelling PSYCHIATRIC: No anxiety, no trouble sleeping, no depression NEUROLOGIC: No H/A, no numbness, no weakness, no tingling EXAMINATION: GENERAL: WD/WN , pleasant & in NAD HEENT: Moist mucosa NECK: Supple, no carotid bruits HEART: RRR, S1-S2, no murmurs LUNGS: CTA B/L, no wheezes ABDOMEN: Soft, NT/ND, + BS x 4 Quads PERIPH PULSES: 2+ B/L EXTREMITIES: FROM x 4, gait normal NEUROLOGIC: AAO x3, no focal findings PSYCHIATRIC: Good eye contact, affect normal ASSESSMENT/PLAN: 1. s/p TIA: occurred 09/19/23, on ASA & statin (low dose and every other day), seeing cardiology next month 2. Lymphocytic Colitis: confirmed with colonoscopy w/biopsy completed 03/08/18, followed by GI 3. 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 Chronic Hypokalemia: on daily KCL supplementation (100mcg/day in divided doses TID) 5. Psoriasis: managed by Dr Vivar/[facility] 6. IBD: since 1992, has daily watery diarrhea causing volume depletion which results in a non-gap metabolic acidosis, on sodium bicarb 1950mg BID per GI 7. Anemia: secondary to CKD, on ferrous sulfate 325mg/daily 8. Vitamin D Def: on Vit D 50,000units twice a month 9. Colonoscopy Screening: Q5 yrs, managed by nonVA PCP 10. Mammogram Screening: per vet 07/2023 @ [facility], and wnl 11. Principal Associate/Pap Exam: per vet 07/2023 and wnl (by advertising supervisor Janie Helms)) 12. Bone Density Screening: per vet 07/2021 and wnl, managed by nonVA PCP 13. Obesity: BMI ~28 counseled on weight loss FOLLOW UP: 1 year - Annual - vet to bring PCP labs ========= No barriers; Patient understands and agrees to current treatment plan. If pt has any questions, concerns, or changes in current health status he/she will call or come in to the VA. BMI>30/>24.99 High Risk: Patient declines to discuss weight management. Patient declined weight discussion. Discussed revisiting at a future visit. Hepatitis C Testing: Patient declines HCV lab test. Lipid Screening: Patient was educated about cardiac risk factors related to cholesterol control, which includes, all elements of the Lipid Panel including HDL, LDL and Triglycerides. The declined testing at this time. Osteoporosis Screening: The patient declines osteoporosis screening. Comment: performed by her nonVA PCP Medication Reconciliation: Outpatient: Has the patient been taking medications as documented in the EMLR? YES: The patient has been taking medications as documented in the EMLR. Essential Medication List for Review used to complete this medication reconciliation. INCLUDED IN THIS LIST: Alphabetical list of active outpatient prescriptions dispensed from this VA (local) and dispensed from another VA or DoD facility (remote) as well as inpatient orders (local, pending and active), local clinic medications, locally documented non-VA medications, and local prescriptions that have or been discontinued in the past 90 days. - All changes in medications, including all non-VA/Herbal/OTC medications were entered into CPRS. - If there were any medications the patient should no longer take, they were discontinued. - The patient/caregiver was instructed to update this list, discard old lists, and take this list to the next appointment, whether with a VA or non-VA provider. JLV Link Data on this list may not be complete. Please check JLV. Allergies/ADRs (Tool #5) FACILITY ALLERGY/ADR -------- CLNCL/[facility] REPT EFF [id number] TETRACYCLINE [place] [facility] TETR[facility] Med Recon NoGloary (Tool #1) INCLUDED IN THIS LIST: Alphabetical list of active outpatient prescriptions dispensed from this [place] (local) and dispensed from another [place] or [place] facility (remote) as well as inpatient orders (local pending and active), local clinic medications, locally documented non-VA medications, and local prescriptions that have or been discontinued in the past 90 days. Non-VA Meds Last Documented On: Nov 24, 2023 NOTE The display of VA prescriptions dispensed from another VA or DoD facility (remote) is limited to active outpatient prescription entries matched to National Drug File at the originating site and may not include some items such as investigational drugs, compounds, etc. NOT INCLUDED IN THIS LIST: Medications self-entered by the patient into personal health records (i.e. [employer]) are NOT included in this list. Non-VA medications documented outside this [place], remote inpatient orders (regardless of status) and remote clinic medications are NOT included in this list. The patient and provider must always discuss medications the patient is taking, regardless of where the medication was dispensed or obtained. ------ Non-VA ATORVASTATIN TAB TAKE BY MOUTH EVERY OTHER DAY Non-VA medication not recommended by VA provider. Patient wants to buy from Non-VA pharmacy. Medication prescribed by Non-VA provider. Indication: FOR HIGH CHOLESTEROL Non-VA BETAMETH 0.064/CALCIPOTRIENE 0.005% OINT APPLY SUFFICIENT AMOUNT TOPICALLY ONCE DAILY Non-VA CHOLECALCIF 1,250MCG (D3-50,000UNIT) CAP TAKE 1 CAPSULE BY MOUTH EVERY 2 WEEKS Non-VA FERROUS SULFATE 325MG TAB TAKE ONE TABLET BY MOUTH ONCE DAILY Non-VA POTASSIUM CHLORIDE 10MEQ SA TAB TAKE ONE TABLET BY MOUTH 10 PILLS A DAY Patient wants to buy from Non-[place] pharmacy. Medication prescribed by Non-[place] provider. Vet to take 10 pills a day, 4 in AM, 2 In Afternoon, and 4 in PM Non-VA SODIUM BICARBONATE 650MG TAB TAKE THREE TABLETS BY MOUTH TWICE DAILY Patient wants to buy from Non-[place] pharmacy. Medication prescribed by Non-[place] provider. Vet to take a total of 6 pills a day 3 AM, 3 PM ------ SUPPLIES ------ /mayte/ NARCISO DODD MD Primary Care Physician Signed: 11/24/2023 11:12 NARCISO DODD [place]
--- OUTSIDE RECORDS SUMMARY | 2024-08-11 13:12 | XMS_ITS | Patient Health Record ---
Author Organization [facility] Address [address] [place] [address] Care Team Providers Care Cloth Presser Name Role Phone Elvira BOLAND, Sabrina Smith Primary Care Provider Un available Radha Buckley Unavailable [phone] Allergies Allergen (clinical drug ingredient) Drug/Non Drug Allergy documented on EMR Reaction Allergy Type Onset Date Status tetracycline Tetracycline Unknown Drug Allergy A ctive Reason For Referral No Information Medications Medication SIG (Take, Route, Frequency, Duration) Notes Start Date End Date Status Potassimin 10 pills Active Sodium Bicarbonate A ctive Night Splint AFO - L1930 as directed 06/25/2015 Unknown Vitamin D Unknown Potassimin Unknown Atorvastatin Calcium 80 MG 1/2 pill Orally every other day Active Vitamin D3 Active Baby Aspirin 1 a day Active Iron 1 a day Active Social History Tobacco Use: Social History Observation Description Date Details (start date - stop date) Never Smoker NA - NA Tobacco Use/Smoking Question Answer Notes Are you a: nonsmoker Additional Findings: Tobacco Non-User Current no n-smoker Alcohol Screen Question Answer Notes Did you have a drink contain ing alcohol in the past year? Yes How often did you have a dri nk containing alcohol in the past year? 2 to 4 times a month (2 points) Points 2 Interpretation Negative Tobacco use other than smoking: Question Answer Notes Are you an other tobacco user? No Problems No Known Problems Vital Signs Height 5ft6in in 07/04/2024 Weight 165 lbs 07/04/2024 BMI 26.63 kg/m2 07/04/2024 Encounters Encounter Location Date Provider Diagnosis [facility] [address] [place] [address] 06/03/2024 Radha Buckley Pain in left foot M79.672 ; Bursitis of left foot M77.52 ; Metatarsalgia of left foot M77.42 and [place] of foot L84 [facility] [address] [address] 07/04/2024 Radha Buckley Pain in left foot M79.672 ; Bursitis of left foot M77.52 and Metatarsalgia of left foot M77.[address] [facility] [address] 07/01/2024 Radha Buckley Assessments Encounter Date Diagnosis (ICD Code) Assessment Notes Treatment Notes Treatment Clinical Notes Section Notes 06/03/2024 Pain in left foot (ICD-10 - M79.672) 06/03/2024 Bursitis of left foot (ICD-10 - M77.52) 07/04/2024 Pain in left foot (ICD-10 - M79.672) 07/04/2024 Bursitis of left foot (ICD-10 - M77.52) 07/04/2024 Metatarsalgia of left foot (ICD-10 - M77.42) 06/03/2024 Metatarsalgia of left foot (ICD-10 - M77.42) 06/03/2024 [place] of foot (ICD-10 - L84) Plan Of Treatment Pending Test Test Name Order Date X ray : Foot, left 3V 06/03/2024 Insurance Providers Payer Name Payer Address Payer Phone Subscriber Number Group Number Insured Name Patient Relationship to Insured Coverage Start Date Coverage End Date Medicare [employer] [address] [place] [address] [phone] [id number] Lisha Solis Self - patient is the insured for Life [address] [place] [id number] [phone] [id number] Lisha Solis Self - patient is the insured Medical (General) History Medical History History ICD Code Colitis Kidney disease / on inactive transplant list for kidney Mumps Psoriasis/eczema Anemia covid-19 Stroke
--- OUTSIDE RECORDS SUMMARY | 2024-08-11 13:12 | XMS_ITS | Continuity of Care Document ---
Author Name [facility] Organization [facility] Care Team Providers Care Junior Engineer Name Role Phone [facility] Unavailable Unavailable Problems Combined list of problems from Department of Defense and Veterans Affairs facilities. It does not include entries that were removed or entered in error. 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 Melvin Sanabria - - Riya anal skin tags Atrophic appearing mucosa in the terminal ileum. Biopsied.Nov 12, 2021 Entered By: NARCISO DODD Comment: - Deformed, scarred, widely patent ileocecal valve.Nov 12, 2021 Entered By: NARCISO DODD Comment: ild areas of erythematous and scarred mucosa in the colon. Biopsies were obtained in the left colon, in the transverse colon and in the right colon.Nov 12, 2021 Entered By: NARCISO DODD Comment: - Diagnosis may be more consistent with an inflammatory bcwel disease. [facility] [place] [facility] Hyperlipidemia Active Condition [place] Interstitial nephritis [facility] [place] [facility] Lymph[facility] colitis [facility] [place] [facility] Primary Care Provider Active Condition Nov 04, 2021 Entered By: NARCISO DODD Comment: [facility] [place] [facility] Psoriasis Active Condition January 18 Entered By: DUANE BERRY Comment: Derm- [facility] Vitamin D deficiency Active Condition [facility] Diagnosis: ICD-10-CM K52.839 Microscopic colitis, unspecified Active Diagnosis [place] Medications Combined list of outpatient medications from Department of Defense and [facility] facilities.Medications provided include 1) outpatient medications from the last 15 months, and 2) patient-reported medications. Medication Details Route Status Patient Instructions Prescription Expires Prescription Number Last Dispense Date Ordering Provider Order Date Order Qty Source ATORVASTATI N CALCIUM (atorvastat in calcium), 80 MG, TABLET, ORAL, [employer] 500 ea. BOTTLE Active [id number] 2023 30 Pharmac y Data Transac tion Service Facilit y ATORVASTATI N CALCIUM (atorvastat in calcium), 80 MG, TABLET, ORAL, MIRIAM [employer], 500 ea. BOTTLE Active [id number] 4 2023 90 Pharmac y Data Transac tion Service Facilit y ATORVASTATI N TAB TAKE BY MOUTH EVERY OTHER DAY ORAL ACTIVE SAIDA DODD SA 2023 [place] BETAMETHASO NE DIPROPIONAT E 0.064%/CALC IPOTRIENE 0.005% OINT,TOP APPLY SUFFICIE NT AMOUNT TOPICALL Y ONCE DAILY TOPICA L ACTIVE ANNA BERRY 2020 [place] CALCIPOTRIE NE (CALCIPOTRI SUE), 0.005%, SOLUTION, TOPICAL, [facility] 60 ml BOTTLE Active [id number] 4 2023 60 Pharmac y Data Transac tion Service Facilit y CEPHALEXIN (CEPHALEXIN MONOHYDRATE ), 250MG, CAPSULE, ORAL, LUPIN PHARMACEU, 100 ea. BOTTLE Active [id number] 4 2023 14 Pharmac y Data Transac tion Service Facilit y CEPHALEXIN (CEPHALEXIN MONOHYDRATE ), 250MG, CAPSULE, ORAL, LUPIN [employer], 100 ea. BOTTLE Active [id number] 4 2023 14 Pharmac y Data Transac tion Service Facilit y CHOLECALCIF KAILYN 1,250MCG (50,000UNIT ) CAP,ORAL TAKE 1 CAPSULE BY MOUTH EVERY 2 WEEKS ORAL ACTIVE ANNA BERRY 2020 [place] DESOXIMETAS ONE (desoximeta sone), 0.25 %, OINT. (G), TOPICAL, VIONA [employer], 60 g TUBE Active [id number] 4 2023 60 Pharmac y Data Transac tion Service Facilit y FERROUS SO4 325MG TAB TAKE ONE TABLET BY MOUTH ONCE DAILY ORAL ACTIVE ANNA BERRY 2020 [place] FLUCONAZOLE (fluconazol e), 150 MG, TABLET, ORAL, ZYDUS [employer]ARMACE[employer], 12 ea. BLIST PACK Active [id number] 4 2023 3 Pharmac y Data Transac tion Service Facilit y FOLIC ACID (folic acid), 1 MG, TABLET, ORAL, [employer], 1800 ea. BOTTLE Active [id number] 4 2023 30 Pharmac y Data Transac tion Service Facilit y HALOBETASOL PROPIONATE (halobetaso l propionate) , 0.05 %, OINT. (G), TOPICAL, JESSICA PHARMAC, 50 g TUBE Active [id number] 2023 50 Pharmac y Data Transac tion Service Facilit y HALOBETASOL PROPIONATE (halobetaso l propionate) , 0.05 %, OINT. (G), TOPICAL, JESSICA [employer]ARMAC, 50 g TUBE Active [id number] 2023 50 Pharmac y Data Transac tion Service Facilit y KLOR-CON M10 (potassium chloride), 10 MEQ, TAB ER PRT, ORAL, UPSHER-NASIR H LA, 1000 ea. BOTTLE Cancele d [id number] : 2023 0 Pharmac y Data Transac tion Service Facilit y KLOR-CON M10 (potassium chloride), 10 MEQ, TAB ER PRT, ORAL, UPSHER-NASIR H LA, 1000 ea. BOTTLE Active [id number] 4 2023 900 Pharmac y Data Transac tion Service Facilit y NYSTATIN-TR IAMCINOLONE (NYSTATIN/T RIAMCIN), 693852-6.1, CREAM(GM), TOPICAL, [employer], 30 g TUBE Cancele d [id number] : 2023 0 Pharmac y Data Transac tion Service Facilit y NYSTATIN-TR IAMCINOLONE (nystatin/t riamcinolon e acetonide), 983637-8.1, OINT. (G), TOPICAL, VIONA [employer]ARMACE[facility], 60 g TUBE Active [id number] 2023 60 Pharmac y Data Transac tion Service Facilit y POTASSIUM CHLORIDE (potassium chloride), 10 MEQ, TABLET ER, ORAL, [employer], 1000 ea. BOTTLE Cancele d [id number] : 2023 0 Pharmac y Data Transac tion Service Facilit y POTASSIUM CHLORIDE (potassium chloride), 10 MEQ, TABLET ER, ORAL, [employer], 500 ea. BOTTLE Cancele d [id number] : 2023 0 Pharmac y Data Transac tion Service Facilit y POTASSIUM CHLORIDE 10MEQ TAB,SA TAKE ONE TABLET BY MOUTH 10 PILLS A DAY ORAL ACTIVE SAIDA DODD SA 2021 [facility] [place] [facility] [facility] SILVER SULFADIAZIN E (SILVER SULFADIAZIN E), 1%, CREAM(GM), TOPICAL, [facility], 85 g TUBE Cancele d [id number] : 2023 0 Pharmac y Data Transac tion Service Facilit y SILVER SULFADIAZIN E (SILVER SULFADIAZIN E), 1%, CREAM(GM), TOPICAL, [facility] [facility], 85 g TUBE Active [id number] 4 2023 85 Pharmac y Data Transac tion Service Facilit y SODIUM BICARBONATE 650MG TAB TAKE THREE TABLETS BY MOUTH TWICE DAILY ORAL ACTIVE SAIDA DODD SA 2021 [facility] VITAMIN D2 (ergocalcif kailyn (vitamin D2)), 1250 MCG, CAPSULE, ORAL, [employer], 100 ea. BOTTLE Active [id number] 4 2023 12 Pharmac y Data Transac tion Service Facilit y Allergies, Adverse Reactions, Alerts Combined list of allergies from Department of Defense and Veterans Affairs facilities. It does not include entries that were removed or entered in error. Substance Category Reaction Severity Reaction type Status Date Reported Comments Source TETRACYCLINE Propensity to adverse reactions to drug (finding) active 1 [facility] TETRACYCLINE (TETRACYCLINE ) Drug allergy (disorder) Unknown active 8 [employer] Immunizations Combined list of available immunizations from the Department of Defense and Veterans Affairs facilities. Immunization Series Date Given Administered By Site Reaction Lot Number CVX Code Drug Keyboard Instrument Tuner Status Comments Source COVID-19 (PFIZER), MRNA, LNP-S, BIVALENT BOOSTER, PF, 30 MCG/0.3 ML DOSE 5 2021 300 complet ed [facility] COVID-19, mRNA, LNP-S, PF, 30 mcg/0.3 mL dose, dat-sucrose 2021 BOGDASARIAN, () Not Given COVID-19, mRNA, LNP-S, PF, 30 mcg/0.3 mL dose, dat-sucr ose DoD INFLUENZA, UNSPECIFIED FORMULATION 2020 88 complet ed [facility] COVID-19 (PFIZER), MRNA, LNP-S, PF, 30 MCG/0.3 ML DOSE 3 2020 208 complet ed [place] [facility] [facility] COVID-19 (PFIZER), MRNA, LNP-S, PF, 30 MCG/0.3 ML DOSE 2 2020 208 complet ed PFR; [id number]; 1 [facility] [place] [facility] COVID-19 (PFIZER), MRNA, LNP-S, PF, 30 MCG/0.3 ML DOSE 1 2020 208 complet ed PFR; [id number]; 1 [facility] [place] [facility] PNEUMOCOCCAL CONJUGATE PCV 13 2019 133 complet ed [facility] record scanned to chart [facility] INFLUENZA, UNSPECIFIED FORMULATION 2019 88 complet ed [facility] HEP B, ADULT 2019 43 complet ed [facility] ZOSTER RECOMBINANT 2 2019 187 complet ed Immunizat ion list scanned to chart [facility] HEP B, ADULT 3 2019 43 complet ed [facility] TDAP 2018 115 complet ed [facility] HEP B, ADULT 2 2018 43 complet ed [facility] HEP B, ADULT 1 2018 43 complet ed [facility] ZOSTER RECOMBINANT 1 2018 187 complet ed Immunizat ion list scanned to chart [facility] influenza virus vaccine, whole virus 1 2002 Unknown, Provider [id number] [employer] (PWJ) complet ed influenza virus vaccine, whole virus DoD influenza virus vaccine, whole virus 1 2002 Unknown, Provider [id number] Sanofi Pasteur (PMC) complet ed influenza virus vaccine, whole virus DoD tuberculin skin test; purified protein derivative solution, intradermal 1 2002 Unknown, Provider [id number] Sanofi Pasteur (PMC) complet ed tuberculi n skin test; purified protein derivativ e solution, intraderm al DoD influenza virus vaccine, whole virus 1 2000 Unknown, Provider [id number] Sanofi Pasteur (PMC) complet ed influenza virus vaccine, whole virus DoD influenza virus vaccine, whole virus 1 2000 Unknown, Provider [id number] Jo-Ann (Inactive) ([place]) complet ed influenza virus vaccine, whole virus DoD tetanus and diphtheria toxoids, adsorbed, preservative free, for adult use (2 Lf of tetanus toxoid and 2 Lf of diphtheria toxoid) 3 1999 Unknown, Provider [id number] Shravan (CON) complet ed tetanus and diphtheri a toxoids, adsorbed, preservat valentina free, for adult use (2 Lf of tetanus toxoid and 2 Lf of diphtheri a toxoid) DoD influenza virus vaccine, whole virus 1 1998 Unknown, Provider [id number] 16 Shravan (CON) complet ed influenza virus vaccine, whole virus DoD hepatitis A vaccine, adult dosage 2 1998 Unknown, Provider [id number] Merck (MSD) complet ed hepatitis A vaccine, adult dosage DoD influenza virus vaccine, whole virus 2 1997 Unknown, Provider [id number] 16 Jo-Ann (Inactive) ([place]) complet ed influenza virus vaccine, whole virus DoD influenza virus vaccine, whole virus 1 1996 Unknown, Provider 16 Unknown (UNK) complet ed influenza virus vaccine, whole virus DoD hepatitis A vaccine, adult dosage 1 1995 Unknown, Provider 52 () complet ed hepatitis A vaccine, adult dosage DoD tetanus and diphtheria toxoids, adsorbed, preservative free, for adult use (2 Lf of tetanus toxoid and 2 Lf of diphtheria toxoid) 1 1988 Unknown, Provider 09 () complet ed tetanus and diphtheri a toxoids, adsorbed, preservat valentina free, for adult use (2 Lf of tetanus toxoid and 2 Lf of diphtheri a toxoid) DoD typhoid vaccine, parenteral, acetone-kille d, dried (U.S. ) 2 1984 Unknown, Provider 53 () complet ed typhoid vaccine, parentera l, acetone-k illed, dried (U.S. ) [facility] trivalent poliovirus vaccine, live, oral 1 1983 Unknown, Provider 02 () complet ed trivalent polioviru s vaccine, live, oral DoD measles, mumps and rubella virus vaccine 1 1983 Unknown, Provider 03 () complet ed measles, mumps and rubella virus vaccine DoD meningococcal polysaccharid e vaccine (MPSV4) 1 1983 Unknown, Provider 32 () complet ed meningoco ccal polysacch aride vaccine (MPSV4) [facility] adenovirus vaccine, type 4, live, oral 1 1983 Unknown, Provider 54 () complet ed adenoviru s vaccine, type 4, live, oral [facility] adenovirus vaccine, type 7, live, oral 1 1983 Unknown, Provider 55 () complet ed adenoviru s vaccine, type 7, live, oral [facility] Vital Signs Combined list of inpatient and outpatient Vital Signs from Department of Defense and Veterans Affairs, ranging from 12 months to all on record, depending upon the facility. Vital Sign Value Date Comments Source SYSTOLIC BLOOD PRESSURE 109 11/24/19 24 10:22:06 [facility] DIASTOLIC BLOOD PRESSURE 66 024 10:22:06 [facility] [place] [facility] PULSE OXIMETRY 99 11/24/2023 10:22:06 [facility] WEIGHT 175.6 11/24/2023 10:22:06 [facility] BMI 28kg/m2 11/24/2023 10:22:06 [facility] PAIN 0 11/24/2023 10:22:06 [facility] HEIGHT 67 11/24/2023 10:22:06 [facility] TEMPERATURE 97.1 11/24/2023 10:22:06 [facility] PULSE 67 11/24/2023 10:22:06 [facility] RESPIRATION 18 11/24/2023 10:22:06 [facility] [place] [facility] Encounters Combined list of: 1) Encounters from Department of Veterans Affairs facilities going back up to thelast 18 months. 2) Encounters from the Department of Defense facilities going back up to 280 months. Location Location Details Encounter Type Encounter Number Reason For Visit Attending Provider ADM Date DC Date Status Disposition Source [facility] Out[facility] Encounter [id number] 06/25 [facility] [place] [facility] OFFICE O/P EST MOD 30 MIN [id number] Diagnos is: ICD-10- CM K52.839 Microsc opic colitis , unspeci fied
OLVIER DODD 11/23 [facility] IELD Procedures Combined list of: 1) Procedures from Department of Veterans Affairs facilities [facility], not all [place] non-surgical procedures are included; 2) All procedures from the Department of Defense facilities. Procedure Procedure Type Code Date Perfomer Comments Sourc e DETERMINATION OF REFRACTIVE STATE 03/11/2004 DoD APPLICATION OF A MODALITY TO 1 OR MORE AREAS; HOT OR COLD PACKS 03/08/2004 DoD APPLICATION OF A MODALITY TO 1 OR MORE AREAS; HOT OR COLD PACKS 02/23/2004 [facility] DETERMINATION OF REFRACTIVE STATE 12/08/2003 DoD CHIROPRACTIC MANIPULATIVE TREATMENT (CMT); SPINAL, 3-4 REGIONS 11/14/2003 DoD CHIROPRACTIC MANIPULATIVE TREATMENT (CMT); SPINAL, 3-4 REGIONS 11/13/2003 DoD APPLICATION OF A MODALITY TO 1 OR MORE AREAS; HOT OR COLD PACKS 11/10/2003 DoD CHIROPRACTIC MANIPULATIVE TREATMENT (CMT); SPINAL, 3-4 REGIONS 11/09/2003 DoD CHIROPRACTIC MANIPULATIVE TREATMENT (CMT); SPINAL, 3-4 REGIONS 01/26/2003 DoD APPLICATION OF A MODALITY TO 1 OR MORE AREAS; HOT OR COLD PACKS 12/22/2002 DoD APPLICATION OF A MODALITY TO 1 OR MORE AREAS; HOT OR COLD PACKS 12/13/2002 DoD APPLICATION OF A MODALITY TO 1 OR MORE AREAS; HOT OR COLD PACKS 12/02/2002 DoD CHIROPRACTIC MANIPULATIVE TREATMENT (CMT); SPINAL, 3-4 REGIONS 11/30/2002 DoD APPLICATION OF A MODALITY TO 1 OR MORE AREAS; HOT OR COLD PACKS 11/24/2002 DoD APPLICATION OF A MODALITY TO 1 OR MORE AREAS; HOT OR COLD PACKS 11/22/2002 DoD APPLICATION OF A MODALITY TO 1 OR MORE AREAS; HOT OR COLD PACKS 11/17/2002 DoD APPLICATION OF A MODALITY TO 1 OR MORE AREAS; HOT OR COLD PACKS 11/15/2002 DoD CHIROPRACTIC MANIPULATIVE TREATMENT (CMT); SPINAL, 1-2 REGIONS 11/04/2002 DoD APPLICATION OF A MODALITY TO 1 OR MORE AREAS; HOT OR COLD PACKS 11/02/2002 DoD CHIROPRACTIC MANIPULATIVE TREATMENT (CMT); SPINAL, 3-4 REGIONS 10/13/2002 DoD APPLICATION OF A MODALITY TO 1 OR MORE AREAS; HOT OR COLD PACKS 10/11/2002 DoD APPLICATION OF A MODALITY TO 1 OR MORE AREAS; HOT OR COLD PACKS 10/06/2002 DoD CHIROPRACTIC MANIPULATIVE TREATMENT (CMT); SPINAL, 3-4 REGIONS 10/04/2002 DoD APPLICATION OF A MODALITY TO 1 OR MORE AREAS; HOT OR COLD PACKS 09/29/2002 DoD APPLICATION OF A MODALITY TO 1 OR MORE AREAS; HOT OR COLD PACKS 09/22/2002 DoD PHYS/OTH QUALIFIED HEALTH TOW TRUCK DRIVER QUALIFIED,EDUCATION,TRAIN,LIC ENSURE/REGULATION (WHEN APPLICABLE) EDUC SER RENDERED TO PATS IN A GRP SETTING (EG,,OBESITY,OR DIABETIC INSTRUCT) 06/27/2002 [facility] GROUP PSYCHOTHERAPY (OTHER THAN OF A MULTIPLE-FAMILY GROUP) 06/27/2002 [facility] PHYS/OTH QUALIFIED HEALTH TOW TRUCK DRIVER QUALIFIED,EDUCATION,TRAIN,LIC ENSURE/REGULATION (WHEN APPLICABLE) EDUC SER RENDERED TO PATS IN A GRP SETTING (EG,,OBESITY,OR DIABETIC INSTRUCT) 06/06/2002 [facility] PHYS/OTH QUALIFIED HEALTH TOW TRUCK DRIVER QUALIFIED,EDUCATION,TRAIN,LIC ENSURE/REGULATION (WHEN APPLICABLE) EDUC SER RENDERED TO PATS IN A GRP SETTING (EG,,OBESITY,OR DIABETIC INSTRUCT) 05/31/2002 [facility] PHYS/OTH QUALIFIED HEALTH TOW TRUCK DRIVER QUALIFIED,EDUCATION,TRAIN,LIC ENSURE/REGULATION (WHEN APPLICABLE) EDUC SER RENDERED TO PATS IN A GRP SETTING (EG,,OBESITY,OR DIABETIC INSTRUCT) 05/26/2002 [facility] DETERMINATION OF REFRACTIVE STATE 03/24/2002 [facility] INFUSION, NORMAL SALINE SOLUTION, 250 CC 02/01/2002 [facility] SCREENING PAPANICOLAOU SMEAR ; OBTAINING, PREPARING AND CONVEYANCE OF CERVICAL OR VAGINAL SMEAR TO LABORATORY 01/03/2002 DoD INJECTION, PROMETHAZINE HCL, UP TO 50 MG 12/26/2001 [facility] REMOVAL OF SKIN TAGS, MULTIPLE FIBROCUTANEOUS TAGS, ANY AREA; UP TO AND INCLUDING 15 LESIONS 06/25/2001 [facility] REMOVAL OF SKIN TAGS, MULTIPLE FIBROCUTANEOUS TAGS, ANY AREA; UP TO AND INCLUDING 15 LESIONS 05/28/2001 [facility] OPHTHALMOLOGICAL SERVICES: MEDICAL EXAMINATION AND EVALUATION WITH INITIATION OF DIAGNOSTIC AND TREATMENT PROGRAM; INTERMEDIATE, NEW PATIENT 05/11/2000 [facility] INCISION AND DRAINAGE OF ABSCESS (EG, CARBUNCLE, SUPPURATIVE HIDRADENITIS, CUTANEOUS OR SUBCUTANEOUS ABSCESS, CYST, FURUNCLE, OR PARONYCHIA); SIMPLE OR SINGLE 02/29/2000 [facility] THERAPEUTIC OR DIAGNOSTIC INJECTION (SPECIFY MATERIAL INJECTED); INTRAVENOUS 02/27/2000 Do D ELECTROGRAPHIC MONITORING 05/27/1993 [facility] DIAGNOSTIC ULTRASOUND OF HEART 05/27/1993 [facility] COMPUTERIZED AXIAL TOMOGRAPH Y OF HEAD 05/27/1993 [facility] Social History Combined list of available smoking, tobacco, and other social history from Department of Defense and Veterans Affairs facilities. Social History Type Response Date Comment [facility] e Tobacco smoking status [facility] VA-TOBACCO NEVER USED 11/24/19 [place] History of tobacco use MO-TOBACCO NEVER USED 11/26/2022 [place] History of tobacco use VA-TOBACCO NEVER USED 11/04/2021 [place] This section is an empty soc ial history section. [facility] Plan of Care List of future care activities from Department of Veterans Affairs facilities. Additional future care activities may be listed in the Assessment and Plan section. Date/Time Care Activity Care Activity Detail Facili ty 11/22/2024 AMBULATORY - MEDICINE AMBULATORY - MEDICI [facility]
--- OUTSIDE RECORDS SUMMARY | 2024-08-11 13:12 | XMS_ITS ---
Author Organization [facility] Address [address] [place] [address] Care Team Providers Care Commercial Project Manager Name Role Phone Elvira BOLAND, Sabrina Smith Primary Care Provider Un available Radha Buckley Unavailable [phone] Problems No Known Problems Encounters Encounter Location Date Provider Diagnosis [facility] [address] [place] [address] 07/04/2024 Radha Buckley Plan Of Treatment No Information Progress Notes * Lisha LOPEZDOB:1955 (68 yo F)Acc No.[id number]:07/04/2024 Progress Notes Patient:?Lisha LOPEZ Provider:?Radha Buckley DPM :1955???Age:68 Y???Sex:Female D ate:07/04/2024 Address:[address] [place], [place] [id number] Pcp:Paola Tellez Subjective: * Chief Complaints: * ??? * Medical History:? Objective: * Vitals:? Assessment: Plan: * Treatment: * Images: * The named appointment provid er may or may not be the originator of this progress note, and it is not deemed complete until electronically signed by the appointment provider. Sign off status: Pending * Provider:?Radha Buckley DPM Date:?1 09/03/2023 Generated for Anirudh sands/Rios/eTransmitting on:?08/11/2024 01:11 PM EST
--- OUTSIDE RECORDS SUMMARY | 2024-08-11 13:12 | XMS_ITS | Continuity of Care Document ---
Author Organization [facility] Address [address] [place] [address]- [facility] Name Relationship Address Phone VJ GERBER sibling Unknown Unavailable Care Team Providers Care Assistant Professor Of Nursing Name Role Phone Elvira BOLAND, Sabrina Bazzi Primary Care Physician Encounter [facility] Date(s): 06/17/24 - 07/17/24 [facility] [address] [place] [address]- Encounter Type: Triage Patient Care team information Care Team Personnel Name: Sabrina Felix MD Position: Reference Physician Member Role: PCP Address: [address] [place] [address]- Telecom: Care Team Related Persons Name: BUZZVJ Insurance Providers Guarantor name: NA Health Plan Information #: 1 Payer: [employer] Member Number: NA Policy Number: NA Group Number: NA
--- OUTSIDE RECORDS SUMMARY | 2024-08-11 13:12 | XMS_ITS ---
Author 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 Medications Medication SIG (Take, Route, Frequency, Duration) Notes Start Date End Date Status Night Splint AFO - L1930 as directed 06/25/2015 Unknown Vitamin D Unknown Potassimin Unknown Atorvastatin Calcium 80 MG 1/2 pill Orally every other day Active Vitamin D3 Active Potassimin 10 pills Active Sodium Bicarbonate A ctive Baby Aspirin 1 a day Active Iron 1 a day Active Social History Tobacco Use: Social History Observation Description Date Details (start date - stop date) Never Smoker NA - NA Tobacco Use/Smoking Question Answer Notes Are you a: nonsmoker Additional Findings: Tobacco Non-User Current no n-smoker Tobacco use other than smoking: Question Answer Notes Are you an other tobacco user? No Problems No Known Problems Vital Signs Height 5ft6in in 07/04/2024 Weight 165 lbs 07/04/2024 BMI 26.63 kg/m2 07/04/2024 Encounters Encounter Location Date Provider Diagnosis [facility] [address] [place] [address] 07/04/2024 Radha Buckley Pain in left foot M79.672 ; Bursitis of left foot M77.52 and Metatarsalgia of left foot M77.42 Assessments Encounter Date Diagnosis (ICD Code) Assessment Notes Treatment Notes Treatment Clinical Notes Section Notes 07/04/2024 Pain in left foot (ICD-10 - M79.672) 07/04/2024 Bursitis of left foot (ICD-10 - M77.52) 07/04/2024 Metatarsalgia of left foot (ICD-10 - M77.42) Plan Of Treatment No Information Progress Notes * Lisha LOPEZDOB:1955 (68 yo F)Acc No.[id number]:07/04/2024 Progress Notes Patient:?Lisha Lopez Provider:?Radha Buckley DPM :1955???Age:68 Y???Sex:Female D ate:07/04/2024 Address:[address] [place] [address] Pcp:Paola Tellez Subjective: * Chief Complaints: * ???Pcp-01/2024Foot pain Pain ful nail(s) aggrevated by shoes and causing difficulty standing/walking. * HPI: ???Foot Pain:?Location:?Outside, Bottom, Forefoot, LEFT.?Duration:?several weeks.?Course:?improved , at 90 %.?Aggravated:?any pressure, standing, walking.?Treatments:?rest/alter normal daily activity.?Misc:?Patient states her pain has largely resolved, she states she still has tenderness occasionally when walking however states the swelling has greatly improved ?.? * ROS:?General/Constitutional:?Nausea?denies.?Vomiting?denies.?Hunger Thirst?denies.?Loss appetite?denies.?Chills?denies.?Fatigue?denies.?Fever?denies.?Night Sweats?denies.?Unexplained weight loss?denies.?Unexplained weight gain?denies.?HEENTM:?Dentures?denies.?Dizziness?denies.?Glasses/contacts?admits.?Retinopathy?de nies.?Blurred/double vision?denies.?TMJ?denies.?Discharge/drainage?denies.?Implants?denies.?Sore throat?denies.?Dental implants?denies.?Hard of hearing ?denies.?Difficulty chewing/swallowing/speaking?denies.?Nose bleeds?denies.?Sore mouth?denies.?Respiratory:?On Oxygen?denies.?Pneumonia/pleurisy?denies.?Bronchitis?denies.?Emphysema?denies.?C oughing?denies.?Cough blood?denies.?Shortness of breath?denies.?Wheezing?denies.?Cardiovascular:?Pacemaker?denies.?MVP?denies.?WPW?denies.?CHF?denies.?Heart attack?denies.?Septal defect?denies.?Rapid beat?denies.?Chest pain ?denies.?Atrial Fib.?denies.?Murmur/Palpitations?denies.?Gastrointestinal:?Hemorrhoids?denies.?Stomach/Abdominal pain?denies.?Dark blood stool?denies.?Irritable bowel ?denies.?Constipation?denies.?Diarrhea?denies.?Hematology:?Swelling?denies.?Clots?denies.?Varicose Veins?denies.?Bruising?denies.?Bleeding problem?denies.?Genitourinary:?Blood urine?denies.?Frequent/Painfu/urination/bladder control?denies.?Kidney stones?denies.?Infection (UTI)?denies.?Nephropathy?denies.?sex trans dis (STD)?denies.?Prostate?denies.?Musculoskeletal:?Hammertoes?denies.?Bunions?denies.?Back Pain?denies.?Muscle Cramps/ Resting?denies.?Muscle cramps / walking?denies.?Generalized aches and pains?denies.?Weakness?denies.?Integ.:?Tomas?denies.?Scars?denies.?Corns/calluses?denies.?Ingrown nails?denies.?Painful nails?denies.?Open Sores?denies.?Rashes?denies.?Neurologic:?Difficulty sleeping?denies.?Brain disorder?denies.?Numbness?denies.?Balance trouble?denies.?Confusion?denies.?Fainting/blackouts?denies.?Tingling?denies.?Tr emors?denies.? * Medical History:? * Surgical History:?Denies Pas t Surgical History * Hospitalization/Major Diagno stic Procedure:?Denies Past Hospitalization * Family History:?Mother: dece ased, diagnosed with Unspecified cerebral artery occlusion with cerebral infarction.?Father: , heart attack, diagnosed with Diabetic - NIDDM.?Siblings: kidney/liver disease, diagnosed with Unspecified essential hypertension.? * Social History:?Tobacco Use:?Tobacco Use/Smoking?Are you a:?nonsmoker ?Additional Findings: Tobacco Non-User?Current non-smoker ?Tobacco use other than smoking?Are you an other tobacco user??No ???Miscellaneous:?Caffeine: yes, frequency: Soda 2 per day. ?no Children. ?Exercise: computer sites / work on history of various subjects. ?Marital status: single. ?Occupation: Retired [employer]. * Medications:?TakingSodium Bi carbonate Potassimin , Notes: 10 pillsIron , Notes: 1 a dayBaby Aspirin , Notes: 1 a dayVitamin D3 Atorvastatin Calcium 80 MG Tablet 1/2 pill Orally every other dayTaking Sodium Bicarbonate Taking Potassimin , Notes: 10 pillsTaking Iron , Notes: 1 a dayTaking Baby Aspirin , Notes: 1 a dayTaking Vitamin D3 Taking Atorvastatin Calcium 80 MG Tablet 1/2 pill Orally every other dayUnknownPotassimin Vitamin D Night Splint AFO - L1930 as directed Unknown Potassimin Unknown Vitamin D Unknown Night Splint AFO - L1930 as directed * Allergies:?Tetracyclineyes[A llergies Verified] Objective: * Vitals:?Ht: 5ft6in, Wt:165, BMI:26.63, Shoe size: 8, Ht-cm: 167.64 cm, Wt-k.84 kg. * Examination: ???Orthopedic: ?MUSCLE STRENGTH:?5/5 all groups in a symmetrical fashion, no tenderness with resisted dorsiflexion/plantarflexion..?GAIT ABNORMALITY:?non- antalgic.?MPJ PATHOLOGY:?No longer tenderness 5th MTH/MPJ,?LEFT. No tenderness to peroneal tendon course. No longer tenderness with range of motion of 5th digit.?.?Neurological: ?SENSORY:?Neurological exam reveals intact sensorium, pain sensation normal, vibration sensation intact, pinprick sensation is normal in the lower extremities, Pt denies, anesthesia, burning, paresthesia, tingling, B/L.?TINEL'S COMPRESSION:? Negative,??Negative tarsal tunnel, kristy pedis, and medial calcaneal nerves, Lateral sural nerve distribution.?Dermatologic: ?SKIN FINDINGS:?Skin appears well hydrated. Normal color, texture, elasticity, and turgor. There are no masses, nor excrescences. The interspaces are clear, B/L. No ecchymosis. No open lesions..?Vascular: ?DORSALIS PEDIS PULSE:?2/4 , B/L.?POSTERIOR TIBIAL PULSE:?2/4 , B/L.?CAPILLARY REFILL:?< 3 seconds.?TEMPERATURE GRADIENT:?warm to cool , within normal limits , B/L.?EDEMA:?none.?Nails: ?NAILS are:?T5 , Elongated, overgrown, dystrophic?.? Assessment: * Assessment: 1.?Pain in left foot - M79.6 72 (Primary)?2.?Bursitis of left foot - M77.52, Acute problem, Stable,Response to treatment - Improvement?3.?Metatarsalgia of left foot - M77.42? Plan: * Treatment: * Procedure Codes:? * Preventive Medicine:? ??Counseling:?Discussion:?-12: Office or other outpatient visit for the evaluation and management of an established patient, which required a medically appropriate history and/or examination and STRAIGHTFORWARD level of MEDICAL DECISION MAKING, 1 SELF-LIMITED OR MINOR PROBLEM, MINIMAL- NO AMOUNT/COMPLEXITY OF DATA TO BE REVIEWED/ANALYZED, AND MINIMAL RISK OF COMPLICATION/MORBIDITY. The visit on the day of the encounter encompassed interpreting the data and educating the patient as to the nature of their condition, treatment options available according to their individual PMH, meds, allergies, and overall health/living conditions, as well as any potential risks or complications that may occur from a failure to adhere to, and participate in, the recommended course of therapy. The discussion included a complete verbal, and/or written explanation of the examination results, any x-rays taken, the proposed diagnosis, and outline of the treatment plan. A schedule for future care needs was also explained. The patient verbalized an understanding of the instructions at this time and agreed to be an active participant in their treatment. If the patient should think of any questions or concerns after the visit, I have encouraged the patient to call the office.?Podiatric Counseling:?Patient has had significant improvement in 5th MPJ pain and swelling, patient relates 90% improvement in pain. Recommended to patient she continue with OTC inserts, Voltaren Gel to prevent recurrence of pathology. Deferred steroid injection at this time given the significant reduction in patient pain. Patient agreed with treatment. Follow up as needed should pain return or new problems arise.? * Images: * Sign off status: Completed true * Provider:?Radha Buckley DPM Date:?1 09/03/2023 Generated for Anirudh sands/Rios/Candelarioitting on:?08/11/2024 01:11 PM EST History and Physical Notes * HPI (History of Present Illness) Category Sub-Category Detail Notes Category Not es Foot Pain Location: Outside, Bottom, Forefoot, L EFT Duration: several weeks Course: improved , at 90 % Aggravated: any pressure, standi ng, walking Treatments: rest/alter normal da kenton activity Misc: Patient states her p ain has largely resolved, she states she still has tenderness occasionally when walking however states the swelling has greatly improved Examination Category Sub-Category Detail Notes Category Not es Neurological SENSORY: Neurological exa m reveals intact sensorium, pain sensation normal, vibration sensation intact, pinprick sensation is normal in the lower extremities, Pt denies, anesthesia, burning, paresthesia, tingling, B/L TINEL'S COMPRESSION: Negative, Negative tarsal tunnel, kristy pedis, and medial calcaneal nerves, Lateral sural nerve distribution Dermatologic SKIN FINDINGS: Skin appears wel l hydrated. Normal color, texture, elasticity, and turgor. There are no masses, nor excrescences. The interspaces are clear, B/L. No ecchymosis. No open lesions. Orthopedic GAIT ABNORMALITY: non- antalgic MPJ PATHOLOGY: No longer tenderness 5th MTH/MPJ, LEFT. No tenderness to peroneal tendon course. No longer tenderness with range of motion of 5th digit. MUSCLE STRENGTH: 5/5 all groups in a symmetrical fashion, no tenderness with resisted dorsiflexion/plantarflexion. Vascular DORSALIS PEDIS PULSE: 2/4 , B/L EDEMA: none CAPILLARY REFILL: < 3 seconds TEMPERATURE GRADIENT: warm to cool , wit hin normal limits , B/L POSTERIOR TIBIAL PULSE: 2/4 , B/L Nails NAILS are: T5 , Elongated, overgrown, d ystrophic
--- OUTSIDE RECORDS SUMMARY | 2024-08-11 13:12 | XMS_ITS ---
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 Generated for Roseyi wicho/Rios/eTransmitting on:?08/11/2024 01:11 PM EST
[2024-08-11 17:04] LABS: Anion Gap 13 (12-20); Blood Urea Nitrogen 26 mg/dL (9-16); Calcium 8.9 mg/dL (8.4-10.2); Carbon Dioxide 19 mmol/L (22-29); Chloride 99 mmol/L (96-108); Estimated Glomerular Filt Rate 16; Iron 103 mcg/dL (30-160); Percent Iron Saturation 67 % (15-50); Potassium 3.7 mmol/L (3.3-5.1); Sodium 127 mmol/L (135-145); Total Iron Binding Capacity 153 mcg/dL (228-428); Total Protein 6.8 g/dL (6.5-8.0); Unsaturated Iron Binding 50 ug/dL
[2024-08-11 17:19] LABS: Ferritin 492 ng/mL (10-250); Vitamin D 25-OH Total 45.7 ng/mL (>30)
[2024-08-11 17:25] LABS: Appearance Urine Clear; Color Urine Yellow; Glucose Urine UA Negative (Negative); Leukocyte Esterase Urine Trace (Negative); Nitrite Urine Negative (Negative); PH 5.5 (5.0-9.0); Specific Gravity - Urine <= 1.005 (1.005-1.025); UMIC TRIGGER UA YES; Urine Blood Negative (Negative); Urine Ketones Negative (Negative); Urine Protein Trace mg/dL (Neg-Trace)
[2024-08-11 17:31] LABS: Bacteria Urine None Seen (None Seen); RBC Urine 0-2 /HPF (0-2); WBC Urine 0-5 /HPF (0-5)
[2024-08-11 17:35] LABS: Creatinine Urine 29.53 mg/dL; Microalbum/Creatinine Ratio Ur 30.4 ug/mg cr (<30); Protein/Creatinine Ratio, Ur 0.34 (<0.2); Total Protein Urine Random 10 mg/dL (<12)
== END 2024-08-11 13:08 | disposition home or self-care (01) ==
LOC: HO.HMGCLDS 13:07
PROVIDERS: PCP Internal Medicine; Visit Provider Internal Medicine Nephrology
DX: D50.8 Other iron deficiency anemias (principal); N18.4 Chronic kidney disease, stage 4 (severe)
CPT/HCPCS: 36415; 80051; 81001; 82043; 82306; 82310; 82565; 82570; 82728; 83540; 84155; 84156; 84520

== ENCOUNTER 2024-09-09 10:42 | Outpatient (REF) | payer MEDICARE, OTHER, SELFPAY ==
--- OUTSIDE RECORDS SUMMARY | 2024-09-09 10:55 | XMS_ITS | Continuity of Care Document ---
Author Name [facility] Organization [facility] Care Team Providers Care Closing Machine Operator Name Role Phone [facility] Unavailable Unavailable Problems Combined list of problems from Department of Defense and Veterans Affairs facilities. It does not include entries that were removed or entered in error. 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 Colonoscopy Screening Active Condition Nov 12, 2021 [...] more consistent with an inflammatory bcwel disease. [place] [facility] Hyperlipidemia Active Condition [place] Interstitial nephritis Active [facility] Lymphocytic colitis Active [facility] Primary Care Provider Active Condition Nov 04, 2021 Entered By: NARCISO DODD Comment: Dr Sabrina Lo [facility] Psoriasis Active Condition January 18 Entered By: DUANE BERRY Comment: Derm- [facility] Vitamin D deficiency Active Condition [facility] Diagnosis: ICD-10-CM K52.839 Microscopic colitis, unspecified Active Diagnosis [place] Medications Combined list of outpatient medications from Department of Defense and [facility] facilities.Medications provided include 1) outpatient medications from the last 15 months, and 2) patient-reported medications. Medication Details Route Status Patient Instructions Prescription Expires Prescription Number Last Dispense Date Ordering Provider Order Date Order Qty Source ATORVASTATI N CALCIUM (atorvastat in calcium), 80 MG, TABLET, ORAL, [employer] 500 ea. BOTTLE Active [id number] 2023 30 Pharmac y Data Transac tion Service Facilit y ATORVASTATI N CALCIUM (atorvastat in calcium), 80 MG, TABLET, ORAL, MIRIAM PHARMACEU, 500 ea. BOTTLE Active [id number] 4 2023 90 Pharmac y Data Transac [...] & W LABS., 60 ml BOTTLE Active [id number] 4 2023 60 Pharmac y Data Transac tion Service Facilit y CEPHALEXIN (CEPHALEXIN MONOHYDRATE ), 250MG, CAPSULE, ORAL, LUPIN PHARMACEU, 100 ea. BOTTLE Active [id number] 4 2023 14 Pharmac y Data Transac tion Service Facilit y CEPHALEXIN (CEPHALEXIN MONOHYDRATE ), 250MG, CAPSULE, ORAL, LUPIN PHARMACEU, 100 ea. BOTTLE Active [id number] 4 2023 14 Pharmac y Data Transac tion Service Facilit y CHOLECALCIF KAILYN 1,250MCG (50,000UNIT ) CAP,ORAL TAKE 1 CAPSULE BY MOUTH EVERY 2 WEEKS ORAL ACTIVE ANNA BERRY 2020 [place] DESOXIMETAS ONE (desoximeta sone), 0.25 %, OINT. (G), TOPICAL, VIONA PHARMACEU, 60 g TUBE Active [id number] 4 2023 60 Pharmac y Data Transac tion Service Facilit y FERROUS SO4 325MG TAB TAKE ONE TABLET BY MOUTH ONCE DAILY ORAL ACTIVE ANNA BERRY 2020 IELD FLUCONAZOLE (fluconazol e), 150 MG, TABLET, ORAL, ZYDUS PHARMACEU, 12 ea. BLIST PACK Active [id number] 4 2023 3 Pharmac y Data Transac tion Service Facilit y FOLIC ACID (folic acid), 1 MG, TABLET, ORAL, Ber[employer]WELL RX LL, 1800 ea. BOTTLE Active [id number] 4 2023 30 Pharmac y Data Transac tion Service Facilit y HALOBETASOL PROPIONATE (halobetaso l propionate) , 0.05 %, OINT. (G), TOPICAL, JESSICA PHARMAC, 50 g TUBE Active [id number] 4 2023 50 Pharmac y Data Transac tion Service Facilit y HALOBETASOL PROPIONATE (halobetaso l propionate) , 0.05 %, OINT. (G), TOPICAL, JESSICA PHARMAC, 50 g TUBE Active [id number] 4 2023 50 Pharmac y Data Transac tion Service Facilit y KLOR-CON M10 (potassium chloride), 10 MEQ, TAB ER PRT, ORAL, UPSHER-NASIR H LA, 1000 ea. BOTTLE Cancele d [id number] : 2023 0 Pharmac y Data Transac tion Service Facilit y KLOR-CON M10 (potassium chloride), 10 MEQ, TAB ER PRT, ORAL, UPSHER-NASIR H LA, 1000 ea. BOTTLE Active [id number] 4 2023 900 Pharmac y Data Transac tion Service Facilit y NYSTATIN-TR IAMCINOLONE (NYSTATIN/T RIAMCIN), 748025-5.1, CREAM(GM), TOPICAL, T[employer], 30 g TUBE Cancele d [id number] : 2023 0 Pharmac y Data Transac tion Service Facilit y NYSTATIN-TR IAMCINOLONE (nystatin/t riamcinolon e acetonide), 193082-0.1, OINT. (G), TOPICAL, VIONA PHARMACEU, 60 g TUBE Active [id number] 4 2023 60 Pharmac y Data Transac tion Service Facilit y POTASSIUM CHLORIDE (potassium chloride), 10 MEQ, TABLET ER, ORAL, AUROBINDO PHARM, 1000 ea. BOTTLE Cancele d [id number] : 2023 0 Pharmac y Data Transac tion Service Facilit y POTASSIUM CHLORIDE (potassium chloride), 10 MEQ, TABLET ER, ORAL, AVKARE, 500 ea. BOTTLE Cancele d [id number] : 2023 0 Pharmac y Data Transac tion Service Facilit y POTASSIUM CHLORIDE 10MEQ TAB,SA TAKE ONE TABLET BY MOUTH 10 PILLS A DAY ORAL ACTIVE SAIDA DODD SA 2021 [facility] SILVER SULFADIAZIN E (SILVER SULFADIAZIN E), 1%, CREAM(GM), TOPICAL, [facility], 85 g TUBE Cancele d [id number] : 2023 0 Pharmac y Data Transac tion Service Facilit y SILVER SULFADIAZIN E (SILVER SULFADIAZIN E), 1%, CREAM(GM), TOPICAL, [facility], 85 g TUBE Active [id number] 4 2023 85 Pharmac y Data Transac tion Service Facilit y SODIUM BICARBONATE 650MG TAB TAKE THREE TABLETS BY MOUTH TWICE DAILY ORAL ACTIVE SAIDA DODD SA 2021 [facility] VITAMIN D2 (ergocalcif kailyn (vitamin D2)), 1250 MCG, CAPSULE, ORAL, AVKARE, 100 ea. BOTTLE Active [id number] 4 2023 12 Pharmac y Data Transac tion Service Facilit y Allergies, Adverse Reactions, Alerts Combined list of allergies from Department of Defense and Veterans Affairs facilities. It does not include entries that were removed or entered in error. Substance Category Reaction Severity Reaction type Status Date Reported Comments Source TETRACYCLINE Propensity to adverse reactions to drug (finding) active 1 [facility] TETRACYCLINE (TETRACYCLINE ) Drug allergy (disorder) Unknown active 8 [employer] Immunizations Combined list of available immunizations from the Department of Defense and Veterans Affairs facilities. Immunization Series Date Given Administered By Site Reaction Lot Number CVX Code Drug Chimney Construction Supervisor Status Comments Source COVID-19 (PFIZER), MRNA, LNP-S, BIVALENT BOOSTER, PF, 30 MCG/0.3 ML DOSE 5 2021 300 complet ed [facility] COVID-19, mRNA, LNP-S, PF, 30 mcg/0.3 mL dose, dat-sucrose 2021 BOGDASARIAN, () Not Given COVID-19, mRNA, LNP-S, PF, 30 mcg/0.3 mL dose, dat-sucr ose DoD INFLUENZA, UNSPECIFIED FORMULATION 2020 88 complet ed [facility] COVID-19 (PFIZER), MRNA, LNP-S, PF, 30 MCG/0.3 ML DOSE 3 2020 208 complet ed [place] [facility] [place] COVID-19 (PFIZER), MRNA, LNP-S, PF, 30 MCG/0.3 ML DOSE 2 2020 208 complet ed PFR; [id number]; 1 [facility] COVID-19 (PFIZER), MRNA, LNP-S, PF, 30 MCG/0.3 ML DOSE 1 2020 208 complet ed PFR; [id number]; 1 [facility] PNEUMOCOCCAL CONJUGATE PCV 13 2019 133 complet [...] vaccine, whole virus 1 2002 Unknown, Provider [id number] [employer] Tykli (PWJ) complet ed influenza virus vaccine, whole virus DoD influenza virus vaccine, whole virus 1 2002 Unknown, Provider [id number] 16 Sanofi Pasteur (PMC) complet ed influenza virus vaccine, whole virus DoD tuberculin skin test; purified protein derivative solution, intradermal 1 2002 Unknown, Provider [id number] Sanofi Pasteur (PMC) complet ed tuberculi n skin test; purified protein derivativ e solution, intraderm al DoD influenza virus vaccine, whole virus 1 2000 Unknown, Provider [id number] 16 Sanofi Pasteur (PMC) complet ed influenza virus vaccine, whole virus DoD influenza virus vaccine, whole virus 1 2000 Unknown, Provider [id number] 16 JoA-nn (Inactive) (ME) complet ed influenza virus vaccine, whole virus DoD tetanus and diphtheria toxoids, adsorbed, preservative free, for adult use (2 Lf of tetanus toxoid and 2 Lf of diphtheria toxoid) 3 1999 Unknown, Provider [id number] Shravan (CON) complet ed tetanus and diphtheri a toxoids, adsorbed, preservat valentina free, for adult use (2 Lf of tetanus toxoid and 2 Lf of diphtheri a toxoid) DoD influenza virus vaccine, whole virus 1 1998 Unknown, Provider [id number] 16 Shravan (CON) complet ed influenza virus vaccine, whole virus DoD hepatitis A vaccine, adult dosage 2 1998 Unknown, Provider [id number] Merck (MSD) complet ed hepatitis A vaccine, adult dosage DoD influenza virus vaccine, whole virus 2 1997 Unknown, Provider [id number] 16 Jo-Ann (Inactive) ([place]) complet ed influenza [...] parentera l, acetone-k illed, dried ([place]. ) [facility] trivalent poliovirus vaccine, live, oral 1 1983 Unknown, Provider 02 () complet ed trivalent polioviru s vaccine, live, oral DoD measles, mumps and rubella virus vaccine 1 1983 Unknown, Provider 03 () complet ed measles, mumps and rubella virus vaccine DoD meningococcal polysaccharid e vaccine (MPSV4) 1 1983 Unknown, Provider 32 () complet ed meningoco ccal polysacch aride vaccine (MPSV4) [facility] adenovirus vaccine, type 4, live, oral 1 1983 Unknown, Provider 54 () complet ed adenoviru s vaccine, type 4, live, oral [facility] adenovirus vaccine, type 7, live, oral 1 1983 Unknown, Provider 55 () complet ed adenoviru s vaccine, type 7, live, oral [facility] Vital Signs Combined list of inpatient and outpatient Vital Signs from Department of Defense and Veterans Affairs, ranging from 12 months to all on record, depending upon the facility. Vital Sign Value Date Comments Source SYSTOLIC BLOOD PRESSURE 109 11/24/19 24 10:22:06 [facility] DIASTOLIC BLOOD PRESSURE 66 024 10:22:06 [...] [facility] Out[facility] Encounter [id number] 06[facility]25 [facility] OFF[facility] O/P EST MOD 30 MIN [id number] Diagnos is: ICD-10- CM K52.839 Microsc opic colitis , unspeci fied
OLIVER DODD 11/23 [facility] IELD Procedures Combined list of: 1) Procedures from Department of Veterans Affairs facilities [facility], not all [place] non-surgical procedures are included; 2) All procedures from the Department of Defense facilities. Procedure Procedure Type Code Date Perfomer Comments Sourc e DETERMINATION OF REFRACTIVE STATE 03/11/2004 DoD APPLICATION OF A MODALITY TO 1 OR MORE AREAS; HOT OR COLD PACKS 03/08/2004 DoD APPLICATION OF A MODALITY TO 1 OR MORE AREAS; HOT OR COLD PACKS 02/23/2004 [facility] DETERMINATION OF REFRACTIVE STATE 12/08/2003 DoD [...] COLD PACKS 09/22/2002 DoD PHYS/OTH QUALIFIED HEALTH FELT MACHINE MECHANIC QUALIFIED,EDUCATION,TRAIN,LIC ENSURE/REGULATION (WHEN APPLICABLE) EDUC SER RENDERED TO PATS IN A GRP SETTING (EG,,OBESITY,OR DIABETIC INSTRUCT) 06/27/2002 [facility] GROUP PSYCHOTHERAPY (OTHER THAN OF A MULTIPLE-FAMILY GROUP) 06/27/2002 [facility] PHYS/OTH QUALIFIED HEALTH FELT MACHINE MECHANIC QUALIFIED,EDUCATION,TRAIN,LIC ENSURE/REGULATION (WHEN APPLICABLE) EDUC SER RENDERED TO PATS IN A GRP SETTING (EG,,OBESITY,OR DIABETIC INSTRUCT) 06/06/2002 [facility] PHYS/OTH QUALIFIED HEALTH FELT MACHINE MECHANIC QUALIFIED,EDUCATION,TRAIN,LIC ENSURE/REGULATION (WHEN APPLICABLE) EDUC SER RENDERED TO PATS IN A GRP SETTING (EG,,OBESITY,OR DIABETIC INSTRUCT) 05/31/2002 [facility] PHYS/OTH QUALIFIED HEALTH FELT MACHINE MECHANIC QUALIFIED,EDUCATION,TRAIN,LIC ENSURE/REGULATION (WHEN APPLICABLE) EDUC SER RENDERED TO PATS IN A GRP SETTING (EG,,OBESITY,OR DIABETIC INSTRUCT) 05/26/2002 [facility] DETERMINATION OF REFRACTIVE STATE 03/24/2002 [facility] INFUSION, NORMAL SALINE SOLUTION, 250 CC 02/01/2002 [facility] SCREENING PAPANICOLAOU SMEAR ; OBTAINING, PREPARING AND CONVEYANCE OF CERVICAL OR VAGINAL SMEAR TO LABORATORY 01/03/2002 DoD INJECTION, PROMETHAZINE HCL, UP TO 50 MG 12/26/2001 [facility] REMOVAL OF SKIN TAGS, MULTIPLE FIBROCUTANEOUS TAGS, ANY AREA; UP TO AND INCLUDING 15 LESIONS 06/25/2001 [facility] REMOVAL OF SKIN TAGS, MULTIPLE FIBROCUTANEOUS TAGS, ANY AREA; UP TO AND INCLUDING 15 LESIONS 05/28/2001 [facility] OPHTHALMOLOGICAL SERVICES: MEDICAL EXAMINATION AND EVALUATION WITH INITIATION OF DIAGNOSTIC AND TREATMENT PROGRAM; INTERMEDIATE, NEW PATIENT 05/11/2000 [facility] INCISION AND DRAINAGE OF ABSCESS (EG, CARBUNCLE, SUPPURATIVE HIDRADENITIS, CUTANEOUS OR SUBCUTANEOUS ABSCESS, CYST, FURUNCLE, OR PARONYCHIA); SIMPLE OR SINGLE 02/29/2000 [facility] THERAPEUTIC OR DIAGNOSTIC INJECTION (SPECIFY MATERIAL INJECTED); INTRAVENOUS 02/27/2000 Do D ELECTROGRAPHIC MONITORING 05/27/1993 [facility] DIAGNOSTIC ULTRASOUND OF HEART 05/27/1993 [facility] COMPUTERIZED AXIAL TOMOGRAPH Y OF HEAD 05/27/1993 [facility] Social History Combined list of available smoking, tobacco, and other social history from Department of Defense and Veterans Affairs facilities. Social History Type Response Date Comment [facility] e Tobacco smoking status [facility] VA-TOBACCO NEVER USED 11/24/19 [place] History of tobacco use [place]-TOBACCO NEVER USED 11/26/2022 [place] History of tobacco use [place]-TOBACCO NEVER USED 11/04/2021 [place] This section is an empty soc ial history section. [facility] Plan of Care List of future care activities from Department of Veterans Affairs facilities. Additional future care activities may be listed in the Assessment and Plan section. Date/Time Care Activity Care Activity Detail Facili ty 11/22/2024 AMBULATORY - MEDICINE AMBULATORY - MEDICI [facility]
--- OUTSIDE RECORDS SUMMARY | 2024-09-09 10:55 | XMS_ITS | Patient Health Record ---
Author Organization [facility] Address [address] [place] [address] Care Team Providers Care Used Building Materials Yard Worker Name Role Phone Elvira BOLAND, Sabrina Smith Primary Care Provider Un available Radha Buckley Unavailable [phone] Allergies Allergen (clinical drug ingredient) Drug/Non Drug [...] 07/04/2024 Encounters Encounter Location Date Provider Diagnosis [facility] [address] [place] [address] 06/03/2024 Radha Buckley Pain in left foot M79.672 ; Bursitis of left foot M77.52 ; Metatarsalgia of left foot M77.42 and Dent of foot L84 [facility] [address] [address] 07/04/2024 Radha Buckley Pain in left foot M79.672 ; Bursitis of left foot M77.52 and Metatarsalgia of left foot M77.[address] [facility] [address] 07/01/2024 Radha Buckley Assessments Encounter Date Diagnosis [...] of left foot (ICD-10 - M77.42) 06/03/2024 Dent of foot (ICD-10 - L84) Plan Of Treatment Pending Test Test Name Order Date X ray : Foot, left 3V 06/03/2024 Insurance Providers Payer Name Payer Address Payer Phone Subscriber Number Group Number Insured Name Patient Relationship to Insured Coverage Start Date Coverage End Date Medicare National Govt S[employer] [address] [place] [address] [phone] [id number] Lisha Solis Self - patient is the insured for Life [address] [place] [phone] [id number] Lisha Solis Self - patient is the insured Medical (General) History Medical History History ICD Code Colitis Kidney disease / on inactive transplant list for kidney Mumps Psoriasis/eczema Anemia covid-19 Stroke
--- OUTSIDE RECORDS SUMMARY | 2024-09-09 10:55 | XMS_ITS ---
Author Organization [facility] Address [address] [place] [address] Care Team Providers Care First Cook Name Role Phone Elvira BOLAND, Sabrina Smith Primary Care Provider Un available Radha Buckley Unavailable [phone] Allergies Allergen (clinical drug ingredient) Drug/Non Drug [...] 07/04/2024 Encounters Encounter Location Date Provider Diagnosis [facility] [address] [place] [address] 07/04/2024 Radha Buckley Pain in left foot [...] Notes * Lisha LOPEZDOB:1955 (68 yo F)Acc No.[id number]:07/04/2024 Progress Notes Patient:?Lisha Lopez Provider:?Radha Buckley DPM :1955???Age:68 Y???Sex:Female D ate:07/04/2024 Address:[address] [place] [address] Pcp:Paola Tellez Subjective: * Chief Complaints: * [...] various subjects. ?Marital status: single. ?Occupation: Retired [employer]. * Medications:?TakingSodium Bi carbonate Potassimin , Notes: [...] DPM Date:?1 09/03/2023 Generated for Anirudh sands/Rios/Candelarioitting on:?09/09/2024 10:55 AM EST History and Physical Notes * HPI [...]
--- OUTSIDE RECORDS SUMMARY | 2024-09-09 10:55 | XMS_ITS ---
Author Organization [facility] Address [address] [place] [address] Care Team Providers Care Excellence Manager Name Role Phone Elvira BOLAND, Sabrina Smith Primary Care Provider Un available Radha Buckley Unavailable [phone] Problems No Known Problems Encounters Encounter Location Date Provider Diagnosis [facility] [address] [place] [address] 07/04/2024 Radha Buckley Plan Of Treatment No Information Progress Notes * Lisha LOPEZDOB:1955 (68 yo F)Acc No.[id number]:07/04/2024 Progress Notes Patient:?Lisha LOPEZ Provider:?Radha Buckley DPM :1955???Age:68 Y???Sex:Female D ate:07/04/2024 Address:[address] [place], [place] [id number] Pcp:Paola Tellez Subjective: * Chief Complaints: * [...] DPM Date:?1 09/03/2023 Generated for Anirudh sands/Rios/eTransmitting on:?09/09/2024 10:55 AM EST
--- OUTSIDE RECORDS SUMMARY | 2024-09-09 10:55 | XMS_ITS ---
Author Organization [facility] Address [address] [place] [address] Care Team Providers Care Hand Button Splitter Name Role Phone Elvira BOLAND, Sabrina Smith Primary Care Provider Un available Radha Buckley Unavailable [phone] REASON FOR VISIT rs timings on 07/04/25 Problems No Known Problems Encounters Encounter Location Date Provider Diagnosis [facility] [address] [place] [address] 07/01/2024 Radha Buckley Plan Of Treatment No Information Progress Notes * Lisha LOPEZDOB:1955 (68 yo F)Acc No.[id number]:07/01/2024 Patient:?Lisha Lopez :1955???Age:68 Y???Sex:Female Address:[address] [place] [address], [address] * true * Date:? Generated for Anirudh sands/Rios/eTransmitting on:?09/09/2024 10:55 AM EST
--- OUTSIDE RECORDS SUMMARY | 2024-09-09 10:56 | XMS_ITS | Encounter Summary ---
Author Name [facility] Organization [facility] Address [address] [place] [address] Care Team Providers Care Process Controls Technician Name Role Phone YOUSIFNARCISO Primary Care Provider Unavailabl e Insurance Providers: [...] PRESCRIPT ION [id number] Aug 31, 2017 [id number] Fran LOPEZ PATIENT MEDICARE (WNR) MEDICARE (M) PART A Oct 01, 2021 PART A [id number] Fran LOPEZ ISABELLA PATIENT MEDICARE (WNR) MEDICARE (M) PART B Oct 01, 2021 PART B [id number] Fran LOPEZ ISABELLA PATIENT [employer] RX PRESCRIPT ION RX Aug 31, 2022 [id number] [phone] JESSICAN ISABELLA [facility]IENT [facility] Aug 31, 2017 [facility] [id number] [phone] JESSICAN ISABELLA PATIENT [facility] Aug 31, 2017 [facility] [id number] JESSICAN ISABELLA PATIENT [facility] MIGDALIA RENDON Aug 31, 2017 [facility] [id number] JESSICAFran ISABELLA PATIENT [facility] BRIDGER Garcia Aug 31, 2017 [facility] [id number] Fran LOPEZ PATIENT Selected Encounter This section includes the information on record at OR for the Encounter. Date/Time Encounter Type Encounter Description Reason Provider Source Nov 24, 2023 10:30 AM OFFICE O/P EST MOD 30 MIN PRIMARY CARE/MEDICINE ICD-10-CM K52.839 Microscopic colitis, unspecified NARCISO DODD Radha Encounter Template Text not used by OR Assessments - Encounter Diagnoses This section includes [...] 2023 11:12 AM SECONDARY Hypokalemia NARCISO DODD [facility] Social History: Smoking Status (Most current) and Tobacco Use (All prior to encounter date) This section includes the most current, and the historical, smoking and tobacco- related health factors from the OR facility where the Encounter took place. Current Smoking Status This section includes the most current smoking, or tobacco-related health factor, from the OR facility where the Encounter took place. Date/Time Current Smoking Status Comment Tariq ity Nov 24, 2023 10:30 AM OR-TOBACCO NEVER USED [facility] Tobacco Use History This section includes a history of the smoking, or tobacco-related health factors, that were collected on or before the date of the Encounter. The data comes from the OR facility where the Encounter took place. Date/Time Smoking Status/Tobacco Use Comment F acility Nov 26, 2022 11:30 AM OR-TOBACCO NEVER USED [facility] Nov 04, 2021 11:00 AM OR-TOBACCO NEVER USED [facility] Encounter Notes: All associated encounter notes This [...] of his/her rights. Suicide Screen: C-SSRS Screening [place] Suicide Severity Rating Scale (C-SSRS) screener 1. [...] full rights to use it throughout the OR system. PRIMARY SCREEN RESULT: The Primary Screen [...] diminished) SENSORY CHECK: Includes 10 gram Monofilament (Roland-Lois) test of sensation. Intact (Greater than or [...] ISAIAH LOPEZ, is a 68 yo FEMALE [place], who presents at the [facility] for her annual visit. Pt maintains a nonVA PCP: Dr Sabrina Felix in [place]. NonVa Providers: Nephrology: Dr Jeremi Rodriguez - [facility] Dermatology: Dr Tina Vivar - [place] [facility] Active problems - Computerized Problem List [...] ========= TETRACYCLINE HISTORY: PERIOD OF SERVICE - [employer] FROM May TO May COMBAT [...] likely interstitial nephritis, managed by Dr Frank Lane/[facility] Q3-4 mths, has a severely decreased GFR [...] 10. Mammogram Screening: per vet 07/2023 @ [facility], and wnl 11. Sponge Fisherman/Pap Exam: per vet 07/2023 and wnl (by interior decorator painting Janie Helms)) 12. Bone Density Screening: per [...] Panel including HDL, LDL and Triglycerides. The [place] declined testing at this time. Osteoporosis Screening: [...] FACILITY ALLERGY/ADR -------- [facility] REPT EFF [id number] TETRACYCLINE [facility] T[facility]RAC[facility]INE Med Recon NoGloary (Tool #1) INCLUDED IN THIS LIST: Alphabetical list of active outpatient prescriptions dispensed from this OR (local) and dispensed from another OR or DoD facility (remote) as well as [...] the patient into personal health records (i.e. The [facility]) are NOT included in this list. Non-VA medications documented outside this OR, remote inpatient orders (regardless of status) and [...] A DAY Patient wants to buy from Non-OR pharmacy. Medication prescribed by Non-OR provider. Vet to take 10 pills a day, 4 in AM, 2 In Afternoon, and 4 in PM Non-VA SODIUM BICARBONATE 650MG TAB TAKE THREE TABLETS BY MOUTH TWICE DAILY Patient wants to buy from Non-OR pharmacy. Medication prescribed by Non-OR provider. Vet to take a total of 6 pills a day 3 AM, 3 PM ------ SUPPLIES ------ /mayte/ NARCISO DODD MD Primary Care Physician Signed: 11/24/2023 11:12 NARCISO DODD [facility]
== END 2024-09-09 10:43 | disposition home or self-care (01) ==
LOC: HO.MAMMO 10:42
PROVIDERS: PCP Internal Medicine; Visit Provider Internal Medicine
DX: Z12.31 Encounter for screening mammogram for malignant neoplasm of breast (principal)
CPT/HCPCS: 77063; 77067

== ENCOUNTER → 2024-09-09 11:15 | Outpatient (BNV) | payer MEDICARE, OTHER, SELFPAY | PROVIDERS: PCP Internal Medicine; Visit Provider Internal Medicine | DX: Z12.31 Encounter for screening mammogram for malignant neoplasm of breast (principal) | CPT/HCPCS: 77063; 77067 ==

== ENCOUNTER 2024-10-25 13:49 | Outpatient (REF) | payer MEDICARE, OTHER, SELFPAY ==
[2024-10-25 16:10] LABS: MANUAL DIFF FLAG NO
[2024-10-25 16:16] LABS: Basophils Percent Auto 0.5 % (0-2); Eosinophils Absolute Auto 0.1 X10*3/uL (0.0-0.4); Eosinophils Percent Auto 1.4 % (0-4); Hematocrit 27.5 % (37.0-47.0); Imm Gran Abs Auto 0.01 X10*3/uL (0.00-0.03); Imm Gran Pct Auto 0.2 % (0.0-0.4); Lymphocytes Absolute Auto 0.7 X10*3/uL (1.2-4.9); Mean Corpuscular HGB Conc 32.7 g/dl (31.0-35.0); Mean Corpuscular Hemoglobin 31.9 pg (27.0-33.0); Mean Corpuscular Volume 97.5 fL (80.0-98.0); Mean Platelet Volume 9.5 fL (9.4-12.3); Monocytes Absolute Auto 0.4 X10*3/uL (0.1-1.2); Monocytes Percent Auto 9.8 % (2-11); Neutrophils Absolute Auto 3.2 x10*3/uL (2.0-8.3); Neutrophils Percent Auto 73.1 % (45-73); Platelet Count 176 X10*3/uL (160-400); Red Blood Count 2.82 X10*6/uL (4.20-5.50); Red Cell Distribution Width 15.5 % (11.0-16.0); White Blood Count 4.4 X10*3/uL (4.8-10.8)
[2024-10-25 16:50] LABS: Creatinine Urine 39.82 mg/dL; Microalbum/Creatinine Ratio Ur 17.5 ug/mg cr (<30); Protein/Creatinine Ratio, Ur 0.25 (<0.2); Total Protein Urine Random 10 mg/dL (<12)
[2024-10-25 17:10] LABS: Anion Gap 12 (12-20); Blood Urea Nitrogen 26 mg/dL (9-16); Calcium 8.7 mg/dL (8.4-10.2); Carbon Dioxide 22 mmol/L (22-29); Chloride 103 mmol/L (96-108); Estimated Glomerular Filt Rate 15; Iron 72 mcg/dL (30-160); Percent Iron Saturation 55 % (15-50); Potassium 3.2 mmol/L (3.3-5.1); Sodium 134 mmol/L (135-145); Total Iron Binding Capacity 131 mcg/dL (228-428); Unsaturated Iron Binding 59 ug/dL
--- OUTSIDE RECORDS SUMMARY | 2024-10-25 17:12 | XMS_ITS ---
Author Organization [facility] Address [address] [place] [address] Care Team Providers Care Police Chief Deputy Name Role Phone Elvira BOLAND, Sabrina Smith Primary Care Provider Un available Radha Buckley Unavailable [phone] REASON FOR VISIT rs timings on 07/04/25 Problems No Known Problems Encounters Encounter Location Date Provider Diagnosis [facility] [address] [place] [address] 07/01/2024 Radha Buckley Plan Of Treatment No Information Progress Notes * Lisha LOPEZDOB:1955 (68 yo F)Acc No.[id number]:07/01/2024 Patient:?Lisha Lopez :1955???Age:68 Y???Sex:Female Address:[address] [place] [address], [address] * true * Date:? Generated for Anirudh sands/Rios/eTransmitting on:?10/25/2024 05:12 PM EST
--- OUTSIDE RECORDS SUMMARY | 2024-10-25 17:12 | XMS_ITS | Encounter Summary ---
Author Organization [facility] Address [address] [place] [address] Care Team Providers Care Tile Sprayer Name Role Phone Sabrina Felix MD Primary Care Provider Encounter Details Date Type Department Care Team ([facility] Contact Info) Description 09/24/2017 myChart Message [facility] [address] [place] [address] Feather Washer: Frank Loza MD [address] [place] [address] [place] [address] Non-Urgent Medical Question Social History Tobacco Use Types Packs/Day Years Used Date Smoking Tobacco: Never Smokeless Tobacco: Never Comments:: Comments Unknown Sex and Gender Information Value Date Recorded Sex Assigned at Female 07/28/2020 9:17 PM EST Legal Sex Female 6:52 PM EDT Gender Identity Female Sexual Orientation Choose not to disclose 2019 9:17 PM EST documented as of this encounter Plan of Treatment Upcoming Encounters Date Type Department Care Team (Late Contact Info) Description 12/28/2024 11:40 AM EDT Follow-Up [facility] [address] [place] [address] Feather Washer: Praful Paz MD [address] [place] [address] [phone] 05/11/2025 11:00 AM EDT Follow-Up [facility] Transplant [address] [place] [address] Ron Simmons MD [address] [place] [address] 05/11/2025 11:45 AM EDT Social Work [facility] [address] [place] [address] Una Méndez LICSW [address] [place] [address] documented as of this encounter Visit Diagnoses Not on filedocumented in this encounter Care Teams Tile Sprayer Relationship Specialty Start Date End Date Sabrina eFlix MD [address] [place] [address] PCP - General 03/19/17 documented as of this encounter
--- OUTSIDE RECORDS SUMMARY | 2024-10-25 17:12 | XMS_ITS ---
Author Organization [facility] Address [address] [place] [address] Care Team Providers Care Supervisor Liquid Yeast Name Role Phone Sabrina Felix MD Primary Care Provider Transplant Episode Kidney Candidate [facility] ([place], [place]) - [facility] waitlisted on 08/11/2019 Marked as Inactive on 08/11/2019 Reason: Candidate Workup Incomplete Kidney CoordinatorHoa Aldrich RN Email: N/A Scores Score Value Updated Exceptions/Reas ons CPRA 0 05/23/2024 EPTS (Calc) 46 10/25/2024 Care Team Name Role Phone Fax Email Hoa Aldrich RN Kidney Coordinator [phone] N/A Star Thomas MD Station Jailer [phone] [email or web address] Frank Lane MD Referring Physician [phone] [email or web address] Chucho Lara Anode Crew Supervisor N/A N/A N/A Events Pre-Transplant Referred: 04/25/2019 Evaluation began: 06/28/2019 Committee: 08/10/2019 Center waitlisted: 08/11/2019
--- OUTSIDE RECORDS SUMMARY | 2024-10-25 17:12 | XMS_ITS | Encounter Summary ---
Author Organization [facility] Address [address] [place] [address] Care Team Providers Care Lehr Stripper Name Role Phone Sabrina Felix MD Primary Care Provider Encounter Details Date Type Department Care Team ([facility] Contact Info) Description 12/04/2017 myChart Message [facility] [address] [place] [address] Nurse Midwife: Frank Loza MD [address] [place] [address] [place] [address] Referral Request Social History Tobacco Use Types Packs/Day Years [...] Upcoming Encounters Date Type Department Care Team ([facility] Contact Info) Description 12/28/2024 11:40 AM EDT Follow-Up [facility] [address] [place] [address] Nurse Midwife: Praful Paz MD [address] [place] [phone] 05/11/2025 11:00 AM EDT Follow-Up [facility] [address] [place] [address] Ron Simmons MD [address] [place] [address] 05/11/2025 11:45 AM EDT Social Work [facility] [address] [place] [address] Una Méndez LICSW [address] [place] [address] documented as of this encounter Visit Diagnoses Not on filedocumented in this encounter Care Teams Lehr Stripper Relationship Specialty Start Date End Date Sabrina Felix MD [address] [place] [address] PCP - General 03/19/17 documented as of this encounter
--- OUTSIDE RECORDS SUMMARY | 2024-10-25 17:13 | XMS_ITS | Clinical Summary ---
Author Organization [facility] Address [address] [place] [address] Care Team Providers Care Pharmacist Name Role Phone Sabrina Felix MD Primary Care Provider Allergies Active Allergy Reactions Criticality Noted Date Comments Tetracyclines Dyspnea High Medications calcipotriene/bet amethasone (TACLONEX TOP) by Topical (top) route. Active halobetasol (ULTRAVATE) 0.05 % ointment 1 Active clobetasoL (TEMOVATE) 0.05 % external solution 2 Active fluocinolone (DERMA-SMOOTHE) 0.01 % external oil 2 Active nystatin 100,000 unit/gram cream Apply topically to the affected area daily. Active atorvastatin (LIPITOR) 80 mg tablet Take 40 mg by mouth every other day. 4 Active aspirin chewable tablet 81 mg Chew and swallow 81 mg by mouth once a day. Active cholecalciferol (VITAMIN D3) 1,250 mcg (50,000 unit) capsuleIndication s:Chronic kidney disease (CKD) stage G4/A1, severely decreased glomerular filtration rate (GFR) between 15-29 mL/min/1.73 square meter and albuminuria creatinine ratio less than 30 mg/g (HCC),Vitamin D deficiency Take 1 capsule (50,000 Units total) by mouth every 14 days. TAKE 1 CAPSULE BY MOUTH ONCE EVERY 14 DAYS 6 capsule 3 4 12/21/19 25 Active ferrous sulfate 325 mg (65 mg iron) tabletIndications :Iron deficiency anemia secondary to inadequate dietary iron intake Take 1 tablet (325 mg total) by mouth daily with breakfast. 90 tablet 3 4 12/21/19 25 Active potassium chloride ER (KLOR-CON) 10 mEq tabletIndications :Other disorders resulting from impaired renal tubular function Take 4 tablets (40 mEq total) by mouth in the morning AND 2 tablets (20 mEq total) with lunch AND 4 tablets (40 mEq total) every evening. 900 tablet 3 4 12/24/19 25 Active tildrakizumab-asm n (Ilumya) 100 mg/mL syringe subcutaneous injection Inject 100 mg under the skin once. Injection once a month. Active sodium bicarbonate 650 mg tabletIndications :Metabolic acidosis TAKE 3 TABLETS (1,944 MG TOTAL) BY MOUTH 2 TIMES A DAY. 540 tablet 3 4 04/20/20 25 Active cephalexin (KEFLEX) 250 mg capsule Take 250 mg by mouth 2 times a day. 4 Active Active Problems Problem Noted Date Diagnosed Date Hyponatremia 08/17/2024 Assessment & Plan (08/17/2024 9:27 PM EST): Noted to have low sodium of 127, history supports that this is caused by low solute intake relative to high fluid intake which she needs due to high insensible losses from colitis. -Advised on taking in 1 protein shake a day, to increase osmolar load -And gently reduce fluid intake if able to -Repeat labs in a week Pre-transplant evaluation for end stage renal di sease 04/23/2019 Psoriasis 01/27/2018 Secondary hyperparathyroidism 08/19/2017 Metabolic acidosis with norm al anion gap and bicarbonate losses 08/19/2017 Assessment & Plan (08/17/2024 9:28 PM EST): In setting of CKD, most recent bicarb slightly low, will repeat next blood work for now continue current dose of sodium bicarb, 3 tab, twice daily. Vitamin d deficiency 10/11/2016 Microscopic colitis, unspecified 06/05/2016 Chronic kidney disease (CKD) stage G4/A1, severely decreased glomerular filtration rate (GFR) between 15-29 mL/min/1.73 square meter and albuminuria creatinine ratio less than 30 mg/g 06/11/2015 Assessment & Plan (08/17/2024 9:25 PM EST): She has CKD G4/A1, and baseline GFR around 16-19, minimal proteinuria. 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 Recent GFR relatively stable. Potassium has not been low, on potassium supplement . No other significant electrolyte abnormality, with exception of hyponatremia. Hemoglobin has been stable. -Advised on continuing potassium supplement -Calcium, phosphorus, PTH within goal, on vit D 50k every other week -continue sodium biarb 3 tab BID -Minimal proteinuria -Blood pressure has been well-controlled. 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 Lymphocytic colitis 06/05/2015 Acute kidney injury 05/18/2015 Resolved Problems Problem Noted Date Diagnosed Date Resolved Date Anemia of chronic kidney israel zapien, stage 4 (severe) 08/19/2017 08/07/2018 Encounters Date Type Department Care Team Description 08/18/2024 ReadWave Message [facility] [address] [place] [address] Manager Hris: Praful Paz MD Medication 08/18/2024 Orders Only [facility] [address] [place] [address] Manager Hris: Praful Paz MD CKD stage G4/A2, GFR 15-29 and albumin creatinine ratio 30-299 mg/g (HCC) (Primary Dx) 08/17/2024 11:40 AM [facility] [address] [place] [address] Manager Hris: Praful Paz MD CKD stage G4/A1, GFR 15-29 and albumin creatinine ratio <30 mg/g (HCC) (Primary Dx) 08/16/2024 [email or web address] [facility] [address] [place] [address] Manager Hris: Praful Paz MD labs 08/12/2024 ReadWave Message [facility] [address] [place] [phone] Manager Hris: Praful Paz MD test results 08/11/2024 myChart Message [facility] [address] [place] [address] Manager Hris: Praful Paz MD upcoming appt. from Last 3 Months Immunizations Immunization Administration Dates Next Due Adenovirus Vaccine, Type 7, Live, Oral 4 Covid-19, Pfizer, mRNA, Todd valent, PF 30 mcg/0.3 mL dose (for ages 12 and older) 11/27/2020,11/06/2020 Covid-19, Pfizer, mRNA, Todd valent, PF, 30 mcg/0.3 mL dose, dat-sucrose (COMIRNATY)(for ages 12 and older) 11/30/2021 Hepatitis A Vaccine, Adult Dosage 10/23/1998,10/1995 Hepatitis B Vaccine, Dialysi s Patient Dosage 07/25/2019 Hepatitis B adult (ENGERIX-B ADULT) vaccine 1 mL IM 09/24/2019,08/24/2019 Hepatitis B adult (ENGERIX-B/RECOMBIVAX HB ADULT) vaccine 1 mL IM 01/25/2020,09/26/2019,08/25/2019,07/25 Influenza Whole 06/30/2003, 3,06/25/2001,09/15,06/25/1999,07/02/1998,07/12/1997 Influenza, Injectable, Quadr ivalent, Contains Preservative 05/24/2019,06/16/2018,05/15/2017,05/22 Influenza, Injectable, Quadr ivalent, Preservative Free 06/07/2021 Influenza, Trivalent, MDV, Injectable 04/16/2020 Influenza, Unspecified 05/24/2019 Measles, Mumps, and Rubella Vaccine 06/30/1984 Meningococcal Polysaccharide Vaccine (MPSV4) 05/21/1984 Pneumococcal Conjugate Vacci ne, 13 Valent 07/25/2020,07/25/2019 Tetanus Toxoid, Reduced Diph theria Toxoid, and Acellular Pertussis Vaccine, Adsorbed 08/25/2019 Tetanus and Diphtheria Toxoi ds, Adsorbed, Preservative Free (2 Lf of Tetanus Toxoid and 2 Lf of Diphtheria Toxoid) 04/13/2000,05/10/1989 Trivalent Poliovirus Vaccine , Live, Oral 06/30/1984 Tuberculin Skin Test; Purifi ed Protein Derivative Solution, Intradermal 11/02/2002 Typhoid Vaccine, Parenteral, Acetone-Killed, Dried ([place] ) 04/24/1985 Zoster Vaccine Recombinant 10/20/2019,03/20/2019 Social History Tobacco Use Types Packs/Day Years Used Date Smoking Tobacco: Never Smokeless Tobacco: Never Tobacco Cessation:Counseling Given: Not Answered Comments:: Alcohol Use Standard Drinks/Week Comments Yes 0 (1 standard drink = 0.6 oz pur e alcohol) rare Comments No Sex and Gender Information Value Date Recorded Sex Assigned at Female 07/28/2020 9:17 PM EST Legal Sex Female 6:52 PM EDT Gender Identity Female Sexual Orientation Choose not to disclose 2019 9:17 PM EST Last Filed Vital Signs Vital Sign Reading Time Taken Comments Blood Pressure 113/72 05/12/2024 11:23 AM EDT Pulse 70 05/12/2024 11:23 AM EDT Temperature 36.9 ??C (98.5 ??F) 05/12/2024 11:23 AM E DT Respiratory Rate 18 05/12/2024 11:23 AM EDT Oxygen Saturation 98% 05/12/2024 11:23 AM EDT Inhaled Oxygen Concentration - - Weight 77 kg (169 lb 12.1 oz) 05/12/2024 11:23 A M EDT Height 165.1 cm (5' 5 ) 12/16/2022 10:13 AM EDT Body Mass Index 28.25 12/16/2022 10:13 AM EDT Plan of Treatment Upcoming Encounters Date Type Department Care Team (Late st Contact Info) Description 12/28/2024 11:40 AM EDT Follow-Up [facility] [address] [place] [address] Manager Hris: Praful Paz MD [address] [place] [address] 05/11/2025 11:00 AM EDT Follow-Up [facility] [address] [place] [address] Ron Simmons MD [address] [place] [address] 05/11/2025 11:45 AM EDT Social Work [facility] [address] [place] [address] Una Méndez, WATCH INSPECTOR [address] [place] [address] Health Maintenance Due Date Last Done Comments 25 Hydroxy / Vitamin D 1955 Cologuard 1955 FOBT / Fit Test 1955 Sigmoidoscopy 1956 Mammogram 1996 Osteoporosis Screening 2006 Urine Microalbumin 06/05/2017 06/05/2016, 06/05/2015 PTH 07/25/2020 07/25/2019 Hemoglobin 10/23/2021 10/23/2020, 06/01, 06/05/2016, Additional history exists Basic Metabolic Panel 03/19/2024 11/18/2023 , 07/25/2019, 06/28/2019, Additional history exists Alcohol/Substance Use Screening 08/31/2024 Depression Screening and Follow-Up 08/31/2024 Fall Risk Screening 08/31/2024 Health Care Proxy Review 08/31/2024 Social Drivers of Health Jen ual Screening 08/31/2024 Phosphorus 11/17/2024 11/18/2023, 06/01, 06/05/2016 COVID-19 Vaccine (2023-10 5 season) 2024 05/22/2024, 06/02/2023, 12/30/2022, Additional history exists Colon Cancer Screening 03/26/2028 Colonoscopy 03/26/2028 03/26/2018, 05/2018, 03/08/2018, Additional history exists DTaP,Tdap,and Td Vaccines (2 - Td or Tdap) 08/25/2029 08/25/2019, 04/13/2000, 05/10/1989 Tobacco Screening 08/31/2042 05/12/2024 Hepatitis C Screening Completed 06/28/2019 Zoster Vaccines Completed 10/20/2019, 03/20/2019 Hepatitis B Vaccines Completed 01/25/2020, 09/26/2019, 09/24/2019, Additional history exists Pneumococcal Vaccine: 50+ Years Completed 06/23/2022, 07/25/2020, 07/25/2019 RSV Vaccine (60+ years old a nd patients) Completed 07/14/2023 CKD: Referral to Nephrology Completed 05/12/2024 Influenza Vaccine Completed 05/22/2024, , 06/20/2022, Additional history exists Procedures * Due to [place] Risk I/O law, this organization might not be sharing negative HIV tests. Procedure Name Priority Date/Time Associated Diagnosis Comments LAB - SCANNED 08/11/2024 RENAL FUNCTION PANEL Routine 11/18/2023 11:45 AM EDT CKD stage G4/A1, GFR 15-29 and albumin creatinine ratio <30 mg/g ([facility]) KIDNEY PANCREAS POST EXTERNAL PANEL Routine 10/23/2020 10:15 AM EST PTH, INTACT (WITHOUT CALCIUM) Routine 07/25/2019 4:17 PM EST Chronic kidney disease (CKD) stage G4/A1, severely decreased glomerular filtration rate (GFR) between 15-29 mL/min/1.73 square meter and albuminuria creatinine ratio less than 30 mg/g ([facility]/HCC) Pre-transplant evaluation for end stage renal disease HEPATITIS C ANTIBODY W/REFLEX TO HCV RNA, QUANTITATIVE PCR Routine 06/28/2019 11:10 AM EDT Pre-transplant evaluation for end stage renal disease HM COLONOSCOPY Routine 03/26/2018 MICROALBUMIN, RANDOM URINE WITH CREATININE Routine 06/05/2016 2:47 PM EDT from Last 3 Months or Most Recently Relevant to Health Maintenance Results * Due to [place] Risk I/O law, this organization might not be sharing negative HIV tests. * LAB - SCANNED (08/11/2024) us Onbase Scan [facility] LAB HISTORICAL RESULTS Final Result * (ABNORMAL) Renal Function Panel (11/18/2023 11:45 AM EDT) NA 136 135 - 145 mmol/L 11/18/2023 1:47 PM EDT [facility] K 3.4(L) 3.5 - 5.3 mmol/L 11/18/2023 1:47 PM EDT [facility] Cl 101 97 - 110 mmol/L 11/18/2023 1:47 PM EDT [facility] CO2 26 24 - 32 mmol/L 11/18/2023 1:47 PM EDT [facility] Anion Gap 9 5 - 15 11/18/2023 1:47 PM EDT [facility] Glucose 94 70 - 99 mg/dL 11/18/2023 1:47 PM EDT [facility] BUN 31(H) 7 - 23 mg/dL 11/18/2023 1:47 PM EDT [facility] Creatinine 2.73(H) 0.50 - 1.20 mg/dL 11/18/2023 1:47 PM EDT [facility] Calcium 9.9 8.7 - 10.7 mg/dL 11/18/2023 1:47 PM EDT [facility] Phosphorus 3.5 2.5 - 4.5 mg/dL 11/18/2023 1:47 PM EDT [facility] Albumin 3.9 3.5 - 4.8 g/dL 11/18/2023 1:47 PM EDT [facility] eGFR 19(L) >=60 mL/min/1 .73m2 11/18/2023 1:47 PM EDT [facility] Comment:The estimated glomer ular filtration rate (eGFR) is calculated using a new formula developed by the NKF-ASN task force to eliminate race-based correction factors. The new formula uses serum/plasma creatinine, age, and gender to determine eGFR. A value below 60mls/min might indicate kidney disease and will be flagged. For additional information, see Roe bauer al, Am J Kidney Dis. 2021;79(2):268- 288, A Unifying Approach for GFR estimation: Recommendations of the NKF-ASN Task Force on Reassessing the Inclusion of Race in Diagnosing Kidney Disease . Blood Structure of peripheral vein / Unknown Venipuncture / Unknown 11/18/2023 11:45 AM EDT 11/18/2023 1:09 PM EDT us Praful Rodriguez MD LAB BLOOD ORDERABLES Final Resul t Performing Organization Address [facility] Co de Phone Number [facility] [address] [place] [address], * KIDNEY PANCREAS POST EXTERNAL PANEL (10/23/2020 10:15 AM EST) WBC 5.9 10*3/uL [facility] Hgb 11.7 [facility] Hematocrit 36.3 % [facility] Platelets 264 10*3/uL [facility] Sodium 140 mmol/L [facility] Potassium 3.8 [facility] Chloride 104 [facility] Carbon Dioxide 25 [facility] BUN 30 [facility] Creatinine 2.19 mg/dL [facility] Calcium 8.6 mg/dL [facility] 10/23/2020 10:1 5 AM EST us Unknown Provider LAB BLOOD ORDERABLES Final R esult Performing Organization Address [facility]/ZIP Co de Phone Number [facility] [address] [place] [address] * (ABNORMAL) PTH, Intact (without Calcium) (07/25/2019 4:17 PM EST) Parathyroid Hormone, Intact 163(H) 14 - 64 pg/mL 07/30/2019 9:05 PM EST [facility] Comment: Interpretive Guide ?Intact PTH ? Calcium ? ------- Normal Parathyroid ?Normal ? Normal Hypoparathyroidism ?Low or Low Normal ?Low Hyperparathyroidism ?? Primary ?Normal or High ? High ?? Secondary ?High ? Normal or Low ?? Tertiary ? High ? High Non-Parathyroid ?? Hypercalcemia ?Low or Low Normal ?High Blood specimen (specimen) Structure of peripheral vein / Unknown Venipuncture / Unknown 07/25/2019 4:17 PM EST 07/25/2019 4:42 PM EST [employer] [facility] - 07/30/2019 9:05 PM EST [employer] Received Date:[id number] Frank Lane MD LAB BLOOD ORDERABLES Edited Result - Final Performing Organization Address City/State/[facility] Co de Phone Number ELYSIA AVERY [address], [place] [address], [place] [phone] [employer] [facility] [address], [place] [address], * Hepatitis C Antibody w/Reflex to PCR (06/28/2019 11:10 AM EDT) Hepatitis C Antibody NON-REACT YUNG NON-REACT YUNG 06/28/2019 7:20 PM EDT [facility] Signal To Cut-Off 0.01 <1.00 06/28/2019 7:20 PM EDT [facility] Comment: HCV antibody was non-reactive. There is no laboratory evidence of HCV infection. In most cases, no further action is required. However, if recent HCV exposure is suspected, a test for HCV RNA (test code 50351) is suggested. For additional information please refer to http://education.PT PAL/faq/ZUZ16a4 (This link is being provided for informational/ educational purposes only.) Blood specimen (specimen) Structure of peripheral vein / Unknown Venipuncture / Unknown 06/28/2019 11:10 AM EDT 06/28/2019 11:22 AM EDT Narrative [facility] - 06/28/2019 7:20 PM EDT [facility] Received Date:[id number] Frank Lane MD LAB BLOOD ORDERABLES Final R esult [facility] [address], [place] [address], [employer] [facility] [address], [place] [address], * HM Colonoscopy (03/26/2018) Unknown Provider HEALTH MAINTENANCE Final Res ult * Microalbumin/Creatinine Urine, Random (06/05/2016 2:47 PM EDT) Microalbumin Urine 1.8 mg/dL [facility] Creatinine Urine 218 15 - 278 mg/dL [facility] Albumin/Creat Ratio 8 <30.0 mcg/mgCr [facility] Comment: Normal ? < 30 ?? mcg/mg creatinine Microalbuminuria ?30-300 ??mcg/mg creatinine Clinical Albuminuria ? > 300 ??mcg/mg creatinine Reference: ADA Guidelines. Diabetes Care. 2004; 27 (suppl 1) 06/05/2016 2:47 PM EDT 06/05/2016 3:[address] us Frank Lane MD LAB URINE ORDERABLES Final R esult [facility] [employer] [facility] [address] [place] [address], [place] from Last 3 Months or Most Recently Relevant to Health Maintenance Insurance MEDICARE [facility] [facility] MEDICARE FOR LIFE MEDICARE FOR LIFE Advance Directives Documents on File Type Date Recorded Patient News Analyst Expl [facility] Health Care Proxy 05/16/2024 3:58 PM 05-12 Care Teams Pharmacist Relationship Specialty Start Date End Date Sabrina Felix MD [address] [place] [address] PCP - General 03/19/17
--- OUTSIDE RECORDS SUMMARY | 2024-10-25 17:13 | XMS_ITS | Patient Health Record ---
Author Organization [facility] Formerly [facility] Address [address] [place] [address] Care Team Providers Care Rn Liaison Name Role Phone Elvira BOLAND, Sabrina Smith Primary Care Provider Un available Radha Buckley Unavailable [phone] Allergies Allergen (clinical drug ingredient) Drug/Non Drug [...] 07/04/2024 Encounters Encounter Location Date Provider Diagnosis [facility] [address] [place] [address] 06/03/2024 Radha Buckley Pain in left foot M79.672 ; Bursitis of left foot M77.52 ; Metatarsalgia of left foot M77.42 and Tyler of foot L84 [facility] [address] [address] 07/04/2024 Radha Buckley Pain in left foot M79.672 ; Bursitis of left foot M77.52 and Metatarsalgia of left foot M77.[address] [facility] [address] 07/01/2024 Radha Buckley Assessments Encounter Date Diagnosis [...] of left foot (ICD-10 - M77.42) 06/03/2024 Tyler of foot (ICD-10 - L84) Plan Of Treatment Pending Test Test Name Order Date X ray : Foot, left 3V 06/03/2024 Insurance Providers Payer Name Payer Address Payer Phone Subscriber Number Group Number Insured Name Patient Relationship to Insured Coverage Start Date Coverage End Date Medicare National [employer]t [employer] [address] [place] [address] [id number] Lisha Solis Self - patient is the insured for Life [address] [place] [phone] [id number] Lisha Solis Self - patient is the insured Medical (General) History Medical History History ICD Code Colitis Kidney disease / on inactive transplant list for kidney Mumps Psoriasis/eczema Anemia covid-19 Stroke
--- OUTSIDE RECORDS SUMMARY | 2024-10-25 17:13 | XMS_ITS ---
Author Organization [facility] Address [address] [place] [address] Care Team Providers Care Woodworking Machine Feeder Name Role Phone Elvira BOLAND, Sabrina Smith Primary Care Provider Un available Radha Buckley Unavailable [phone] Problems No Known Problems Encounters Encounter Location Date Provider Diagnosis [facility] [address] [place] [address] 07/04/2024 Radha Buckley Plan Of Treatment No Information Progress Notes * Lisha LOPEZDOB:1955 (69 yo F)Acc No.[id number]:07/04/2024 Progress Notes Patient:?Lisha LOPEZ Provider:?Radha Buckley DPM :1955???Age:68 Y???Sex:Female D ate:07/04/2024 Address:[address] [place], [place] [id number] Pcp:Paola Tellez Subjective: * Chief Complaints: * [...] DPM Date:?1 09/03/2023 Generated for Anirudh sands/Rios/eTransmitting on:?10/25/2024 05:13 PM EST
--- OUTSIDE RECORDS SUMMARY | 2024-10-25 17:13 | XMS_ITS | Encounter Summary ---
Author Organization [facility] Address [address] [place] [address] Care Team Providers Care Shoe Cleaner Name Role Phone Sabrina Felix MD Primary Care Provider Encounter Details Date Type Department Care Team ([facility] Contact Info) Description 12/04/2017 myChart Message [facility] [address] [place] [address] Plug Grower: Frank Loza MD [address] [place] [address] [place] [address] RE: Referral Request Social History Tobacco Use Types [...] Upcoming Encounters Date Type Department Care Team ([facility] Contact Info) Description 12/28/2024 11:40 AM EDT Follow-Up [facility] [address] [place] [address] Plug Grower: Praful Paz MD [address] [place] [phone] 05/11/2025 11:00 AM EDT Follow-Up [facility] [address] [place] [address] Ron Simmons MD [address] [place] [address] 05/11/2025 11:45 AM EDT Social Work [facility] [address] [place] [address] Una Méndez LICSW [address] [place] [address] documented as of this encounter Visit Diagnoses Not on filedocumented in this encounter Care Teams Shoe Cleaner Relationship Specialty Start Date End Date Sabrina Felix MD [address] [place] [address] PCP - General 03/19/17 documented as of this encounter
--- OUTSIDE RECORDS SUMMARY | 2024-10-25 17:13 | XMS_ITS | Continuity of Care Document ---
Author Name [facility] Organization [facility] Care Team Providers Care Sales And Service Technician Name Role Phone [facility] Unavailable Unavailable Problems Combined list of problems from Department of Defense and Veterans Affairs facilities. It does not include entries that were removed or entered in error. Problem Status Onset Date Problem Type Date of Resolution Comments Source [facility] hypokalemia [facility] [place] [facility] Chronic kidney disease stage 4 Active Condition January 18, 2021 Entered By: DUANE BERRY Comment: Valve Maker-Dr Garza, [facility] Colonoscopy Screening Active Condition Nov [...] more consistent with an inflammatory bcwel disease. [facility] [place] [facility] Hyperlipidemia Active Condition [place] Interstitial nephritis [facility] [place] Lymph[facility] colitis [facility] [place] [facility] Primary Care Provider Active Condition Nov 04, 2021 Entered By: NARCISO DODD Comment: Dr Sabrina Lo - affiliated with [facility] [place] [facility] Psoriasis Active Condition January 18 Entered By: DUANE BERRY Comment: Derm- [facility] Vitamin D deficiency Active Condition [facility] Diagnosis: ICD-10-CM K52.839 Microscopic colitis, unspecified Active Diagnosis [place] Medications Combined list of outpatient medications from Department of Defense and [facility] facilities.Medications provided include 1) outpatient medications from the last 15 months, and 2) patient-reported medications. Medication Details Route Status Patient Instructions Prescription Expires Prescription Number Last Dispense Date Ordering Provider Order Date Order Qty Source ATORVASTATI N CALCIUM (atorvastat in calcium), 80 MG, TABLET, ORAL, [employer] 500 ea. BOTTLE Active [id number] 4 2023 30 Pharmac y Data Transac tion Service Facilit y ATORVASTATI N CALCIUM (atorvastat in calcium), 80 MG, TABLET, ORAL, MIRIAM PHARMACEU, 500 ea. BOTTLE Active [id number] 4 2023 90 Pharmac y Data Transac [...] & W LABS., 60 ml BOTTLE Active [id number] 4 2023 60 Pharmac y Data Transac tion Service Facilit y CEPHALEXIN (CEPHALEXIN MONOHYDRATE ), 250MG, CAPSULE, ORAL, LUPIN PHARMACEU, 100 ea. BOTTLE Active [id number] 4 2023 14 Pharmac y Data Transac tion Service Facilit y CEPHALEXIN (CEPHALEXIN MONOHYDRATE ), 250MG, CAPSULE, ORAL, LUPIN PHARMACEU, 100 ea. BOTTLE Active [id number] 4 2023 14 Pharmac y Data Transac tion Service Facilit y CHOLECALCIF KAILYN 1,250MCG (50,000UNIT ) CAP,ORAL TAKE 1 CAPSULE BY MOUTH EVERY 2 WEEKS ORAL ACTIVE ANNA BERRY 2020 IELD DESOXIMETAS ONE (desoximeta sone), 0.25 %, OINT. (G), TOPICAL, VIONA PHARMACEU, 60 g TUBE Active [id number] 4 2023 60 Pharmac y Data Transac tion Service Facilit y FERROUS SO4 325MG TAB TAKE ONE TABLET BY MOUTH ONCE DAILY ORAL ACTIVE ANNA BERRY 2020 IELD FLUCONAZOLE (fluconazol e), 150 MG, TABLET, ORAL, ZYDUS PHARMACEU, 12 ea. BLIST PACK Active [id number] 4 2023 3 Pharmac y Data Transac tion Service Facilit y FOLIC ACID (folic acid), 1 MG, TABLET, ORAL, FormabilioWELL RX LL, 1800 ea. BOTTLE Active [id number] 4 2023 30 Pharmac y Data Transac tion Service Facilit y HALOBETASOL PROPIONATE (halobetaso l propionate) , 0.05 %, OINT. (G), TOPICAL, JESSICA PHARMAC, 50 g TUBE Active [id number] 4 2023 50 Pharmac y Data Transac tion Service Facilit y HALOBETASOL PROPIONATE (halobetaso l propionate) , 0.05 %, OINT. (G), TOPICAL, JESSICA PHARMAC, 50 g TUBE Active [id number] 4 2023 50 Pharmac y Data Transac tion Service Facilit y KLOR-CON M10 (potassium chloride), 10 MEQ, TAB ER PRT, ORAL, UPSHER-NASIR H LA, 1000 ea. BOTTLE Cancele d [id number] : 2023 0 Pharmac y Data Transac tion Service Facilit y KLOR-CON M10 (potassium chloride), 10 MEQ, TAB ER PRT, ORAL, UPSHER-NASIR H LA, 1000 ea. BOTTLE Active [id number] 4 2023 900 Pharmac y Data Transac tion Service Facilit y NYSTATIN-TR IAMCINOLONE (NYSTATIN/T RIAMCIN), 581863-3.1, CREAM(GM), TOPICAL, TARO [employer]ARM [employer], 30 g TUBE Cancele d [id number] 4 [id number] : 2023 0 Pharmac y Data Transac tion Service Facilit y NYSTATIN-TR IAMCINOLONE (nystatin/t riamcinolon e acetonide), 463473-9.1, OINT. (G), TOPICAL, VIONA PHARMACEU, 60 g TUBE Active [id number] 4 2023 60 Pharmac y Data Transac tion Service Facilit y POTASSIUM CHLORIDE (potassium chloride), 10 MEQ, TABLET ER, ORAL, AUROBINDO PHARM, 1000 ea. BOTTLE Cancele d [id number] 4 [id number] : 2023 0 Pharmac y Data Transac tion Service Facilit y POTASSIUM CHLORIDE (potassium chloride), 10 MEQ, TABLET ER, ORAL, AVKARE, 500 ea. BOTTLE Cancele d [id number] : 2023 0 Pharmac y Data Transac tion Service Facilit y POTASSIUM CHLORIDE 10MEQ TAB,SA TAKE ONE TABLET BY MOUTH 10 PILLS A DAY ORAL ACTIVE SAIDA DODD SA 2021 [facility] SILVER SULFADIAZIN E (SILVER SULFADIAZIN E), 1%, CREAM(GM), TOPICAL, [facility], 85 g TUBE Cancele d [id number] 4 [id number] : 2023 0 Pharmac y Data Transac tion Service Facilit y SILVER SULFADIAZIN E (SILVER SULFADIAZIN E), 1%, CREAM(GM), TOPICAL, [facility], 85 g TUBE Active [id number] 4 2023 85 Pharmac y Data Transac tion Service Facilit y SODIUM BICARBONATE 650MG TAB TAKE THREE TABLETS BY MOUTH TWICE DAILY ORAL ACTIVE SAIDA DODD SA 2021 [facility] VITAMIN D2 (ergocalcif kailyn (vitamin D2)), 1250 MCG, CAPSULE, ORAL, AVKARE, 100 ea. BOTTLE Active [id number] 4 2023 12 Pharmac y Data Transac tion Service Facilit y Allergies, Adverse Reactions, Alerts Combined list of allergies from Department of Defense and Veterans Affairs facilities. It does not include entries that were removed or entered in error. Substance Category Reaction Severity Reaction type Status Date Reported Comments Source TETRACYCLINE Propensity to adverse reactions to drug (finding) active 1 [facility] TETRACYCLINE (TETRACYCLINE ) Drug allergy (disorder) Unknown active 8 [employer] Immunizations Combined list of available immunizations from the Department of Defense and Veterans Affairs facilities. Immunization Series Date Given Administered By Site Reaction Lot Number CVX Code Drug Specialty Foods Cook Status Comments Source COVID-19 (PFIZER), MRNA, LNP-S, BIVALENT BOOSTER, PF, 30 MCG/0.3 ML DOSE 5 2021 300 complet ed [facility] COVID-19, mRNA, LNP-S, PF, 30 mcg/0.3 mL dose, dat-sucrose 2021 BOGDASARIAN, () Not Given COVID-19, mRNA, LNP-S, PF, 30 mcg/0.3 mL dose, dat-sucr ose DoD INFLUENZA, UNSPECIFIED FORMULATION 2020 88 complet ed [facility] COVID-19 (PFIZER), MRNA, LNP-S, PF, 30 MCG/0.3 ML DOSE 3 2020 208 complet ed [facility] [place] [facility] COVID-19 (PFIZER), MRNA, LNP-S, PF, 30 MCG/0.3 ML DOSE 2 2020 208 complet ed PFR; [id number]; 1 [facility] [place] COVID-19 (PFIZER), MRNA, LNP-S, PF, 30 MCG/0.3 ML DOSE 1 2020 208 complet ed PFR; [id number]; 1 [facility] [place] PNEUMOCOCCAL CONJUGATE PCV 13 2019 133 [...] vaccine, whole virus 1 2002 Unknown, Provider [id number] [employer]Sense (PWJ) complet ed influenza virus vaccine, whole virus DoD influenza virus vaccine, whole virus 1 2002 Unknown, Provider [id number] Sanofi Pasteur (PMC) complet ed influenza virus vaccine, whole virus DoD tuberculin skin test; purified protein derivative solution, intradermal 1 2002 Unknown, Provider [id number] Sanofi Pasteur (PMC) complet ed tuberculi n skin test; purified protein derivativ e solution, intraderm al DoD influenza virus vaccine, whole virus 1 2000 Unknown, Provider [id number] 16 Sanofi Pasteur (PMC) complet ed influenza virus vaccine, whole virus DoD influenza virus vaccine, whole virus 1 2000 Unknown, Provider [id number] 16 Jo-Ann (Inactive) (AL) complet ed influenza virus vaccine, whole virus DoD tetanus and diphtheria toxoids, adsorbed, preservative free, for adult use (2 Lf of tetanus toxoid and 2 Lf of diphtheria toxoid) 3 1999 Unknown, Provider [id number] 09 Shravan (CON) complet ed tetanus and diphtheri a toxoids, adsorbed, preservat valentina free, for adult use (2 Lf of tetanus toxoid and 2 Lf of diphtheri a toxoid) DoD influenza virus vaccine, whole virus 1 1998 Unknown, Provider [id number] 16 Shravan (CON) complet ed influenza virus vaccine, whole virus DoD hepatitis A vaccine, adult dosage 2 1998 Unknown, Provider [id number] Merck (MSD) complet ed hepatitis A vaccine, adult dosage DoD influenza virus vaccine, whole virus 2 1997 Unknown, Provider [id number] 16 Jo-Ann (Inactive) ([place]) complet ed influenza [...] parentera l, acetone-k illed, dried ([place]. ) [facility] trivalent poliovirus vaccine, live, oral 1 1983 Unknown, Provider 02 () complet ed trivalent polioviru s vaccine, live, oral DoD measles, mumps and rubella virus vaccine 1 1983 Unknown, Provider 03 () complet ed measles, mumps and rubella virus vaccine DoD meningococcal polysaccharid e vaccine (MPSV4) 1 1983 Unknown, Provider 32 () complet ed meningoco ccal polysacch aride vaccine (MPSV4) [facility] adenovirus vaccine, type 4, live, oral 1 1983 Unknown, Provider 54 () complet ed adenoviru s vaccine, type 4, live, oral [facility] adenovirus vaccine, type 7, live, oral 1 1983 Unknown, Provider 55 () complet ed adenoviru s vaccine, type 7, live, oral [facility] Vital Signs Combined list of inpatient and outpatient Vital Signs from Department of Defense and Veterans Affairs, ranging from 12 months to all on record, depending upon the facility. Vital Sign Value Date Comments Source SYSTOLIC BLOOD PRESSURE 109 11/24/19 24 10:22:06 [facility] DIASTOLIC BLOOD PRESSURE 66 024 10:22:06 [facility] PULSE OXIMETRY 99 11/24/2023 10:22:06 [facility] WEIGHT 175.6 11/24/2023 10:22:06 [facility] BMI 28 kg/m2 11/24/2023 10:22:06 [facility] [...] from Department of Veterans Affairs facilities going backup to the last 18 months, not all VA inpatient encounters are included; 2) Encounters from the Department of [facility] facilities going backup to 280 months. Location Location Details Encounter Type Encounter Number Reason For Visit Attending Provider ADM Date DC Date Status Disposition Source [facility] Outpatient Encounter [id number] 06/25 [facility] OFFICE O/P EST MOD 30 MIN [id number] Diagnos is: ICD-10- CM K52.839 Microsc opic colitis , unspeci fied OLIVER DODD 11/23 [facility] Outpatient Encounter [id number] 09/09 [facility] Out[facility] Encounter [id number] 09/29 [facility] Outpatient Encounter [id number] 10/04 [facility] Procedures Combined list of: 1) Procedures from Department of Veterans Affairs facilities going back up to thelast 18 months, not all VA non-surgical procedures are included; 2) All procedures from the Department of Defense facilities. Procedure Procedure Type Code Date Perfomer Comments Sourc e DETERMINATION OF REFRACTIVE STATE 03/11/2004 DoD APPLICATION OF A MODALITY TO 1 OR MORE AREAS; HOT OR COLD PACKS 03/08/2004 DoD APPLICATION OF A MODALITY TO 1 OR MORE AREAS; HOT OR COLD PACKS 02/23/2004 DoD DETERMINATION OF REFRACTIVE STATE 12/08/2003 DoD CHIROPRACTIC [...] COLD PACKS 09/22/2002 DoD PHYS/OTH QUALIFIED HEALTH SLAT BASKET TOP MAKER QUALIFIED,EDUCATION,TRAIN,LIC ENSURE/REGULATION (WHEN APPLICABLE) EDUC SER RENDERED TO PATS IN A GRP SETTING (EG,,OBESITY,OR DIABETIC INSTRUCT) 06/27/2002 [facility] GROUP PSYCHOTHERAPY (OTHER THAN OF A MULTIPLE-FAMILY GROUP) 06/27/2002 [facility] PHYS/OTH QUALIFIED HEALTH SLAT BASKET TOP MAKER QUALIFIED,EDUCATION,TRAIN,LIC ENSURE/REGULATION (WHEN APPLICABLE) EDUC SER RENDERED TO PATS IN A GRP SETTING (EG,,OBESITY,OR DIABETIC INSTRUCT) 06/06/2002 [facility] PHYS/OTH QUALIFIED HEALTH SLAT BASKET TOP MAKER QUALIFIED,EDUCATION,TRAIN,LIC ENSURE/REGULATION (WHEN APPLICABLE) EDUC SER RENDERED TO PATS IN A GRP SETTING (EG,,OBESITY,OR DIABETIC INSTRUCT) 05/31/2002 [facility] PHYS/OTH QUALIFIED HEALTH SLAT BASKET TOP MAKER QUALIFIED,EDUCATION,TRAIN,LIC ENSURE/REGULATION (WHEN APPLICABLE) EDUC SER RENDERED TO PATS IN A GRP SETTING (EG,,OBESITY,OR DIABETIC INSTRUCT) 05/26/2002 [facility] DETERMINATION OF REFRACTIVE STATE 03/24/2002 [facility] INFUSION, NORMAL SALINE SOLUTION, 250 CC 02/01/2002 DoD SCREENING PAPANICOLAOU SMEAR ; OBTAINING, PREPARING AND CONVEYANCE OF CERVICAL OR VAGINAL SMEAR TO LABORATORY 01/03/2002 DoD INJECTION, PROMETHAZINE HCL, UP TO 50 MG 12/26/2001 DoD REMOVAL OF SKIN TAGS, MULTIPLE FIBROCUTANEOUS TAGS, ANY AREA; UP TO AND INCLUDING 15 LESIONS 06/25/2001 DoD REMOVAL OF SKIN TAGS, MULTIPLE FIBROCUTANEOUS TAGS, ANY AREA; UP TO AND INCLUDING 15 LESIONS 05/28/2001 [facility] OPHTHALMOLOGICAL SERVICES: MEDICAL EXAMINATION AND EVALUATION WITH INITIATION OF DIAGNOSTIC AND TREATMENT PROGRAM; INTERMEDIATE, NEW PATIENT 05/11/2000 [facility] INCISION AND DRAINAGE OF ABSCESS (EG, CARBUNCLE, SUPPURATIVE HIDRADENITIS, CUTANEOUS OR SUBCUTANEOUS ABSCESS, CYST, FURUNCLE, OR PARONYCHIA); SIMPLE OR SINGLE 02/29/2000 [facility] THERAPEUTIC OR DIAGNOSTIC INJECTION (SPECIFY MATERIAL INJECTED); INTRAVENOUS 02/27/2000 Do D DIAGNOSTIC ULTRASOUND OF HEART 05/27/1993 [facility] COMPUTERIZED AXIAL TOMOGRAPH Y OF HEAD 05/27/1993 [facility] ELECTROGRAPHIC MONITORING 05/27/1993 [facility] Social History Combined list of available smoking, tobacco, and other social history from Department of Defense and Veterans Affairs facilities. Social History Type Response Date Comment [facility] e Tobacco smoking status [facility]-TOBACCO NEVER USED 11/24/19 [place] [facility] [place] History of tobacco use [place] NEVER USED 11/04/2021 [place] This section is an empty soc ial history section. [facility] Plan of Care List of future care activities from Department of Veterans Affairs facilities. Additional future care activities may be listed in the Assessment and Plan section. Date/Time Care Activity Care Activity Detail Facili ty 11/22/2024 AMBULATORY - MEDICINE AMBULATORY - MEDICI [facility]
--- OUTSIDE RECORDS SUMMARY | 2024-10-25 17:13 | XMS_ITS ---
Author Organization [facility] Address [address] [place] [address] Care Team Providers Care Food Beverage Server Name Role Phone Elvira BOLAND, Sabrina Smith Primary Care Provider Un available Radha Buckley Unavailable [phone] Allergies Allergen (clinical drug ingredient) Drug/Non Drug [...] 07/04/2024 Encounters Encounter Location Date Provider [facility] [address] [place] [address] 07/04/2024 Radha Buckley Pain in left foot [...] Notes * Lisha LOPEZDOB:1955 (68 yo F)Acc No.[id number]:07/04/2024 Progress Notes Patient:?Lisha Lopez Provider:?Radha Buckley DPM :1955???Age:68 Y???Sex:Female D ate:07/04/2024 Address:[address] [place] [address] Pcp:Paola Tellez Subjective: * Chief Complaints: * [...] various subjects. ?Marital status: single. ?Occupation: Retired [employer]. * Medications:?TakingSodium Bi carbonate Potassimin , Notes: [...] Buckley DPM Date:?1 09/03/2023 Generated for Anirudh sands/Rios/Ubaldo on:?10/25/2024 05:12 PM EST History and Physical Notes * [...]
--- OUTSIDE RECORDS SUMMARY | 2024-10-25 17:13 | XMS_ITS | Encounter Summary ---
Author Organization [facility] Address [address] [place] [address] Care Team Providers Care Green Chain Puller Name Role Phone Sabrina Felix MD Primary Care Provider Encounter Details Date Type Department Care Team ([facility] Contact Info) Description 12/07/2017 myChart Message [facility] [address] [place] [address] Framing Consultant: Frank Loza MD [address] [place] [address] [place] [address] RE: Prep Social History Tobacco Use Types Packs/Day Years [...] Upcoming Encounters Date Type Department Care Team ([facility] Contact Info) Description 12/28/2024 11:40 AM EDT Follow-Up [facility] [address] [place] [address] Framing Consultant: Praful Paz MD [address] [place] [address] 05/11/2025 11:00 AM EDT Follow-Up [facility] [address] [place] [address] Ron Simmons MD [address] [place] [address] 05/11/2025 11:45 AM EDT Social Work [facility] [address] [place] [address] Una Méndez LICSW [address] [place] [address] documented as of this encounter Visit Diagnoses Not on filedocumented in this encounter Care Teams Green Chain Puller Relationship Specialty Start Date End Date Sabrina Felix MD [address] [place] [address] PCP - General 03/19/17 documented as of this encounter
--- OUTSIDE RECORDS SUMMARY | 2024-10-25 17:13 | XMS_ITS ---
Author Name [facility] [place] [facility] [place] Address [address] [place] [id number] Care Team Providers Care Internet Site Designer Name Role Phone NARCISO DODD Primary Care [...] Tavarez's Name Patient's Relationship to Policy Tavarez MEDICARE (WNR) MEDICARE (M) PART A Oct 01, 2021 PART A [id number] JESSICA,N ISABELLA PATIENT MEDICARE (WNR) MEDICARE (M) PART B Oct 01, 2021 PART B [id number] JESSICA,N ISABELLA PATIENT [facility] PRESCRIPT ION RX Aug 31, 2022 THPRX [id number] JESSICA,N ISABELLA PATIENT [facility] Aug 31, 2017 [facility] [id number] JESSICA,N ISABELLA PATIENT [facility] Aug 31, 2017 [facility] [id number] [phone] JESSICA,N ISABELLA PATIENT [facility] Aug 31, 2017 [id number] [phone] JESSICA,N ISABELLA PATIENT [facility] Aug 31, 2017 [facility] [id number] JESSICAFranY PATIENT Selected Encounter This section includes the information on record at [place] for the Encounter. Date/Time Encounter Type Encounter Description Reason Pro vider Source Sep 29, 2024 02:34 PM Outpatient Encounter PRIMARY CARE/MEDICINE IHE Encounter Template Text not used by [place] Plan of Treatment: Future Appointments (+ 6 months) and Future Tests (+/- 45 days) The Plan of Treatment section includes future care activities for the patient from all [place] treatmentfacilities. This section includes future appointments and future orders which are active, pending or scheduled. Future Appointments This section includes appointments that were scheduled to occur 6 months from the date of the Encounter, up to a maximum of 20 appointments. The data comes from all [place] treatment facilities. Appointment Date/Time Appointment Type Appointme nt Facility Name Nov 22, 2024 10:30 AM AMBULATORY - MEDICINE [place] [facility] [place] [facility] Encounter Notes: All associated encounter notes This section contains the clinical notes associated to the Encounter. Date/Time Encounter Note(s) Provider Source Sep 29, 2024 02:34 PM NURSING NOTE: LOCAL TITLE: NURSING NOTE STANDARD TITLE: NURSING NOTE DATE OF NOTE: SEP 29, 2024@14:34 ENTRY DATE: SEP 29, 2024@14:34:33 AUTHOR: DUTCH PALUMBO EXP COSIGNER: URGENCY: STATUS: COMPLETED Sent a request to [facility] to obtain most recent mammogram report. /mayte/ Dutch Palumbo RN, BSN Women's Healthcare Navigator, RN Signed: 09/29/2024 14:35 DUTCH PALUMBO [place]
--- OUTSIDE RECORDS SUMMARY | 2024-10-25 17:13 | XMS_ITS ---
Author Name [facility] [place] Organization [facility] [place] Address [address] [place] [address] Care Team Providers Care Fur Dry Cleaner Hand Name Role Phone NARCISO DODD Primary Care [...] PART A Oct 01, 2021 PART A [id number] JESSICA,N ISABELLA PATIENT MEDICARE (WNR) MEDICARE (M) PART B Oct 01, 2021 PART B [id number] [phone] JESSICA,N ISABELLA PATIENT [facility] PRESCRIPT ION RX Aug 31, 2022 THPRX [id number] JESSICA,N ISABELLA PATIENT [facility] Aug 31, 2017 [facility] [id number] JESSICA,N ISABELLA PATIENT [facility] Aug 31, 2017 [facility] [id number] JESSICA,N ISABELLA PATIENT [facility] Aug 31, 2017 [id number] JESSICA,N ISABELLA PATIENT [facility] Garcia Aug 31, 2017 [facility] [id number] JESSICAFran [place] PATIENT Selected Encounter This section includes the information on record at [place] for the Encounter. Date/Time Encounter Type Encounter Description Reason Pro vider Source Oct 04, 2024 09:37 AM Outpatient Encounter PRIMARY CARE/MEDICINE IHE Encounter Template Text not used by [place] Plan of Treatment: Future Appointments (+ 6 months) and Future Tests (+/- 45 days) The Plan of Treatment section includes future care activities for the patient from all [place] treatmentfacilities. This section includes future appointments and future orders which are active, pending or scheduled. Future Appointments This section includes appointments that were scheduled to occur 6 months from the date of the Encounter, up to a maximum of 20 appointments. The data comes from all [place] treatment facilities. Appointment Date/Time Appointment Type Appointme nt Facility Name Nov 22, 2024 10:30 AM AMBULATORY - [place]ICINE [place] [facility] Encounter Notes: All associated encounter notes This section contains the clinical notes associated to the Encounter. Date/Time Encounter Note(s) Provider Source Oct 04, 2024 09:37 AM [facility] NOTE : LOCAL TITLE: SMART BREAST IMAGING FOLLOW-UP STANDARD TITLE: [facility] NOTE DATE OF NOTE: OCT 04, 2024@09:37 ENTRY DATE: OCT 04, 2024@09:37:13 AUTHOR: DUTCH PALUMBO EXP COSIGNER: URGENCY: STATUS: COMPLETED Record prior or outside mammogram: Written Report Available Outside report Received on: October 03, 2024 Location: [place] Screening Breast Tomosynthesis Date: September 09, 2024 Patient does not have dense breast tissue Interpretation of results and decision making Summary of results: BIRAD 1, Density B Radiologist recommends the following: Return for screening mammogram in two years Method patient contacted by: Patient already notified/not needed Comment: by NON [place] ordering provider Additional Information: Additional Information: /mayte/ Dutch Palumbo RN, BSN Women's Healthcare Navigator, RN Signed: 10/04/2024 09:39 DUTCH PALUMBO [place]
--- OUTSIDE RECORDS SUMMARY | 2024-10-25 17:13 | XMS_ITS | Referral Summary ---
Author Organization [facility] Address [address] [place] [address] Care Team Providers Care Cloth Reeler Name Role Phone Sabrina Felix MD Primary Care Provider Encounters Date Type Department Care Team Description 08/18/2024 Mine Message [facility] [address] [place] [phone] Mill Attendant: Praful Paz MD Medication 08/18/2024 Orders Only [facility] [address] [place] [address] Mill Attendant: Praful Paz MD CKD stage G4/A2, GFR 15-29 and albumin creatinine ratio 30-299 mg/g (HCC) (Primary Dx) 08/17/2024 11:40 [facility] [address] [place] [address] Mill Attendant: Praful Paz MD CKD stage G4/A1, GFR 15-29 and albumin creatinine ratio <30 mg/g (HCC) (Primary Dx) 08/16/2024 Morizonhart Message [facility] [address] [place] [address] Mill Attendant: Praful Paz MD labs 08/12/2024 myChart Message [facility] [address] [place] [address] [phone] Mill Attendant: Praful Paz MD test results 08/11/2024 myChart Message [facility] [address] [place] [address] Mill Attendant: Praful Paz MD upcoming appt. from Last 3 Months Allergies Active Allergy Reactions Criticality Noted Date [...] israel zapien, stage 4 (severe) 08/19/2017 08/07/2018 Immunizations Immunization Administration Dates Next Due Adenovirus Vaccine, Type 7, Live, Oral 4 Covid-19, Pfizer, mRNA, [place] valent, PF 30 mcg/0.3 mL dose (for ages 12 and older) 11/27/2020,11/06/2020 Covid-19, Pfizer, mRNA, [place] valent, PF, 30 mcg/0.3 mL dose, dat-sucrose [...] Info) Description 12/28/2024 11:40 AM EDT Follow-Up [facility] [address] [place] [phone] Mill Attendant: Praful Paz MD [address] [place] [phone] 05/11/2025 11:00 AM EDT Follow-Up [facility] [address] [place] [address] Ron Simmons MD [address] [place] [address] 05/11/2025 11:45 AM EDT Social Work [facility] [address] [place] [address] Una Méndez LICSW [address] [place] [address] Procedures * Due to [place] imoji law, this organization might not be sharing negative HIV tests. Procedure Name Priority Date/Time Associated Diagnosis Comments LAB - SCANNED 08/11/2024 RENAL FUNCTION PANEL Routine 11/18/2023 11:45 AM EDT CKD stage G4/A1, GFR 15-29 and albumin creatinine ratio <30 mg/g (HCC) KIDNEY PANCREAS POST EXTERNAL PANEL Routine 10/23/2020 10:15 AM EST PTH, INTACT (WITHOUT CALCIUM) Routine 07/25/2019 4:17 PM EST Chronic kidney disease (CKD) stage G4/A1, severely decreased glomerular filtration rate (GFR) between 15-29 mL/min/1.73 square meter and albuminuria creatinine ratio less than 30 mg/g (CMS/HCC) Pre-transplant evaluation for end stage renal disease HEPATITIS C ANTIBODY W/REFLEX TO HCV RNA, QUANTITATIVE PCR Routine 06/28/2019 11:10 AM EDT Pre-transplant evaluation for end stage renal disease HM COLONOSCOPY Routine 03/26/2018 MICROALBUMIN, RANDOM URINE WITH CREATININE Routine 06/05/2016 2:47 PM EDT from Last 3 Months or Most Recently Relevant to Health Maintenance Results * Due to [place] imoji law, this organization might not be sharing negative HIV tests. * LAB - SCANNED (08/11/2024) us Onbase Scan [facility] LAB HISTORICAL RESULTS Final Result * (ABNORMAL) Renal Function Panel (11/18/2023 11:45 AM EDT) NA 136 135 - 145 mmol/L 11/18/2023 1:47 PM EDT [facility] K 3.4(L) 3.5 - 5.3 mmol/L 11/18/2023 1:47 PM EDT [facility] Cl 101 97 - 110 mmol/L 11/18/2023 1:47 PM EDT [facility] CO2 26 24 - 32 mmol/L 11/18/2023 1:47 PM EDT [facility] Anion Gap 9 5 - 15 11/18/2023 1:47 PM EDT [facility] Glucose 94 70 - 99 mg/dL 11/18/2023 1:47 PM EDT [facility] BUN 31(H) 7 - 23 mg/dL 11/18/2023 1:47 PM EDT [facility] Creatinine 2.73(H) 0.50 - 1.20 mg/dL 11/18/2023 1:47 PM EDT [facility] Calcium 9.9 8.7 - 10.7 mg/dL 11/18/2023 1:47 PM EDT [facility] Phosphorus 3.5 2.5 - 4.5 mg/dL 11/18/2023 1:47 PM EDT [facility] Albumin 3.9 3.5 - 4.8 g/dL 11/18/2023 1:47 PM EDT [facility] eGFR 19(L) >=60 mL/min/1 .73m2 11/18/2023 1:47 PM EDT [facility] Comment:The estimated glomer ular filtration rate (eGFR) is calculated using a new formula developed by the NKF-ASN task force to eliminate race-based correction factors. The new formula uses serum/plasma creatinine, age, and gender to determine eGFR. A value below 60mls/min might indicate kidney disease and will be flagged. For additional information, see Roe et al, Am J Kidney Dis. 2021;79(2):268- 288, A Unifying Approach for GFR estimation: Recommendations of the NKF-ASN Task Force on Reassessing the Inclusion of Race in Diagnosing Kidney Disease . Blood Structure of peripheral vein / Unknown Venipuncture / Unknown 11/18/2023 11:45 AM EDT 11/18/2023 1:09 PM EDT us Praful Rodriguez MD LAB BLOOD ORDERABLES Final Resul t Performing Organization Address [facility] Co de Phone Number [facility] [address] [place] [address], [place] * KIDNEY PANCREAS POST EXTERNAL PANEL (10/23/2020 10:15 AM EST) WBC 5.9 10*3/uL [facility] Hgb 11.7 [facility] Hematocrit 36.3 % [facility] Platelets 264 10*3/uL [facility] Sodium 140 mmol/L [facility] Potassium 3.8 [facility] Chloride 104 [facility] Carbon Dioxide 25 [facility] BUN 30 [facility] Creatinine 2.19 mg/dL [facility] Calcium 8.6 mg/dL [facility] 10/23/2020 10:1 5 AM EST us Unknown Provider LAB BLOOD ORDERABLES Final R esult Performing Organization Address [facility]/ZIP Co de Phone Number [facility] [address] [place], [place] [phone] * (ABNORMAL) PTH, Intact (without Calcium) (07/25/2019 4:17 PM EST) Parathyroid Hormone, Intact 163(H) 14 - 64 pg/mL 07/30/2019 9:05 PM EST [facility] Comment: Interpretive Guide ?Intact PTH ? Calcium [...] Magalys AVERY - 07/30/2019 9:05 PM EST [employer] Received Date:[id number] Frank Lane MD LAB BLOOD ORDERABLES Edited Result - Final Performing Organization Address City/State/[facility] Co de Phone Number [facility] [address], [place] [address], [facility] [address], [place] [address], * Hepatitis C Antibody w/Reflex to PCR (06/28/2019 11:10 AM EDT) Hepatitis C Antibody NON-REACT YUNG NON-REACT YUNG 06/28/2019 7:20 PM EDT [facility] Signal To Cut-Off 0.01 <1.00 06/28/2019 7:20 PM EDT [facility] Comment: HCV antibody was non-reactive. There is no laboratory evidence of HCV infection. In most cases, no further action is required. However, if recent HCV exposure is suspected, a test for HCV RNA (test code 76791) is suggested. For additional information please refer to http://education.[employer]/faq/ORZ34f6 (This link is being provided for informational/ educational purposes only.) Blood specimen (specimen) Structure of peripheral vein / Unknown Venipuncture / Unknown 06/28/2019 11:10 AM EDT 06/28/2019 11:22 AM EDT Narrative [facility] - 06/28/2019 7:20 PM EDT [facility] Received Date:[id number] Frank Lane MD LAB BLOOD ORDERABLES Final R esult [facility] [address], [place] [address], [facility] [address], [place] [address], [place] [phone] * HM Colonoscopy (03/26/2018) Unknown Provider HEALTH MAINTENANCE Final Res ult * Microalbumin/Creatinine Urine, Random (06/05/2016 2:47 PM EDT) Microalbumin Urine 1.8 mg/dL [facility] Creatinine Urine 218 15 - 278 mg/dL [facility] Albumin/Creat Ratio 8 <30.0 mcg/mgCr [facility] Comment: Normal ? < 30 ?? mcg/mg creatinine Microalbuminuria ?30-300 ??mcg/mg creatinine Clinical Albuminuria ? > 300 ??mcg/mg creatinine Reference: ADA Guidelines. Diabetes Care. 2004; 27 (suppl 1) 06/05/2016 2:47 PM EDT 06/05/2016 3:[address] us Frank Lane MD LAB URINE ORDERABLES Final R esult [facility] [address] [place] [phone], from Last 3 Months or Most Recently Relevant to Health Maintenance Insurance MEDICARE [facility] [employer] [facility] MEDICARE FOR LIFE MEDICARE FOR LIFE Advance Directives Documents on File Type Date Recorded Patient Frame Stripper Expl anation Health Care Proxy 05/16/2024 3:58 PM 05-12 Care Teams Cloth Reeler Relationship Specialty Start Date End Date Sabrina Felix MD [address] [place] [address] PCP - General 03/19/17
[2024-10-25 17:26] LABS: Parathyroid Hormone Intact 226.4 pg/mL (8.7-77.1)
[2024-10-25 17:27] LABS: Ferritin 575 ng/mL (10-250); Vitamin D 25-OH Total 44.1 ng/mL (>30)
== END 2024-10-25 13:50 | disposition home or self-care (01) ==
LOC: HO.HMGCLR 13:49
PROVIDERS: PCP Internal Medicine; Visit Provider Internal Medicine Nephrology
DX: N18.4 Chronic kidney disease, stage 4 (severe) (principal)
CPT/HCPCS: 36415; 80051; 82043; 82306; 82310; 82565; 82570; 82728; 83540; 83970; 84156; 84520; 85025

== ENCOUNTER 2024-12-23 11:22 | Outpatient (REF) | payer MEDICARE, OTHER, SELFPAY ==
--- OUTSIDE RECORDS SUMMARY | 2024-12-23 12:18 | XMS_ITS | Clinical Summary ---
Author Organization [facility] Address [address] [place] [address] Care Team Providers Care Neurodiagnostic Tech Name Role Phone Sabrina Felix MD Primary Care Provider Allergies Active Allergy Reactions Criticality Noted Date Comments Tetracyclines Dyspnea High Medications calcipotriene/be tamethasone (TACLONEX TOP) by Topical (top) route. Active halobetasol (ULTRAVATE) 0.05 % ointment 01/31/20 21 Active clobetasoL (TEMOVATE) 0.05 % external solution 09/11/19 22 Active fluocinolone (DERMA-SMOOTHE) 0.01 % external oil 12/13/19 22 Active nystatin 100,000 unit/gram cream Apply topically to the affected area daily. Active atorvastatin (LIPITOR) 80 mg tablet Take 40 mg by mouth every other day. 09/21/19 24 Active aspirin chewable tablet 81 mg Chew and swallow 81 mg by mouth once a day. Active tildrakizumab-as mn (Ilumya) 100 mg/mL syringe subcutaneous injection Inject 100 mg under the skin once. Injection once a month. Active sodium bicarbonate 650 mg tabletIndication s:Metabolic acidosis TAKE 3 TABLETS (1,944 MG TOTAL) BY MOUTH 2 TIMES A DAY. 540 tablet 3 04/20/20 24 025 Active cephalexin (KEFLEX) 250 mg capsule Take 250 mg by mouth 2 times a day. 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 900 tablet 3 11/10/19 25 026 Active cholecalciferol (VITAMIN D3) 1,250 mcg (50,000 unit) capsuleIndicatio ns:Chronic kidney disease (CKD) stage G4/A1, severely decreased glomerular filtration rate (GFR) between 15-29 mL/min/1.73 square meter and albuminuria creatinine ratio less than 30 mg/g (HCC),Vitamin D deficiency TAKE 1 CAPSULE BY MOUTH ONCE EVERY 14 DAYS 6 capsule 3 11/11/19 25 Active ferrous sulfate 325 mg (65 mg iron) tabletIndication s:Iron deficiency anemia secondary to inadequate dietary iron intake TAKE 1 TABLET BY MOUTH EVERY DAY WITH BREAKFAST 90 tablet 3 12/16/19 25 Active ferrous sulfate 325 mg (65 mg iron) tabletIndication s:Iron deficiency anemia secondary to inadequate dietary iron intake Take 1 tablet (325 mg total) by mouth daily with breakfast. 90 tablet 3 12/21/19 24 025 Discontinued Active Problems Problem Noted Date Diagnosed Date [...] Date Resolved Date Anemia of chronic kidney israelbebe marteerlin, stage 4 (severe) 08/19/2017 08/07/2018 Encounters Date Type Department Care Team Description 12/15/2024 Refill [facility] [address] [place] [phone] Melter Supervisor Electric Arc Furnace: Praful Paz MD Iron deficiency anemia secondary to inadequate dietary iron intake 11/10/2024 Refill [facility] [address] [place] [address] 284[address] Melter Supervisor Electric Arc Furnace: Praful Paz MD Chronic kidney disease (CKD) stage G4/A1, severely decreased glomerular filtration rate (GFR) between 15-29 mL/min/1.73 square meter and albuminuria creatinine ratio less than 30 mg/g; Vitamin D deficiency 11/09/2024 Orders Only [facility] [address] [place] [phone] Melter Supervisor Electric Arc Furnace: Praful Paz MD 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 myChart Message [facility] [address] [place] [phone] Melter Supervisor Electric Arc Furnace: Praful Paz MD SCRIPT from Last 3 Months Immunizations Immunization Administration Dates Next Due Adenovirus Vaccine, Type 7, Live, Oral 4 Covid-19, Pfizer, mRNA, [place] valent, PF 30 mcg/0.3 mL dose (for ages 12 and older) 11/27/2020,11/06/2020 Covid-19, Pfizer, mRNA, [place] valent, PF, 30 mcg/0.3 mL dose, dat-sucrose [...] , Live, Oral 06/30/1984 Tuberculin Skin Test; Jimmy ed Protein Derivative Solution, Intradermal 11/02/2002 Typhoid [...] Info) Description 12/28/2024 11:40 AM EDT Follow-Up [facility] [address] [place] [phone] Melter Supervisor Electric Arc Furnace: Praful Paz MD [address] [place] [phone] 05/11/2025 11:00 AM EDT Follow-Up [facility] Transplant [address] [place] [address] Ron Simmons MD [address] [place] [address] 05/11/2025 11:45 AM EDT Social Work [facility] [address] [place] [address] Una Méndez, BAR ROLLER [address] [place] [address] Health Maintenance Due Date Last Done Comments 25 Hydroxy / Vitamin D 1956 Cologuard 1956 FOBT / Fit Test 1956 Sigmoidoscopy 1956 Medicare AWV 1957 Mammogram 1996 Osteoporosis Screening 2006 Urine Microalbumin [...] Colon Cancer Screening 03/26/2028 Colonoscopy 03/26/2028 03/26/2018, 07/05/2018, 03/08/2018, Additional history exists DTaP,Tdap,and Td Vaccines [...] Additional history exists Procedures * Due to [place] [employer] law, this organization might not be sharing negative HIV tests. Procedure Name Priority Date/Time Associated Diagnosis Comments LAB - SCANNED 10/25/2024 RENAL FUNCTION PANEL Routine 11/18/2023 11:45 AM EDT CKD stage G4/A1, GFR 15-29 and albumin creatinine ratio <30 mg/g KIDNEY PANCREAS POST EXTERNAL PANEL Routine 10/23/2020 10:15 AM EST PTH, INTACT (WITHOUT CALCIUM) Routine 07/25/2019 4:17 PM EST Chronic kidney disease (CKD) stage G4/A1, severely decreased glomerular filtration rate (GFR) between 15-29 mL/min/1.73 square meter and albuminuria creatinine ratio less than 30 mg/g Pre-transplant evaluation for end stage renal disease HEPATITIS C ANTIBODY W/REFLEX TO HCV RNA, QUANTITATIVE PCR Routine 06/28/2019 11:10 AM EDT Pre-transplant evaluation for end stage renal disease HM COLONOSCOPY Routine 03/26/2018 MICROALBUMIN, RANDOM URINE WITH CREATININE Routine 06/05/2016 2:47 PM EDT from Last 3 Months or Most Recently Relevant to Health Maintenance Results * Due to [place] [employer] law, this organization might not be sharing negative HIV tests. * LAB - SCANNED (10/25/2024) us Onbase Scan [facility] LAB HISTORICAL RESULTS Final Result * (ABNORMAL) Renal Function Panel (11/18/2023 11:45 AM EDT) NA 136 135 - 145 mmol/L 11/18/2023 1:47 PM EDT [facility] K 3.4(L) 3.5 - 5.3 mmol/L 11/18/2023 1:47 PM EDT [facility] Cl 101 97 - 110 mmol/L 11/18/2023 1:47 PM EDT [facility] CO2 26 24 - 32 mmol/L 11/18/2023 1:47 PM EDT [facility] Anion Gap 9 5 - 15 11/18/2023 1:47 PM EDT [facility] Glucose 94 70 - 99 mg/dL 11/18/2023 1:47 PM EDT [facility] BUN 31(H) 7 - 23 mg/dL 11/18/2023 1:47 PM EDT [facility] Creatinine 2.73(H) 0.50 - 1.20 mg/dL 11/18/2023 1:47 PM EDT [facility] Calcium 9.9 8.7 - 10.7 mg/dL 11/18/2023 1:47 PM EDT [facility] Phosphorus 3.5 2.5 - 4.5 mg/dL 11/18/2023 1:47 PM EDT [facility] Albumin 3.9 3.5 - 4.8 g/dL 11/18/2023 1:47 PM EDT [facility] eGFR 19(L) >=60 mL/min/1 .73m2 11/18/2023 1:47 PM EDT [facility] Comment:The estimated glomer ular [...] ORDERABLES Final Resul t Performing Organization Address [facility] Co de Phone Number [facility] [address] [place] [address], [place] * KIDNEY PANCREAS POST EXTERNAL PANEL (10/23/2020 10:15 AM EST) WBC 5.9 10*3/uL [facility] Hgb 11.7 [facility] Hematocrit 36.3 % [facility] Platelets 264 10*3/uL [facility] Sodium 140 mmol/L [facility] Potassium 3.8 [facility] Chloride 104 [facility] Carbon Dioxide 25 [facility] BUN 30 [facility] Creatinine 2.19 mg/dL [facility] Calcium 8.6 mg/dL [facility] 10/23/2020 10:1 5 AM EST us Unknown Provider LAB BLOOD ORDERABLES Final R esult Performing Organization Address [facility] Co de Phone Number [facility] [address] [place] [address] * (ABNORMAL) PTH, Intact (without Calcium) (07/25/2019 4:17 PM EST) Parathyroid Hormone, Intact 163(H) 14 - 64 pg/mL 07/30/2019 9:05 PM EST [facility] Comment: Interpretive Guide ?Intact PTH ? Calcium [...] 4:17 PM EST 07/25/2019 4:42 PM EST Narrative [facility] - 07/30/2019 9:05 PM EST [facility] Received Date:[id number] Frank Lane MD LAB BLOOD ORDERABLES Edited Result - Final [facility] [address] [facility] 3rd Floor, [place] [address], [employer] [facility] [address], [place] [address], * Hepatitis C Antibody w/Reflex to PCR (06/28/2019 11:10 AM EDT) Hepatitis C Antibody NON-REACT YUNG NON-REACT YUNG 06/28/2019 7:20 PM EDT [employer] [facility] Signal To Cut-Off 0.01 <1.00 06/28/2019 7:20 PM EDT [facility] Comment: HCV antibody was non-reactive. There is no laboratory evidence of HCV infection. In most cases, no further action is required. However, if recent HCV exposure is suspected, a test for HCV RNA (test code 97644) is suggested. For additional information please refer to http://education.[employer]/faq/PWX09a9 (This link is being provided for informational/ educational purposes only.) Blood specimen (specimen) Structure of peripheral vein / Unknown Venipuncture / Unknown 06/28/2019 11:10 AM EDT 06/28/2019 11:22 AM EDT Narrative [facility] - 06/28/2019 7:20 PM EDT [facility] Received Date:[id number] Frank Lane MD LAB BLOOD ORDERABLES Final R esult [facility] [address] [facility] 3rd Floor, [place] [address], [place] [phone] [employer] [facility] 200 [facility] 3rd Floor, [place] [address], [place] [phone] * HM Colonoscopy (03/26/2018) us Unknown Provider MD HEALTH MAINTENANCE Final Res ult * Microalbumin/Creatinine Urine, Random (06/05/2016 2:47 PM EDT) Microalbumin Urine 1.8 mg/dL [facility] Creatinine Urine 218 15 - 278 mg/dL [facility] Albumin/Creat Ratio 8 <30.0 mcg/mgCr [facility] Comment: Normal ? < 30 ?? mcg/mg creatinine Microalbuminuria ?30-300 ??mcg/mg creatinine Clinical Albuminuria ? > 300 ??mcg/mg creatinine Reference: ADA Guidelines. Diabetes Care. 2004; 27 (suppl 1) 06/05/2016 2:47 PM EDT 06/05/2016 3:[address] MD LAB URINE ORDERABLES Final R esult [facility] [address] [place] [address], from Last 3 Months or Most Recently Relevant to Health Maintenance Insurance MEDICARE [employer] FOR [employer] MEDICARE Member Subscriber Plan / Payer (Ef fective 2021-Present) Name:Lisha Solis Reginald Member ID:[id number] Relation to Subscriber:Self Name:Lisha Solis Subscriber ID:[id number] Payer ID:[id number] Group ID:Not on file Type:Not on file Address: [place] [phone] [facility] FOR [facility] MEDICARE FOR LIFE Advance Directives Documents on File Type Date Recorded Patient Simplex Printer Installer Expl anation Health Care Proxy 05/16/2024 3:58 PM 05-12 Care Teams Neurodiagnostic Tech Relationship Specialty Start Date End Date Sabrina Felix MD [address] [place] [address] PCP - General 03/19/17
--- OUTSIDE RECORDS SUMMARY | 2024-12-23 12:18 | XMS_ITS | Referral Summary ---
Author Organization [facility] Address [address] [place] [address] Care Team Providers Care Stone Polisher Name Role Phone Sabrina Felix MD Primary Care Provider Encounters Date Type Department Care Team Description 12/15/2024 Refill [facility] [address] [place] [phone] Mining Professionals: Praful Paz MD Iron deficiency anemia secondary to inadequate dietary iron intake 11/10/2024 Refill [facility] [address] [place] [address] Mining Professionals: Praful Paz MD Chronic kidney disease (CKD) stage G4/A1, severely decreased glomerular filtration rate (GFR) between 15-29 mL/min/1.73 square meter and albuminuria creatinine ratio less than 30 mg/g; Vitamin D deficiency 11/09/2024 Orders Only [facility] [address] [place] [address] [phone] Mining Professionals: Praful Paz MD 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 myChart Message [facility] [address] [place] [address] [phone] Mining Professionals: Praful Paz MD SCRIPT from Last 3 Months Allergies Active Allergy Reactions Criticality Noted Date Comments Tetracyclines Dyspnea High Medications calcipotriene/be tamethasone (TACLONEX TOP) by Topical (top) route. Active halobetasol (ULTRAVATE) 0.05 % ointment 01/31/20 Active clobetasoL (TEMOVATE) 0.05 % external solution 09/11/19 Active fluocinolone (DERMA-SMOOTHE) 0.01 % external oil [...] 7, Live, Oral 4 Covid-19, Pfizer, mRNA, [place] valent, PF 30 mcg/0.3 mL dose (for ages 12 and older) 11/27/2020,11/06/2020 Covid-19, Pfizer, mRNA, [place] valent, PF, 30 mcg/0.3 mL dose, dat-sucrose [...] Info) Description 12/28/2024 11:40 AM EDT Follow-Up [facility] [address] [place] [address] Mining Professionals: Praful Paz MD [address] [place] [phone] 05/11/2025 11:00 AM EDT Follow-Up [facility] Transplant [address] [place] [address]65 Ron Simmons MD [address] [place] [address] 05/11/2025 11:45 AM EDT Social Work [facility] [address] [place] [address] Una Méndez, HIGH ENERGY FORMING EQUIPMENT OPERATOR [address] [place] [address] Procedures * Due to [facility] law, this organization might not be sharing [...] to Health Maintenance Results * Due to [place] state law, this organization might not be sharing negative HIV tests. * LAB - SCANNED (10/25/2024) us Onbase Scan [facility] LAB HISTORICAL RESULTS Final Result * (ABNORMAL) Renal Function Panel (11/18/2023 11:45 AM EDT) NA 136 135 - 145 mmol/L 11/18/2023 1:47 PM EDT [facility] K 3.4(L) 3.5 - 5.3 mmol/L 11/18/2023 1:47 PM EDT [facility] Cl 101 97 - 110 mmol/L 11/18/2023 1:47 PM EDT [facility] CO2 26 24 - 32 mmol/L 11/18/2023 1:47 PM EDT [facility] Anion Gap 9 5 - 15 11/18/2023 1:47 PM EDT [facility] Glucose 94 70 - 99 mg/dL 11/18/2023 1:47 PM EDT [facility] BUN 31(H) 7 - 23 mg/dL 11/18/2023 1:47 PM EDT [facility] Creatinine 2.73(H) 0.50 - 1.20 mg/dL 11/18/2023 1:47 PM EDT [facility] Calcium 9.9 8.7 - 10.7 mg/dL 11/18/2023 1:47 PM EDT [facility] Phosphorus 3.5 2.5 - 4.5 mg/dL 11/18/2023 1:47 PM EDT [facility] Albumin 3.9 3.5 - 4.8 g/dL 11/18/2023 1:47 PM EDT [facility] eGFR 19(L) >=60 mL/min/1 .73m2 11/18/2023 1:47 PM EDT [facility] Comment:The estimated glomer ular [...] ORDERABLES Final Resul t Performing Organization Address [facility] de Phone Number [facility] [address] [place] [address], * KIDNEY PANCREAS POST EXTERNAL PANEL (10/23/2020 10:15 AM EST) WBC 5.9 10*3/uL [facility] Hgb 11.7 [facility] Hematocrit 36.3 % [facility] Platelets 264 10*3/uL [facility] Sodium 140 mmol/L [facility] Potassium 3.8 [facility] Chloride 104 [facility] Carbon Dioxide 25 [facility] BUN 30 [facility] Creatinine 2.19 mg/dL [facility] Calcium 8.6 mg/dL [facility] 10/23/2020 10:1 5 AM EST us Unknown Provider LAB BLOOD ORDERABLES Final R esult Performing Organization Address [facility] de Phone Number [facility] [address] [place] [address] * (ABNORMAL) PTH, Intact (without Calcium) (07/25/2019 4:17 PM EST) Parathyroid Hormone, Intact 163(H) 14 - 64 pg/mL 07/30/2019 9:05 PM EST [facility] [employer] Comment: Interpretive Guide ?Intact PTH ? Calcium [...] EST 07/25/2019 4:42 PM EST Narrative [facility] - 07/30/2019 9:05 PM EST [facility] Received Date:[id number] Frank Lane MD LAB BLOOD ORDERABLES Edited Result - Final [facility] [address] [facility] [address] [facility], [place] [address], [employer] [facility] [address], [place] [address], * Hepatitis C Antibody w/Reflex to PCR (06/28/2019 11:10 AM EDT) Hepatitis C Antibody NON-REACT YUNG NON-REACT YUNG 06/28/2019 7:20 PM EDT [facility] Signal To Cut-Off 0.01 <1.00 06/28/2019 7:20 PM EDT [employer] Comment: HCV antibody was non-reactive. There is no laboratory evidence of HCV infection. In most cases, no further action is required. However, if recent HCV exposure is suspected, a test for HCV RNA (test code 81646) is suggested. For additional information please refer to http://education.[employer]/faq/WSC39m5 (This link is being provided for informational/ educational purposes only.) Blood specimen (specimen) Structure of peripheral vein / Unknown Venipuncture / Unknown 06/28/2019 11:10 AM EDT 06/28/2019 11:22 AM EDT Narrative [facility] - 06/28/2019 7:20 PM EDT [facility] Received Date:[id number] Frank Lane MD LAB BLOOD ORDERABLES Final R esult [facility] [address] [facility] 3rd Floor, [place] [address], [place] [phone] [employer] [facility] [address] [facility] 3rd [address], [place] [address], [place] [phone] * HM Colonoscopy (03/26/2018) us Unknown Provider HEALTH MAINTENANCE Final Res ult * Microalbumin/Creatinine Urine, Random (06/05/2016 2:47 PM EDT) Microalbumin Urine 1.8 mg/dL [facility] Creatinine Urine 218 15 - 278 mg/dL [facility] Albumin/Creat Ratio 8 <30.0 mcg/mgCr [facility] Comment: Normal ? < 30 ?? mcg/mg creatinine Microalbuminuria ?30-300 ??mcg/mg creatinine Clinical Albuminuria ? > 300 ??mcg/mg creatinine Reference: ADA Guidelines. Diabetes Care. 2004; 27 (suppl 1) 06/05/2016 2:47 PM EDT 06/05/2016 3:[address] Frank [address] MD LAB URINE ORDERABLES Final R esult [facility] [address] [place] [address], from Last 3 Months or Most Recently Relevant to Health Maintenance Insurance MEDICARE [facility] FOR LIFE MEDICARE [facility] MEDICARE [facility] Advance Directives Documents on File Type Date Recorded Patient Final Inspector Balance Wheel Expl anation Health Care Proxy 05/16/2024 3:58 PM 05-12 Care Teams Stone Polisher Relationship Specialty Start Date End Date Sabrina Felix MD [address] [place] [address] PCP - General 03/19/17
--- OUTSIDE RECORDS SUMMARY | 2024-12-23 12:18 | XMS_ITS | Encounter Summary ---
Author Organization [facility] Address [address] [place] [address] Care Team Providers Care Churn Operator Margarine Name Role Phone Sabrina Felix MD Primary Care Provider Encounter Details Date Type Department Care Team ([facility] Contact Info) Description 12/04/2017 myChart Message [facility] [address] [place] [phone] Sign Language Instructor: Frank Loza MD [address] [place] [address] [place] [address] Referral Request Social History Tobacco Use Types [...] Upcoming Encounters Date Type Department Care Team ([facility] Contact Info) Description 12/28/2024 11:40 AM EDT Follow-Up [facility] [address] [place] [phone] Sign Language Instructor: Praful Paz MD [address] [place] [address] 05/11/2025 11:00 AM EDT Follow-Up [facility] Ren[facility] Transplant [address] [place] [address] Ron Simmons MD [address] [place] [address] 05/11/2025 11:45 AM EDT Social Work [facility] [address] [place] [address] Una Méndez LICSW [address] [place] [address] documented as of this encounter Visit Diagnoses Not on filedocumented in this encounter Care Teams Churn Operator Margarine Relationship Specialty Start Date End Date Sabrina Felix MD [address] [place] [address] PCP - General 03/19/17 documented as of this encounter
--- OUTSIDE RECORDS SUMMARY | 2024-12-23 12:18 | XMS_ITS | Encounter Summary ---
Author Organization [facility] Address [address] [place] [address] Care Team Providers Care Long Chain Quiller Tender Name Role Phone Sabrina Felix MD Primary Care Provider Encounter Details Date Type Department Care Team ([facility] Contact Info) Description 09/24/2017 myChart Message [facility] [address] [place] [phone] Metal Roofing Mechanic: Frank Loza MD [address] [place] [address] [place] [address] Non-Urgent Medical Question Social History Tobacco Use [...] Info) Description 12/28/2024 11:40 AM EDT Follow-Up [facility] [address] [place] [phone] Metal Roofing Mechanic: Praful Paz MD [address] [place] [address] [phone] 05/11/2025 11:00 AM EDT Follow-Up [facility] Transplant [address] [place] [address] Ron Simmons MD [address] [place] [address] 05/11/2025 11:45 AM EDT Social Work [facility] [address] [place] [address] Una Méndez LICSW [address] [place] [address] documented as of this encounter Visit Diagnoses Not on filedocumented in this encounter Care Teams Long Chain Quiller Tender Relationship Specialty Start Date End Date Sabrina Felix MD [address] [place] [address] PCP - General 03/19/17 documented as of this encounter
--- OUTSIDE RECORDS SUMMARY | 2024-12-23 12:18 | XMS_ITS ---
Author Organization [facility] Address [address] [place] [address] Care Team Providers Care Oil Field Rig Builder Name Role Phone Sabrina Felix MD Primary Care Provider Transplant Episode Kidney Candidate [facility] ([place], [place]) - [facility] waitlisted on 08/11/2019 Marked as Inactive on 08/11/2019 Reason: Candidate Workup Incomplete Kidney CoordinatorHoa Aldrich RN Email: N/A Scores Score Value Updated Exceptions/Reas ons CPRA 0 05/23/2024 EPTS (Calc) 47 12/23/2024 Care Team Name Role Phone Fax Email Hoa Aldrich RN Kidney Coordinator [phone] N/A Star Thomas MD Supervisor Customer Records Division [phone] [email or web address] Frank Lane MD Referring Physician [phone] [email or web address] Chucho Lara Potato Chip Fryer N/A N/A N/A Events Pre-Transplant Referred: 04/25/2019 Evaluation began: 06/28/2019 Committee: 08/10/2019 Center waitlisted: 08/11/2019
--- OUTSIDE RECORDS SUMMARY | 2024-12-23 12:18 | XMS_ITS | Continuity of Care Document ---
Author Name [facility] Organization [facility] Care Team Providers Care Crime Lab Analyst Name Role Phone [facility] Unavailable Unavailable Problems Combined list of problems from Department of Defense and Veterans Affairs facilities. It does not include entries that were removed or entered in error. Problem Status Onset Date Problem Type Date of Resolution Comments Source [facility] Chronic hypokalemia Active Condition [place] [facility] [place] [facility] Chronic kidney disease stage 4 Active Condition January 18, 2021 Entered By: DUANE BERRY Comment: Training And Development Manager-[facility] Gar[facility] Colonoscopy Screening Active Condition Nov 12, [...] inflammatory bcwel disease. [place] [facility] [place] [facility] Hyperlipidemia Active Condition [place] Interstitial [facility]ritis [facility] [place] [facility] Lymph[facility] colitis [facility] [place] [facility] Primary Care Provider Active Condition Nov 04, 2021 Entered By: NARCISO DODD Comment: Dr Sabrina Lo - affiliated with [facility] [place] [facility] Psoriasis Active Condition January 18 Entered By: DUANE BERRY Comment: [facility] Vitamin D deficiency Active Condition [facility] Diagnosis: ICD-10-CM N18.4 Chronic kidney disease, stage 4 (severe) Active Diagnosis [place] Diagnosis: ICD-10-CM K52.839 Microscopic colitis, unspecified Active Diagnosis [place] Medications Combined list of outpatient medications from Department of Defense and Veterans Affairs facilities.Medications provided include 1) outpatient medications from the last 15 months, and 2) patient-reported medications. Medication Details Route Status Patient Instructions Prescription Expires Prescription Number Last Dispense Date Ordering Provider Order Date Order Qty Source ATORVASTATI N CA 80MG TAB TAKE ONE-HALF TABLET BY MOUTH EVERY OTHER DAY ORAL ACTIVE SAIDA DODD SA spring IELD ATORVASTATI N CALCIUM (atorvastat in calcium), 80 MG, TABLET, ORAL, MIRIAM [facility], 500 ea. BOTTLE Active [id number] 4 2023 90 Pharmac y Data Transac tion Service Facilit y BETAMETHASO NE DIPROPIONAT E 0.064%/CALC IPOTRIENE 0.005% OINT,TOP APPLY SUFFICIE NT AMOUNT TOPICALL Y ONCE DAILY TOPICA L ACTIVE ANNA BERRY spring IELD CALCIPOTRIE NE (CALCIPOTRI SUE), 0.005%, SOLUTION, TOPICAL, [facility] 60 ml BOTTLE Active [id number] 4 2023 60 Pharmac y Data Transac tion Service Facilit y CEPHALEXIN (CEPHALEXIN MONOHYDRATE ), 250MG, CAPSULE, ORAL, LUPIN PHARMACEU, 100 ea. BOTTLE Active [id number] 4 2023 14 Pharmac y Data Transac tion Service Facilit y CEPHALEXIN (CEPHALEXIN MONOHYDRATE ), 250MG, CAPSULE, ORAL, LUPIN PHARMACEU, 100 ea. BOTTLE Active [id number] 4 2023 14 Pharmac y Data Transac tion Service Facilit y CHOLECALCIF KAILYN 1,250MCG (50,000UNIT ) CAP,ORAL TAKE 1 CAPSULE BY MOUTH EVERY 2 WEEKS ORAL ACTIVE ANNA BERRY 2020 IELD FERROUS SO4 325MG TAB TAKE ONE TABLET BY MOUTH ONCE DAILY ORAL ACTIVE ANNA BERRY 2020 IELD FLUCONAZOLE (fluconazol e), 150 MG, TABLET, ORAL, ZYDUS PHARMACE[facility], 12 ea. BLIST PACK Active [id number] 4 2023 3 Pharmac y Data Transac tion Service Facilit y HALOBETASOL PROPIONATE (halobetaso l propionate) , 0.05 %, OINT. (G), TOPICAL, JESSICA PHARMAC, 50 g TUBE Active [id number] 4 2023 50 Pharmac y Data Transac tion Service Facilit y HALOBETASOL PROPIONATE (halobetaso l propionate) , 0.05 %, OINT. (G), TOPICAL, JESSICA [facility]ARM[facility], 50 g TUBE Active [id number] 4 2023 50 Pharmac y Data Transac tion Service Facilit y KLOR-CON M10 (potassium chloride), 10 MEQ, TAB ER PRT, ORAL, UPSHER-NASIR H LA, 1000 ea. BOTTLE Cancele d [id number] : 2023 0 Pharmac y Data Transac tion Service Facilit y KLOR-CON M10 (potassium chloride), 10 MEQ, TAB ER PRT, ORAL, UPSHER-NASIR H LA, 1000 ea. BOTTLE Active [id number] 4 2023 900 Pharmac y Data Transac tion Service Facilit y NYSTATIN-TR IAMCINOLONE (NYSTATIN/T RIAMCIN), 269698-2.1, CREAM(GM), TOPICAL, [facility], 30 g TUBE Cancele d [id number] : 2023 0 Pharmac y Data Transac tion Service Facilit y NYSTATIN-TR IAMCINOLONE (nystatin/t riamcinolon e acetonide), 420934-3.1, OINT. (G), TOPICAL, VIONA [facility], 60 g TUBE Active [id number] 4 2023 60 Pharmac y Data Transac tion Service Facilit y POTASSIUM CHLORIDE (potassium chloride), 10 MEQ, TABLET ER, ORAL, [facility], 1000 ea. BOTTLE Cancele d [id number] : 2023 0 Pharmac y Data Transac tion Service Facilit y POTASSIUM CHLORIDE (potassium chloride), 10 MEQ, TABLET ER, ORAL, AVKARE, 500 ea. BOTTLE Cancele d [id number] : 2023 0 Pharmac y Data Transac tion Service Facilit y POTASSIUM CHLORIDE 10MEQ TAB,SA TAKE ONE TABLET BY MOUTH 10 PILLS A DAY ORAL ACTIVE YOUSIFSAIDA SAE [address] [facility] [address] SILVER SULFADIAZIN E (SILVER SULFADIAZIN E), 1%, CREAM(GM), TOPICAL, [facility], 85 g TUBE Cancele d [id number] : 2023 0 Pharmac y Data Transac tion Service Facilit y SILVER SULFADIAZIN E (SILVER SULFADIAZIN E), 1%, CREAM(GM), TOPICAL, [facility], 85 g TUBE Active [id number] 4 2023 85 Pharmac y Data Transac tion Service Facilit y SODIUM BICARBONATE 650MG TAB TAKE THREE TABLETS BY MOUTH TWICE DAILY ORAL ACTIVE SAIDA DODD SA 2021 [facility] VITAMIN D2 (ergocalcif kailyn (vitamin D2)), 1250 MCG, CAPSULE, ORAL, AVKARE, 100 ea. BOTTLE Active [id number] 4 2023 12 Pharmac y Data Transac tion Service Facilit y Allergies, Adverse Reactions, Alerts Combined list of allergies from Department of Defense and Veterans Affairs facilities. It does not include entries that were removed or entered in error. Substance Category Reaction Severity Reaction type Status Date Reported Comments Source TETRACYCLINE Propensity to adverse reactions to drug (finding) active [address] [facility] TETRACYCLINE (TETRACYCLINE ) Drug allergy (disorder) Unknown active 8 [employer] Immunizations Combined list of available immunizations from the Department of Defense and Veterans Affairs facilities. Immunization Series Date Given Administered By Site Reaction Lot Number CVX Code Drug Furnace Maintenance Status Comments Source COVID-19 (PFIZER), MRNA, LNP-S, BIVALENT BOOSTER, PF, 30 MCG/0.3 ML DOSE 5 2021 300 complet ed HISTORICA L INFORMATI ON - SOURCE UNSPECIFI ED, [facility] [place] COVID-19, mRNA, LNP-S, PF, 30 mcg/0.3 mL dose, dat-sucrose 2021 BOGDASARIAN, () Not Given COVID-19, mRNA, LNP-S, PF, 30 mcg/0.3 mL dose, dat-sucr ose DoD INFLUENZA, UNSPECIFIED FORMULATION 2020 88 complet ed [facility] COVID-19 (PFIZER), MRNA, LNP-S, PF, 30 MCG/0.3 ML DOSE 3 2020 208 complet ed [facility] [place] [facility] COVID-19 (PFIZER), MRNA, LNP-S, PF, 30 MCG/0.3 ML DOSE 2 2020 208 complet ed PFR; [id number]; 1 [place] [facility] [place] [facility] COVID-19 (PFIZER), MRNA, LNP-S, PF, 30 MCG/0.3 ML DOSE 1 2020 208 complet ed PFR; [id number]; 1 [place] [facility] [place] [facility] PNEUMOCOCCAL CONJUGATE PCV 13 2019 133 complet ed [facility] record scanned to chart [facility] INFLUENZA, UNSPECIFIED FORMULATION 2019 88 complet ed [facility] HEP B, ADULT 2019 43 complet ed Booster for Series, [facility] ZOSTER RECOMBINANT 2 2019 [...] vaccine, whole virus 1 2002 Unknown, Provider [id number] [employer] (PWJ) complet ed influenza virus vaccine, whole virus DoD influenza virus vaccine, whole virus 1 2002 Unknown, Provider [id number] Sanofi Pasteur (PMC) complet ed influenza virus vaccine, whole virus DoD tuberculin skin test; purified protein derivative solution, intradermal 1 2002 Unknown, Provider [id number] Sanofi Pasteur ([facility]) complet ed tuberculi n skin test; purified protein derivativ e solution, intraderm al DoD influenza virus vaccine, whole virus 1 2000 Unknown, Provider [id number] Sanofi Pasteur ([facility]) complet ed influenza virus vaccine, whole virus DoD influenza virus vaccine, whole virus 1 2000 Unknown, Provider [id number] 16 Wyeth-Ayerslayla (Inactive) ([place]) complet ed influenza virus vaccine, whole virus DoD tetanus and diphtheria toxoids, adsorbed, preservative free, for adult use (2 Lf of tetanus toxoid and 2 Lf of diphtheria toxoid) 3 1999 Unknown, Provider [id number] Justuslayla (CON) complet ed tetanus and diphtheri a toxoids, adsorbed, preservat valentina free, for adult use (2 Lf of tetanus toxoid and 2 Lf of diphtheri a toxoid) DoD influenza virus vaccine, whole virus 1 1998 Unknown, Provider [id number] 16 Shravan (CON) complet ed influenza virus vaccine, whole virus DoD hepatitis A vaccine, adult dosage 2 1998 Unknown, Provider [id number] Merck (MSD) complet ed hepatitis A vaccine, adult dosage DoD influenza virus vaccine, whole virus 2 1997 Unknown, Provider [id number] 16 Fabricioeth-Ayerslayla (Inactive) ([place]) complet ed influenza virus vaccine, whole virus [...] and 2 Lf of diphtheri a toxoid) [facility] typhoid vaccine, parenteral, acetone-kille d, dried (U.S. ) 2 1984 Unknown, Provider 53 () complet ed typhoid vaccine, parentera l, acetone-k illed, dried (U.S. ) [facility] trivalent poliovirus vaccine, live, oral 1 1983 Unknown, Provider 02 () complet ed trivalent polioviru s vaccine, live, oral [facility] measles, mumps and rubella virus vaccine 1 1983 Unknown, Provider 03 () complet ed measles, mumps and rubella virus vaccine [facility] meningococcal polysaccharid e vaccine (MPSV4) 1 1983 Unknown, Provider 32 () complet ed meningoco ccal polysacch aride vaccine (MPSV4) [facility] adenovirus vaccine, type 4, live, oral 1 1983 Unknown, Provider 54 () complet ed adenoviru s vaccine, type 4, live, oral [facility] adenovirus vaccine, type 7, live, oral 1 1983 Unknown, Provider 55 () complet ed adenoviru s vaccine, type 7, live, oral [facility] Vital Signs Combined list of inpatient and outpatient Vital Signs from Department of Defense and Veterans Affairs, ranging from 12 months to all on record, depending upon the facility. Vital Sign Value Date Comments Source SYSTOLIC BLOOD PRESSURE 104 11/23/19 10:38:37 [facility] [place] [facility] DIASTOLIC BLOOD PRESSURE 70 025 10:38:37 [facility] [place] [facility] PULSE OXIMETRY 100 11/22/2024 10:38:37 [facility] [place] [facility] WEIGHT 161.8 11/22/2024 10:38:37 [facility] [place] [facility] BMI 25 kg/m2 11/22/2024 10:38:37 [facility] PAIN 0 11/22/2024 10:38:37 [facility] [place] [facility] HEIGHT 67 11/22/2024 10:38:37 [facility] [place] [facility] TEMPERATURE 97.9 11/22/2024 10:38:37 [facility] [place] PULSE 76 11/22/2024 10:38:37 [facility] [place] [facility] RESPIRATION 18 11/22/2024 10:38:37 [facility] [place] [facility] Encounters Combined list of: 1) Encounters from Department of Veterans Affairs facilities going backup to the last 18 months, not all VA inpatient encounters are included; 2) Encounters from the Department of [facility] facilities going backup to 280 months. Location Location Details Encounter Type Encounter Number Reason For Visit Attending Provider ADM Date DC Date Status Disposition Source [facility] Encounter [id number] 06/25 [facility] [place] [facility] O/P EST MOD 30 MIN [id number] 1BY. 16 Diagnos is: ICD-10- CM K52.839 Microsc opic colitis , unspeci fied OLIVER DODD 11/23 [place] [facility] En[facility] [id number] 09/09 [facility] [place] En[facility] [id number] 09/29 [facility] En[facility] [id number] 10/04 [facility] [place] En[facility] [id number] 11/22 [facility] [place] [facility] O/P EST LOW 20 MIN [id number] 1BY. 12 Diagnos is: ICD-10- CM N18.4 Chronic kidney disease , stage 4 (severe ) OLIVER DODD 11/22 [facility] [place] Procedures Combined list of: 1) Procedures from Department of Veterans Affairs facilities going back up to thelast 18 months, not all VA non-surgical procedures are included; 2) All procedures from the Department of Defense facilities. Procedure Procedure Type Code Date Perfomer Comments [facility] e DETERMINATION OF REFRACTIVE STATE 03/11/2004 DoD [...] MORE AREAS; HOT OR COLD PACKS 09/22/2002 [facility] PHYS/OTH QUALIFIED HEALTH PRESS SMITH HELPER QUALIFIED,EDUCATION,TRAIN,LIC ENSURE/REGULATION (WHEN APPLICABLE) EDUC SER RENDERED TO PATS IN A GRP SETTING (EG,,OBESITY,OR DIABETIC INSTRUCT) 06/27/2002 [facility] GROUP PSYCHOTHERAPY (OTHER THAN OF A MULTIPLE-FAMILY GROUP) 06/27/2002 DoD PHYS/OTH QUALIFIED HEALTH PRESS SMITH HELPER QUALIFIED,EDUCATION,TRAIN,LIC ENSURE/REGULATION (WHEN APPLICABLE) EDUC SER RENDERED TO PATS IN A GRP SETTING (EG,,OBESITY,OR DIABETIC INSTRUCT) 06/06/2002 [facility] PHYS/OTH QUALIFIED HEALTH PRESS SMITH HELPER QUALIFIED,EDUCATION,TRAIN,LIC ENSURE/REGULATION (WHEN APPLICABLE) EDUC SER RENDERED TO PATS IN A GRP SETTING (EG,,OBESITY,OR DIABETIC INSTRUCT) 05/31/2002 [facility] PHYS/OTH QUALIFIED HEALTH PRESS SMITH HELPER QUALIFIED,EDUCATION,TRAIN,LIC ENSURE/REGULATION (WHEN APPLICABLE) EDUC SER RENDERED TO PATS IN A GRP SETTING (EG,,OBESITY,OR DIABETIC INSTRUCT) 05/26/2002 [facility] DETERMINATION OF REFRACTIVE STATE 03/24/2002 DoD INFUSION, NORMAL SALINE SOLUTION, 250 CC 02/01/2002 [...] UP TO AND INCLUDING 15 LESIONS 05/28/2001 [facility] OPHTHALMOLOGICAL SERVICES: MEDICAL EXAMINATION AND EVALUATION WITH INITIATION OF DIAGNOSTIC AND TREATMENT PROGRAM; INTERMEDIATE, NEW PATIENT 05/11/2000 [facility]D INCISION AND DRAINAGE OF ABSCESS (EG, CARBUNCLE, SUPPURATIVE HIDRADENITIS, CUTANEOUS OR SUBCUTANEOUS ABSCESS, CYST, FURUNCLE, OR PARONYCHIA); SIMPLE OR SINGLE 02/29/2000 DoD THERAPEUTIC OR DIAGNOSTIC INJECTION (SPECIFY MATERIAL INJECTED); INTRAVENOUS 02/27/2000 Do D ELECTROGRAPHIC MONITORING 05/27/1993 [facility] DIAGNOSTIC ULTRASOUND OF HEART 05/27/1993 [facility] COMPUTERIZED AXIAL TOMOGRAPH Y OF HEAD 05/27/1993 [facility] Social History Combined list of available smoking, tobacco, and other social history from Department of Defense and Veterans Affairs facilities. Social History Type Response Date Comment Sour e Tobacco smoking status [facility]-TOBACCO NEVER USED 11/24/19 [place] History of tobacco use [place]-TOBACCO NEVER USED 11/26/2022 [place] History of tobacco use [place]-TOBACCO NEVER USED 11/04/2021 [place] This section is an empty soc ial history section. DoD
--- OUTSIDE RECORDS SUMMARY | 2024-12-23 12:18 | XMS_ITS ---
Author Organization [facility] Address [address] [place] [address] Care Team Providers Care Diesel Technology Instructor Name Role Phone Elvira BOLAND, Sabrina Smith Primary Care Provider Un available Radha Buckley Unavailable [phone] Allergies Allergen (clinical drug ingredient) Drug/Non Drug [...] 07/04/2024 Encounters Encounter Location Date Provider Diagnosis [facility] [address] [place] [address] 07/04/2024 Radha Buckley Pain in left foot [...] Notes * Lisha LOPEZDOB:1955 (68 yo F)Acc No.[id number]:07/04/2024 Progress Notes Patient:?Lisha Lopez Provider:?Radha Buckley DPM :1955???Age:68 Y???Sex:Female D ate:07/04/2024 Address:[address] [place] [address] Pcp:Paola Tellez Subjective: * Chief Complaints: * [...] various subjects. ?Marital status: single. ?Occupation: Retired [employer]. * Medications:?TakingSodium Bi carbonate Potassimin , Notes: [...] DPM Date:?1 09/03/2023 Generated for Anirudh sands/Rios/Candelarioitting on:?12/23/2024 12:18 PM EDT History and Physical Notes * HPI (History [...]
--- OUTSIDE RECORDS SUMMARY | 2024-12-23 12:18 | XMS_ITS | Encounter Summary ---
Author Name [facility] [place] [facility] [place] Organization [facility] [place] Address [address] [place] [address] Care Team Providers Care Marketing Area Manager Name Role Phone YOUSIFNARCISO Primary Care Provider [...] PART A Oct 01, 2021 PART A [id number] Fran LOPEZY PATIENT MEDICARE (WNR) MEDICARE (M) PART B Oct 01, 2021 PART B [id number] JESSICAFran ISABELLA PATIENT [facility] PRESCRIPT ION RX Aug 31, 2022 THPRX [id number] JESSICA,N ISABELLA PATIENT [facility] Aug 31, 2017 [facility] [id number] JESSICA,N ISABELLA PATIENT [facility] Aug 31, 2017 [facility] [id number] [phone] JESSICA,N ISABELLA PATIENT [facility] Aug 31, 2017 [id number] JESSICA,N ISABELLA PATIENT [facility] BRIDGER Garcia Aug 31, 2017 [facility] [id number] Fran LOPEZ PATIENT Selected Encounter This section includes the information on record at CT for the Encounter. Date/Time Encounter Type Encounter Description Reason Provider Source Nov 22, 2024 10:30 AM OFFICE O/P EST LOW 20 MIN PRIMARY CARE/MEDICINE ICD-10-CM N18.4 Chronic kidney disease, stage 4 (severe) NARCISO DODD Encounter Template Text not used by CT Assessments - Encounter Diagnoses This section includes the primary and secondary diagnoses documented for the Encounter. Date/Time Primary/Secondary Diagnosis Diagnosis Name Provider Source Nov 22, 2024 11:31 AM PRIMARY Chronic kidney disease, stage 4 (severe) NARCISO DODD Nov 22, 2024 11:31 AM SECONDARY Hypokalemia NARCISO DODD Nov 22, 2024 11:31 AM SECONDARY Microscopic colitis, unspecified NARCISO DODD Plan of Treatment: Future Appointments (+ 6 months) and Future Tests (+/- 45 days) The Plan of Treatment section includes future care activities for the patient from all CT treatmentfacilities. This section includes future appointments and future orders which are active, pending or scheduled. Active, Pending, and Scheduled Orders This section includes a listing of several types of active, pending, and scheduled orders, including clinic medications orders, diagnostic test orders, procedure orders and consult orders; where the start date of the order is 45 days before the date of the Encounter or 45 days after the date of theEncounter. The data comes from all CT treatment facilities. Test Date/Time Test Type Test Details Facility Name Nov 07, 2024 12:00 AM Laboratory - Chemi stry Order OCCULT BLOOD FIT X1 SCREEN (MFP ONLY) STOOL FECES SP [facility] Social History: Smoking Status (Most current) and Tobacco Use (All prior to encounter date) This section includes the most current, and the historical, smoking and tobacco- related health factors from the [facility] facility where the Encounter took place. Current Smoking Status This section includes the most current smoking, or tobacco-related health factor, from the CT facility where the Encounter took place. Date/Time Current Smoking Status Comment Tariq howell Nov 24, 2023 10:[address]-TOBACCO NEVER USED [facility] Tobacco Use History This section includes a history of the smoking, or tobacco-related health factors, that were collected on or before the date of the Encounter. The data comes from the CT facility where the Encounter took place. Date/Time Smoking Status/Tobacco Use Comment F acility Nov 26, 2022 11:30 AM VA-TOBACCO NEVER USED [facility] Nov 04, 2021 11:00 AM VA-TOBACCO NEVER USED [facility] Encounter Notes: All associated encounter notes This section contains the clinical notes associated to the Encounter. Date/Time Encounter Note(s) Provider Source Nov 22, 2024 10:39 AM PREVENTIVE MEDICIN E NURSING NOTE: LOCAL TITLE: CLINICAL REMINDERS/NURSING STANDARD TITLE: PREVENTIVE MEDICINE NURSING NOTE DATE OF NOTE: NOV 22, 2024@10:39 ENTRY DATE: NOV 22, 2024@10:39:24 AUTHOR: CRISPIN PERALES COSIGNER: URGENCY: STATUS: COMPLETED Advance Directive Screen MH AD: Patient does not have a completed advance directive on file at any facility, CT or outside. S/he is not interested in completing one at this time. The patient received education about Advance Directives and written notification of his/her rights. Suicide Screen: C-SSRS Screening [place] Suicide Severity Rating Scale (C-SSRS) screener 1. [...] required due to responses to other questions. Homelessness/Food Insecurity Screen: In the past 2 months, have you been living in stable housing that you own, rent, or stay in as part of a household? Yes - Living in stable housing. Are you worried or concerned that in the next 2 months you may NOT have stable housing that you own, rent, or stay in as part of a household? No - Not worried about housing near future The reports the following: Within the past 12 months, you worried whether your food would run out before you got money to buy more. Never true Within the past 12 months, the food you bought just didn't last and you didn't have money to get more. Never true Depression Screening: Perform PHQ-2 A PHQ-2 screen [...] immunization(s) in the PneumoPPV group Date Documented: 11/22/24 10:41 Influenza Immunization: Deferral / Refusal The patient declines to receive the recommended dose of seasonal influenza vaccine. Immunization: INFLUENZA, UNSPECIFIED FORMULATION Refusal Reason: PATIENT DECISION Patient refuses all immunization(s) in the FLU group Date Documented: 11/22/24 10:41 Alcohol Use Screen (AUDIT-C): Alcohol Screen: SCREEN [...] to responses to other questions. COVID-19 Immunization: Refused Moderna Monovalent COVID-19 vaccine Immunization: COVID-19 (MODERNA), MRNA, LNP-S, PF, 50 MCG/0.5 ML (AGES 12+ YEARS) Refusal Reason: PATIENT DECISION Patient refuses all immunization(s) in the COVID-19 group Date Documented: 11/22/24 10:41 Sexual Orientation: The patient thinks of their sexual orientation as: Prefer not to answer PAVE Foot Check: A complete foot check [...] diminished) SENSORY CHECK: Includes 10 gram Monofilament (Thousandsticks-Lois) test of sensation. Intact (Greater than or equal to 80% of sites checked) Abnormal (Less than 80% of sites checked): Intact LOW-RISK: LOW RISK INFORMATION PROVIDED: 1. Advised patient not to walk barefoot. 2. Explained the importance of daily foot checks for changes. 3. Stressed the importance of daily foot hygiene, including bathing and complete drying. The patient verbalized understanding and was offered a detailed handout on diabetic foot care. /mayte/ CRISPIN PERALES LPN PACT 10 Signed: 11/22/2024 10:42 CRISPIN PERALES [facility] Nov 22, 2024 06:05 AM PHYSICIAN NOTE: LOCAL TITLE: NOTE STANDARD TITLE: PHYSICIAN NOTE DATE OF NOTE: NOV 22, 2024@06:05 ENTRY DATE: NOV 22, 2024@06:05:56 AUTHOR: NARCISO DODD EXP COSIGNER: URGENCY: STATUS: COMPLETED HISTORY OF PRESENT ILLNESS: ISAIAH LOPEZ is a 69 yo FEMALE who presents at the [facility] for her annual visit. Pt maintains a nonVA PCP: Dr Sabrina Felix in [place]. NonVa Providers: Nephrology: Dr Jeremi Rodriguez - [facility] Dermatology: Dr Tina Christie Electronics Research Engineer: [facility] Senior Construction Manager ? Active problems - Computerized Problem List is the source for the followin. Hyperlipidemia 2. Anemia 3. Vitamin D deficiency 4. Colonoscopy Screening 5. Chronic kidney disease stage 4 6. Lymphocytic colitis 7. Chronic hypokalemia 8. Interstitial nephritis 9. Psoriasis 10. Primary Care Provider The following VA and Non-VA meds were reconciled with patient: Active Outpatient Medications (including Supplies): Start Date Active Non-VA Medications Status Stop Date 1) Non-VA ATORVASTATIN TAB Sig: BY MOUTH ACTIVE Indication: FOR HIGH CHOLESTEROL 2) Non-VA BETAMETH 0.064/CALCIPOTRIENE 0.005% ACTIVE OINT Sig: SUFFICIENT AMOUNT TOPICALLY ONCE DAILY 3) Non-VA CHOLECALCIF 1,250MCG (D3-50,000UNIT) ACTIVE CAP SiMCG BY MOUTH EVERY 2 WEEKS 4) Non-VA FERROUS SULFATE 325MG TAB SiMG ACTIVE BY MOUTH ONCE DAILY 5) Non-VA POTASSIUM CHLORIDE 10MEQ SA TAB Sig: ACTIVE 10MEQ BY MOUTH 10 PILLS A DAY 6) Non-VA SODIUM BICARBONATE 650MG TAB Sig: ACTIVE 1950MG BY MOUTH TWICE DAILY ALLERGIES: ========= TETRACYCLINE HISTORY: PERIOD OF SERVICE - [employer] FROM May TO May COMBAT SERVICE INDICATED: No VITAL SIGNS: Blood Pressure 104/70 (11/22/2024 10:38) Pulse 76 (11/22/2024 10:38) Respiration 18 (11/22/2024 10:38) Pulse Oximetry 100% (11/22/2024 10:38) Temperature 97.9 F [36.6 C] (11/22/2024 10:38) Pain 0 (11/22/2024 10:38) Height 67 in [170.2 cm] (11/22/2024 10:38) Weight 161.8 lb [73.39 kg] (11/22/2024 10:38) BMI BMI: 25.4 REVIEW OF SYSTEMS: CARDIOVASCULAR: No chest pain, no palps RESPIRATORY: No SOB, no wheezing GASTROINTESTINAL: No abd pain, no N/V/D MUSCULOSKELETAL: No joint pain PSYCHIATRIC: No anxiety, no depression NEUROLOGIC: No H/A, no weakness EXAMINATION: GENERAL: WD/WN in NAD HEENT: Moist mucosa NECK: Supple HEART: RRR, S1-S2, no murmurs LUNGS: CTA B/L EXTREMITIES: FROM x 4 NEUROLOGIC: AAO x3, no FF's PSYCHIATRIC: Good eye contact ASSESSMENT/PLAN: 1. s/p TIA: occurred 09/19/23, on ASA & statin (low dose and every other day) 2. Lymphocytic Colitis: confirmed with colonoscopy w/biopsy completed 03/08/18, followed by GI (female MD on [facility]) 3. CKD IV: secondary to chronic hypokalemia associated potassium depletion nephropathy and likely interstitial nephritis, managed by Dr Rodriguez/[facility] Q4 mths, has a severely decreased GFR (between 15-29 ml/min and albuminuria creatinine ratio less than 30, she has been on the renal transplant list x 5 yrs now 4. Chronic Hypokalemia: on daily KCL supplementation (100mcg/day in divided doses TID) 5. Psoriasis: managed by Dr Vivar[facility] 6. IBD: since 1992, has daily watery diarrhea causing volume depletion which results in a non-gap metabolic acidosis, on sodium bicarb 1950mg BID per GI 7. Anemia: secondary to CKD, on ferrous sulfate 325mg/daily 8. Vitamin D Def: on Vit D 50,000units twice a month 9. Colonoscopy Screening: Q5 yrs, managed by nonVA PCP 10. Mammogram Screening: per vet 07/2023 @ [facility], and wnl 11. Catering Chef/Pap Exam: per vet 07/2024 and wnl (by ad operations associate Janie Helms)) 12. Bone Density Screening: per [...] C Testing: Patient declines HCV lab test. HIV Screening: Patient has been offered HIV testing and has declined. I have explained that HIV testing is recommended for all adults, even if all risk factors are absent. The patient was educated on the risk of delayed screening. Medication Reconciliation: Outpatient: Has the patient been taking medications as documented in the EMLR? YES: The patient has been taking medications as documented in the EMLR. Essential Medication List for Review used to complete this medication reconciliation. INCLUDED IN THIS LIST: Alphabetical list of active outpatient prescriptions dispensed from this VA (local) and dispensed from another CT or [facility] facility (remote) as well as inpatient orders [...] FACILITY ALLERGY/ADR -------- CLNCL/[facility] REPT EFF [id number] TETRACYCLINE [facility] [place] [facility] TETRACYCLINE Med Recon NoGlossary (Tool #1) INCLUDED IN THIS LIST: Alphabetical list of active outpatient prescriptions dispensed from this CT (local) and dispensed from another CT or [facility] facility (remote) as well as inpatient orders (local pending and active), local clinic medications, locally documented non-VA medications, and local prescriptions that have or been discontinued in the past 90 days. Non-VA Meds Last Documented On: Nov 24, 2023 NOTE The display of VA prescriptions dispensed from another CT or [facility] facility (remote) is limited to active outpatient prescription entries matched to National Drug File at the originating site and may not include some items such as investigational drugs, compounds, etc. NOT INCLUDED IN THIS LIST: Medications self-entered by the patient into personal health records (i.e. Bin1 ATE) are NOT included in this list. Non-VA medications documented outside this CT, remote inpatient orders (regardless of status) and [...] A DAY Patient wants to buy from Non-CT pharmacy. Medication prescribed by Non-CT provider. Vet to take 10 pills a day, 4 in AM, 2 In Afternoon, and 4 in PM Non-CT SODIUM BICARBONATE 650MG TAB TAKE THREE TABLETS BY MOUTH TWICE DAILY Patient wants to buy from Non-CT pharmacy. Medication prescribed by Non-CT provider. Vet to take a total of 6 pills a day 3 AM, 3 PM ------ SUPPLIES ------ Avg Risk Colorectal Cancer Screen: AVERAGE RISK colorectal cancer screening is due based on information available to this clinical reminder Patient has arranged or is choosing to arrange this care independent of and without assistance from this CT. /mayte/ NARCISO DODD MD Primary Care Physician Signed: 11/22/2024 11:32 NARCISO DODD [facility]
--- OUTSIDE RECORDS SUMMARY | 2024-12-23 12:18 | XMS_ITS ---
Author Organization [facility] Address [address] [place] [address] Care Team Providers Care Injury Prevention Coordinator Name Role Phone Elvira BOLAND, Sabrina Smith Primary Care Provider Un available Radha Buckley Unavailable [phone] REASON FOR VISIT rs timings on 07/04/25 Problems No Known Problems Encounters Encounter Location Date Provider Diagnosis [facility] [address] [place] [address] 07/01/2024 Radha Buckley Plan Of Treatment No Information Progress Notes * Lisha LOPEZDOB:1955 (68 yo F)Acc No.[id number]:07/01/2024 Patient:?Lisha Lopez :1955???Age:68 Y???Sex:Female Address:[address] [place] [address], [address] * true * Date:? Generated for Roseyi wicho/Rios/eTransmitting on:?12/23/2024 12:18 PM EDT
--- OUTSIDE RECORDS SUMMARY | 2024-12-23 12:19 | XMS_ITS ---
Author Organization [facility] Address [address] [place] [address] Care Team Providers Care Pedicab Driver Name Role Phone Elvira BOLAND, Sabrina Smith Primary Care Provider Un available Radha Buckley Unavailable [phone] Problems No Known Problems Encounters Encounter Location Date Provider Diagnosis [facility] [address] [place] [address] 07/04/2024 Radha Buckley Plan Of Treatment No Information Progress Notes * Lisha LOPEZDOB:1955 (69 yo F)Acc No.[id number]:07/04/2024 Progress Notes Patient:?Lisha LOPEZ Provider:?Radha Buckley DPM :1955???Age:68 Y???Sex:Female D ate:07/04/2024 Address:[address] [place], [place] [id number] Pcp:Paola Tellez Subjective: * Chief Complaints: * [...] DPM Date:?1 09/03/2023 Generated for Anirudh sands/Rios/eTransmitting on:?12/23/2024 12:18 PM EDT
--- OUTSIDE RECORDS SUMMARY | 2024-12-23 12:19 | XMS_ITS | Patient Health Record ---
Author Organization [facility] Address [address] [place] [address] Care Team Providers Care Life Skills Coordinator Volunteer Name Role Phone Elvira BOLAND, Sabrina Smith Primary Care Provider Un available Radha Buckley Unavailable [phone] Allergies Allergen (clinical drug ingredient) Drug/Non Drug [...] 07/04/2024 Encounters Encounter Location Date Provider Diagnosis [facility] [address] [place] [address] 06/03/2024 Radha Buckley Pain in left foot M79.672 ; Bursitis of left foot M77.52 ; Metatarsalgia of left foot M77.42 and [place] of foot L84 [facility] [address] [address] 07/04/2024 Radha Buckley Pain in left foot M79.672 ; Bursitis of left foot M77.52 and Metatarsalgia of left foot M77.[address] [facility] [address] 07/01/2024 Radha Buckley Assessments Encounter Date Diagnosis [...] of left foot (ICD-10 - M77.42) 06/03/2024 [place] of foot (ICD-10 - L84) Plan Of Treatment Pending Test Test Name Order Date X ray : Foot, left 3V 06/03/2024 Insurance Providers Payer Name Payer Address Payer Phone Subscriber Number Group Number Insured Name Patient Relationship to Insured Coverage Start Date Coverage End Date Medicare National [employer] [address] [place] [address] [id number] Lisha Solis Self - patient is the insured for Life [address] [place] [id number] Lisha Solis Self - patient is the insured Medical (General) History Medical History History ICD Code Colitis Kidney disease / on inactive transplant list for kidney Mumps Psoriasis/eczema Anemia covid-19 Stroke
--- OUTSIDE RECORDS SUMMARY | 2024-12-23 12:19 | XMS_ITS | Encounter Summary ---
Author Organization [facility] Address [address] [place] [address] Care Team Providers Care Director Day Care Center Name Role Phone Sabrina Felix MD Primary Care Provider Encounter Details Date Type Department Care Team ([facility] Contact Info) Description 12/04/2017 myChart Message [facility] [address] [place] [address] Planer Offbearer: Frank Loza MD [address] [place] [address] [place] [address] RE: Referral Request Social History Tobacco Use [...] Upcoming Encounters Date Type Department Care Team ([facility] Contact Info) Description 12/28/2024 11:40 AM EDT Follow-Up [facility] [address] [place] [phone] Planer Offbearer: Praful Paz MD [address] [place] [address] [phone] 05/11/2025 11:00 AM EDT Follow-Up [facility] Renal Transplant [address] [place] [address] Ron Simmons MD [address] [place] [address] 05/11/2025 11:45 AM EDT Social Work [facility] Renal Transplant [address] [place] [address] Una Méndez LICSW [address] [place] [address] documented as of this encounter Visit Diagnoses Not on filedocumented in this encounter Care Teams Director Day Care Center Relationship Specialty Start Date End Date Sabrina Felix MD [address] [place] [address] PCP - General 03/19/17 documented as of this encounter
--- OUTSIDE RECORDS SUMMARY | 2024-12-23 12:19 | XMS_ITS | Encounter Summary ---
Author Organization [facility] Address [address] [place] [address] Care Team Providers Care Fork Operator Name Role Phone Sabrina Felix MD Primary Care Provider Encounter Details Date Type Department Care Team ([facility] Contact Info) Description 12/07/2017 myChart Message [facility] [address] [place] [address] Telecommunications Administrator: Frank Loza MD [address] [place] [address] [place] [address] RE: Prep Social History Tobacco Use Types [...] Upcoming Encounters Date Type Department Care Team ([facility] Contact Info) Description 12/28/2024 11:40 AM EDT Follow-Up [facility] [address] [place] [address] Telecommunications Administrator: Praful Paz MD [address] [place] [phone] 05/11/2025 11:00 AM EDT Follow-Up [facility] Renal Transplant [address] [place] [address] Ron Simmons MD [address] [place] [address] 05/11/2025 11:45 AM EDT Social Work [facility] Renal Transplant [address] [place] [address] Una Méndez LICSW [address] [place] [address] documented as of this encounter Visit Diagnoses Not on filedocumented in this encounter Care Teams Fork Operator Relationship Specialty Start Date End Date Sabrina Felix MD [address] [place] [address] PCP - General 03/19/17 documented as of this encounter
[2024-12-23 13:31] LABS: Hematocrit 28.2 % (37.0-47.0); Mean Corpuscular HGB Conc 31.9 g/dl (31.0-35.0); Mean Corpuscular Hemoglobin 33.7 pg (27.0-33.0); Mean Corpuscular Volume 105.6 fL (80.0-98.0); Mean Platelet Volume 9.9 fL (9.4-12.3); Platelet Count 179 X10*3/uL (160-400); Red Blood Count 2.67 X10*6/uL (4.20-5.50); Red Cell Distribution Width 14.4 % (11.0-16.0); White Blood Count 5.3 X10*3/uL (4.8-10.8)
[2024-12-23 13:52] LABS: Microalbumin Urine < 5.0 mg/L; Total Protein Urine Random < 7 mg/dL (<12)
[2024-12-23 13:52] LABS: Anion Gap 12 (12-20); Blood Urea Nitrogen 35 mg/dL (9-16); Calcium 8.8 mg/dL (8.4-10.2); Carbon Dioxide 21 mmol/L (22-29); Chloride 107 mmol/L (96-108); Estimated Glomerular Filt Rate 22; Iron 57 mcg/dL (30-160); Percent Iron Saturation 37 % (15-50); Potassium 4.6 mmol/L (3.3-5.1); Sodium 135 mmol/L (135-145); Total Iron Binding Capacity 154 mcg/dL (228-428); Unsaturated Iron Binding 97 ug/dL
[2024-12-23 14:09] LABS: Parathyroid Hormone Intact 326.7 pg/mL (8.7-77.1)
[2024-12-23 14:10] LABS: Ferritin 386 ng/mL (10-250); Vitamin D 25-OH Total 36.1 ng/mL (>30)
== END 2024-12-23 11:23 | disposition home or self-care (01) ==
LOC: HO.HMGCLDS 11:22
PROVIDERS: PCP Internal Medicine; Visit Provider Internal Medicine Nephrology
DX: N18.4 Chronic kidney disease, stage 4 (severe) (principal)
CPT/HCPCS: 36415; 80051; 82306; 82310; 82565; 82570; 82728; 83540; 83970; 84156; 84520; 85027

== ENCOUNTER 2025-01-13 09:59 | Outpatient (REF) | payer MEDICARE, OTHER, SELFPAY ==
--- OUTSIDE RECORDS SUMMARY | 2025-01-13 10:18 | XMS_ITS ---
Author Organization [facility] Address [address] [place] [address] Care Team Providers Care Sales Advisory Manager Name Role Phone Sabrina Felix MD Primary Care Provider Transplant Episode Kidney Candidate [facility] ([place], [place]) - [facility] waitlisted on 08/11/2019 Marked as Inactive on 08/11/2019 Reason: Candidate Workup Incomplete Kidney CoordinatorHoa Aldrich RN Email: N/A Scores Score Value Updated Exceptions/Reas ons CPRA 0 05/23/2024 EPTS (Calc) 47 01/13/2025 Care Team Name Role Phone Fax Email Hoa Aldrich RN Kidney Coordinator [phone] N/A Star Thomas MD Dry Kiln Loader [phone] [email or web address] [address] MD Referring Physician [phone] [email or web address] Chucho Lara Water Taxi Boat Mate N/A N/A N/A Events Pre-Transplant Referred: 04/25/2019 Evaluation began: 06/28/2019 Committee: 08/10/2019 Center waitlisted: 08/11/2019
--- OUTSIDE RECORDS SUMMARY | 2025-01-13 10:18 | XMS_ITS | Encounter Summary ---
Author Organization [facility] Address [address] [place] [address] Care Team Providers Care Wire Harness Design Engineer Name Role Phone Sabrina Felix MD Primary Care Provider Encounter Details Date Type Department Care Team ([facility] Contact Info) Description 09/24/2017 myChart Message [facility] Nephrology Clinic [address] [place] [address] Juvenile Justice Specialist: Frank Loza MD [address] [place] [address] [place] [address] Non-Urgent Medical Question Social History Tobacco Use [...] Department Care Team (Late Contact Info) Description 03/29/2025 11:40 AM EDT Telehealth [facility] [address] [place] [address] Juvenile Justice Specialist: Praful Paz MD [address] [place] [address] [phone] 05/11/2025 11:00 AM EDT Follow-Up [facility] Renal Transplant [address] [place] [address] Ron Simmons MD [address] [place] [address] 05/11/2025 11:45 AM EDT Social Work [facility] Renal Transplant [address] [place] [address] Una Méndez LICSW [address] [place] [address] documented as of this encounter Visit Diagnoses Not on filedocumented in this encounter Care Teams Wire Harness Design Engineer Relationship Specialty Start Date End Date Sabrina Felix MD [address] [place] [address] PCP - General 03/19/17 documented as of this encounter
--- OUTSIDE RECORDS SUMMARY | 2025-01-13 10:18 | XMS_ITS | Encounter Summary ---
Author Organization [facility] Address [address] [place] [address] Care Team Providers Care Code Official Name Role Phone Sabrina Felix MD Primary Care Provider Encounter Details Date Type Department Care Team ([facility] Contact Info) Description 12/25/2024 myChart Message [facility] Nephrology Clinic [address] [place] [address] [phone] Plant Etiologist: Praful Paz MD [address] [place] [address] [phone] test results Social History Tobacco Use Types Packs/Day Years Used Date Smoking Tobacco: Never Smokeless Tobacco: Never Comments:: Alcohol Use Standard Drinks/Week Comments Yes [...] Upcoming Encounters Date Type Department Care Team ([facility] Contact Info) Description 03/29/2025 11:40 AM EDT Telehealth [facility]phrology Clinic [address] [place] [address] [phone] Plant Etiologist: Praful Paz MD [address] [place] [address] [phone] 05/11/2025 11:00 AM EDT Follow-Up [facility] Renal Transplant [address] [place] [address] Ron Simmons MD [address] [place] [address] 05/11/2025 11:45 AM EDT Social Work [facility] Renal Transplant [address] [place] [address] Una Méndez LICSW [address] [place] [address] documented as of this encounter Visit Diagnoses Not on filedocumented in this encounter Care Teams Code Official Relationship Specialty Start Date End Date Sabrina Felix MD [address] [place] [address] PCP - General 03/19/17 documented as of this encounter
--- OUTSIDE RECORDS SUMMARY | 2025-01-13 10:18 | XMS_ITS | Referral Summary ---
Author Organization [facility] Address [address] [place] [address] Care Team Providers Care Loft Worker Pile Driving Name Role Phone Sabrina Felix MD Primary Care Provider Encounters Date Type Department Care Team Description 12/28/2024 11:40 AM EDT Follow-Up [facility] [address] [place] [phone] Refrigerated National Truck Driver: Praful Paz MD CKD stage G4/A1, GFR 15-29 and albumin creatinine ratio <30 mg/g (HCC) (Primary Dx) 12/25/2024 myChart Message [facility] [address] [place] [phone] Refrigerated National Truck Driver: Praful Paz MD test results 12/15/2024 Refill [facility] [address] [place] [address] [phone] Refrigerated National Truck Driver: Praful Paz MD Iron deficiency anemia secondary to inadequate dietary iron intake 11/10/2024 Refill [facility] [address] [place] [phone] Refrigerated National Truck Driver: Praful Paz MD Chronic kidney disease (CKD) stage G4/A1, severely decreased glomerular filtration rate (GFR) between 15-29 mL/min/1.73 square meter and albuminuria creatinine ratio less than 30 mg/g; Vitamin D deficiency 11/09/2024 Orders Only [facility] [address] [place] [phone] Refrigerated National Truck Driver: Praful Paz MD 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 myChart Message [facility] [address] [place] [phone] Refrigerated National Truck Driver: Praful Paz MD SCRIPT from Last 3 [...] albuminuria creatinine ratio less than 30 mg/g ([facility]),Vitamin D deficiency TAKE 1 CAPSULE BY MOUTH [...] than 30 mg/g 06/11/2015 Assessment & Plan (12/29/2024 9:58 AM EDT): She has CKD G4/A1, and baseline GFR around 16-19, minimal proteinuria. 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 Recent GFR relatively stable. Potassium has not been low, on potassium supplement /. No other significant electrolyte abnormality, with exception of hyponatremia. Hemoglobin has been stable. -Advised on continuing potassium supplement -Calcium, phosphorus, PTH within goal, on vit D 50k every other week -continue sodium biarb 3 tab BID -Minimal proteinuria -Blood pressure has been well-controlled. - She is exploring trialing infliximab infusion for treatment of her colitis, we discussed today that kidney injury from infliximab is very rare, and if infusion of infliximab can help control colitis avoiding hypokalemia and dehydration, that this may yield overall long-term benefit for her kidneys Assessment & Plan (08/17/2024 9:25 PM EST): [...] 7, Live, Oral 4 Covid-19, Pfizer, mRNA, [place] valent, PF 30 mcg/0.3 mL dose (for ages 12 and older) 11/27/2020,11/06/2020 Covid-19, Pfizer, mRNA, [place] valent, PF, 30 mcg/0.3 mL dose, dat-sucrose [...] Sign Reading Time Taken Comments Blood Pressure 111/73 12/28/2024 11:19 AM EDT Pulse 72 12/28/2024 11:19 AM EDT Temperature 36.4 ??C (97.6 ??F) 12/28/2024 11:19 AM E DT Respiratory Rate 18 05/12/2024 11:23 AM EDT Oxygen Saturation 98% 05/12/2024 11:23 AM EDT Inhaled Oxygen Concentration - - Weight 75.3 kg (166 lb 0.1 oz) 12/28/2024 11:19 AM EDT w/shoes Height 165.1 cm (5' 5 ) 12/28/2024 11:19 AM EDT Body Mass Index 27.62 12/28/2024 11:19 AM EDT Plan of Treatment Upcoming Encounters Date Type Department Care Team (Late st Contact Info) Description 03/29/2025 11:40 AM EDT Telehealth [facility] [address] [place] [phone] Refrigerated National Truck Driver: Praful Paz MD [address] [place] [address] 05/11/2025 11:00 AM EDT Follow-Up [facility] [address] [place] [phone] Ron Simmons MD [address] [place] [address] 05/11/2025 11:45 AM EDT Social Work [facility] [address] [place] [address] Una Méndez LICSW [address] [place] [address] Procedures * Due to [place] state law, this organization might not be sharing negative HIV tests. Procedure Name Priority Date/Time Associated Diagnosis Comments LAB - SCANNED 12/23/2024 LAB - SCANNED 10/25/2024 RENAL FUNCTION PANEL [...] to Health Maintenance Results * Due to [place] state law, this organization might not be sharing negative HIV tests. * LAB - SCANNED (12/23/2024) Only the most recent of2 resultswithin the time period is included. us Onbase Scan [facility] LAB HISTORICAL RESULTS Final Result * (ABNORMAL) Renal Function Panel (11/18/2023 11:45 AM EDT) NA 136 135 - 145 mmol/L 11/18/2023 1:47 PM EDT [facility] K 3.4(L) 3.5 - 5.3 mmol/L 11/18/2023 1:47 PM EDT [employer] [facility] Cl 101 97 - 110 mmol/L 11/18/2023 1:47 PM EDT [facility] CO2 26 24 - 32 mmol/L 11/18/2023 1:47 PM EDT [facility] Anion Gap 9 5 - 15 11/18/2023 1:47 PM EDT [facility] Glucose 94 70 - 99 mg/dL 11/18/2023 1:47 PM EDT [facility] [employer] [facility] BUN 31(H) 7 - 23 mg/dL 11/18/2023 1:47 PM EDT [facility] [employer] [facility] Creatinine 2.73(H) 0.50 - 1.20 mg/dL 11/18/2023 1:47 PM EDT [facility] [employer] [facility] Calcium 9.9 8.7 - 10.7 mg/dL 11/18/2023 1:47 PM EDT [facility] [employer] [facility] Phosphorus 3.5 2.5 - 4.5 mg/dL 11/18/2023 1:47 PM EDT [facility] [employer] [facility] Albumin 3.9 3.5 - 4.8 g/dL 11/18/2023 1:47 PM EDT [facility] [employer] [facility] eGFR 19(L) >=60 mL/min/1 .73m2 11/18/2023 1:47 PM EDT [facility] [employer] [facility] Comment:The estimated glomer ular filtration rate (eGFR) is calculated using a new formula developed by the NKF-ASN task force to eliminate race-based correction factors. The new formula uses serum/plasma creatinine, age, and gender to determine eGFR. A value below 60mls/min might indicate kidney disease and will be flagged. For additional information, see Au et al, Am J Kidney Dis. 2021;79(2):268- 288, A Unifying Approach for GFR estimation: Recommendations of the NKF-ASN Task Force on Reassessing the Inclusion of Race in Diagnosing Kidney Disease . Blood Structure of peripheral vein / Unknown Venipuncture / Unknown 11/18/2023 11:45 AM EDT 11/18/2023 1:09 PM EDT us Praful Rodriguez MD LAB BLOOD ORDERABLES Final Resul t [facility] [employer] [facility] LAB[facility] [address] [place] [address], * KIDNEY PANCREAS POST EXTERNAL PANEL (10/23/2020 10:15 AM EST) Pathologist [facility] WBC 5.9 10*3/uL [facility] Hgb 11.7 [facility] Hematocrit 36.3 % [facility] Platelets 264 10*3/uL [facility] Sodium 140 mmol/L [facility] Potassium 3.8 [facility] Chloride 104 [facility] Carbon Dioxide 25 [facility] BUN 30 [facility] Creatinine 2.19 mg/dL [facility] Calcium 8.6 mg/dL [facility] 10/23/2020 10:1 5 AM EST us Unknown Provider MD LAB BLOOD ORDERABLES Final R esult [facility] [address] [place] [address] * (ABNORMAL) PTH, Intact (without Calcium) (07/25/2019 4:17 PM EST) Parathyroid Hormone, Intact 163(H) 14 - 64 pg/mL 07/30/2019 9:05 PM EST [employer] Comment: Interpretive Guide ?Intact PTH ? Calcium [...] PM EST 07/25/2019 4:42 PM EST Narrative ELYSIA AVERY - 07/30/2019 9:05 PM EST [facility] Received Date:[id number] us Frank Lane MD LAB BLOOD ORDERABLES Edited Result - Final Performing Organization Address [facility] de Phone Number ELYSIA [place] [address] [facility] [address]rd Floor, [place] [address], [facility] [place] [facility] [address], [place] [address], * Hepatitis C Antibody w/Reflex to PCR (06/28/2019 11:10 AM EDT) Hepatitis C Antibody NON-REACT YUNG NON-REACT YUNG 06/28/2019 7:20 PM EDT [employer] Signal To Cut-Off 0.01 <1.00 06/28/2019 7:20 PM EDT [employer] Comment: HCV antibody was non-reactive. There is no laboratory evidence of HCV infection. In most cases, no further action is required. However, if recent HCV exposure is suspected, a test for HCV RNA (test code 53067) is suggested. For additional information please refer to http://education.PlayBuzz/faq/XLR72d6 (This link is being provided for informational/ educational purposes only.) Blood specimen (specimen) Structure of peripheral vein / Unknown Venipuncture / Unknown 06/28/2019 11:10 AM EDT 06/28/2019 11:22 AM EDT Narrative ELYSIA AVREY - 06/28/2019 7:20 PM EDT [facility] Received Date:[id number] us Frank Lane MD LAB BLOOD ORDERABLES Final R esult Performing Organization Address City/[facility]/ZIP Co de Phone Number ELYSIA AVERY [address], [place] [address], [place] [phone] [employer] [facility] [address], [place] [address], [place] [phone] * Colonoscopy (03/26/2018) us Unknown Provider HEALTH MAINTENANCE Final Res ult * Microalbumin/Creatinine Urine, Random (06/05/2016 2:47 PM EDT) Microalbumin Urine 1.8 mg/dL [facility] [employer] Creatinine Urine 218 15 - 278 mg/dL [facility] [employer] Albumin/Creat Ratio 8 <30.0 mcg/mgCr [facility] [employer] Comment: Normal ? < 30 ?? mcg/mg creatinine Microalbuminuria ?30-300 ??mcg/mg creatinine Clinical Albuminuria ? > 300 ??mcg/mg creatinine Reference: ADA Guidelines. Diabetes Care. 2004; 27 (suppl 1) 06/05/2016 2:47 PM EDT 06/05/2016 3:[address] Frank [address] MD LAB URINE ORDERABLES Final R esult [facility] [employer] [address] [place] [address], from Last 3 Months or Most Recently Relevant to Health Maintenance Insurance MEDICARE FOR LIFE MEDICARE FOR LIFE MEDICARE [facility] FOR LIFE Advance Directives Documents on File Type Date Recorded Patient Calender Operator Helper Expl [facility] Care Proxy 05/16/2024 3:58 PM 05-12 Care Teams Loft Worker Pile Driving Relationship Specialty Start Date End Date Sabrina Felix MD [address] [place] [address] PCP - General 03/19/17
--- OUTSIDE RECORDS SUMMARY | 2025-01-13 10:18 | XMS_ITS | Clinical Summary ---
Author Organization [facility] Address [address] [place] [address] Care Team Providers Care Channel Development Manager Name Role Phone Sabrina Felix MD [...] Resolved Date Anemia of chronic kidney israelbebe zapien, stage 4 (severe) 08/19/2017 08/07/2018 Encounters Date Type Department Care Team Description 12/28/2024 11:40 AM EDT Follow-Up [facility] [address] [place] [phone] Housekeeping/Laundry: Praful Paz MD CKD stage G4/A1, GFR 15-29 and albumin creatinine ratio <30 mg/g (HCC) (Primary Dx) 12/25/2024 [employer] Message [facility] [address] [place] [phone] Housekeeping/Laundry: Praful Paz MD test results 12/15/2024 Refill [facility] [address] [place] [phone] Housekeeping/Laundry: Praful Paz MD Iron deficiency anemia secondary to inadequate dietary iron intake 11/10/2024 Refill [facility] [address] [place] [phone] Housekeeping/Laundry: Praful Paz MD Chronic kidney disease (CKD) stage G4/A1, severely decreased glomerular filtration rate (GFR) between 15-29 mL/min/1.73 square meter and albuminuria creatinine ratio less than 30 mg/g; Vitamin D deficiency 11/09/2024 Orders Only [facility] [address] [place] [phone] Housekeeping/Laundry: Praful Paz MD 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 [employer] [facility] [address] [place] [address] Housekeeping/Laundry: Praful Paz MD SCRIPT from Last 3 Months Immunizations Immunization Administration Dates Next Due Adenovirus Vaccine, Type 7, Live, Oral 4 Covid-19, Pfizer, mRNA, [place] valent, PF 30 mcg/0.3 mL dose (for ages 12 and older) 11/27/2020,11/06/2020 Covid-19, Pfizer, mRNA, [place] valent, PF, 30 mcg/0.3 mL dose, dat-sucrose [...] Info) Description 03/29/2025 11:40 AM EDT Telehealth [facility] [address] [place] [address] Housekeeping/Laundry: Praful Paz MD [address] [place] [address] 05/11/2025 11:00 AM EDT Follow-Up [facility] Transplant [address] [place] [address] Ron Simmons MD [address] [place] [address] 05/11/2025 11:45 AM EDT Social Work [facility] [address] [place] [address] Una Méndez LICSW [address] [place] [address] Health Maintenance Due Date Last Done Comments [...] Screening 08/31/2024 Phosphorus 11/17/2024 11/18/2023, 06/01, 06/05/2016 Colon Cancer Screening 03/26/2028 Colonoscopy 03/26/2028 03/26/2018, 05/2018, 03/08/2018, Additional history exists DTaP,Tdap,and Td Vaccines (2 - Td or Tdap) 08/25/2029 08/25/2019, 04/13/2000, 05/10/1989 Tobacco Screening 08/31/2042 12/28/2024 Hepatitis C Screening Completed 06/28/2019 Zoster Vaccines Completed 10/20/2019, 03/20/2019 Hepatitis B Vaccines Completed 01/25/2020, 09/26/2019, 09/24/2019, Additional history exists Pneumococcal Vaccine: 50+ Years Completed 06/23/2022, 07/25/2020, 07/25/2019 RSV Vaccine (60+ years old a nd patients) Completed 07/14/2023 Influenza Vaccine Completed 05/22/2024, , 06/20/2022, Additional history exists COVID-19 Vaccine Completed 12/16/2024, , 06/02/2023, Additional history exists CKD: Referral to Nephrology Completed 12/28/2024 Procedures * Due to [place] state law, this organization might not be [...] to Health Maintenance Results * Due to [place] state law, this organization might not be sharing negative HIV tests. * LAB - SCANNED (12/23/2024) Only the most recent of2 resultswithin the time period is included. us Onbase Scan [facility] LAB HISTORICAL RESULTS Final Result * (ABNORMAL) Renal Function Panel (11/18/2023 11:45 AM EDT) NA 136 135 - 145 mmol/L 11/18/2023 1:47 PM EDT [facility] K 3.4(L) 3.5 - 5.3 mmol/L 11/18/2023 1:47 PM EDT [facility] Cl 101 97 - 110 mmol/L 11/18/2023 1:47 PM EDT [facility] CO2 26 24 - 32 mmol/L 11/18/2023 1:47 PM EDT [facility] Anion Gap 9 5 - 15 11/18/2023 1:47 PM EDT [facility] Glucose 94 70 - 99 mg/dL 11/18/2023 1:47 PM EDT [facility] [employer] [facility] BUN 31(H) 7 - 23 mg/dL 11/18/2023 1:47 PM EDT [facility] [employer] [facility] Creatinine 2.73(H) 0.50 - 1.20 mg/dL 11/18/2023 1:47 PM EDT [facility] [employer] [facility] Calcium 9.9 8.7 - 10.7 mg/dL 11/18/2023 1:47 PM EDT [facility] [employer] [facility] Phosphorus 3.5 2.5 - 4.5 mg/dL 11/18/2023 1:47 PM EDT [facility] [employer] [facility] Albumin 3.9 3.5 - 4.8 g/dL 11/18/2023 1:47 PM EDT [facility] [employer] [facility] eGFR 19(L) >=60 mL/min/1 .73m2 11/18/2023 1:47 PM EDT [facility] [employer] [facility] Comment:The estimated glomer ular [...] MD LAB BLOOD ORDERABLES Final Resul t [facility] [employer] [facility] [address] [place] [address], [place] * KIDNEY PANCREAS POST EXTERNAL PANEL (10/23/2020 10:15 AM EST) WBC 5.9 10*3/uL [facility] Hgb 11.7 [facility] Hematocrit 36.3 % [facility] Platelets 264 10*3/uL [facility] Sodium 140 mmol/L [facility] Potassium 3.8 [facility] Chloride 104 [facility] Carbon Dioxide 25 [facility] BUN 30 [facility] Creatinine 2.19 mg/dL [facility] Calcium 8.6 mg/dL [facility] 10/23/2020 10:1 5 AM EST us Unknown Provider MD LAB BLOOD ORDERABLES Final R esult [facility] [address] [place] [address] * (ABNORMAL) PTH, Intact (without Calcium) (07/25/2019 4:17 PM EST) Parathyroid Hormone, Intact 163(H) 14 - 64 pg/mL 07/30/2019 9:05 PM EST [employer] Comment: Interpretive Guide ?Intact PTH ? Calcium [...] - 07/30/2019 9:05 PM EST [facility] Received Date:[id number] Frank Lane MD LAB BLOOD ORDERABLES Edited Result - Final Performing Organization Address [place] Co de Phone Number ELYSIA [place] [address], [place] [address], [employer] [facility] [address], [place] [address], * Hepatitis C Antibody w/Reflex to PCR (06/28/2019 11:10 AM EDT) Hepatitis C Antibody NON-REACT YUNG NON-REACT YUNG 06/28/2019 7:20 PM EDT [employer] Signal To Cut-Off 0.01 <1.00 06/28/2019 7:20 PM EDT [employer] Comment: HCV antibody was non-reactive. There is no laboratory evidence of HCV infection. In most cases, no further action is required. However, if recent HCV exposure is suspected, a test for HCV RNA (test code 16082) is suggested. For additional information please refer to http://education.[employer]/faq/DHL11f6 (This link is being provided for informational/ educational purposes only.) Blood specimen (specimen) Structure of peripheral vein / Unknown Venipuncture / Unknown 06/28/2019 11:10 AM EDT 06/28/2019 11:22 AM EDT Narrative ELYSIA AVERY - 06/28/2019 7:20 PM EDT [facility] Received Date:[id number] us Frank Lane MD LAB BLOOD ORDERABLES Final R esult Performing Organization Address [place]/[facility]/ZIP Co de Phone Number [facility] [address], [place] [address], [place] [phone] [employer] [facility] [address], [place] [address], [place] [phone] * HM Colonoscopy (03/26/2018) us Unknown Provider HEALTH MAINTENANCE Final Res ult * Microalbumin/Creatinine Urine, Random (06/05/2016 2:47 PM EDT) Microalbumin Urine 1.8 mg/dL [facility] [employer] Creatinine Urine 218 15 - 278 mg/dL [facility] [employer] Albumin/Creat Ratio 8 <30.0 mcg/mgCr [facility] [employer] Comment: Normal ? < 30 ?? mcg/mg creatinine Microalbuminuria ?30-300 ??mcg/mg creatinine Clinical Albuminuria ? > 300 ??mcg/mg creatinine Reference: ADA Guidelines. Diabetes Care. 2004; 27 (suppl 1) 06/05/2016 2:47 PM EDT 06/05/2016 3:[address] Frank [address] MD LAB URINE ORDERABLES Final R esult [facility] [employer] [address] [place] [address], from Last 3 Months or Most Recently Relevant to Health Maintenance Insurance MEDICARE FOR LIFE MEDICARE FOR LIFE MEDICARE [facility] LIFE Advance Directives Documents on File Type Date Recorded Patient Manufacturing Planner Expl [facility] Health Care Proxy 05/16/2024 3:58 PM 05-12 Care Teams Channel Development Manager Relationship Specialty Start Date End Date Sabrina Felix MD [address] [place] [address] PCP - General 03/19/17
--- OUTSIDE RECORDS SUMMARY | 2025-01-13 10:18 | XMS_ITS | Encounter Summary ---
Author Organization [facility] Address [address] [place] [address] Care Team Providers Care Data Architect Manager Name Role Phone Sabrina Felix MD Primary Care Provider Encounter Details Date Type Department Care Team ([facility] Contact Info) Description 12/04/2017 myChart Message [facility] [address] [place] [phone] Brim Pouncing Machine Operator: Frank Loza MD [address] [place] [address] [place] [address] Referral Request Social History Tobacco Use Types [...] Encounters Date Type Department Care Team ([facility] Contact Info) Description 03/29/2025 11:40 AM EDT Telehealth [facility] [address] [place] [address] [phone] Brim Pouncing Machine Operator: Praflu Paz MD [address] [place] [address] [phone] 05/11/2025 11:00 AM EDT Follow-Up [facility] Renal Transplant [address] [place] [address] Ron Simmons MD [address] [place] [address] 05/11/2025 11:45 AM EDT Social Work [facility] Transplant [address] [place] [address] Una Méndez LICSW [address] [place] [address] documented as of this encounter Visit Diagnoses Not on filedocumented in this encounter Care Teams Data Architect Manager Relationship Specialty Start Date End Date Sabrina Felix MD [address] [place] [address] PCP - General 03/19/17 documented as of this encounter
--- OUTSIDE RECORDS SUMMARY | 2025-01-13 10:18 | XMS_ITS ---
Author Organization [facility] Address [address] [place] [address] Care Team Providers Care [place] Name Role Phone Elvira BOLAND, Sabrina Smith Primary Care Provider Un available Radha Buckley Unavailable [phone] Allergies Allergen (clinical drug ingredient) Drug/Non Drug [...] 07/04/2024 Encounters Encounter Location Date Provider Diagnosis [facility] [address] [place] [address] 07/04/2024 Radha Buckley Pain in left foot [...] Notes * Lisha LOPEZDOB:1955 (68 yo F)Acc No.[id number]:07/04/2024 Progress Notes Patient:?Lisha Lopez Provider:?Radha Buckley DPM :1955???Age:68 Y???Sex:Female D ate:07/04/2024 Address:[address] [place] [address] Pcp:Paola Tellez Subjective: * Chief Complaints: * [...] various subjects. ?Marital status: single. ?Occupation: Retired [employer]. * Medications:?TakingSodium Bi carbonate Potassimin , Notes: [...] DPM Date:?1 09/03/2023 Generated for Anirudh sands/Rios/Candelarioitting on:?01/13/2025 10:18 AM EDT History and Physical Notes * HPI [...]
--- OUTSIDE RECORDS SUMMARY | 2025-01-13 10:18 | XMS_ITS ---
Author Organization [facility] Address [address] [place] [address] Care Team Providers Care Summer Internship Name Role Phone Elvira BOLAND, Sabrina Smith Primary Care Provider Un available Radha Buckley Unavailable [phone] REASON FOR VISIT rs timings on 07/04/25 Problems No Known Problems Encounters Encounter Location Date Provider Diagnosis [facility] [address] [place] [address] 07/01/2024 Radha Buckley Plan Of Treatment No Information Progress Notes * Lisha LOPEZDOB:1955 (68 yo F)Acc No.[id number]:07/01/2024 Patient:?Lisha Lopez :1955???Age:68 Y???Sex:Female Address:[address] [place] [address], [address] * true * Date:? Generated for Roseyi wicho/Rios/eTransmitting on:?01/13/2025 10:18 AM EDT
--- OUTSIDE RECORDS SUMMARY | 2025-01-13 10:18 | XMS_ITS | Continuity of Care Document ---
Author Name [facility] Organization [facility] Care Team Providers Care Lard Maker Name Role Phone [facility] Unavailable Unavailable Problems Combined list of problems from Department of Defense and Veterans Affairs facilities. It does not include entries that were removed or entered in error. Problem Status Onset Date Problem Type Date of Resolution Comments Source Anemia [facility] Chronic hypokalemia Active Condition [place] [facility] [place] [facility] Chronic kidney disease stage 4 Active Condition January 18, 2021 Entered By: DUANE BERRY Comment: Mobile Electronics Installer-Dr Garza, [facility] Colonoscopy Screening Active Condition Nov 12, [...] more consistent with an inflammatory bcwel disease. [place] [facility] [place] [facility] Hyperlipidemia Active Condition [place] Interstitial nephritis [facility] [place] [facility] Lymphocytic colitis Active [facility] [place] [facility] Primary Care Provider Active Condition Nov 04, 2021 Entered By: NARCISO DODD Comment: Dr Sabrina Lo - affiliated with [facility] [place] [facility] Psoriasis Active Condition January 18 Entered By: DUANE BERRY Comment: [facility] Vitamin D deficiency Active Condition [facility] Diagnosis: ICD-10-CM N18.4 Chronic kidney disease, stage 4 (severe) Active Diagnosis [place] Diagnosis: ICD-10-CM K52.839 Microscopic colitis, unspecified Active Diagnosis [place] Medications Combined list of outpatient medications from [...] ORAL, MIRIAM PHARMACEU, 500 ea. BOTTLE Active [id number] 4 2023 90 Pharmac y Data Transac tion Service Facilit y BETAMETHASO NE DIPROPIONAT E 0.064%/CALC IPOTRIENE 0.005% OINT,TOP APPLY SUFFICIE NT AMOUNT TOPICALL Y ONCE DAILY TOPICA L ACTIVE ANNA BERRY spring IELD CALCIPOTRIE NE (CALCIPOTRI SUE), 0.005%, SOLUTION, TOPICAL, [facility] 60 ml BOTTLE Active [id number] 4 2023 60 Pharmac y Data Transac tion Service Facilit y CEPHALEXIN (CEPHALEXIN MONOHYDRATE ), 250MG, CAPSULE, ORAL, LUPIN PHARMACEU, 100 ea. BOTTLE Active [id number] 4 2023 14 Pharmac y Data Transac tion Service Facilit y CEPHALEXIN (CEPHALEXIN MONOHYDRATE ), 250MG, CAPSULE, ORAL, LUPIN PHARMACEU, 100 ea. BOTTLE Active [id number] 4 2023 14 Pharmac y Data Transac tion Service Facilit y CHOLECALCIF KAILYN 1,250MCG (50,000UNIT ) CAP,ORAL TAKE 1 CAPSULE BY MOUTH EVERY 2 WEEKS ORAL ACTIVE ANNA BERRY 2020 IELD FERROUS SO4 325MG TAB TAKE ONE TABLET BY MOUTH ONCE DAILY ORAL ACTIVE ANNA BERRY 2020 [place]ELD FLUCONAZOLE (fluconazol e), 150 MG, TABLET, ORAL, ZYDUS PHARMACEU, 12 ea. BLIST PACK Active [id number] 4 2023 3 Pharmac y Data Transac tion Service Facilit y HALOBETASOL PROPIONATE (halobetaso l propionate) , 0.05 %, OINT. (G), TOPICAL, JESSICA PHARMAC, 50 g TUBE Active [id number] 4 2023 50 Pharmac y Data Transac tion Service Facilit y HALOBETASOL PROPIONATE (halobetaso l propionate) , 0.05 %, OINT. (G), TOPICAL, JESSICA PHARMAC, 50 g TUBE Active [id number] 4 2023 50 Pharmac y Data Transac tion Service Facilit y KLOR-CON M10 (potassium chloride), 10 MEQ, TAB ER PRT, ORAL, UPSHER-NASIR H LA, 1000 ea. BOTTLE Cancele d [id number] : 2023 0 Pharmac y Data Transac tion Service Facilit y KLOR-CON M10 (potassium chloride), 10 MEQ, TAB ER PRT, ORAL, UPSHER-NASIR H LA, 1000 ea. BOTTLE Active [id number] 4 2023 900 Pharmac y Data Transac tion Service Facilit y NYSTATIN-TR IAMCINOLONE (NYSTATIN/T RIAMCIN), 794977-3.1, CREAM(GM), TOPICAL, [facility], 30 g TUBE Cancele d [id number] : 2023 0 Pharmac y Data Transac tion Service Facilit y NYSTATIN-TR IAMCINOLONE (nystatin/t riamcinolon e acetonide), 330242-3.1, OINT. (G), TOPICAL, VIONA PHARMACEU, 60 g TUBE Active [id number] 4 2023 60 Pharmac y Data Transac tion Service Facilit y POTASSIUM CHLORIDE (potassium chloride), 10 MEQ, TABLET ER, ORAL, AUROB[facility]O PHARM, 1000 ea. BOTTLE Cancele d [id number] : 2023 0 Pharmac y Data Transac tion Service Facilit y POTASSIUM CHLORIDE (potassium chloride), 10 MEQ, TABLET ER, ORAL, AVKARE, 500 ea. BOTTLE Cancele d [id number] : 2023 0 Pharmac y Data Transac tion Service Facilit y POTASSIUM CHLORIDE 10MEQ TAB,SA TAKE ONE TABLET BY MOUTH 10 PILLS A DAY ORAL ACTIVE YOUSIFSAIDA SAE 2021 [facility] SILVER SULFADIAZIN E (SILVER SULFADIAZIN E), 1%, CREAM(GM), TOPICAL, [facility], 85 g TUBE Cancele d [id number] : 2023 0 Pharmac y Data Transac tion Service Facilit y SILVER SULFADIAZIN E (SILVER SULFADIAZIN E), 1%, CREAM(GM), TOPICAL, [facility], 85 g TUBE Active [id number] 4 2023 85 Pharmac y Data Transac tion Service Facilit y SODIUM BICARBONATE 650MG TAB TAKE THREE TABLETS BY MOUTH TWICE DAILY ORAL ACTIVE SAIDA DODD SA 2021 [facility] VITAMIN D2 (ergocalcif kailyn (vitamin D2)), 1250 MCG, CAPSULE, ORAL, AVKARE, 100 ea. BOTTLE Active [id number] 4 2023 12 Pharmac y Data Transac tion Service Facilit y Allergies, Adverse Reactions, Alerts Combined list of allergies from Department of Defense and Veterans Affairs facilities. It does not include entries that were removed or entered in error. Substance Category Reaction Severity Reaction type Status Date Reported Comments Source TETRACYCLINE Propensity to adverse reactions to drug (finding) active 1 [facility] TETRACYCLINE (TETRACYCLINE ) Drug allergy (disorder) Unknown active 8 [employer] Immunizations Combined list of available immunizations from the Department of Defense and Veterans Affairs facilities. Immunization Series Date Given Administered By Site Reaction Lot Number CVX Code Drug Firefighting Equipment Specialist Status Comments Source COVID-19 (PFIZER), MRNA, LNP-S, BIVALENT BOOSTER, PF, 30 MCG/0.3 ML DOSE 5 2021 300 complet ed HISTORICA L INFORMATI ON - SOURCE UNSPECIFI ED, [place] [facility] COVID-19, mRNA, LNP-S, PF, 30 mcg/0.3 mL dose, dat-sucrose 2021 BOGDASARIAN, () Not Given COVID-19, mRNA, LNP-S, PF, 30 mcg/0.3 mL dose, dat-sucr ose DoD INFLUENZA, UNSPECIFIED FORMULATION 2020 88 complet ed [facility] [place] COVID-19 (PFIZER), MRNA, LNP-S, PF, 30 MCG/0.3 ML DOSE 3 2020 208 complet ed [facility] [place] [facility] COVID-19 (PFIZER), MRNA, LNP-S, PF, 30 MCG/0.3 ML DOSE 2 2020 208 complet ed PFR; [id number]; 1 [place] [facility] [place] [facility] COVID-19 (PFIZER), MRNA, LNP-S, PF, 30 MCG/0.3 ML DOSE 1 2020 208 complet ed PFR; [id number]; 1 [place] [facility] [place] [facility] PNEUMOCOCCAL CONJUGATE PCV 13 2019 133 [...] vaccine, whole virus 1 2002 Unknown, Provider [id number] [employer] (PWJ) complet ed influenza virus vaccine, whole virus DoD influenza virus vaccine, whole virus 1 2002 Unknown, Provider [id number] 16 Sanofi Pasteur (PMC) complet ed influenza virus vaccine, whole virus DoD tuberculin skin test; purified protein derivative solution, intradermal 1 2002 Unknown, Provider [id number] Sanofi Pasteur ([facility]) complet ed tuberculi n skin test; purified protein derivativ e solution, intraderm al DoD influenza virus vaccine, whole virus 1 2000 Unknown, Provider [id number] 16 Sanofi Pasteur ([facility]) complet ed influenza virus vaccine, whole virus DoD influenza virus vaccine, whole virus 1 2000 Unknown, Provider [id number] 16 Wyeth-Ayerslayla (Inactive) ([place]) complet ed influenza virus vaccine, whole virus DoD tetanus and diphtheria toxoids, adsorbed, preservative free, for adult use (2 Lf of tetanus toxoid and 2 Lf of diphtheria toxoid) 3 1999 Unknown, Provider [id number] Justuslayla (CON) complet ed tetanus and diphtheri a toxoids, adsorbed, preservat valentina free, for adult use (2 Lf of tetanus toxoid and 2 Lf of diphtheri a toxoid) DoD influenza virus vaccine, whole virus 1 1998 Unknown, Provider [id number] 16 Shravan (CON) complet ed influenza virus vaccine, whole virus DoD hepatitis A vaccine, adult dosage 2 1998 Unknown, Provider [id number] Merck (MSD) complet ed hepatitis A vaccine, adult dosage DoD influenza virus vaccine, whole virus 2 1997 Unknown, Provider [id number] 16 Fabricioeth-Ayerslayla (Inactive) ([place]) complet ed influenza [...] and 2 Lf of diphtheri a toxoid) [facility] typhoid vaccine, parenteral, acetone-kille d, dried (U.S. ) 2 1984 Unknown, Provider 53 () complet ed typhoid vaccine, parentera l, acetone-k illed, dried (U.S. ) [facility] trivalent poliovirus vaccine, live, oral 1 1983 Unknown, Provider 02 () complet ed trivalent polioviru s vaccine, live, oral [facility] measles, mumps and rubella virus vaccine 1 1983 Unknown, Provider 03 () complet ed measles, mumps and rubella virus vaccine [facility] meningococcal polysaccharid e vaccine (MPSV4) 1 1983 Unknown, Provider 32 () complet ed meningoco ccal polysacch aride vaccine (MPSV4) [facility] adenovirus vaccine, type 4, live, oral 1 1983 Unknown, Provider 54 () complet ed adenoviru s vaccine, type 4, live, oral [facility] adenovirus vaccine, type 7, live, oral 1 1983 Unknown, Provider 55 () complet ed adenoviru s vaccine, type 7, live, oral [facility] Vital Signs Combined list of inpatient and outpatient Vital Signs from Department of Defense and Veterans Affairs, ranging from 12 months to all on record, depending upon the facility. Vital Sign Value Date Comments Source SYSTOLIC BLOOD PRESSURE 104 11/23/19 10:38:37 [facility] [place] [facility] DIASTOLIC BLOOD PRESSURE 70 025 10:38:37 [facility] [place] [facility] PULSE OXIMETRY 100 11/22/2024 10:38:37 [facility] [place] [facility] WEIGHT 161.8 11/22/2024 10:38:37 [facility] [place] [facility] BMI 25 kg/m2 11/22/2024 10:38:37 [facility] [place] [facility] PAIN 0 11/22/2024 10:38:37 [facility] [place] [facility] HEIGHT 67 11/22/2024 10:38:37 [facility] [...] included; 2) Encounters from the Department of [facility] facilities going backup to 280 months. Location Location Details Encounter Type Encounter Number Reason For Visit Attending Provider ADM Date DC Date Status Disposition Source [facility] Encounter [id number] 06/25 [facility] [place] [facility] O/P EST MOD 30 MIN [id number] 1BY. 16 Diagnos is: ICD-10- CM K52.839 Microsc opic colitis , unspeci fied OLIVER DODD 11/23 [place] [facility] Encounter [id number] 09/09 [facility] [place] Encounter [id number] 09/29 [facility] En[facility] [id number] 10/04 [facility] Encounter [id number] 11/22 [facility] [place] [facility] O/P EST LOW 20 MIN [id number] 1BY. 12 Diagnos is: ICD-10- CM N18.4 Chronic kidney disease , stage 4 (severe ) OLIVER DODD 11/22 [facility] [place] Procedures Combined list of: 1) Procedures from Department of Veterans Affairs facilities going back up to thelast 18 months, not all VA non-surgical procedures are included; 2) All procedures from the Department of Defense facilities. Procedure Procedure Type Code Date Perfomer Comments [facility] DETERMINATION OF REFRACTIVE STATE 03/11/2004 [facility]D [...] MORE AREAS; HOT OR COLD PACKS 09/22/2002 [facility] PHYS/OTH QUALIFIED HEALTH PLUG MAKING OPERATOR QUALIFIED,EDUCATION,TRAIN,LIC ENSURE/REGULATION (WHEN APPLICABLE) EDUC SER RENDERED TO PATS IN A GRP SETTING (EG,,OBESITY,OR DIABETIC INSTRUCT) 06/27/2002 [facility] GROUP PSYCHOTHERAPY (OTHER THAN OF A MULTIPLE-FAMILY GROUP) 06/27/2002 DoD PHYS/OTH QUALIFIED HEALTH PLUG MAKING OPERATOR QUALIFIED,EDUCATION,TRAIN,LIC ENSURE/REGULATION (WHEN APPLICABLE) EDUC SER RENDERED TO PATS IN A GRP SETTING (EG,,OBESITY,OR DIABETIC INSTRUCT) 06/06/2002 [facility] PHYS/OTH QUALIFIED HEALTH PLUG MAKING OPERATOR QUALIFIED,EDUCATION,TRAIN,LIC ENSURE/REGULATION (WHEN APPLICABLE) EDUC SER RENDERED TO PATS IN A GRP SETTING (EG,,OBESITY,OR DIABETIC INSTRUCT) 05/31/2002 [facility] PHYS/OTH QUALIFIED HEALTH PLUG MAKING OPERATOR QUALIFIED,EDUCATION,TRAIN,LIC ENSURE/REGULATION (WHEN APPLICABLE) EDUC SER RENDERED TO PATS IN A GRP SETTING (EG,,OBESITY,OR DIABETIC INSTRUCT) 05/26/2002 [facility] DETERMINATION OF REFRACTIVE STATE 03/24/2002 [...] UP TO AND INCLUDING 15 LESIONS 05/28/2001 [facility] OPHTHALMOLOGICAL SERVICES: MEDICAL EXAMINATION AND EVALUATION WITH INITIATION OF DIAGNOSTIC AND TREATMENT PROGRAM; INTERMEDIATE, NEW PATIENT 05/11/2000 [facility]D INCISION AND DRAINAGE OF ABSCESS (EG, CARBUNCLE, SUPPURATIVE HIDRADENITIS, CUTANEOUS OR SUBCUTANEOUS ABSCESS, CYST, FURUNCLE, OR PARONYCHIA); SIMPLE OR SINGLE 02/29/2000 [facility]D THERAPEUTIC OR DIAGNOSTIC INJECTION (SPECIFY MATERIAL INJECTED); INTRAVENOUS 02/27/2000 [facility] D ELECTROGRAPHIC MONITORING 05/27/1993 [facility] DIAGNOSTIC ULTRASOUND OF HEART 05/27/1993 [facility] COMPUTERIZED AXIAL TOMOGRAPH Y OF HEAD 05/27/1993 [facility] Social History Combined list of available smoking, tobacco, and other social history from Department of Defense and Veterans Affairs facilities. Social History Type Response Date Comment Sour e Tobacco smoking status [facility] VA-TOBACCO NEVER USED 11/24/19 [place] History of tobacco use [place]-TOBACCO NEVER USED 11/26/2022 [place] History of tobacco use IA-TOBACCO NEVER USED 11/04/2021 [place] This section is an empty soc ial history section. DoD
--- OUTSIDE RECORDS SUMMARY | 2025-01-13 10:19 | XMS_ITS | Encounter Summary ---
Author Organization [facility] Address [address] [place] [address] Care Team Providers Care Telecasting Technician Name Role Phone Sabrina Felix MD Primary Care Provider Encounter Details Date Type Department Care Team ([facility] Contact Info) Description 12/07/2017 myChart Message [facility] [address] [place] [address] Steam Hammer Operator: Frank Loza MD [address] [place] [address] [place] [address] RE: Prep Social History Tobacco Use Types [...] ([facility] Contact Info) Description 03/29/2025 11:40 AM EDT Telehealth [facility] [address] [place] [address] Steam Hammer Operator: Praful Paz MD [address] [place] [address] 05/11/2025 11:00 AM EDT Follow-Up [facility] Renal Transplant [address] [place] [address] Ron Simmons MD [address] [place] [address] 05/11/2025 11:45 AM EDT Social Work [facility] Renal Transplant [address] [place] [address] Una Méndez LICSW [address] [place] [address] documented as of this encounter Visit Diagnoses Not on filedocumented in this encounter Care Teams Telecasting Technician Relationship Specialty Start Date End Date Sabrina Felix MD [address] [place] [address] PCP - General 03/19/17 documented as of this encounter
--- OUTSIDE RECORDS SUMMARY | 2025-01-13 10:19 | XMS_ITS | Encounter Summary ---
Author Organization [facility] Address [address] [place] [address] Care Team Providers Care Endodontics Dentist Name Role Phone Sabrina Felix MD Primary Care Provider Encounter Details Date Type Department Care Team ([facility] Contact Info) Description 12/04/2017 myChart Message [facility] [address] [place] [address] Temperature Inspector: Frank Loza MD [address] [place] [address] [place] [address] RE: Referral Request Social History Tobacco Use [...] Upcoming Encounters Date Type Department Care Team ([facility] Contact Info) Description 03/29/2025 11:40 AM EDT Telehealth [facility] [address] [place] [address] Temperature Inspector: Praful Paz MD [address] [place] [address] 05/11/2025 11:00 AM EDT Follow-Up [facility] Renal Transplant [address] [place] [address] Ron Simmons MD [address] [place] [address] 05/11/2025 11:45 AM EDT Social Work [facility] Renal Transplant [address] [place] [address] Una Méndez LICSW [address] [place] [address] documented as of this encounter Visit Diagnoses Not on filedocumented in this encounter Care Teams Endodontics Dentist Relationship Specialty Start Date End Date Sabrina Felix MD [address] [place] [address] PCP - General 03/19/17 documented as of this encounter
--- OUTSIDE RECORDS SUMMARY | 2025-01-13 10:19 | XMS_ITS | Patient Health Record ---
Author Organization [facility] Address [address] [place] [address] Care Team Providers Care Sql Report Developer Name Role Phone Elvira BOLADN, Sabrina Smith Primary Care Provider Un available Radha Buckley Unavailable [phone] Allergies Allergen (clinical drug ingredient) Drug/Non Drug [...] 07/04/2024 Encounters Encounter Location Date Provider Diagnosis [facility] [address] [place] [address] 06/03/2024 Radha Buckley Pain in left foot M79.672 ; Bursitis of left foot M77.52 ; Metatarsalgia of left foot M77.42 and [place] of foot L84 [facility] [address] [address] 07/04/2024 Radha Buckley Pain in left foot M79.672 ; Bursitis of left foot M77.52 and Metatarsalgia of left foot M77.[address] [facility] [address] 07/01/2024 Radha Buckley Assessments Encounter Date Diagnosis [...] of left foot (ICD-10 - M77.42) 06/03/2024 [place] of foot (ICD-10 - L84) Plan Of Treatment Pending Test Test Name Order Date X ray : Foot, left 3V 06/03/2024 Insurance Providers Payer Name Payer Address Payer Phone Subscriber Number Group Number Insured Name Patient Relationship to Insured Coverage Start Date Coverage End Date Medicare National [employer] [address] [place] [address] [id number] Lisha Solis Self - patient is the insured for Life [address] [place] [phone] [id number] Lisha Solis Self - patient is the insured Medical (General) History Medical History History ICD Code Colitis Kidney disease / on inactive transplant list for kidney Mumps Psoriasis/eczema Anemia covid-19 Stroke
--- OUTSIDE RECORDS SUMMARY | 2025-01-13 10:19 | XMS_ITS ---
Author Organization [facility] Address [address] [place] [address] Care Team Providers Care Site Physician Name Role Phone Elvira BOLAND, Sabrina Smith Primary Care Provider Un available Radha Buckley Unavailable [phone] Problems No Known Problems Encounters Encounter Location Date Provider Diagnosis [facility] [address] [place] [address] 07/04/2024 Radha Buckley Plan Of Treatment No Information Progress Notes * Lisha LOPEZDOB:1955 (69 yo F)Acc No.[id number]:07/04/2024 Progress Notes Patient:?Lisha LOPEZ Provider:?Radha Buckley DPM :1955???Age:68 Y???Sex:Female D ate:07/04/2024 Address:[address] [place], [place] [id number] Pcp:Paola Tellez Subjective: * Chief Complaints: * [...] DPM Date:?1 09/03/2023 Generated for Anirudh sands/Rios/eTransmitting on:?01/13/2025 10:18 AM EDT
[2025-01-13 13:36] LABS: Alanine Aminotransferase 18 U/L (0-31); Aspartate Amino Transferase 27 U/L (5-31); Cholesterol 174 mg/dL (<200); HDL Cholesterol 62 mg/dL (>40); LDL Cholesterol Calculated 100 mg/dL (<100); Triglycerides 61 mg/dL (<150)
== END 2025-01-13 10:00 | disposition home or self-care (01) ==
LOC: HO.HMGCLDS 09:59
PROVIDERS: PCP Internal Medicine; Visit Provider Internal Medicine
DX: E78.5 Hyperlipidemia, unspecified (principal)
CPT/HCPCS: 36415; 80061; 84450; 84460

== ENCOUNTER 2025-01-16 11:12 | Outpatient (AMB) | payer MEDICARE, OTHER, SELFPAY ==
--- OUTSIDE RECORDS SUMMARY | 2025-01-16 11:56 | XMS_ITS ---
Author Organization [facility] Address [address] [place] [address] Care Team Providers Care Cut In Worker Name Role Phone Elvira BOLAND, Sabrina Smith Primary Care Provider Un available Radha Buckley Unavailable [phone] Problems No Known Problems Encounters Encounter Location Date Provider Diagnosis [facility] [address] [place] [address] 07/04/2024 Radha Buckley Plan Of Treatment No Information Progress Notes * Lisha LOPEZDOB:1955 (69 yo F)Acc No.[id number]:07/04/2024 Progress Notes Patient:?Lisha LOPEZ Provider:?Radha Buckley DPM :1955???Age:68 Y???Sex:Female D ate:07/04/2024 Address:[address] [place], [place] [id number] Pcp:Paola Tellez Subjective: * Chief Complaints: * [...] DPM Date:?1 09/03/2023 Generated for Anirudh sands/Rios/eTransmitting on:?01/16/2025 11:56 AM EDT
--- OUTSIDE RECORDS SUMMARY | 2025-01-16 11:56 | XMS_ITS | Encounter Summary ---
Author Organization [facility] Address [address] [place] [address] Care Team Providers Care Oxygen Plant Operator Name Role Phone Sabrina Felix MD Primary Care Provider Encounter Details Date Type Department Care Team ([facility] Contact Info) Description 12/07/2017 myChart Message [facility] Nephrology Clinic [address] [place] [address] Circuit Manager: Frank Loza MD [address] [place] [address] [place] [address] RE: Prep Social History Tobacco Use Types [...] Upcoming Encounters Date Type Department Care Team ([facility] Contact Info) Description 03/29/2025 11:40 AM EDT Telehealth [facility] Ne[facility]rology [facility] [address] [place] [address] Circuit Manager: Praful Paz MD [address] [place] [address] 05/11/2025 11:00 AM EDT Follow-Up [facility] Renal Transplant [address] [place] [address] Ron Simmons MD [address] [place] [address] 05/11/2025 11:45 AM EDT Social Work [facility] Renal Transplant [address] [place] [address] Una Méndez LICSW [address] [place] [address] documented as of this encounter Visit Diagnoses Not on filedocumented in this encounter Care Teams Oxygen Plant Operator Relationship Specialty Start Date End Date Sabrina Felix MD [address] [place] [address] PCP - General 03/19/17 documented as of this encounter
--- OUTSIDE RECORDS SUMMARY | 2025-01-16 11:56 | XMS_ITS ---
Author Organization [facility] Address [address] [place] [address] Care Team Providers Care Accounts Payable Accountant Name Role Phone Elvira BOLAND, Sabrina Smith Primary Care Provider Un available Radha Buckley Unavailable [phone] REASON FOR VISIT rs timings on 07/04/25 Problems No Known Problems Encounters Encounter Location Date Provider Diagnosis [facility] [address] [place] [address] 07/01/2024 Radha Buckley Plan Of Treatment No Information Progress Notes * Lisha LOPEZDOB:1955 (68 yo F)Acc No.[id number]:07/01/2024 Patient:?Lisha Lopez :1955???Age:68 Y???Sex:Female Address:[address] [place] [address], [address] * true * Date:? Generated for Roseyi wicho/Rios/eTransmitting on:?01/16/2025 11:55 AM EDT
--- OUTSIDE RECORDS SUMMARY | 2025-01-16 11:56 | XMS_ITS ---
Author Organization [facility] Address [address] [place] [address] Care Team Providers Care Acoustical Logging Engineer Name Role Phone Sabrina Felix MD Primary Care Provider Transplant Episode Kidney Candidate [facility] ([place], [place]) - [facility] waitlisted on 08/11/2019 Marked as Inactive on 08/11/2019 Reason: Candidate Workup Incomplete Kidney CoordinatorHoa Aldrich RN Email: N/A Scores Score Value Updated Exceptions/Reas ons CPRA 0 05/23/2024 EPTS (Calc) 47 01/16/2025 Care Team Name Role Phone Fax Email Hoa Aldrich RN Kidney Coordinator [phone] N/A Star Thomas MD Emg Technician [phone] [email or web address] Frank Lane MD Referring Physician [phone] [email or web address] [employer] Software Applications Designer N/A N/A N/A Events Pre-Transplant Referred: 04/25/2019 Evaluation began: 06/28/2019 Committee: 08/10/2019 Center waitlisted: 08/11/2019
--- OUTSIDE RECORDS SUMMARY | 2025-01-16 11:56 | XMS_ITS | Encounter Summary ---
Author Organization [facility] Address [address] [place] [address] Care Team Providers Care Respiratory Practitioner Name Role Phone Sabrina Felix MD Primary Care Provider Encounter Details Date Type Department Care Team ([facility] Contact Info) Description 12/04/2017 myChart Message [facility] [address] [place] [phone] Front Office Manager: Frank Loza MD [address] [place] [address] [place] [address] Referral Request Social History Tobacco Use Types [...] Upcoming Encounters Date Type Department Care Team ([facility] Contact Info) Description 03/29/2025 11:40 AM EDT Telehealth [facility] [address] [place] [address] [phone] Front Office Manager: Praful Paz MD [address] [place] [address] [phone] 05/11/2025 11:00 AM EDT Follow-Up [facility]plant [address] [place] [address] Ron Simmons MD [address] [place] [address] 05/11/2025 11:45 AM EDT Social Work [facility] [address] [place] [address] Una Méndez LICSW [address] [place] [address] documented as of this encounter Visit Diagnoses Not on filedocumented in this encounter Care Teams Respiratory Practitioner Relationship Specialty Start Date End Date Sabrina Felix MD [address] [place] [address] PCP - General 03/19/17 documented as of this encounter
--- OUTSIDE RECORDS SUMMARY | 2025-01-16 11:56 | XMS_ITS | Referral Summary ---
Author Organization [facility] Address [address] [place] [address] Care Team Providers Care Supervisor Cooler Service Name Role Phone Sabrina Felix MD Primary Care Provider Encounters Date Type Department Care Team Description 12/28/2024 11:40 AM EDT Follow-Up [facility] [address] [place] [phone] Regional Engagement Consultant: Praful Paz MD CKD stage G4/A1, GFR 15-29 and albumin creatinine ratio <30 mg/g (HCC) (Primary Dx) 12/25/2024 myChart Message [facility] [address] [place] [phone] Regional Engagement Consultant: Praful Paz MD test results 12/15/2024 Refill [facility] [address] [place] [address] [phone] Regional Engagement Consultant: Praful Paz MD Iron deficiency anemia secondary to inadequate dietary iron intake 11/10/2024 Refill [facility] [address] [place] [phone] Regional Engagement Consultant: Praful Paz MD Chronic kidney disease (CKD) stage G4/A1, severely decreased glomerular filtration rate (GFR) between 15-29 mL/min/1.73 square meter and albuminuria creatinine ratio less than 30 mg/g; Vitamin D deficiency 11/09/2024 Orders Only [facility] [address] [place] [phone] Regional Engagement Consultant: Praful Paz MD 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 myChart Message [facility] [address] [place] [phone] Regional Engagement Consultant: Praful Paz MD SCRIPT from Last 3 [...] mg by mouth once a day. Active tildrakizumab-asm n (Ilumya) 100 mg/mL syringe subcutaneous injection Inject 100 mg under the skin once. Injection once a month. Active sodium bicarbonate 650 mg tabletIndications :Metabolic acidosis TAKE 3 TABLETS (1,944 MG TOTAL) BY MOUTH 2 TIMES A DAY. 540 tablet 3 4 04/20/20 25 Active cephalexin (KEFLEX) 250 mg capsule Take 250 mg by mouth 2 times a day. 4 Active potassium chloride ER (KLOR-CON M-10) 10 mEq tabletIndications :Other disorders resulting from impaired renal tubular function Take 4 tablets (40 mEq total) by mouth in the morning AND 2 tablets (20 mEq total) with lunch AND 4 tablets (40 mEq total) every evening. 900 tablet 3 5 11/13/19 26 Active cholecalciferol (VITAMIN D3) 1,250 mcg (50,000 unit) capsuleIndication s:Chronic kidney disease (CKD) stage G4/A1, severely decreased glomerular filtration rate (GFR) between 15-29 mL/min/1.73 square meter and albuminuria creatinine ratio less than 30 mg/g ([facility]),Vitamin D deficiency TAKE 1 CAPSULE BY MOUTH ONCE EVERY 14 DAYS 6 capsule 3 5 Active ferrous sulfate 325 mg (65 mg iron) tabletIndications :Iron deficiency anemia secondary to inadequate dietary iron intake TAKE 1 TABLET BY MOUTH EVERY DAY WITH BREAKFAST 90 tablet 3 5 Active Active Problems Problem Noted Date Diagnosed [...] 7, Live, Oral 4 Covid-19, Pfizer, mRNA, Chase valent, PF 30 mcg/0.3 mL dose (for ages 12 and older) 11/27/2020,11/06/2020 Covid-19, Pfizer, mRNA, Chase valent, PF, 30 mcg/0.3 mL dose, dat-sucrose [...] 11/02/2002 Typhoid Vaccine, Parenteral, Acetone-Killed, Dried ([employer]) 04/24/1985 Zoster Vaccine Recombinant 10/20/2019,03/20/2019 Social History [...] Info) Description 03/29/2025 11:40 AM EDT Telehealth [facility] [address] [place] [phone] Regional Engagement Consultant: Praful Paz MD [address] [place] [phone] 05/11/2025 11:00 AM EDT Follow-Up [facility] [address] [place] [address] Ron Simmons MD [address] [place] [address] 05/11/2025 11:45 AM EDT Social Work [facility] [address] [place] [address] Una Méndez LICSW [address] [place] [phone] Procedures * Due to [place] state law, this organization might not be [...] to Health Maintenance Results * Due to [place] state law, this organization might not be sharing negative HIV tests. * LAB - SCANNED (12/23/2024) Only the most recent of2 resultswithin the time period is included. us Onbase Scan [facility] LAB HISTORICAL RESULTS Final Result * (ABNORMAL) Renal Function Panel (11/18/2023 11:45 AM EDT) NA 136 135 - 145 mmol/L 11/18/2023 1:47 PM EDT [facility] K 3.4(L) 3.5 - 5.3 mmol/L 11/18/2023 1:47 PM EDT [facility] Cl 101 97 - 110 mmol/L 11/18/2023 1:47 PM EDT [facility] CO2 26 24 - 32 mmol/L 11/18/2023 1:47 PM EDT [facility] Anion Gap 9 5 - 15 11/18/2023 1:47 PM EDT [facility] Glucose 94 70 - 99 mg/dL 11/18/2023 1:47 PM EDT [facility] BUN 31(H) 7 - 23 mg/dL 11/18/2023 1:47 PM EDT [facility] Creatinine 2.73(H) 0.50 - 1.20 mg/dL 11/18/2023 1:47 PM EDT [facility] Calcium 9.9 8.7 - 10.7 mg/dL 11/18/2023 1:47 PM EDT [facility] Phosphorus 3.5 2.5 - 4.5 mg/dL 11/18/2023 1:47 PM EDT [facility] Albumin 3.9 3.5 - 4.8 g/dL 11/18/2023 1:47 PM EDT [facility] eGFR 19(L) >=60 mL/min/1 .73m2 11/18/2023 1:47 PM EDT [facility] Comment:The estimated glomer ular [...] MD LAB BLOOD ORDERABLES Final Resul t [facility] [address] [place] [address], * KIDNEY PANCREAS POST EXTERNAL PANEL (10/23/2020 10:15 AM EST) WBC 5.9 10*3/uL [facility] Hgb 11.7 [facility] Hematocrit 36.3 % [facility] Platelets 264 10*3/uL [facility] Sodium 140 mmol/L [facility] Potassium 3.8 [facility] Chloride 104 [facility] Carbon Dioxide 25 [facility] BUN 30 [facility] Creatinine 2.19 mg/dL [facility] Calcium 8.6 mg/dL [facility] 10/23/2020 10:1 5 AM EST us Unknown Provider MD LAB BLOOD ORDERABLES Final R esult [facility] [address] [place] [address] * (ABNORMAL) PTH, Intact (without Calcium) (07/25/2019 4:17 PM EST) Parathyroid Hormone, Intact 163(H) 14 - 64 pg/mL 07/30/2019 9:05 PM EST [facility] Comment: Interpretive Guide ?Intact PTH ? Calcium [...] - 07/30/2019 9:05 PM EST [facility] Received Date:[id number] us Frank Lane MD LAB BLOOD ORDERABLES Edited Result - Final Performing Organization Address [facility]/ZIP Co de Phone Number ELYSIA AVERY [address], [place] [address], [employer] [facility] [address], [place] [address], * Hepatitis C Antibody w/Reflex to PCR (06/28/2019 11:10 AM EDT) Hepatitis C Antibody NON-REACT YUNG NON-REACT YUNG 06/28/2019 7:20 PM EDT [employer] [facility] Signal To Cut-Off 0.01 <1.00 06/28/2019 7:20 PM EDT [employer] [facility] Comment: HCV antibody was non-reactive. There is no laboratory evidence of HCV infection. In most cases, no further action is required. However, if recent HCV exposure is suspected, a test for HCV RNA (test code 35504) is suggested. For additional information please refer to http://education.Euroffice/faq/SXE24f3 (This link is being provided for informational/ educational purposes only.) Blood specimen (specimen) Structure of peripheral vein / Unknown Venipuncture / Unknown 06/28/2019 11:10 AM EDT 06/28/2019 11:22 AM EDT [facility] AVERY - 06/28/2019 7:20 PM EDT [facility] Received Date:[id number] us Frank Lane MD LAB BLOOD ORDERABLES Final R esult Performing Organization Address City/[facility]/ZIP Co de Phone Number ELYSIA AVERY [address], [place] [address], [employer] [facility] [address], [address] [facility] [address] [phone] * Colonoscopy (03/26/2018) us Unknown Provider HEALTH MAINTENANCE Final Res ult * Microalbumin/Creatinine Urine, Random (06/05/2016 2:47 PM EDT) Microalbumin Urine 1.8 mg/dL [facility] [employer] Creatinine Urine 218 15 - 278 mg/dL [facility] Albumin/Creat Ratio 8 <30.0 mcg/mgCr [facility] Comment: Normal ? < 30 ?? mcg/mg creatinine Microalbuminuria ?30-300 ??mcg/mg creatinine Clinical Albuminuria ? > 300 ??mcg/mg creatinine Reference: ADA Guidelines. Diabetes Care. 2004; 27 (suppl 1) 06/05/2016 2:47 PM EDT 06/05/2016 3:[address] us Frank [address] MD LAB URINE ORDERABLES Final R esult [facility] [address] [place] [address] from Last 3 Months or Most Recently Relevant to [place] [id number] [employer] Member Subscriber Plan / Payer (Ef fective 2021-Present) Name:Lisha Solis Relation to Subscriber:Self Name:Lisha Solis Payer ID:[id number] Group ID:Not on file Type:Not on file Address: [facility] [address] [place] [place] [phone] MEDICARE Member Subscriber Plan / Payer (Ef fective 2021-Present) Name:Lisha SolisJett Member ID:[id number] Relation to Subscriber:Self Name:Lisha Solis Subscriber ID:[id number] Payer ID:[id number] Group ID:Not on file Type:Not on file Address: [address] Member Subscriber Plan / Payer (Ef fective 2021-Present) Name:Lisha SolisJett Relation to Subscriber:Self Name:Lisha Solis Payer ID:[id number] Group ID:Not on file Type:Not on file Address: [place] [phone] MEDICARE FOR LIFE Advance Directives Documents on File Type Date Recorded Patient Senior Mobile Developer Expl [facility] Care Proxy 05/16/2024 3:58 PM 05-12 Care Teams Supervisor Cooler Service Relationship Specialty Start Date End Date Sabrina Felix MD [address] [place] [address] PCP - General 03/19/17
--- OUTSIDE RECORDS SUMMARY | 2025-01-16 11:56 | XMS_ITS | Encounter Summary ---
Author Organization [facility] Address [address] [place] [address] Care Team Providers Care Technical Buyer Name Role Phone Sabrina Felix MD Primary Care Provider Encounter Details Date Type Department Care Team ([facility] Contact Info) Description 09/24/2017 myChart Message [facility] [address] [place] [phone] Quality Associate: Frank Loza MD [address] [place] [address] [place] [address] Non-Urgent Medical Question Social History Tobacco Use [...] Info) Description 03/29/2025 11:40 AM EDT Telehealth [facility] [address] [place] [phone] Quality Associate: Praful Paz MD [address] [place] [address] [phone] 05/11/2025 11:00 AM EDT Follow-Up [facility] Transplant [address] [place] [address] Ron Simmons MD [address] [place] [address] 05/11/2025 11:45 AM EDT Social Work [facility] [address] [place] [address] Una Méndez LICSW [address] [place] [address] documented as of this encounter Visit Diagnoses Not on filedocumented in this encounter Care Teams Technical Buyer Relationship Specialty Start Date End Date Sabrina Felix MD [address] [place] [address] PCP - General 03/19/17 documented as of this encounter
--- OUTSIDE RECORDS SUMMARY | 2025-01-16 11:56 | XMS_ITS ---
Author Organization [facility] Address [address] [place] [address] Care Team Providers Care Solaris Administrator Name Role Phone Elvira BOLAND, Sabrina Smith Primary Care Provider Un available Radha Buckley Unavailable [phone] Allergies Allergen (clinical drug ingredient) Drug/Non Drug [...] Provider Diagnosis [facility] [address] [place] [address] 07/04/2024 Radha Buckley Pain in left foot [...] Notes * Lisha LOPEZDOB:1955 (68 yo F)Acc No.[id number]:07/04/2024 Progress Notes Patient:?Lisha Lopez Provider:?Radha Buckley DPM :1955???Age:68 Y???Sex:Female D ate:07/04/2024 Address:[address] [place] [address] Pcp:Paola Tellez Subjective: * Chief Complaints: * [...] various subjects. ?Marital status: single. ?Occupation: Retired [employer]. * Medications:?TakingSodium Bi carbonate Potassimin , Notes: [...] DPM Date:?1 09/03/2023 Generated for Anirudh sands/Rios/Candelarioitting on:?01/16/2025 11:55 AM EDT History and Physical Notes * [...]
--- OUTSIDE RECORDS SUMMARY | 2025-01-16 11:56 | XMS_ITS | Clinical Summary ---
Author Organization [facility] Address [address] [place] [address] Care Team Providers Care Cell Technician Name Role Phone Sabrina Felix MD [...] Team Description 12/28/2024 11:40 AM EDT Follow-Up [facility] [address] [place] [phone] Children'S Attendant: Praful Paz MD CKD stage G4/A1, GFR 15-29 and albumin creatinine ratio <30 mg/g (HCC) (Primary Dx) 12/25/2024 myChart Message [facility] [address] [place] [address] Children'S Attendant: Praful Paz MD test results 12/15/2024 Refill [facility] [address] [place] [address] Children'S Attendant: Praful Paz MD Iron deficiency anemia secondary to inadequate dietary iron intake 11/10/2024 Refill [facility] [address] [place] [address] Children'S Attendant: Praful Paz MD Chronic kidney disease (CKD) stage G4/A1, severely decreased glomerular filtration rate (GFR) between 15-29 mL/min/1.73 square meter and albuminuria creatinine ratio less than 30 mg/g; Vitamin D deficiency 11/09/2024 Orders Only [facility] [address] [place] [address] Children'S Attendant: Praful Paz MD 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 myChart Message [facility] [address] [place] [address] Children'S Attendant: Praful Paz MD SCRIPT from Last 3 Months Immunizations Immunization Administration Dates Next Due Adenovirus Vaccine, Type 7, Live, Oral 4 Covid-19, Pfizer, mRNA, [place] valent, PF 30 mcg/0.3 mL dose (for ages 12 and older) 11/27/2020,11/06/2020 Covid-19, Pfizer, mRNA, [place] valent, PF, 30 mcg/0.3 mL dose, dat-sucrose [...] 11/02/2002 Typhoid Vaccine, Parenteral, Acetone-Killed, Dried ([place] Re[employer]) 04/24/1985 Zoster Vaccine Recombinant 10/20/2019,03/20/2019 Social History [...] Info) Description 03/29/2025 11:40 AM EDT Telehealth [facility] [address] [place] [address] Children'S Attendant: Praful Paz MD [address] [place] [address] 05/11/2025 11:00 AM EDT Follow-Up [facility] [address] [place] [address] Ron Simmons MD [address] [place] [address] 05/11/2025 11:45 AM EDT Social Work [facility] [address] [place] [address] Una Méndez LICSW [address] [place] [address] Health Maintenance Due Date Last Done Comments [...] Nephrology Completed 12/28/2024 Procedures * Due to [place] state law, this organization might not be [...] to Health Maintenance Results * Due to [place] state law, this organization might not be sharing negative HIV tests. * LAB - SCANNED (12/23/2024) Only the most recent of2 resultswithin the time period is included. us Onbase Scan [facility] LAB HISTORICAL RESULTS Final Result * (ABNORMAL) Renal Function Panel (11/18/2023 11:45 AM EDT) NA 136 135 - 145 mmol/L 11/18/2023 1:47 PM EDT [facility] K 3.4(L) 3.5 - 5.3 mmol/L 11/18/2023 1:47 PM EDT [facility] Cl 101 97 - 110 mmol/L 11/18/2023 1:47 PM EDT [facility] CO2 26 24 - 32 mmol/L 11/18/2023 1:47 PM EDT [facility] Anion Gap 9 5 - 15 11/18/2023 1:47 PM EDT [facility] Glucose 94 70 - 99 mg/dL 11/18/2023 1:47 PM EDT [facility] BUN 31(H) 7 - 23 mg/dL 11/18/2023 1:47 PM EDT [facility] Creatinine 2.73(H) 0.50 - 1.20 mg/dL 11/18/2023 1:47 PM EDT [facility] Calcium 9.9 8.7 - 10.7 mg/dL 11/18/2023 1:47 PM EDT [facility] Phosphorus 3.5 2.5 - 4.5 mg/dL 11/18/2023 1:47 PM EDT [facility] Albumin 3.9 3.5 - 4.8 g/dL 11/18/2023 1:47 PM EDT [facility] eGFR 19(L) >=60 mL/min/1 .73m2 11/18/2023 1:47 PM EDT [facility] Comment:The estimated glomer ular [...] MD LAB BLOOD ORDERABLES Final Resul t [facility] [address] [place] [address], * KIDNEY PANCREAS POST EXTERNAL PANEL (10/23/2020 10:15 AM EST) WBC 5.9 10*3/uL [facility] Hgb 11.7 [facility] Hematocrit 36.3 % [facility] Platelets 264 10*3/uL [facility] Sodium 140 mmol/L [facility] Potassium 3.8 [facility] Chloride 104 [facility] Carbon Dioxide 25 [facility] BUN 30 [facility] Creatinine 2.19 mg/dL [facility] Calcium 8.6 mg/dL [facility] 10/23/2020 10:1 5 AM EST us Unknown Provider MD LAB BLOOD ORDERABLES Final R esult [facility] [address] [place] [address] * (ABNORMAL) PTH, Intact (without Calcium) (07/25/2019 4:17 PM EST) Parathyroid Hormone, Intact 163(H) 14 - 64 pg/mL 07/30/2019 9:05 PM EST [email or web address] Comment: Interpretive Guide ?Intact PTH ? Calcium [...] Magalys AVERY - 07/30/2019 9:05 PM EST [facility] Received Date:[id number] us Frank Lane MD LAB BLOOD ORDERABLES Edited Result - Final Performing Organization Address [facility]/ZIP Co de Phone Number ELYSIA AVERY [address], [place] [address], [employer] [facility] [address], [place] [address], * Hepatitis C Antibody w/Reflex to PCR (06/28/2019 11:10 AM EDT) Hepatitis C Antibody NON-REACT YUNG NON-REACT YUNG 06/28/2019 7:20 PM EDT [employer] [facility] Signal To Cut-Off 0.01 <1.00 06/28/2019 7:20 PM EDT [employer] [facility] Comment: HCV antibody was non-reactive. There is no laboratory evidence of HCV infection. In most cases, no further action is required. However, if recent HCV exposure is suspected, a test for HCV RNA (test code 51518) is suggested. For additional information please refer to http://education.[employer]/faq/CCZ53z0 (This link is being provided for informational/ educational purposes only.) Blood specimen (specimen) Structure of peripheral vein / Unknown Venipuncture / Unknown 06/28/2019 11:10 AM EDT 06/28/2019 11:22 AM EDT Magalys AVERY - 06/28/2019 7:20 PM EDT [facility] Received Date:[id number] us Frank Lane MD LAB BLOOD ORDERABLES Final R esult Performing Organization Address City/[facility]/ZIP Co de Phone Number ELYSIA AVERY [address], [place] [address], [employer] [facility] [address], [place] [address], * HM Colonoscopy (03/26/2018) us Unknown Provider HEALTH MAINTENANCE Final Res ult * Microalbumin/Creatinine Urine, Random (06/05/2016 2:47 PM EDT) Microalbumin Urine 1.8 mg/dL [facility] Creatinine Urine 218 15 - 278 mg/dL [facility] Albumin/Creat Ratio 8 <30.0 mcg/mgCr [facility] Comment: Normal ? < 30 ?? mcg/mg creatinine Microalbuminuria ?30-300 ??mcg/mg creatinine Clinical Albuminuria ? > 300 ??mcg/mg creatinine Reference: ADA Guidelines. Diabetes Care. 2004; 27 (suppl 1) 06/05/2016 2:47 PM EDT 06/05/2016 3:[address] MD LAB URINE ORDERABLES Final R esult [facility] [address] [place] [address] from Last 3 Months or Most Recently Relevant to Health Maintenance Insurance MEDICARE [employer] Member Subscriber Plan / Payer (Ef fective 2021-Present) Name:Lisha Solis Relation to Subscriber:Self Name:Lisha Solis Payer ID:[id number] Group ID:Not on file Type:Not on file Address: [place] [id number] [place] [phone] MEDICARE Member Subscriber Plan / Payer (Ef fective 2021-Present) Name:Lisha Solis. Member ID:[id number] Relation to Subscriber:Self Name:Lisha Solis Subscriber ID:[id number] Payer ID:[id number] Group ID:Not on file Type:Not on file Address: [address] [employer] Member Subscriber Plan / Payer (Ef fective 2021-Present) Name:Lisha Solis Relation to Subscriber:Self Name:Lisha Solis Payer ID:[id number] Group ID:Not on file Type:Not on file Address: [place] [phone] MEDICARE Member Subscriber Plan / Payer (Ef fective 2021-Present) Name:Lisha Solis. Member ID:[id number] Relation to Subscriber:Self Name:Lisha Solis Subscriber ID:[id number] Payer ID:[id number] Group ID:Not on file Type:Not on file Address: [place] [phone] [facility] Advance Directives Documents on File Type Date Recorded Patient Farm Machinery Erector Expl [facility] Care Proxy 05/16/2024 3:58 PM 05-12 Care Teams Cell Technician Relationship Specialty Start Date End Date Sabrina Felix MD [address] [place] [address] PCP - General 03/19/17
--- OUTSIDE RECORDS SUMMARY | 2025-01-16 11:56 | XMS_ITS | Encounter Summary ---
Author Organization [facility] Address [address] [place] [address] Care Team Providers Care Poultry Farm Supervisor Name Role Phone Sabrina Felix MD Primary Care Provider Encounter Details Date Type Department Care Team ([facility] Contact Info) Description 12/04/2017 myChart Message [facility] [address] [place] [id number] Heavy Equipment Operator: Frank Loza MD [address] [place] [address] [place] [address] RE: Referral Request Social History Tobacco Use [...] Upcoming Encounters Date Type Department Care Team ([facility] Contact Info) Description 03/29/2025 11:40 AM EDT Telehealth [facility] [address] [place] [address] Heavy Equipment Operator: Praful Paz MD [address] [place] [address] 05/11/2025 11:00 AM EDT Follow-Up [facility] [address] [place] [address] Ron Simmons MD [address] [place] [address] 05/11/2025 11:45 AM EDT Social Work [facility] [address] [place] [address] Una Méndez LICSW [address] [place] [address] documented as of this encounter Visit Diagnoses Not on filedocumented in this encounter Care Teams Poultry Farm Supervisor Relationship Specialty Start Date End Date Sabrina Felix MD [address] [place] [address] PCP - General 03/19/17 documented as of this encounter
--- OUTSIDE RECORDS SUMMARY | 2025-01-16 11:56 | XMS_ITS | Patient Health Record ---
Author Organization [facility] Address [address] [place] [address] Care Team Providers Care Senior Ui Ux Developer Name Role Phone Elvira BOLAND, Sabrina Smith Primary Care Provider Un available Radha Buckley Unavailable [phone] Allergies Allergen (clinical drug ingredient) Drug/Non Drug [...] 07/04/2024 Encounters Encounter Location Date Provider Diagnosis [facility] [address] [place] [address] 06/03/2024 Radha Buckley Pain in left foot M79.672 ; Bursitis of left foot M77.52 ; Metatarsalgia of left foot M77.42 and [place] of foot L84 [facility] [address] [address] 07/04/2024 Radha Buckley Pain in left foot M79.672 ; Bursitis of left foot M77.52 and Metatarsalgia of left foot M77.[address] [facility] [address] 07/01/2024 Radha Buckley Assessments Encounter Date Diagnosis [...] of left foot (ICD-10 - M77.42) 06/03/2024 [place] of foot (ICD-10 - L84) Plan Of Treatment Pending Test Test Name Order Date X ray : Foot, left 3V 06/03/2024 Insurance Providers Payer Name Payer Address Payer Phone Subscriber Number Group Number Insured Name Patient Relationship to Insured Coverage Start Date Coverage End Date Medicare National [employer] [address] [place] [address] [id number] Lisha Solis Self - patient is the insured for Life [address] [place] [phone] [id number] Lisha Solis Self - patient is the insured Medical (General) History Medical History History ICD Code Colitis Kidney disease / on inactive transplant list for kidney Mumps Psoriasis/eczema Anemia covid-19 Stroke
--- OUTSIDE RECORDS SUMMARY | 2025-01-16 11:56 | XMS_ITS | Encounter Summary ---
Author Organization [facility] Address [address] [place] [address] Care Team Providers Care Computer Programming Supervisor Name Role Phone Sabrina Felix MD Primary Care Provider Encounter Details Date Type Department Care Team ([facility] Contact Info) Description 12/25/2024 myChart Message [facility] [address] [place] [address] [phone] Dressmaker Or Tailor: Praful Paz MD [address] [place] [address] [phone] test results Social History Tobacco Use Types [...] Upcoming Encounters Date Type Department Care Team ([facility] Contact Info) Description 03/29/2025 11:40 AM EDT Telehealth [facility] [address] [place] [address] [phone] Dressmaker Or Tailor: Praful Paz MD [address] [place] [address] [phone] 05/11/2025 11:00 AM EDT Follow-Up [facility] [address] [place] [address] Ron Simmons MD [address] [place] [address] 05/11/2025 11:45 AM EDT Social Work [facility] [address] [place] [address] Una Méndez LICSW [address] [place] [address] documented as of this encounter Visit Diagnoses Not on filedocumented in this encounter Care Teams Computer Programming Supervisor Relationship Specialty Start Date End Date Sabrina Felix MD [address] [place] [address] PCP - General 03/19/17 documented as of this encounter
[2025-01-16 11:59] VITALS: BP 100/64; PULSE 60; RESP 12; TEMP 36.6; O2SAT 100; BMI 27.4
--- NOTE | 2025-01-16 11:59 | MHC.PC.OV ---
Vital Signs 01/16/25 11:59 Height 5 ft 6 in Weight 170 lb BMI 27.4 BP 100/64 Blood Pressure Location Rt brachial Position Sitting Respiration 12 Pulse 60 Pulse Source Pulse Oximeter Temp 97.9 F Temp Source Oral Pulse Oximetry (%) 100 Oxygen Delivery Method Room Air Intake Visit Reasons: 6 months f/up-check up cholesterol Allergies tetracycline [Tetracycline] Allergy (Severe, Verified 01/16/25 12:10) ANAPHYLAXIS, as a child, trouble breathing Medication List - Last Reconciled 01/16/25 by Sabrina Felix MD aspirin 81 mg PO DAILY atorvastatin 80 mg PO DAILY calcipotriene 0.005% topical cholecalciferol (vitamin D3) 1,250 mcg PO Q2W clobetasol 0.05% 1 appl topical BID PRN desoximetasone 0.25% topical ferrous sulfate 325 mg PO QAM halobetasol propionate 0.05% 1 appl topical BID PRN nystatin 1 appl topical DAILY nystatin-triamcinolone 100,000-0.1 unit/g-% 1 appl topical BID potassium chloride ER (Klor-Con M) 50 mEq PO BID sodium bicarbonate 1,950 mg PO BID tildrakizumab-asmn (Ilumya) 100 mg subcut Q12W Tobacco use date assessed: 01/16/25 Fall risk assessment: No Falls in past year Last assessed Fall Risk: 01/16/25 Dental Screening Dental Screen Date: 01/16/25 Did you have a dental visit in the last 12 months?: No Did you have a dental problem in the last 6 months where you did not have access to dental care?: No Was dental information given to patient?: No HPI 6 months f/up-check up cholesterol HPI Details 61-year-old Lisha, here today for follow-up on her lipids she is currently on atorvastatin 80 mg daily, tolerating medication well, has been compliant with her diet. Latest fasting labs showed lipids are within normal limits [facility] Medical History Psoriasis of vulva Plantar callus History of CVA (cerebrovascular accident) without residual deficits History of Holter monitoring Folate deficiency Vitamin B12 deficiency Secondary hyperparathyroidism Interstitial nephritis Hyperlipidemia Psoriasis vulgaris Abnormal Pap smear of cervix Osteoporosis Vulvar dermatitis Anemia due to chronic kidney disease Left Achilles tendinitis Kidney stones Chronic hypokalemia Lymphocytic colitis CKD (chronic kidney disease) stage 4, GFR 15-29 ml/min Surgical History Hx of colonoscopy H/O endoscopy History of colposcopy Family History Maternal Grandmother Breast cancer Maternal Aunt Breast cancer Colon cancer Sister Cervical cancer Social History Household Members: None Housing: House Do you presently have visiting nurse or other home services: No Alcohol intake: never Patient Tobacco Use Status: Never used Tobacco e-Cigarette/Vaping Use: Never Used Advance Directives Date on File: 06/23/22 service: Yes Current occupational status: retired Sexual orientation: Straight/Heterosexual Gender identity: Female Cognitive needs: No Hearing needs: No Vision needs: Yes Questionnaire PHQ-9 Over the last 2 weeks, how often have you been bothered by any of the following problems? 1. Little interest or pleasure in doing things: not at all 2. Feeling down, depressed, or hopeless: not at all 3. Trouble falling or staying asleep, or sleeping too much: not at all 4. Feeling tired or having little energy: not at all 5. Poor appetite or overeating: not at all 6. Feeling bad about yourself - or that you are a failure or have let yourself or your family down: not at all 7. Trouble concentrating on things, such as reading the newspaper or watching television: not at all 8. Moving or speaking so slowly that other people could have noticed. Or the opposite - being so fidgety or restless that you have been moving around a lot more than usual: not at all 9. Thoughts that you would be better off or of hurting yourself in some way: not at all Total score: 0 Depression Screening Interpretation: Negative Depression Screening Done: Yes 90374 - PHQ-9 Billing: Yes Source: Developed by Drs. Yaniv Lake, Jyoti Wynn, Wagner Gr and colleagues, with an educational rosangela from [employer] Thrive Questionnaire Date Thrive assessed: 10/01/23 I am a: Patient What is your living situation today?: I have a steady place to live Within the past 12 months, did the food you bought not last and you didn't have the money to get more?: Never true Within the past 12 months, did you worry whether your food would run out before you got money to buy more?: Never true Do you have trouble paying for medicines?: No Do you have trouble getting transportation to medical appointments?: No Do you have trouble paying your heating and electricity bill?: No Do you have trouble taking care of your child, family member or friend?: No Do you have trouble with day-to-day activities such as bathing, preparing meals, shopping, managing finances, etc.?: No Are you currently unemployed and looking for a job?: No Are you interested in more education?: No Please select the resources that you would like help with: None Currently or been in a relationship where the following occur: No concerns reported THRIVE Score: 0 AUDIT C Alcohol Use Questionnaire (AUDIT-C) 1. How often do you have a drink containing alcohol?: Monthly or less 2. How many drinks containing alcohol do you have on a typical day when you are drinking?: 1 or 2 3. How often do you have six or more drinks on one occasion?: Never Total Score: 1 JERE-7 AMB Questionnaire JERE-7 Date JERE - 7 assessed: 10/01/23 Feeling nervous, anxious, or on edge: 0 = Not at all Not being able to stop or control worryin = Not at all Worrying too much about different things: 0 = Not at all Trouble relaxin = Not at all Being so restless that it is hard to sit still: 0 = Not at all Becoming easily annoyed or irritable: 0 = Not at all Feeling afraid as if something awful might happen: 0 = Not at all Total JERE-7 score (0-4 normal; 5-9 mild; 10-14 moderate; 15-21 severe): 0 Source: Developed by Drs. Yaniv Lake, Jyoti Wynn, Wagner Gr and colleagues, with an educational rosangela from [employer] JERE-7 Assessment Billing JERE-7 Assessment Tool: JERE-7 Assessment 92205 Review of Systems Const All systems reviewed & are unremarkable except as noted in HPI and below Eyes Reports no additional complaints ENT Reports no additional complaints Card Reports no additional complaints Resp Reports no additional complaints GI Reports no additional complaints Musc Reports no additional complaints Skin/Breast Reports as per HPI Neuro Reports no additional complaints Psych Reports no additional complaints Endo Reports no additional complaints Robe/Lymph Reports no additional complaints Aller/Immun Reports no additional complaints Physical exam (Primary Care) Vital Signs: Last Vital Signs Temp 97.9 F 01/16/25 11:59 Pulse 60 01/16/25 11:59 Resp 12 01/16/25 11:59 BP 100/64 01/16/25 11:59 Pulse Ox 100 01/16/25 11:59 Oxygen Delivery Method Room Air 01/16/25 11:59 BMI result Body Mass Index 27.4 Tobacco/Smoking Status: Tobacco use Status Tobacco use date assessed 01/16/25 01/16/25 12:04 Patient Tobacco Use Status Never used Tobacco 01/16/25 12:04 e-Cigarette/Vaping Use Never Used 01/16/25 12:04 PHQ-9: PHQ-9 Score PHQ-9: Total score 0 01/16/25 12:29 Depression Screening Interpretation: Negative Thrive Assessment: Date of Thrive Assessment Date Thrive assessed 10/01/23 01/16/25 12:04 Currently or been in a relationship where the following occur: No concerns reported Const General: cooperative and comfortable Nutritional Appearance: obese Orientation/consciousness: patient oriented x3 [facility] General nose exam: Normal external nose present Face and sinus: Yes face symmetric Mouth: Normal oral and palatal mucosa present and moist mucous membranes Neck Neck: Yes full ROM, Yes no lymphadenopathy and Yes supple Thyroid: Thyroid normal Resp Effort & Inspection: normal respiratory effort and able to speak in complete sentences Auscultation: clear to auscultation bilaterally Cardio Jugular venous distension: no JVD Rate: regular rate Rhythm: regular rhythm Heart sounds: S1 normal heart sound present, S2 normal heart sound present and no murmurs Bruits: no carotid bruits GI Inspection: Yes obesity Palpation (GI): Soft to palpation, nontender, not rigid and no masses Auscultation: normal bowel sounds Neuro General: patient oriented x3, gait normal, moves all extremities, Normal light touch and pain sensation and no focal motor deficits Extrem General: Yes full ROM, Yes no joint enlargement, Yes no clubbing, cyanosis or edema and Yes normal gait Psych Appearance: grossly normal and well kempt Mental Status: mental status grossly normal Speech and movement: Normal speech and movement present Affect: normal affect Attitude: cooperative Thought process: Normal thought process present Results Reviewed Results Reviewed: Name: Lisha Solis Age/Sex: 69/F : 1955 Unit#: [id number] Attend Dr: Sabrina Felix MD Re01/13/25 Status: DEP [facility] SPEC : [id number] ASHLEY: 01/13/25 STATUS: COMP REQ : [id number] RECD: 01/13/251316 SUBM DR: Sabrina Felix MD COMP: 01/13/25 ENTERED: 01/13/25-[address]: ORDERED: AST, ALT, Lipid Panel Test Result Flag Reference AST (GOT) 27 5-31 U/L Slight Hemolysis.Interpret result with caution. ALT (GPT) 18 0-31 U/L Triglyceride 61 <150 mg/dL Desirable Triglyceride: less than 150 mg/dL Borderline High Triglyceride 150-199 mg/dL High Triglyceride: 200-499 mg/dL Very High Triglyceride: greater than or equal to 5OO mg/dL Cholesterol 174 <200 mg/dL Desirable Cholesterol: less than 200 mg/dL Borderline High Cholesterol: 200-239 mg/dL High Cholesterol: greater than 239 mg/dL LDL Calculated 100 H <100 mg/dL Desirable LDL: less than 100 mg/dL Near Optimal/Above Optimal LDL: 110-129 mg/dL Borderline High LDL: 130-159 mg/dL High LDL: 160-189 mg/dL Very High LDL: greater than or equal to 190 mg/dL HDL 62 >40 mg/dL Desirable HDL: greater than 40 mg/dL Note: This HDL assay may give artificially low results in patients with liver disease. Coding Level of Care Code Est Pt Level 4 (12199) Complex EM visit Add On G2211 Diagnoses Pure hypercholesterolemia E78.00 Hyperlipidemia type: pure hypercholesterolemia Additional Codes JERE-7 Assessment Billing - JERE-7 Assessment Tool: JERE-7 Assessment 49135 ([id number]) PHQ-9 - 51839 - PHQ-9 Billing: Yes ([id number]) Assessment & Plan Assessment & Plan (1) Hyperlipidemia: Code(s): E78.5 - Hyperlipidemia, unspecified Category: Medical Qualifiers: Hyperlipidemia type: pure hypercholesterolemia Qualified Code(s): E78.00 - Pure hypercholesterolemia, unspecified Plan: Recent fasting lipids are within normal limits. Continue with atorvastatin 80 mg daily in addition to adherence to healthy and regular moderate intensity exercise at least 3 times a week Orders: Orders Lipid Panel 07/01/25 E78.00 - Pure hypercholesterolemia, unspecified Alanine Aminotransferase 07/01/25 E78.00 - Pure hypercholesterolemia, unspecified Aspartate Amino Transferase 07/01/25 E78.00 - Pure hypercholesterolemia, unspecified
== END 2025-01-16 12:50 | disposition home or self-care (01) ==
LOC: HO.HMCC 11:13
PROVIDERS: PCP Internal Medicine; Visit Provider Internal Medicine
DX: E78.00 Pure hypercholesterolemia, unspecified (principal)

== ENCOUNTER → 2025-01-16 11:12 | Outpatient (BNVA) | payer MEDICARE, OTHER, SELFPAY | PROVIDERS: PCP Internal Medicine; Visit Provider Internal Medicine | DX: E78.00 Pure hypercholesterolemia, unspecified (principal) | CPT/HCPCS: 96127; 99212 ==

== ENCOUNTER 2025-03-25 11:29 | Outpatient (REF) | payer MEDICARE, OTHER, SELFPAY ==
[2025-03-25 13:41] LABS: MANUAL DIFF FLAG NO
[2025-03-25 13:51] LABS: Hematocrit 29.3 % (37.0-47.0); Hemoglobin 10.0 g/dl (12.0-16.0); Imm Gran Abs Auto 0.02 X10*3/uL (0.00-0.03); Imm Gran Pct Auto 0.4 % (0.0-0.4); Lymphocytes Absolute Auto 1.2 X10*3/uL (1.2-4.9); Mean Corpuscular HGB Conc 34.1 g/dl (31.0-35.0); Mean Corpuscular Hemoglobin 32.4 pg (27.0-33.0); Mean Corpuscular Volume 94.8 fL (80.0-98.0); NRBC Abs Auto 0.000 X10*3/uL (0.0-0.012); NRBC Pct Auto 0.0 /100WBC (0.0-0.2); Platelet Count 161 X10*3/uL (160-400); Red Blood Count 3.09 X10*6/uL (4.20-5.50); White Blood Count 5.4 X10*3/uL (4.8-10.8)
[2025-03-25 14:45] LABS: Anion Gap 13 (12-20); Blood Urea Nitrogen 36 mg/dL (9-16); Calcium 8.2 mg/dL (8.4-10.2); Carbon Dioxide 17 mmol/L (22-29); Chloride 103 mmol/L (96-108); Estimated Glomerular Filt Rate 18; Iron 60 mcg/dL (30-160); Percent Iron Saturation 45 % (15-50); Potassium 3.9 mmol/L (3.3-5.1); Sodium 129 mmol/L (135-145); Total Iron Binding Capacity 134 mcg/dL (228-428); Unsaturated Iron Binding 74 ug/dL
[2025-03-25 14:47] LABS: Parathyroid Hormone Intact 340.4 pg/mL (8.7-77.1)
[2025-03-25 15:00] LABS: Ferritin 515 ng/mL (10-250)
[2025-03-25 15:10] LABS: Microalbum/Creatinine Ratio Ur 45.0 ug/mg cr (<30); Total Protein Urine Random < 7 mg/dL (<12)
== END 2025-03-25 11:30 | disposition home or self-care (01) ==
LOC: HO.HMGCLR 11:29
PROVIDERS: PCP Internal Medicine; Visit Provider Internal Medicine Nephrology
DX: N18.4 Chronic kidney disease, stage 4 (severe) (principal)
CPT/HCPCS: 36415; 80051; 82043; 82306; 82310; 82565; 82570; 82728; 83540; 83970; 84156; 84520; 85025

== ENCOUNTER 2025-07-18 10:21 | Outpatient (AMB) | payer MEDICARE, OTHER, SELFPAY ==
[2025-07-18 11:31] VITALS: BP 102/60; PULSE 68; RESP 16; TEMP 36.3; O2SAT 99; BMI 26.8
--- NOTE | 2025-07-18 11:31 | A.OFFVIS_ITS ---
Intake Vital Signs 07/18/25 11:31 Height 5 ft 6 in Weight 166 lb BMI 26.8 BP 102/60 Blood Pressure Location Lt brachial Position Sitting Respiration 16 Pulse 68 Pulse Source Pulse Oximeter Temp 97.4 F Temp Source Oral Pulse Oximetry (%) 99 Oxygen Delivery Method Room Air Intake Visit Reasons: JASON G0439 - see comments Allergies tetracycline (Tetracycline) Allergy (Severe, Verified 01/16/25 12:10) ANAPHYLAXIS, as a child, trouble breathing Medication List - Last Reconciled 07/18/25 by Sabrina Felix MD aspirin 81 mg PO DAILY atorvastatin 80 mg PO DAILY calcipotriene 0.005% topical cholecalciferol (vitamin D3) 1,250 mcg PO Q2W clobetasol 0.05% 1 appl topical BID PRN desoximetasone 0.25% topical ferrous sulfate 325 mg PO QAM halobetasol propionate 0.05% 1 appl topical BID PRN infliximab-dyyb (Inflectra) IV nystatin 1 appl topical DAILY potassium chloride ER (Klor-Con M) 50 mEq PO BID sodium bicarbonate 1,950 mg PO BID HPI [facility] G0439 - see comments HPI Details AWV ? 67 year old lady presents today for her Annual Wellness Visit, initial visit.? She is up-to-date with her cholesterol and fasting blood sugar screening, done 01/13/2025 and 09/20/2023 with normal results She is up-to-date with her screening mammogram done 09/09/2024, Pap smear done 04/03/2022, and bone density scan done 08/16/2021 Last colonoscopy screening was done in 03/08/2018 done at [facility]. Up-to-date with her COVID booster as well as her pneumococcal vaccination , shingles vaccine, RSV and Tdap. Has not yet received her yearly flu shot. ? Medical / Social History Reviewed? Past Medical History ?Yes . ? [place] of Care / Care Team list updated ?Yes . ? Surgical/Hospitalization History ?Yes . ? Current Medications (including OTC and supplements) ?Yes . ? Family History ?Yes . ? Tobacco Control form ?Yes . ? AUDIT-C (Alcohol use) form ?Yes . ? Illicit drug use in Social History ?Yes . ? Current diagnosis of depression? ?No ? Appropriate PHQ2/PHQ9 completed ?Yes . ? Data entered by ?Media Coordinator and reviewed by provider ? Fall Risk ? Fall History? Have you had any falls with injury in the past year? ?No . ? Have you had two or more falls in the past year? ?No . ? Fall Risk Assessment: ?No falls in the past year . ? HRA filled out by the patient, reviewed by Provider and scanned. ? AWV ? Balance? Romberg ?negative . ? Tandem walk ?Yes . ? Walk and Turn ?Yes . ? Rise from sit to stand ?Yes . ?Vision? Corrective lens ?none, sees Dr. Thomas ? Vision screen ?Hearing? Whisper test ?pass . ?Written Plan?Completed. See Patient Documents.? Healthcare proxy done 12/30/2023, and MOLST form done 06/23/2022 [facility] Medical History (Updated 07/20/25 @ 00:26 by Sabrina Felix MD) History of CVA (cerebrovascular accident) without residual deficits Psoriasis of vulva Plantar callus History of Holter monitoring Folate deficiency Vitamin B12 deficiency Secondary hyperparathyroidism Interstitial nephritis Hyperlipidemia Psoriasis vulgaris Abnormal Pap smear of cervix Osteoporosis Vulvar dermatitis Anemia due to chronic kidney disease Left Achilles tendinitis Kidney stones Chronic hypokalemia Lymphocytic colitis CKD (chronic kidney disease) stage 4, GFR 15-29 ml/min Surgical History Hx of colonoscopy H/O endoscopy History of colposcopy Family History Maternal Grandmother Breast cancer Maternal Aunt Breast cancer Colon cancer Sister Cervical cancer Social History Household Members: None Housing: House Do you presently have visiting nurse or other home services: No Alcohol intake: never Patient Tobacco Use Status: Never used Tobacco e-Cigarette/Vaping Use: Never Used Advance Directives Date on File: 06/23/22 service: Yes Current occupational status: retired Sexual orientation: Straight/Heterosexual Gender identity: Female Cognitive needs: No Hearing needs: No Vision needs: Yes Questionnaire Medicare Wellness Checkup [age] 65-70 What gender do you identify with?: female During the past 4 weeks, how much have you been bothered by emotional problems such as feeling anxious, depressed, irritable, sad or downhearted, and blue?: not at all During the past 4 weeks, has your physical & emotional health limited your social activities with family, friends, neighbors, or groups?: not at all During the past 4 weeks, how much bodily pain have you generally had?: no pain During the past 4 weeks, was someone available to help you if you needed & wanted help?: no, not at all During the past 4 weeks, what was the hardest physical activity you could do for at least 2 minutes?: very heavy Can you get to places out of walking distance without help? (For eg., can you travel alone on buses, taxis or drive your car?): Yes Can you go shopping for groceries or clothes without someone's help?: Yes Can you prepare your own meals?: Yes Can you do your housework without help?: Yes Because of any health problems, do you need the help of another person with your personal care needs such as eating, bathing, dressing or getting around the house?: No Can you handle your own money without help?: Yes During the past 4 weeks, how would you rate your health in general?: excellent During the past 4 weeks how have things been going for you?: very well; could hardly better Are you having difficulties driving your car?: no Do you always fasten your seat belt when you are in a car?: yes, usually During past 4 weeks, have you been bothered by the following: never: Falling or dizzy when standing up, Sexual problems?, Trouble eating well?, Teeth or denture problems?, Problems using the telephone? and Tiredness or fatigue? Have you fallen 2 or more times in the past year?: No Are you afraid of falling?: No Are you a smoker?: no During the past 4 weeks, how many drinks of wine, beer, or other alcoholic beverages did you have?: no alcohol at all Do you exercise for about 20 minutes 3 or more times a week?: no, I usually do not exercise this much Have you been given information to help with the following?: no: Hazards in your house that might hurt you? and no: Keeping track of your medications? How often do you have trouble taking medicines the way you have been told to take them?: I always take medicine as prescribed How confident are you that you can control & manage most of your health problems?: very confident What is your race?: White Mini Mental State Exam (MMSE) Orientation What is the (year) (season) (date) (day) (month)?: year (2024), season (Fall), date (07/18/25), day (thursday) and month (Nov) Where are we (state) (county) (town or city) (hospital) (floor)?: state ([facility] ([place]), town or city ([place]) and hospital/clinic ([facility] [place] Score Score: 9 Activity of Daily Living Bathing - sponge bath, tub bath or shower: receives no assistance (gets in/out by self, if usual bathing means Dressing - getting clothes from closets & drawers, including inner/outer garments & fasteners.: gets clothes & gets completely dressed without help Toileting - going to the 'toilet room' for urine/bowel elimination & cleaning self/arranging clothes: goes to toilet room, cleans self, arranges clothes without help Transfer: moves in & out of bed and chair without help (may use support object) Continence: has occasional 'accidents' Feeding: feeds self without help Total Score: 0 Information obtained from: patient Using telephone: independent Traveling: independent Shopping: independent Preparing meals: independent Housework: independent Taking medicine: independent Managing money: independent Physical Exam Vital Signs: Last Vital Signs Temp 97.4 F 07/18/25 11:31 Pulse 68 07/18/25 11:31 Resp 16 07/18/25 11:31 BP 102/60 07/18/25 11:31 Pulse Ox 99 07/18/25 11:31 Oxygen Delivery Method Room Air 07/18/25 11:31 BMI result Body Mass Index 26.8 Assessment & Plan Assessment & Plan (1) Encounter for subsequent annual wellness visit (AWV) in Medicare patient: Code(s): Z00.00 - Encounter for general adult medical examination without abnormal findings Plan: Medical wellness checklist reviewed, discussed with patient and updated. Up-to-date with vaccinations. Up-to-date with advanced directives (2) Osteoporosis: Code(s): M81.0 - Age-related osteoporosis without current pathological fracture Plan: An order will be placed for a repeat bone density scan, as the last one was in 2020. The plan is to coordinate scheduling of the bone density scan with the patient's existing mammogram appointment on September 15. Treatment options, such as weekly Fosamax, were discussed as a possibility if osteoporosis is found to be worsening, though the patient expressed a preference to avoid new medications. A decision on initiating treatment will be made after reviewing the results of the upcoming scan, considering that an quality assurance specialist previously deferred medication due to her kidney disease and transplant status (3) Hyperlipidemia: Code(s): E78.5 - Hyperlipidemia, unspecified Qualifiers: Hyperlipidemia type: pure hypercholesterolemia Qualified Code(s): E78.00 - Pure hypercholesterolemia, unspecified Plan: Currently on atorvastatin 40 mg taken every other day (4) Anemia due to chronic kidney disease: Code(s): N18.9 - Chronic kidney disease, unspecified; D63.1 - Anemia in chronic kidney disease Plan: Currently being followed by Nephrology at [facility] (5) Psoriasis vulgaris: Comment: Sees Dr. Tina lawrence at [facility] Code(s): L40.0 - Psoriasis vulgaris Plan: Currently followed by [facility], receiving Inflectra infusion (6) CKD (chronic kidney disease) stage 4, GFR 15-29 ml/min: Comment: Followed by Nephrology at [facility]. 12/25/23 on kidney transplant list. Code(s): N18.4 - Chronic kidney disease, stage 4 (severe) Plan: Followed at [facility] nephrology clinic (7) Lymphocytic colitis: Code(s): K52.832 - Lymphocytic colitis Plan: Currently being followed at [facility] by Dr. Segura (8) Secondary hyperparathyroidism: Code(s): N25.81 - Secondary hyperparathyroidism of renal origin Plan: Followed by Nephrology (9) History of CVA (cerebrovascular accident) without residual deficits: Code(s): Z86.73 - Personal history of transient ischemic attack (TIA), and cerebral infarction without residual deficits Plan: Currently on aspirin 81 mg and atorvastatin 40 mg every other day Orders: Orders XR DEXA axial skeleton 07/18/25 M81.0 - Age-related osteoporosis without current pathological fracture Medications: New atorvastatin (Lipitor) 40 mg PO Q2D 45 tabs 4RF 3 months Discontinued atorvastatin Discontinued Reason: Doctor's Order 80 mg PO DAILY 90 tabs 3RF Coding Level of Care Code Medicare Subsequent (G0439) Diagnoses Encounter for subsequent annual wellness visit (AWV) in Medicare patient Z00.00 Osteoporosis M81.0 Pure hypercholesterolemia E78.00 Hyperlipidemia type: pure hypercholesterolemia Anemia due to chronic kidney disease N18.9; D63.1 Psoriasis vulgaris L40.0 CKD (chronic kidney disease) stage 4, GFR 15-29 ml/min N18.4 Lymphocytic colitis K52.832 Secondary hyperparathyroidism N25.81 History of CVA (cerebrovascular accident) without residual deficits Z86.73
== END 2025-07-18 12:17 | disposition home or self-care (01) ==
LOC: HO.HMCC 10:22
PROVIDERS: PCP Internal Medicine; Visit Provider Internal Medicine
DX: Z00.00 Encounter for general adult medical examination without abnormal findings (principal); M81.0 Age-related osteoporosis without current pathological fracture; N18.4 Chronic kidney disease, stage 4 (severe); E78.00 Pure hypercholesterolemia, unspecified; D63.1 Anemia in chronic kidney disease; L40.0 Psoriasis vulgaris; K52.832 Lymphocytic colitis; N25.81 Secondary hyperparathyroidism of renal origin; Z86.73 Personal history of transient ischemic attack (TIA), and cerebral infarction without residual deficits

== ENCOUNTER 2025-08-03 12:45 | Outpatient (REF) | payer MEDICARE, OTHER, SELFPAY ==
[2025-08-04 00:09] LABS: Bacterial Vaginosis PCR NEGATIVE (Negative); Candida Group PCR NOT DETECTED (Not Detect); Candida glab krusei PCR NOT DETECTED (Not Detect); Trichomonas vaginalis PCR NOT DETECTED (Not Detect)
== END 2025-08-03 12:46 | disposition home or self-care (01) ==
LOC: HO.LNP 12:45
PROVIDERS: PCP Internal Medicine; Visit Provider Advanced Practice Midwife
DX: Z87.42 Personal history of other diseases of the female genital tract (principal); Z11.51 Encounter for screening for human papillomavirus (HPV); Z20.2 Contact with and (suspected) exposure to infections with a predominantly sexual mode of transmission
CPT/HCPCS: 81515; 87626; 88175; 99212

== ENCOUNTER 2025-08-03 12:45 | Outpatient (AMB) | payer MEDICARE, OTHER, SELFPAY ==
--- NOTE | 2025-08-03 12:54 | A.OFFVIS_ITS ---
Vital Signs 08/03/25 12:58 Height 5 ft 6 in Weight 168 lb BMI 27.1 BP 108/76 Blood Pressure Location Rt brachial Position Sitting Intake Visit Reasons: pap only Intake Note: here for pap smear Supervisor Refining Required: No Information Interpreted: non-clinical & clinical Assistant Manager/Embalmer: Assistant Manager/Embalmer Present (Allie) Accompanied by: Self / Same As Patient Allergies tetracycline (Tetracycline) Allergy (Severe, Verified 08/03/25 13:00) ANAPHYLAXIS, as a child, trouble breathing Medication List - Last Reconciled 08/03/25 by Cristin Galdamez LPN aspirin 81 mg PO DAILY atorvastatin (Lipitor) 40 mg PO Q2D 3 months calcipotriene 0.005% topical cholecalciferol (vitamin D3) 1,250 mcg PO Q2W clobetasol 0.05% 1 appl topical BID PRN desoximetasone 0.25% topical ferrous sulfate 325 mg PO QAM halobetasol propionate 0.05% 1 appl topical BID PRN infliximab-dyyb (Inflectra) IV nystatin 1 appl topical DAILY potassium chloride ER (Klor-Con M) 50 mEq PO BID sodium bicarbonate 1,950 mg PO BID Do you need a note to return to daycare/school/sports/work: No HPI Comments Details: Patient is here today for repeat pap due to history of LEEP, ASCUS. History of vulvar psoriasis, chronic diarrhea and skin irritation. Uses multiple topicals for vuvlar/anal care. Mostly symptomatic at nighttime. [facility] Medical History History of CVA (cerebrovascular accident) without residual deficits Psoriasis of vulva Plantar callus History of Holter monitoring Folate deficiency Vitamin B12 deficiency Secondary hyperparathyroidism Interstitial nephritis Hyperlipidemia Psoriasis vulgaris Abnormal Pap smear of cervix Osteoporosis Vulvar dermatitis Anemia due to chronic kidney disease Left Achilles tendinitis Kidney stones Chronic hypokalemia Lymphocytic colitis CKD (chronic kidney disease) stage 4, GFR 15-29 ml/min Surgical History Hx of colonoscopy H/O endoscopy History of colposcopy Family History Maternal Grandmother Breast cancer Maternal Aunt Breast cancer Colon cancer Sister Cervical cancer Social History Household Members: None Housing: House Do you presently have visiting nurse or other home services: No Alcohol intake: never Patient Tobacco Use Status: Never used Tobacco e-Cigarette/Vaping Use: Never Used Advance Directives Date on File: 06/23/22 service: Yes Current occupational status: retired Sexual orientation: Straight/Heterosexual Gender identity: Female Cognitive needs: No Hearing needs: No Vision needs: Yes Female Reproductive History Menstrual Menopause type: natural Total pregnancies: 0 Number of Living Children: 0 Date of last pap smear: 04/03/22 History of abnormal pap smear: Yes (02/22/21 ASCUS) Date of Mammogram: 09/09/24 History of abnormal mammogram: No Review of Systems Const All systems reviewed & are unremarkable except as noted in HPI and below Physical Exam Vital Signs: Last Vital Signs BP 108/76 08/03/25 12:58 BMI result Body Mass Index 27.1 Const General: cooperative, healthy appearing and no acute distress Orientation/consciousness: patient oriented x3 GI Inspection: Yes normal to inspection Palpation (GI): Soft to palpation and Other GI palpation findings present (Nontender) Rectal Exam - Female: visual inspection normal General: Yes bladder normal to palpation External Female Exam: normal appearance of the urethra and erythema Speculum Exam - Vagina: normal appearance of the vagina, normal palpation, normal vaginal discharge (Thin milky discharge) and vagina atrophic Speculum Exam - Cervix: normal appearance of the cervix, normal palpation and O ther cervical findings present (Post LEEP appearance, atrophic, bled with the Pap) Bimanual exam- vagina & uterus: normal bimanual exam, normal palpation, uterine size normal, bladder normal to palpation, normal palpation, uterine shape normal and non-tender Bimanual Exam- Adnexa, other: normal adnexae Neuro General: patient oriented x3 Assessment & Plan Assessment & Plan (1) History of abnormal cervical Pap smear: Code(s): Z87.42 - Personal history of other diseases of the female genital tract Plan Repeat Pap completed today await results for final plan of care. Discussed skin care concerns referred back to her cabinetmaker supervisor for further treatment and evaluation. BV panel obtained to rule out any underlying yeast or BV today await results for final plan of care. The patient expressed understanding and agreement with the plan of care. All of her questions and concerns were addressed to the best of my ability. This note is constructed using voice recognition software. While every effort has been made to ensure accuracy, uniform cap operator errors may have been included. Orders: Orders Pap Smear Today Z87.42 - Personal history of other diseases of the female genital tract HPV High risk Today Z87.42 - Personal history of other diseases of the female genital tract Bacterial Vaginosis Panel Today Z11.3 - Encounter for screening for infections with a predominantly sexual mode of transmission Coding Level of Care Code Est Pt Level 3 (69077) Diagnoses History of abnormal cervical Pap smear Z87.42
[2025-08-03 12:58] VITALS: BP 108/76; BMI 27.1
== END 2025-08-03 13:26 | disposition home or self-care (01) ==
LOC: HO.HWS 12:46
PROVIDERS: PCP Internal Medicine; Visit Provider Advanced Practice Midwife
DX: Z87.42 Personal history of other diseases of the female genital tract (principal)
CPT/HCPCS: 99213

== ENCOUNTER 2025-08-04 11:53 | Outpatient (REF) | payer MEDICARE, OTHER, SELFPAY ==
[2025-08-04 13:30] LABS: Hematocrit 32.3 % (37.0-47.0); Hemoglobin 10.2 g/dl (12.0-16.0); Mean Corpuscular HGB Conc 31.6 g/dl (31.0-35.0); Mean Corpuscular Hemoglobin 32.2 pg (27.0-33.0); Mean Corpuscular Volume 101.9 fL (80.0-98.0); NRBC Abs Auto 0.000 X10*3/uL (0.0-0.012); NRBC Pct Auto 0.0 /100WBC (0.0-0.2); Platelet Count 173 X10*3/uL (160-400); Red Blood Count 3.17 X10*6/uL (4.20-5.50); White Blood Count 7.1 X10*3/uL (4.8-10.8)
[2025-08-04 14:32] LABS: Microalbum/Creatinine Ratio Ur 55.0 ug/mg cr (<30); Total Protein Urine Random < 7 mg/dL (<12)
[2025-08-04 14:36] LABS: Parathyroid Hormone Intact 307.5 pg/mL (8.7-77.1)
[2025-08-04 17:14] LABS: Alanine Aminotransferase 9 U/L (0-31); Aspartate Amino Transferase 22 U/L (5-31); Cholesterol 151 mg/dL (<200); HDL Cholesterol 59 mg/dL (>40); Triglycerides 76 mg/dL (<150)
[2025-08-04 18:49] LABS: Anion Gap 11 (12-20); Blood Urea Nitrogen 26 mg/dL (9-16); Calcium 8.6 mg/dL (8.4-10.2); Carbon Dioxide 18 mmol/L (22-29); Chloride 104 mmol/L (96-108); Estimated Glomerular Filt Rate 19; Iron 52 mcg/dL (30-160); Percent Iron Saturation 39 % (15-50); Potassium 4.3 mmol/L (3.3-5.1); Sodium 129 mmol/L (135-145); Total Iron Binding Capacity 135 mcg/dL (228-428); Total Protein 6.8 g/dL (6.5-8.0); Unsaturated Iron Binding 83 ug/dL
== END 2025-08-04 11:54 | disposition home or self-care (01) ==
LOC: HO.HMGCLDS 11:53
PROVIDERS: PCP Internal Medicine; Visit Provider Internal Medicine Nephrology
DX: N18.4 Chronic kidney disease, stage 4 (severe) (principal); E78.00 Pure hypercholesterolemia, unspecified
CPT/HCPCS: 36415; 80051; 80061; 82043; 82306; 82310; 82565; 82570; 83540; 83970; 84155; 84156; 84450; 84460; 84520; 85027